=== PATIENT | female | born 1950 | race Caucasian/White ===

== ENCOUNTER 2021-06-08 19:16 | Inpatient (IN) ==
[2021-06-08 20:16] LABS: ABG ALLEN TEST POS; ABG BASE EXCESS 1.6 mmol/L (-2.0-2.0); ABG HCO3 23.9 mmol/L (22-26)
--- NOTE | 2021-06-08 20:20 | DR.SOBA ---
HPI Time Seen Time Seen by Provider: 06/08/21 20:14 HPI Comment HPI Comment: PATIENT RECENTLY DIAGNOSED WITH COVID 1 WEEK AGO COMPLAINS OF DYSNEA AND A PRODUCTIC COUGH AND MARKED EXERTIONAL DYSPNEA. DENIES FEVER, CHEST PAIN. 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 Family History Family Medical History: Cancer, CT, Coronary Artery Disease and Hypertension Social History Do you use any recreational Drugs:: No ROS Review of Systems Constitutional: Chills, Fever, Malaise and Weakness Eyes: No Symptoms Reported ENTM: No Symptoms Reported Respiratoy: Dry Cough and Short of Breath Cardiovascular: No Symptoms Reported Gastrointestinal/Abdominal: No Symptoms Reported Genitourinary: No Symptoms Reported Neurological: No Symptoms Reported Musculoskeletal: No Symptoms Reported Integumentary: No Symptoms Reported Hematologic/Lymphatic: No Symptoms Reported Endocrine: No Symptoms Reported Psychiatric: No Symptoms Reported All Other Systems: Reviewed and Negative PE Vital Signs Vitals: Pulse Rate 91 Respiratory Rate 33 Blood Pressure [Left Arm] 163/90 Blood Pressure [Right Arm] 176/96 Blood Pressure 128/65 O2 Sat by Pulse Oximetry 97 General General Appearance: Alert and In Distress (MODERATE TACHYPNEA) Head Head Exam: Normal Inspection and Atraumatic Eyes Eye exam: Normal Appearance, PERRL and EOMI Neck Neck Exam: Full ROM Chest Chest Inspection: Normal Inspection and Symmetric Chest Wall Rise Respiratory Respiratory Exam: Bilateral: Decreased Breath Sounds and Lower: Decreased Breath Sounds Cardiovascular Cardiovascular Exam: Regular Rate and Tachycardia Abdominal Exam Abdominal Exam: Normal Inspection and Normal Bowel Sounds Extremities Extremities Exam: Normal Inspection and Full ROM Back Back Exam: Normal Inspection and Full ROM Neurologic Neurological Exam: Alert and Oriented X3 Psychiatric Psychiatric Exam: Normal Affect and Normal Mood MDM Additional Information Obtained Additional Findings:: COVID PNEUMONIA Differential Diagnosis Differential Diagnosis: CHF, COPD, Pneumonia and Pulmonary embolism COURSE Treatment Treatment: IV NORMAL SALINE 150ML/HR, BLOOD CULTURES, LEVAQUIN 500GM IVPB, PULSE OX 70'S PLACED ON BIPAP, IMPROVEMENT IN AGB PH-7.49/C02-34/P02-74/HCO3-25.9/SAT-96%, CODE STATUS DISCUSSED WITH PATIENT REFUSES INTUBATION WITH PLACEMENT ON VENTILATOR, REQUEST CHEMICAL CODE ONLY Reevaluation 1st: Improved Consultation Call Returned: 04:00 Consultation Comments: DISCUSSED WITH DR MATT FOR INPATIENT ADMISSION Education/Counseling Educated On: Treatment and Diagnosis ROR Labs Reviewed Laboratory Results Reviewed?: Yes Result Diagrams: 06/08/21 20:42 06/08/21 20:42 Laboratory: WBC 8.5 X10^3/uL (3.6-10.0) 06/08/21 20:42 RBC 4.43 X10^6/uL (3.5-5.4) 06/08/21 20:42 Hgb 11.5 g/dL (12.0-16.0) L 06/08/21 20:42 Hct 35.1 % (36.0-47.0) L 06/08/21 20:42 MCV 79.2 fL (80.0-100.0) L 06/08/21 20:42 MCH 25.9 pg (27.0-34.0) L 06/08/21 20:42 MCHC 32.7 g/dL (33.0-35.0) L 06/08/21 20:42 RDW 16.2 % (11.6-16.5) 06/08/21 20:42 Plt Count 283 X10^3/uL (150.0-450.0) 06/08/21 20:42 Plt Count Comment Adequate (ADEQUATE) 06/08/21 20:42 MPV 7.3 fL (7.4-11.0) L 06/08/21 20:42 Neut % (Auto) 92.4 % (42.0-75.0) H 06/08/21 20:42 Lymph % (Auto) 1.9 % (21.0-51.0) L 06/08/21 20:42 [place]gard % (Auto) 5.4 % (0.0-13.0) 06/08/21 20:42 Eos % (Auto) 0.0 % (0.9-2.9) L 06/08/21 20:42 Baso % (Auto) 0.3 % (0.2-1.0) 06/08/21 20:42 Neut # (Auto) 7.8 x10^3/uL (2.2-4.8) H 06/08/21 20:42 Lymph # (Auto) 0.2 X10^3/uL (1.3-2.9) L 06/08/21 20:42 Bea[place]gard # (Auto) 0.5 x10^3/uL (0.3-0.8) 06/08/21 20:42 Eos # (Auto) 0.0 x10^3/uL (0.0-0.2) 06/08/21 20:42 Baso # (Auto) 0.0 X10^3/uL (0.0-0.1) 06/08/21 20:42 Absolute Nucleated RBC 0.2 /100WBC 06/08/21 20:42 Total Counted 100 06/08/21 20:42 Neutrophils % (Manual) 97 % (39-76) H 06/08/21 20:42 Lymphocytes % (Manual) 2 % (13-43) L 06/08/21 20:42 Monocytes % (Manual) 1 % (4-9) L 06/08/21 20:42 Plt Morphology Comment Normal (NORMAL) 06/08/21 20:42 RBC Morphology Normal (NORMAL) 06/08/21 20:42 PT 15.4 SECONDS (11.8-14.3) 06/08/21 20:42 INR Target Range - 06/08/21 20:42 INR 1.28 (0.8-1.3) 06/08/21 20:42 D-Dimer 1.49 ug/ml (0.0-0.57) H* 06/08/21 20:42 Sample Site Lra 06/09/21 02:10 ABG pH 7.490 (7.35-7.45) H 06/09/21 02:10 ABG pCO2 34.0 mmHg (35.0-45.0) L 06/09/21 02:10 ABG pO2 74.0 mmHg (80.0-100.0) L 06/09/21 02:10 ABG HCO3 25.9 mmol/L (22-26) 06/09/21 02:10 ABG O2 Saturation 96.0 % (90-100) 06/09/21 02:10 ABG Base Excess 2.8 mmol/L (-2.0-2.0) H 06/09/21 02:10 Herminio Test Pos 06/09/21 02:10 A-a Gradient 418.0 mmHg 06/09/21 02:10 FiO2 75.0 06/09/21 02:10 Blood Gas Comments Shyam well mts 06/09/21 02:10 Sodium 141 mmol/L (136-145) 06/08/21 20:42 Corrected Sodium 141 mmol/L (136-145) 06/08/21 20:42 Potassium 3.7 mmol/L (3.5-5.1) 06/08/21 20:42 Chloride 105 mmol/L (98-107) 06/08/21 20:42 Carbon Dioxide 26.9 mmol/L (21-32) 06/08/21 20:42 BUN 10 mg/dL (7-18) 06/08/21 20:42 Creatinine 0.82 mg/dL (0.55-1.02) 06/08/21 20:42 Est GFR (MDRD) Af Amer > 60 (>60) 06/08/21 20:42 Est GFR (MDRD) Non-Af > 60 (>60) 06/08/21 20:42 Glucose 119 mg/dL (65-99) H 06/08/21 20:42 Calcium 8.0 mg/dL (8.5-10.1) L 06/08/21 20:42 Corrected Calcium 9.4 mg/dL (8.5-10.1) 06/08/21 20:42 Ferritin 198 ng/mL (8-252) 06/08/21 20:42 Total Bilirubin 0.50 mg/dL (0.2-1.0) 06/08/21 20:42 AST 45 Units/L (15-37) H 06/08/21 20:42 ALT 34 Units/L (12-78) 06/08/21 20:42 Alkaline Phosphatase 67 Units/L (46-116) 06/08/21 20:42 Troponin I < 0.02 ng/mL (0-1.5) 06/08/21 20:42 C-Reactive Protein 37.40 mg/L (0-3.0) H 06/08/21 20:42 Total Protein 6.4 g/dL (6.4-8.2) 06/08/21 20:42 Albumin 2.2 g/dL (3.4-5.0) L 06/08/21 20:42 Globulin 4.2 g/dL (2.5-4.5) 06/08/21 20:42 Albumin/Globulin Ratio 0.5 Ratio (1.1-2.1) L 06/08/21 20:42 Specimen Type Catherized urine 06/09/21 03:30 Urine Color Yellow (YELLOW) 06/09/21 03:30 Urine Appearance Clear (CLEAR) 06/09/21 03:30 Urine pH 6.0 (5.0 - 8.0) 06/09/21 03:30 Ur Specific [place] 1.010 (1.000-1.030) 06/09/21 03:30 Urine Protein 2+ (NEGATIVE) 06/09/21 03:30 Urine Glucose (UA) Negative (NEGATIVE) 06/09/21 03:30 Urine Ketones Negative (NEGATIVE) 06/09/21 03:30 Urine Occult Blood 1+ (NEGATIVE) 06/09/21 03:30 Urine Nitrite Negative (NEGATIVE) 06/09/21 03:30 Urine Bilirubin Negative (NEGATIVE) 06/09/21 03:30 Urine Urobilinogen Normal (NORMAL) 06/09/21 03:30 Ur Leukocyte Esterase Negative (NEGATIVE) 06/09/21 03:30 Urine RBC 0-2 /HPF (0-3) 06/09/21 03:30 Urine WBC None seen /HPF (0-5) 06/09/21 03:30 Ur Squamous Epith Cells Negative /HPF (NEGATIVE) 06/09/21 03:30 Urine Bacteria Negative /HPF (NEGATIVE) 06/09/21 03:30 Ur Culture Indicated? No/not indicated 06/09/21 03:30 XRAY XRAY Interpreted by: Radiologist (CTA CHEST- NO EVIDENCE OF PULMONARY EMBOLISM, MODERATE BILAT GROUND GLASS INFILTRATES) X-ray Results: PORTABLE CHEST XRAY- BILAT PNEUMONIA EKG Rate: 104 Rhythm: NSR and ST ST: Nonsp Opioid Opioid Risk Tool Age ([place] box if 16-45): No History of Preadolescent Sexual Abuse: No Total: 0 Total Score Risk Category: Low Risk Copyright: Michele SOLIS predicting aberrant behaviors Diagnosis Discharge Problem: Acute dyspnea, Acute respiratory insufficiency, Pneumonia due to 2019-nCoV
[2021-06-08] MEDS ORDERED: NS 1000 ML 1,000 ML IV STA (20:25)
[2021-06-08] MEDS ORDERED: LEVAQUIN PREMIX IV 500 MG 500 MG/100 ML BAG IV ONE ×3 (20:26→21:58)
[2021-06-08 21:02] LABS: BASOPHILS % (AUTO) 0.3 % (0.2-1.0); HEMATOCRIT 35.1 % (36.0-47.0); HEMOGLOBIN 11.5 g/dL (12.0-16.0); LYMPHOCYTES # (AUTO) 0.2 X10^3/uL (1.3-2.9); LYMPHOCYTES % (AUTO) 1.9 % (21.0-51.0); MEAN CORPUSCULAR HEMOGLOBIN 25.9 pg (27.0-34.0); MEAN CORPUSCULAR HGB CONC 32.7 g/dL (33.0-35.0); MEAN CORPUSCULAR VOLUME 79.2 fL (80.0-100.0); MEAN PLATELET VOLUME 7.3 fL (7.4-11.0); MONOCYTES # (AUTO) 0.5 x10^3/uL (0.3-0.8); MONOCYTES % (AUTO) 5.4 % (0.0-13.0); NEUTROPHILS # (AUTO) 7.8 x10^3/uL (2.2-4.8); NEUTROPHILS % (AUTO) 92.4 % (42.0-75.0); PLATELET COUNT 283 X10^3/uL (150.0-450.0); RED BLOOD COUNT 4.43 X10^6/uL (3.5-5.4); RED CELL DISTRIBUTION WIDTH 16.2 % (11.6-16.5); WHITE BLOOD COUNT 8.5 X10^3/uL (3.6-10.0)
[2021-06-08] MEDS ORDERED: NS 1000 ML 1,000 ML ONE (21:08)
[2021-06-08 21:17] LABS: ALANINE AMINOTRANSFERASE 34 Units/L (12-78); ALBUMIN 2.2 g/dL (3.4-5.0); ALKALINE PHOSPHATASE 67 Units/L (46-116); ASPARTATE AMINO TRANSFERASE 45 Units/L (15-37); BLOOD UREA NITROGEN 10 mg/dL (7-18); CARBON DIOXIDE 26.9 mmol/L (21-32); CHLORIDE 105 mmol/L (98-107); COR CA(FOR HYPOALB) 9.4 mg/dL (8.5-10.1); COR NA(FOR HYPERGLY) 141 mmol/L (136-145); CREATININE 0.82 mg/dL (0.55-1.02); SODIUM 141 mmol/L (136-145); TOTAL PROTEIN 6.4 g/dL (6.4-8.2); TROPONIN I < 0.02 ng/mL (0-1.5); eGFR NON BLACK RACES > 60 (>60)
[2021-06-08 21:26] LABS: PLATELET MORPHOLOGY COMMENT NORMAL (NORMAL)
[2021-06-08] MEDS ORDERED: DUONEB 0.5 MG/3 MG (3 mL) NEB STA (21:48)
[2021-06-08] MEDS ORDERED: DUONEB 0.5 MG/3 MG (3 mL) NEB ONE (21:57)
--- NOTE | 2021-06-08 22:05 | RAD ---
PROCEDURE: Chest X-ray 1 View .HISTORY: Dyspnea and COVID-19.TECHNIQUE: AP view .COMPARISON: 06/03/2021.TECHNICAL QUALITY: Satisfactory .FINDINGS:Heart size upper limits of normal and unchanged.Normal central vascularity.Moderate consolidation throughout the right lung field and left base consistent with pneumonia that is increased or appeared since previous study. No pleural fluid or pneumothorax.IMPRESSION:Moderate bilateral pneumonia greatest on the right.Electronically signed by: Lenin Wilosn (Jun 08, 2021 22:03:38)
--- NOTE | 2021-06-08 23:28 | CT ---
PROCEDURE: CTA Chest .HISTORY: Dyspnea, anorexia, and COVID-19.TECHNIQUE: Axial images were performed through the chest with the administration of IV contrast with multiplanar reformations . 3D and MIPS reconstructions were performed and reviewed. Dose reduction techniques including Automated Exposure Control (AEC) and adjustment of mA and kV were utilized .COMPARISON: None .TECHNICAL QUALITY: Satisfactory .FINDINGS:Mild atherosclerosis thoracic aorta with no aneurysm or dissection.No evidence of pulmonary embolus.Mediastinum and hilar regions show no masses or lymphadenopathy.Normal size heart with no pericardial fluid.Moderately severe ground-glass consolidation both lung lopez consistent with COVID-19 pneumonia. No pleural fluid or pulmonary masses.Visualized upper abdomen shows no significant abnormality.No acute bony abnormality.IMPRESSION:1. No pulmonary embolus or aortic dissection.2. Moderately severe COVID-19 pneumonia.Electronically signed by: Lenin Wilson (Jun 08, 2021 23:25:31)
[2021-06-09 02:15] LABS: ABG BASE EXCESS 2.8 mmol/L (-2.0-2.0); ABG HCO3 25.9 mmol/L (22-26)
[2021-06-09 02:16] LABS: ABG ALLEN TEST POS
[2021-06-09 04:29] LABS: BILIRUBIN,URINE NEGATIVE (NEGATIVE); BLOOD/HEMOGLOBIN,URINE 1+ (NEGATIVE); GLUCOSE, URINE NEGATIVE (NEGATIVE); KETONES,URINE NEGATIVE (NEGATIVE); LEUKOCYTE ESTERASE ,URINE NEGATIVE (NEGATIVE); NITRITES,URINE NEGATIVE (NEGATIVE); PROTEIN,URINE 2+ (NEGATIVE); UROBILINOGEN,URINE NORMAL (NORMAL)
[2021-06-09 04:36] LABS: APPEARANCE,URINE CLEAR (CLEAR); COLOR,URINE YELLOW (YELLOW)
[2021-06-09 04:37] LABS: BACTERIA,URINE NEGATIVE /HPF (NEGATIVE); RBC,URINE 0-2 /HPF (0-3); SQUAMOUS EPITHELIAL CELL,UR NEGATIVE /HPF (NEGATIVE)
[2021-06-09] MEDS ORDERED: NORCURON INJ 10 MG VIAL ONE (06:43)
[2021-06-09] MEDS ORDERED: QUELICIN (OR ANECTINE) ONE (06:43)
[2021-06-09] MEDS ORDERED: DUONEB 0.5 MG/3 MG (3 mL) NEB SCH (06:48)
[2021-06-09] MEDS: PULMICORT NEB TX 0.5 MG NEB SCH ×2 (08:48→20:40)
[2021-06-09] MEDS: BROVANA IN SCH ×2 (08:48→20:40)
[2021-06-09] MEDS ORDERED: PROVENTIL NEB TX 0.083% 2.5MG/ 3ML NEB PRN (09:00)
[2021-06-09] MEDS: NS 1000 ML 1,000 ML IV SCH ×3 (09:46→22:38)
[2021-06-09] MEDS ORDERED: NS 1000 ML 1,000 ML ONE (10:03)
[2021-06-09] MEDS ORDERED: ZOFRAN INJ 4 MG VIAL IVP PRN (10:08)
[2021-06-09] MEDS ORDERED: ZOFRAN INJ 4 MG VIAL ONE (10:35)
[2021-06-09] MEDS ORDERED: HumuLIN R SUBCUT PRN (10:36)
[2021-06-09] MEDS ORDERED: REMDESIVIR 200 MG in NS 250 ML IV 250 ML IV ONE (10:36)
[2021-06-09] MEDS ORDERED: ROBITUSSIN DM PO PRN (10:36)
[2021-06-09] MEDS ORDERED: PHARMACY CONSULT - IVERMECTIN XX SCH (11:00)
[2021-06-09] MEDS ORDERED: ZyrTEC TAB 10 MG ONE (11:36)
[2021-06-09] MEDS ORDERED: NORVASC TAB 5 MG ONE (11:36)
[2021-06-09] MEDS ORDERED: SOLU-Medrol 40 MG VIAL ONE (11:36)
[2021-06-09] MEDS ORDERED: IVERMECTIN ONE (11:36)
[2021-06-09] MEDS ORDERED: VITAMIN D3 125 mcg (5,000 UNITS) ONE (11:36)
[2021-06-09] MEDS ORDERED: ZINC SULFATE ONE (11:36)
[2021-06-09] MEDS ORDERED: PEPCID TAB 20 MG ONE (11:36)
[2021-06-09] MEDS ORDERED: PROTONIX INJ 40 MG VIAL ONE (11:37)
[2021-06-09] MEDS ORDERED: REMDESIVIR IV ONE (11:37)
[2021-06-09] MEDS ORDERED: NS 250 ML IV 250 ML IV ONE (11:37)
[2021-06-09] MEDS: PEPCID TAB 20 MG PO SCH ×2 (12:04→20:50)
[2021-06-09] MEDS: PROTONIX INJ 40 MG VIAL IVP SCH ×2 (12:05→20:49)
[2021-06-09] MEDS: SOLU-Medrol 40 MG VIAL IVP SCH ×3 (12:05→21:01)
[2021-06-09] MEDS: VITAMIN D3 125 mcg (5,000 UNITS) PO SCH (12:06)
--- NOTE | 2021-06-09 13:05 | DR.H&P ---
H&P - History & Physical for Day of: H&P Date: 06/09/21 - Chief Complaint Chief Complaint: PRODUCTIVE COUGH, MARKED EXERTIONAL DYSPNEA, FATIGUE, WEAKNESS, FEVER, AND DECREASED APPETITE. COVID POSITIVE - History of Present Illness History of Present Illness: IS A 70 YEAR OLD PATIENT OF OURS. SHE PRESENTED TO THE ER WITH COMPLAINTS OF A PRODUCTIVE COUGH, MARKED EXERTIONAL DYSPNEA, FATIGUE, WEAKNESS, FEVER, AND DECREASED APPETITE. SHE ADMITS TO TESTING POSITIVE FOR COVID-19 ABOUT A WEEK AGO. HER SYMPTOMS APPARENTLY STARTED ALMOST 3 WEEKS AGO. AT HOME, SHE HAS TAKEN IVERMECTIN 15MG DAILY X 5 DAYS, A Z-ALICIA, DOXYCYCLINE 100MG DAILY X 5 DAYS, AND A MEDROL DOSEPACK. SHE DENIED IMPROVEMENT IN SYMPTOMS DESPITE COMPLIANCE WITH MEDICATIONS. ON ARRIVAL TO THE HOSPITAL, VITALS WERE 99.1-104-76%([place])-150/89. SHE WAS PLACED ON HEATED HIGH FLOW OXYGEN. OXYGEN SATURATIONS THEN INCREASED TO THE 90s. LABS WERE OBTAINED. ABNORMAL LAB VALUES INCLUDE THE FOLLOWING: HGB 11.5, HCT 35.1, D-DIMER 1.49, GLUCOSE 119, CALCIUM 8.0, AST 45, CRP 37.40, ALBUMIN 2.2. ABG REVEALED: PH 7.510, PC02 30, P02 133, HC03 23.9, 02 SAT 99, BASE EXCESS 1.6, A-A GRADIENT 543, FI02 100. BLOOD CULTURES WERE SET UP. URINALYSIS UNREMARKABLE. CHEST XRAY OBTAINED AND REVEALED: Moderate bilateral pneumonia greatest on the right. A CHEST CTA WAS OBTAINED AND REVEALED: 1. No pulmonary embolus or aortic dissection. 2. Moderately severe COVID-19 pneumonia. EKG REVEALED: SINUS TACHYCARDIA WITH HR 104. SHE WAS STARTED ON NS AT 75 ML/HR, REMDESIVIR 100MG IV DAILY LEVAQUIN 500MG IV DAILY, SOLU-MEDROL 80MG IV Q8H, IVERMECTIN 15MG PO DAILY X 5 DAYS, PROTONIX 40MG PO BID, PEPCID 20MG PO BID, THIAMINE 200MG IV BID, ZINC 220MG PO DAILY, SINGULAIR 10MG PO HS, ZYRTEC 10MG PO DAILY, OTBS ACHS, HUMULIN R SLIDING SCALE, MELATONIN 10MG PO HS, ROBITUSSIN DM 10ML PO QID PRN, DIFLUCAN 100MG PO DAILY, LOVENOX 30MG SC BID, PERIACTIN 8MG PO TID, PULMICORT NEBS BID, ALBUTEROL NEBS QID, BROVANA INHALER BID, TESSALON PERLES 200MG PO TID, LIPITOR 80MG PH HS, ASCORBIC ACID 1500MG IV Q6H, FLUVOXAMINE 50MG PO BID, ZOFRAN 4MG IV Q4H PRN NAUSEA, AMBIEN 5MG PO HS PRN, AND MAGIC MOUTHWASH QID. WE PLAN TO OBTAIN AN ECHO. OTHERWISE, WE WILL FOLLOW UP WITH AM LABS, CHEST XRAY, ABG AND CONTINUE TO MONITOR. TIME SPENT ON CLINICAL ASSESSMENT, REVIEWING LABS AND IMAGING, DECISION MAKING, AND DOCUMENTATION GREATER THAN 75 MINUTES. 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 - Family History Family Medical History: Cancer, MD, Sudden Cardiac - Social History Does patient currently use any type of tobacco product: No Have you used tobacco products in the last 12 months: No Type of Tobacco Use: None Does any household member use tobacco: No Alcohol Use: None Drug Use: None - Medications Home Medications: nalbuphine [From Nubain] Allergy (Verified 05/15/18 14:34) Penicillins Allergy (Verified 05/15/18 14:34) CONTINUE taking the following medications amlodipine 5 mg PO DAILY 06/09/21 [History] eszopiclone [Lunesta] 2 mg PO QHS 06/09/21 [History] montelukast 10 mg PO DAILY 06/09/21 [History] pantoprazole 40 mg PO DAILY 06/09/21 [History] paroxetine HCl 30 mg PO BID 06/09/21 [History] - Review of Systems Constitutional: Fever, Weakness Eyes: No Symptoms Reported ENT: No Symptoms Reported Respiratory: See HPI, Cough, Shortness of Breath, SOB with Excertion, Sputum Cardiovascular: No Symptoms Reported Gastrointestinal: No Symptoms Reported Genitourinary: No Symptoms Reported Musculoskeletal: No Symptoms Reported Skin: No Symptoms Reported Neurological: Weakness - Physical Exam Vital Signs: Temperature 98.3 F Pulse Rate 94 Respiratory Rate 35 Blood Pressure [Left Arm] 163/90 Blood Pressure [Right Arm] 176/96 Blood Pressure 107/56 O2 Sat by Pulse Oximetry 99 Oriented: Normal Eyes: Normal Ear: Normal Nose: Normal Throat: Normal Respiratory: Rales Throughout Cardiovascular: Tachycardia : Normal Auscultation: Bowel Sounds: Normal Palpation: Normal Tenderness: Normal Skin: Decreased Turgur Musculoskeletal: Normal Psychiatric: Normal Mood Description: Calm Affect: Normal Speech Pattern: Clear - Assessment/Plan (1) Pneumonia due to 2019-nCoV Status: Acute Plan: ADMIT, SUPPLEMENTAL OXYGEN, RESPIRATORY THERAPY, NEB TX, ANTIBIOTICS, IVERMECTIN, SOLU-MEDROL (2) Acute respiratory insufficiency Status: Acute (3) Hypoxia Status: Acute (4) Acute dyspnea Status: Acute - Allergies Allergies/Adverse Reactions: Allergies Allergy/AdvReac Type Severity Reaction Status Date / Time nalbuphine [From Nubain] Allergy Verified 05/15/18 14:34 Penicillins Allergy Verified 05/15/18 14:34
[2021-06-09] MEDS ORDERED: LOVENOX INJ 30 MG SYR SC ONE (13:27)
[2021-06-09] MEDS: NORVASC TAB 5 MG PO SCH (13:45)
[2021-06-09] MEDS: MAGIC MOUTHWASH MT SCH ×5 (13:45→21:39)
[2021-06-09] MEDS: FLUVOXAMINE MALEATE PO SCH ×2 (13:45→20:49)
[2021-06-09] MEDS: ZINC SULFATE PO SCH (13:46)
[2021-06-09] MEDS: IVERMECTIN PO SCH (13:46)
[2021-06-09] MEDS: LOVENOX INJ 30 MG SYR SC SCH ×2 (13:47→20:52)
[2021-06-09] MEDS ORDERED: TESSALON PERLES PO ONE (14:51)
[2021-06-09] MEDS: ASCORBIC ACID INJ MULTI-DOSE VIAL 1,500 MG in NS 50 ML IV 50 ML IV SCH ×2 (15:00→20:49)
[2021-06-09] MEDS ORDERED: TORADOL 30 MG VIAL ONE (15:22)
[2021-06-09] MEDS: TORADOL 30 MG VIAL IVP PRN (15:28)
[2021-06-09] MEDS: PERIACTIN TAB 4 MG PO SCH ×2 (16:37→21:01)
[2021-06-09] MEDS: TESSALON PERLES PO SCH ×2 (16:37→21:01)
[2021-06-09] MEDS: LIPITOR TAB 80 MG PO SCH (20:50)
[2021-06-09] MEDS: MELATONIN PO SCH (20:50)
[2021-06-09] MEDS: SNACK - Diabetic Appropriate PO SCH (20:50)
[2021-06-09] MEDS: SINGULAIR TAB 10 MG PO SCH (20:51)
[2021-06-09] MEDS: THIAMINE HCL INJ IVP SCH (20:53)
[2021-06-09] MEDS: AMBIEN PO PRN (23:55)
[2021-06-10] MEDS: NS 1000 ML 1,000 ML IV SCH ×2 (02:26→22:08)
[2021-06-10] MEDS: ASCORBIC ACID INJ MULTI-DOSE VIAL 1,500 MG in NS 50 ML IV 50 ML IV SCH ×4 (02:26→21:56)
[2021-06-10 04:39] LABS: ABG ALLEN TEST POS; ABG BASE EXCESS 2.6 mmol/L (-2.0-2.0); ABG HCO3 27.2 mmol/L (22-26)
[2021-06-10] MEDS: PERIACTIN TAB 4 MG PO SCH ×4 (05:15→22:07)
[2021-06-10] MEDS: TESSALON PERLES PO SCH ×4 (05:15→22:07)
[2021-06-10] MEDS: SOLU-Medrol 40 MG VIAL IVP SCH ×3 (05:16→22:08)
--- NOTE | 2021-06-10 05:31 | RAD ---
PROCEDURE: Chest X-ray 1 View .HISTORY: Dyspnea and COVID-19.TECHNIQUE: AP view .COMPARISON: 06/08/2021.TECHNICAL QUALITY: Satisfactory .FINDINGS:Unremarkable cardio mediastinal silhouette.Bilateral pneumonia similar to previous study allowing for technical differences with no pleural fluid or pneumothorax.IMPRESSION:Unchanged bilateral pneumonia.Electronically signed by: Lenin Wilson (Jun 10, 2021 05:29:22)
[2021-06-10 06:16] LABS: BASOPHILS % (AUTO) 0.1 % (0.2-1.0); HEMATOCRIT 31.8 % (36.0-47.0); HEMOGLOBIN 10.7 g/dL (12.0-16.0); LYMPHOCYTES # (AUTO) 0.2 X10^3/uL (1.3-2.9); LYMPHOCYTES % (AUTO) 2.3 % (21.0-51.0); MEAN CORPUSCULAR HEMOGLOBIN 26.4 pg (27.0-34.0); MEAN CORPUSCULAR HGB CONC 33.8 g/dL (33.0-35.0); MEAN CORPUSCULAR VOLUME 78.3 fL (80.0-100.0); MEAN PLATELET VOLUME 7.6 fL (7.4-11.0); MONOCYTES # (AUTO) 0.3 x10^3/uL (0.3-0.8); MONOCYTES % (AUTO) 3.9 % (0.0-13.0); NEUTROPHILS # (AUTO) 6.1 x10^3/uL (2.2-4.8); NEUTROPHILS % (AUTO) 93.7 % (42.0-75.0); PLATELET COUNT 295 X10^3/uL (150.0-450.0); RED BLOOD COUNT 4.06 X10^6/uL (3.5-5.4); RED CELL DISTRIBUTION WIDTH 16.3 % (11.6-16.5); WHITE BLOOD COUNT 6.5 X10^3/uL (3.6-10.0)
[2021-06-10 06:30] LABS: ALANINE AMINOTRANSFERASE 31 Units/L (12-78); ALBUMIN 1.9 g/dL (3.4-5.0); ALKALINE PHOSPHATASE 57 Units/L (46-116); ASPARTATE AMINO TRANSFERASE 47 Units/L (15-37); BLOOD UREA NITROGEN 13 mg/dL (7-18); CALCIUM 8.4 mg/dL (8.5-10.1); CARBON DIOXIDE 27.4 mmol/L (21-32); CHLORIDE 113 mmol/L (98-107); COR CA(FOR HYPOALB) 10.1 mg/dL (8.5-10.1); COR NA(FOR HYPERGLY) 149 mmol/L (136-145); CREATININE 0.67 mg/dL (0.55-1.02); SODIUM 148 mmol/L (136-145); TOTAL PROTEIN 5.8 g/dL (6.4-8.2); eGFR NON BLACK RACES > 60 (>60)
[2021-06-10] MEDS ORDERED: ZyrTEC TAB 10 MG ONE (07:22)
[2021-06-10] MEDS ORDERED: REMDESIVIR IV ONE (07:23)
[2021-06-10] MEDS ORDERED: NS 250 ML IV 250 ML IV ONE (07:25)
[2021-06-10 07:54] LABS: PLATELET MORPHOLOGY COMMENT NORMAL (NORMAL)
[2021-06-10] MEDS: DIFLUCAN PO SCH (08:29)
[2021-06-10] MEDS: FLUVOXAMINE MALEATE PO SCH ×2 (08:29→21:55)
[2021-06-10] MEDS: MAGIC MOUTHWASH MT SCH ×4 (08:30→22:09)
[2021-06-10] MEDS: LOVENOX INJ 30 MG SYR SC SCH ×2 (08:30→21:57)
[2021-06-10] MEDS: IVERMECTIN PO SCH (08:30)
[2021-06-10] MEDS: PEPCID TAB 20 MG PO SCH ×2 (08:31→21:58)
[2021-06-10] MEDS: ZyrTEC TAB 10 MG PO SCH (08:31)
[2021-06-10] MEDS: REMDESIVIR 100 MG in NS 250 ML IV 250 ML IV SCH (08:32)
[2021-06-10] MEDS: VITAMIN D3 125 mcg (5,000 UNITS) PO SCH (08:32)
[2021-06-10] MEDS: PROTONIX INJ 40 MG VIAL IVP SCH ×2 (08:32→21:59)
[2021-06-10] MEDS: ZINC SULFATE PO SCH (08:33)
[2021-06-10] MEDS: THIAMINE HCL INJ IVP SCH ×2 (08:33→22:00)
[2021-06-10] MEDS: BROVANA IN SCH ×2 (09:11→21:30)
[2021-06-10] MEDS: PULMICORT NEB TX 0.5 MG NEB SCH ×2 (09:11→21:30)
[2021-06-10] MEDS ORDERED: MORPHINE SULFATE INJ 2 MG INJ ONE (10:17)
[2021-06-10] MEDS: MORPHINE SULFATE INJ 2 MG INJ IVP PRN (10:20)
[2021-06-10] MEDS: NORVASC TAB 5 MG PO SCH (13:23)
[2021-06-10] MEDS: MELATONIN PO SCH (21:55)
[2021-06-10] MEDS: LIPITOR TAB 80 MG PO SCH (21:55)
[2021-06-10] MEDS: SNACK - Diabetic Appropriate PO SCH (21:56)
[2021-06-10] MEDS: SINGULAIR TAB 10 MG PO SCH (21:58)
[2021-06-10] MEDS: LEVAQUIN PREMIX IV 500 MG 500 MG/100 ML BAG IV SCH (22:31)
[2021-06-11] MEDS: AMBIEN PO PRN (00:22)
[2021-06-11] MEDS: NS 1000 ML 1,000 ML IV SCH ×2 (00:43→03:42)
[2021-06-11] MEDS: ASCORBIC ACID INJ MULTI-DOSE VIAL 1,500 MG in NS 50 ML IV 50 ML IV SCH ×4 (03:43→22:03)
[2021-06-11 05:06] LABS: BASOPHILS % (AUTO) 0.1 % (0.2-1.0); HEMATOCRIT 30.8 % (36.0-47.0); HEMOGLOBIN 10.1 g/dL (12.0-16.0); LYMPHOCYTES # (AUTO) 0.2 X10^3/uL (1.3-2.9); MEAN CORPUSCULAR HEMOGLOBIN 25.8 pg (27.0-34.0); MEAN CORPUSCULAR HGB CONC 32.7 g/dL (33.0-35.0); MEAN CORPUSCULAR VOLUME 78.9 fL (80.0-100.0); MEAN PLATELET VOLUME 7.9 fL (7.4-11.0); MONOCYTES # (AUTO) 0.6 x10^3/uL (0.3-0.8); MONOCYTES % (AUTO) 3.3 % (0.0-13.0); NEUTROPHILS # (AUTO) 18.8 x10^3/uL (2.2-4.8); NEUTROPHILS % (AUTO) 95.6 % (42.0-75.0); PLATELET COUNT 385 X10^3/uL (150.0-450.0); RED CELL DISTRIBUTION WIDTH 16.4 % (11.6-16.5); WHITE BLOOD COUNT 19.6 X10^3/uL (3.6-10.0)
[2021-06-11 05:26] LABS: ALANINE AMINOTRANSFERASE 28 Units/L (12-78); ALBUMIN 1.9 g/dL (3.4-5.0); ALKALINE PHOSPHATASE 64 Units/L (46-116); ASPARTATE AMINO TRANSFERASE 42 Units/L (15-37); BLOOD UREA NITROGEN 21 mg/dL (7-18); CALCIUM 8.4 mg/dL (8.5-10.1); CARBON DIOXIDE 29.3 mmol/L (21-32); COR CA(FOR HYPOALB) 10.1 mg/dL (8.5-10.1); COR NA(FOR HYPERGLY) 151 mmol/L (136-145); CREATININE 0.61 mg/dL (0.55-1.02); TOTAL PROTEIN 5.7 g/dL (6.4-8.2); eGFR NON BLACK RACES > 60 (>60)
[2021-06-11 05:32] LABS: CHLORIDE 116 mmol/L (98-107); SODIUM 151 mmol/L (136-145)
[2021-06-11 06:01] LABS: PLATELET MORPHOLOGY COMMENT NORMAL (NORMAL)
[2021-06-11] MEDS: PERIACTIN TAB 4 MG PO SCH ×3 (07:20→22:47)
[2021-06-11] MEDS: TESSALON PERLES PO SCH ×3 (07:20→22:47)
[2021-06-11] MEDS: SOLU-Medrol 40 MG VIAL IVP SCH ×4 (07:20→22:05)
[2021-06-11] MEDS: MAGIC MOUTHWASH MT SCH ×5 (08:04→22:45)
--- NOTE | 2021-06-11 08:32 | RAD ---
HISTORYSOBSTUDYCHEST, 1 VIEWCOMPARISONA sapphire 2020FINDINGSPatchy bilateral areas of opacity are present. There may be a slight improvement when compared to the prior study.No pleural effusion or pneumothorax.Heart size is normal. Vascular calcifications are present compatible with atherosclerosis.Old right clavicle fracture.EKG leads are noted.IMPRESSION1. Improved bronchopneumoniaElectronically signed by: Andrew Ferreira (Jun 11, 2021 08:29:56)
[2021-06-11] MEDS: PULMICORT NEB TX 0.5 MG NEB SCH ×2 (09:41→21:24)
[2021-06-11] MEDS: BROVANA IN SCH ×2 (09:41→21:24)
[2021-06-11] MEDS ORDERED: NS 1/2 1000 ML IV 1,000 ML IV ONE (10:11)
[2021-06-11] MEDS: ALBUMIN HUMAN 25%- 100 ML 100 ML IV SCH (10:17)
[2021-06-11] MEDS: PROTONIX INJ 40 MG VIAL IVP SCH ×2 (10:19→22:03)
[2021-06-11] MEDS: FLUVOXAMINE MALEATE PO SCH ×2 (10:19→22:44)
[2021-06-11] MEDS: NORVASC TAB 5 MG PO SCH (10:19)
[2021-06-11] MEDS: ZINC SULFATE PO SCH (10:20)
[2021-06-11] MEDS: IVERMECTIN PO SCH (10:29)
[2021-06-11] MEDS: NS 1/2 1000 ML IV 1,000 ML IV SCH (10:29)
[2021-06-11] MEDS: PEPCID TAB 20 MG PO SCH ×2 (10:29→22:46)
[2021-06-11] MEDS: ZyrTEC TAB 10 MG PO SCH (10:30)
[2021-06-11] MEDS: XANAX PO SCH ×3 (10:30→22:47)
[2021-06-11] MEDS: REMDESIVIR 100 MG in NS 250 ML IV 250 ML IV SCH (10:30)
[2021-06-11] MEDS: VITAMIN D3 125 mcg (5,000 UNITS) PO SCH (10:31)
[2021-06-11] MEDS: THIAMINE HCL INJ IVP SCH ×2 (10:31→22:46)
[2021-06-11] MEDS: DIFLUCAN PO SCH (10:32)
[2021-06-11] MEDS: LOVENOX INJ 80 MG SYR SC SCH ×2 (11:16→22:05)
[2021-06-11] MEDS ORDERED: PROVENTIL NEB TX 0.083% 2.5MG/ 3ML ONE (11:54)
--- NOTE | 2021-06-11 12:16 | VAS ---
HISTORYELEVATED D DIMER, NO COMPLAINTS OF EXT[Extremity pain, swelling, and edema]Study: Bilateral upper extremity Doppler venous ultrasound.Comparison: No recent priors.TECHNIQUE: Multiple ware scale and color flow Doppler images of the deep venous system were obtained of the right and left upper extremity.FINDINGS:The deep venous system of the right and left upper extremity evaluated from the level of the internal jugular vein through the [radial and ulnar veins]. Normal color flow and augmentation can be observed. In addition, normal compression is seen throughout the upper extremity deep venous system. [No soft tissue hematoma is seen.]IMPRESSION:1. Negative examination for DVT.Electronically signed by: DAVID LEIGH III (Jun 11, 2021 12:13:36)
--- NOTE | 2021-06-11 12:16 | VAS ---
HISTORYELEVATED D DIMER, NO UE OR LE COMPLAINTSExtremity pain, swelling, and edemaStudy: Bilateral lower extremity Doppler venous ultrasound.TECHNIQUE: Multiple ware scale and color flow Doppler images of the deep venous system were obtained of the [right and left] lower extremity.FINDINGS:The deep venous system of the [right and left lower extremities were] evaluated from the level of the common femoral veins through the popliteal veins, bilaterally.Normal color flow and augmentation can be observed. In addition, normal compression is seen throughout the deep venous system. No Cote's cyst is seen.IMPRESSION:1. Negative examination for DVT.Electronically signed by: DAVID LEIGH III (Jun 11, 2021 12:14:15)
[2021-06-11] MEDS: PROVENTIL NEB TX 0.083% 2.5MG/ 3ML NEB SCH ×3 (12:25→21:24)
--- NOTE | 2021-06-11 12:35 | PCM.PROG ---
Progress Note - Progress Note for Day of Date of Exam: 06/10/21 - Subjective Subjective: WAS ADMITTED FOR TREATMENT OF PNEUMONIA DUE TO COVID-19 AND ACUTE RESPIRATORY FAILURE WITH HYPOXIA. TODAY, SHE IS ALERT AND OREINTED, SITTING UP IN BED ON MORNING ROUNDS. SHE REPORTS PERSISTENT COUGH AND SHORTNESS OF BREATH. SHORNTESS OF BREATH IS WORSE TODAY. PATIENT HAS LABORED BREATHING ON ROUNDS. SHE HAS BEEN ON HEATED HIGH FLOW OXYGEN. OXYGEN SATURATIONS HAVE REMAINED 88-94%. WITHOUT OXYGEN, PATIENTS SATURATIONS DROP TO THE 70s. ON EXAMINATION, HEART IS REGULAR IN RATE AND RHYTHM. BILATERAL LUNGS NOTED WITH RALES THROUGHOUT. ABDOMEN IS ROUND, SOFT, AND NON-TENDER WITH NORMAL BOWEL SOUNDS NOTED IN ALL QUADRANTS. HER VITALS THIS MORNING ARE: 98.1-84-20-94%-97/61. LABS WERE OBTAINED. ABNORMAL LAB VALUES INCLUDE THE FOLLOWING: HGB 10.7, HCT 31.8, D-DIMER 3.74, SODIUM 148, POTASSIUM 3.1, CHLORIDE 113, GLUCOSE 135, CALCIUM 8.4, AST 47, CRP 48.30, BNP 187, TOTAL PROTEIN 5.8, ALBUMIN 1.9. BLOOD CULTURES PENDING. ABG REPEATED TODAY AND REVEALED: PH 7.430, PC02 41, P02 51, HC03 27.2, 02 SAT 87, BASE EXCESS 2.6, A-A GRADIENT 554, FI02 92.0. CHEST XRAY REVEALED: Unremarkable cardio mediastinal silhouette. Bilateral pneumonia similar to previous study allowing for technical differences with no pleural fluid or pneumothorax. SHE IS CURRENTLY RECEIVING NS AT 75 ML/HR, REM DESIVIR 100MG IV DAILY LEVAQUIN 500MG IV DAILY, SOLU-MEDROL 80MG IV Q8H, IVERMECTIN 15MG PO DAILY X 5 DAYS, PROTONIX 40MG PO BID, PEPCID 20MG PO BID, THIAMINE 200MG IV BID, ZINC 220MG PO DAILY, SINGULAIR 10MG PO HS, ZYRTEC 10MG PO DAILY, OTBS ACHS, HUMULIN R SLIDING SCALE, MELATONIN 10MG PO HS, ROBITUSSIN DM 10ML PO QID PRN, DIFLUCAN 100MG PO DAILY, LOVENOX 30MG SC BID, PERIACTIN 8MG PO TID, PULMICORT NEBS BID, ALBUTEROL NEBS QID, BROVANA INHALER BID, TESSALON PERLES 200MG PO TID, LIPITOR 80MG PH HS, ASCORBIC ACID 1500MG IV Q6H, FLUVOXAMINE 50MG PO BID, ZOFRAN 4MG IV Q4H PRN NAUSEA, AMBIEN 5MG PO HS PRN, AND MAGIC MOUTHWASH QID. WE WILL CONTINUE WITH CURRENT PLAN OF CARE TODAY. WE PLAN TO FOLLOW UP WITH AM LABS AND CHEST XRAY AND CONTINUE TO MONITOR. TIME SPENT ON CLINICAL ASSESSMENT, REVIEWING LABS AND IMAGING, DECISION MAKING, AND DOCUMENTATION GREATER THAN 45 MINUTES. - Past Medical Family Social History Past Med/Fam/Surg Hx: No changes since H&P Allergies: Allergies nalbuphine [From Nubain] Allergy (Verified 05/15/18 14:34) Penicillins Allergy (Verified 05/15/18 14:34) - Review of Systems ROS: No change since H&P - Vital Signs and I&O's Vital Signs: Temperature 97.1 F Pulse Rate 88 Respiratory Rate 67 Blood Pressure [Left Arm] 163/90 Blood Pressure [Right Arm] 176/96 Blood Pressure 114/67 O2 Sat by Pulse Oximetry 100 Intake and Output: Intake & Output 06/09/21 06/10/21 06/11/21 06/12/21 11:59 11:59 11:59 11:59 Intake Total 2054 / 2054 2287 / 2287 Output Total 2675 / 2675 600 / 600 Balance -621 / -621 1687 / 1687 - Physical Exam Oriented: Normal Eyes: Normal Ear: Normal Nose: Normal Throat: Normal Respiratory: Generalized, Rales Cardiovascular: Tachycardia : Normal Auscultation: Bowel Sounds: Normal Palpation: Normal Tenderness: Normal Skin: Decreased [place]urg[place] Musculoskeletal: Normal Psychiatric: Normal Mood Description: Calm Affect: Normal Speech Pattern: Clear, Appropriate - Laboratory and Diagnostics Result Diagrams: 06/11/21 04:25 06/11/21 04:25 Labs: 06/08/21 20:50 Blood Blood Culture - Preliminary 06/08/21 20:42 Blood Blood Culture - Preliminary Laboratory WBC 19.6 X10^3/uL (3.6-10.0) H D 06/11/21 04:25 RBC 3.90 X10^6/uL (3.5-5.4) 06/11/21 04:25 Hgb 10.1 g/dL (12.0-16.0) L 06/11/21 04:25 Hct 30.8 % (36.0-47.0) L 06/11/21 04:25 MCV 78.9 fL (80.0-100.0) L 06/11/21 04:25 MCH 25.8 pg (27.0-34.0) L 06/11/21 04:25 MCHC 32.7 g/dL (33.0-35.0) L 06/11/21 04:25 RDW 16.4 % (11.6-16.5) 06/11/21 04:25 Plt Count 385 X10^3/uL (150.0-450.0) 06/11/21 04:25 Plt Count Comment Adequate (ADEQUATE) 06/11/21 04:25 MPV 7.9 fL (7.4-11.0) 06/11/21 04:25 Neut % (Auto) 95.6 % (42.0-75.0) H 06/11/21 04:25 Lymph % (Auto) 1.0 % (21.0-51.0) L 06/11/21 04:25 [place] % (Auto) 3.3 % (0.0-13.0) 06/11/21 04:25 Eos % (Auto) 0.0 % (0.9-2.9) L 06/11/21 04:25 Baso % (Auto) 0.1 % (0.2-1.0) L 06/11/21 04:25 Neut # (Auto) 18.8 x10^3/uL (2.2-4.8) H 06/11/21 04:25 Lymph # (Auto) 0.2 X10^3/uL (1.3-2.9) L 06/11/21 04:25 [place] # (Auto) 0.6 x10^3/uL (0.3-0.8) 06/11/21 04:25 Eos # (Auto) 0.0 x10^3/uL (0.0-0.2) 06/11/21 04:25 Baso # (Auto) 0.0 X10^3/uL (0.0-0.1) 06/11/21 04:25 Absolute Nucleated RBC 0.1 /100WBC 06/11/21 04:25 Total Counted 100 06/11/21 04:25 Neutrophils % (Manual) 99 % (39-76) H 06/11/21 04:25 Lymphocytes % (Manual) 1 % (13-43) L 06/11/21 04:25 Monocytes % (Manual) 1 % (4-9) L 06/08/21 20:42 Plt Morphology Comment Normal (NORMAL) 06/11/21 04:25 RBC Morphology Normal (NORMAL) 06/11/21 04:25 PT 15.4 SECONDS (11.8-14.3) 06/08/21 20:42 INR Target Range - 06/08/21 20:42 INR 1.28 (0.8-1.3) 06/08/21 20:42 D-Dimer 5.32 ug/ml (0.0-0.57) H* 06/11/21 04:25 Sample Site Lr 06/10/21 04:32 ABG pH 7.430 (7.35-7.45) 06/10/21 04:32 ABG pCO2 41.0 mmHg (35.0-45.0) 06/10/21 04:32 ABG pO2 51.0 mmHg (80.0-100.0) L 06/10/21 04:32 ABG HCO3 27.2 mmol/L (22-26) H 06/10/21 04:32 ABG O2 Saturation 87.0 % (90-100) L 06/10/21 04:32 ABG Base Excess 2.6 mmol/L (-2.0-2.0) H 06/10/21 04:32 Herminio Test Pos 06/10/21 04:32 A-a Gradient 554.0 mmHg 06/10/21 04:32 FiO2 92.0 06/10/21 04:32 Blood Gas Comments Shyam well ae 06/10/21 04:32 Sodium 151 mmol/L (136-145) H* 06/11/21 04:25 Corrected Sodium 151 mmol/L (136-145) H 06/11/21 04:25 Potassium 3.1 mmol/L (3.5-5.1) L 06/11/21 04:25 Chloride 116 mmol/L (98-107) H* 06/11/21 04:25 Carbon Dioxide 29.3 mmol/L (21-32) 06/11/21 04:25 BUN 21 mg/dL (7-18) H 06/11/21 04:25 Creatinine 0.61 mg/dL (0.55-1.02) 06/11/21 04:25 Est GFR (MDRD) Af Amer > 60 (>60) 06/11/21 04:25 Est GFR (MDRD) Non-Af > 60 (>60) 06/11/21 04:25 Glucose 116 mg/dL (65-99) H 06/11/21 04:25 POC Glucose (mg/dL) 116 mg/dL (65-99) H 06/11/21 05:54 Calcium 8.4 mg/dL (8.5-10.1) L 06/11/21 04:25 Corrected Calcium 10.1 mg/dL (8.5-10.1) 06/11/21 04:25 Ferritin 214 ng/mL (8-252) 06/11/21 04:25 Total Bilirubin 0.40 mg/dL (0.2-1.0) 06/11/21 04:25 AST 42 Units/L (15-37) H 06/11/21 04:25 ALT 28 Units/L (12-78) 06/11/21 04:25 Alkaline Phosphatase 64 Units/L (46-116) 06/11/21 04:25 Troponin I < 0.02 ng/mL (0-1.5) 06/08/21 20:42 C-Reactive Protein 23.60 mg/L (0-3.0) H 06/11/21 04:25 B-Natriuretic Peptide 83.1 pg/mL (0-79) H 06/11/21 04:25 Total Protein 5.7 g/dL (6.4-8.2) L 06/11/21 04:25 Albumin 1.9 g/dL (3.4-5.0) L 06/11/21 04:25 Globulin 3.8 g/dL (2.5-4.5) 06/11/21 04:25 Albumin/Globulin Ratio 0.5 Ratio (1.1-2.1) L 06/11/21 04:25 Specimen Type Catherized urine 06/09/21 03:30 Urine Color Yellow (YELLOW) 06/09/21 03:30 Urine Appearance Clear (CLEAR) 06/09/21 03:30 Urine pH 6.0 (5.0 - 8.0) 06/09/21 03:30 Ur Specific [place] 1.010 (1.000-1.030) 06/09/21 03:30 Urine Protein 2+ (NEGATIVE) 06/09/21 03:30 Urine Glucose (UA) Negative (NEGATIVE) 06/09/21 03:30 Urine Ketones Negative (NEGATIVE) 06/09/21 03:30 Urine Occult Blood 1+ (NEGATIVE) 06/09/21 03:30 Urine Nitrite Negative (NEGATIVE) 06/09/21 03:30 Urine Bilirubin Negative (NEGATIVE) 06/09/21 03:30 Urine Urobilinogen Normal (NORMAL) 06/09/21 03:30 Ur Leukocyte Esterase Negative (NEGATIVE) 06/09/21 03:30 Urine RBC 0-2 /HPF (0-3) 06/09/21 03:30 Urine WBC None seen /HPF (0-5) 06/09/21 03:30 Ur Squamous Epith Cells Negative /HPF (NEGATIVE) 06/09/21 03:30 Urine Bacteria Negative /HPF (NEGATIVE) 06/09/21 03:30 Ur Culture Indicated? No/not indicated 06/09/21 03:30 - Plan (1) Pneumonia due to 2019-nCoV Status: Acute Plan: SUPPLEMENTAL OXYGEN, RESPIRATORY THERAPY, NEB TX, REMDESIVIR, ANTIBIOTICS, IVERMECTIN, SOLU-MEDROL (2) Acute respiratory insufficiency Status: Acute (3) Hypoxia Status: Acute (4) Acute dyspnea Status: Acute
--- NOTE | 2021-06-11 12:43 | PCM.PROG ---
Progress Note - Progress Note for Day of Date of Exam: 06/11/21 - Subjective Subjective: WAS ADMITTED FOR TREATMENT OF PNEUMONIA DUE TO COVID-19 AND ACUTE RESPIRATORY FAILURE WITH HYPOXIA. TODAY, SHE IS ALERT AND OREINTED, SITTING UP IN BED ON MORNING ROUNDS. SHE REPORTS PERSISTENT COUGH AND SHORTNESS OF BREATH. SHORNTESS OF BREATH IS WORSE TODAY. PATIENT HAS LABORED BREATHING WITH USE OF ACCESSORY MUSCLES ON ROUNDS. SHE HAS BEEN ON THE BIPAP. OXYGEN SATURATIONS HAVE REMAINED 93-100% WHILE ON THE BIPAP. YESTERDAY, PATIENT GOT UP TO USE THE BATHROOM ON HER OWN. SATURATIONS DROPPED TO 46% ON ROOM AIR. WHEN BIPAP WAS REAPPLIED, SATURATIONS INCREASED TO 92%. SHE HAS HAD INCREASED ANXIETY AND AGITATION. SHE REFUSED HER ABG THIS MORNING. ON EXAMINATION, HEART IS REGULA R IN RATE AND RHYTHM. BILATERAL LUNGS NOTED WITH RALES THROUGHOUT. ABDOMEN IS ROUND, SOFT, AND NON-TENDER WITH NORMAL BOWEL SOUNDS NOTED IN ALL QUADRANTS. HER VITALS THIS MORNING ARE: 97.1-88-67-100%-114/67. LABS WERE OBTAINED. ABNORMAL LAB VALUES INCLUDE THE FOLLOWING: WBC 19.6, HGB 10.1, HCT 30.8, D-DIMER 5.32, SODIUM 151, POTASSIUM 3.1, CHLORIDE 116, BUN 21, GLUCOSE 116, CALCIUM 8.4, AST 42, CRP 23.60, BNP 83.10, TOTAL PROTEIN 5.7, ALBUMIN 1.9. BLOOD CULTURES PENDING. ABG REPEATED TODAY AND REVEALED: PH 7.430, PC02 41, P02 51, HC03 27.2, 02 SAT 87, BASE EXCESS 2.6, A-A GRADIENT 554, FI02 92.0. CHEST XRAY REVEALED: Patchy bilateral areas of opacity are present. There may be a slight improvement when compared to the prior study. SHE IS CURRENTLY RECEIVING NS AT 75 ML/HR, REMDESIVIR 100MG IV DAILY LEVAQUIN 500MG IV DAILY, SOLU-MEDROL 80MG IV Q8H, IVERMECTIN 15MG PO DAILY X 5 DAYS, PROTONIX 40MG PO BID, PEPCID 20MG PO BID, THIAMINE 200MG IV BID, ZINC 220MG PO DAILY, SINGULAIR 10MG PO HS, ZYRTEC 10MG PO DAILY, OTBS ACHS, HUMULIN R SLIDING SCALE, MELATONIN 10MG PO HS, ROBITUSSIN DM 10ML PO QID PRN, DIFLUCAN 100MG PO DAILY, LOVENOX 30MG SC BID, PERIACTIN 8MG PO TID, PULMICORT NEBS BID, ALBUTEROL NEBS QID, BROVANA INHALER BID, TESSALON PERLES 200MG PO TID, LIPITOR 80MG PH HS, ASCORBIC ACID 1500MG IV Q6H, FLUVOXAMINE 50MG PO BID, ZOFRAN 4MG IV Q4H PRN NAUSEA, AMBIEN 5MG PO HS PRN, AND MAGIC MOUTHWASH QID. WE WILL CONTINUE WITH CURRENT PLAN OF CARE TODAY AND ADD ALBUMIN 25% IV DAILY AND XANAX 1MG PO TID. WE WILL CHANGE IV FLUIDS TO NORMAL SALINE. WE PLAN TO FOLLOW UP WITH AM LABS AND CHEST XRAY AND CONTINUE TO MONITOR. TIME SPENT ON CLINICAL ASSESSMENT, REVIEWING LABS AND IMAGING, DECISION MAKING, AND DOCUMENTATION GREATER THAN 45 MINUTES. - Past Medical Family Social History Past Med/Fam/Surg Hx: No changes since H&P Allergies: Allergies nalbuphine [From Nubain] Allergy (Verified 05/15/18 14:34) Penicillins Allergy (Verified 05/15/18 14:34) - Review of Systems ROS: No change since H&P - Vital Signs and I&O's Vital Signs: Temperature 97.1 F Pulse Rate 88 Respiratory Rate 67 Blood Pressure [Left Arm] 163/90 Blood Pressure [Right Arm] 176/96 Blood Pressure 114/67 O2 Sat by Pulse Oximetry 100 Intake and Output: Intake & Output 06/09/21 06/10/21 06/11/21 06/12/21 11:59 11:59 11:59 11:59 Intake Total 2054 / 2054 2287 / 2287 Output Total 2675 / 2675 600 / 600 Balance -621 / -621 1687 / 1687 - Physical Exam Oriented: Normal Eyes: Normal Ear: Normal Nose: Normal Throat: Normal Respiratory: Generalized, Rales Cardiovascular: Tachycardia : Normal Auscultation: Bowel Sounds: Normal Palpation: Normal Tenderness: Normal Skin: Normal Musculoskeletal: Normal Psychiatric: Normal Mood Description: Calm Affect: Normal Speech Pattern: Clear, Appropriate - Laboratory and Diagnostics Result Diagrams: 06/11/21 04:25 06/11/21 04:25 Labs: 06/08/21 20:50 Blood Blood Culture - Preliminary 06/08/21 20:42 Blood Blood Culture - Preliminary Laboratory WBC 19.6 X10^3/uL (3.6-10.0) H D 06/11/21 04:25 RBC 3.90 X10^6/uL (3.5-5.4) 06/11/21 04:25 Hgb 10.1 g/dL (12.0-16.0) L 06/11/21 04:25 Hct 30.8 % (36.0-47.0) L 06/11/21 04:25 MCV 78.9 fL (80.0-100.0) L 06/11/21 04:25 MCH 25.8 pg (27.0-34.0) L 06/11/21 04:25 MCHC 32.7 g/dL (33.0-35.0) L 06/11/21 04:25 RDW 16.4 % (11.6-16.5) 06/11/21 04:25 Plt Count 385 X10^3/uL (150.0-450.0) 06/11/21 04:25 Plt Count Comment Adequate (ADEQUATE) 06/11/21 04:25 MPV 7.9 fL (7.4-11.0) 06/11/21 04:25 Neut % (Auto) 95.6 % (42.0-75.0) H 06/11/21 04:25 Lymph % (Auto) 1.0 % (21.0-51.0) L 06/11/21 04:25 [place] % (Auto) 3.3 % (0.0-13.0) 06/11/21 04:25 Eos % (Auto) 0.0 % (0.9-2.9) L 06/11/21 04:25 Baso % (Auto) 0.1 % (0.2-1.0) L 06/11/21 04:25 Neut # (Auto) 18.8 x10^3/uL (2.2-4.8) H 06/11/21 04:25 Lymph # (Auto) 0.2 X10^3/uL (1.3-2.9) L 06/11/21 04:25 [place] # (Auto) 0.6 x10^3/uL (0.3-0.8) 06/11/21 04:25 Eos # (Auto) 0.0 x10^3/uL (0.0-0.2) 06/11/21 04:25 Baso # (Auto) 0.0 X10^3/uL (0.0-0.1) 06/11/21 04:25 Absolute Nucleated RBC 0.1 /100WBC 06/11/21 04:25 Total Counted 100 06/11/21 04:25 Neutrophils % (Manual) 99 % (39-76) H 06/11/21 04:25 Lymphocytes % (Manual) 1 % (13-43) L 06/11/21 04:25 Monocytes % (Manual) 1 % (4-9) L 06/08/21 20:42 Plt Morphology Comment Normal (NORMAL) 06/11/21 04:25 RBC Morphology Normal (NORMAL) 06/11/21 04:25 PT 15.4 SECONDS (11.8-14.3) 06/08/21 20:42 INR Target Range - 06/08/21 20:42 INR 1.28 (0.8-1.3) 06/08/21 20:42 D-Dimer 5.32 ug/ml (0.0-0.57) H* 06/11/21 04:25 Sample Site Lr 06/10/21 04:32 ABG pH 7.430 (7.35-7.45) 06/10/21 04:32 ABG pCO2 41.0 mmHg (35.0-45.0) 06/10/21 04:32 ABG pO2 51.0 mmHg (80.0-100.0) L 06/10/21 04:32 ABG HCO3 27.2 mmol/L (22-26) H 06/10/21 04:32 ABG O2 Saturation 87.0 % (90-100) L 06/10/21 04:32 ABG Base Excess 2.6 mmol/L (-2.0-2.0) H 06/10/21 04:32 Herminio Test Pos 06/10/21 04:32 A-a Gradient 554.0 mmHg 06/10/21 04:32 FiO2 92.0 06/10/21 04:32 Blood Gas Comments Shyam well ae 06/10/21 04:32 Sodium 151 mmol/L (136-145) H* 06/11/21 04:25 Corrected Sodium 151 mmol/L (136-145) H 06/11/21 04:25 Potassium 3.1 mmol/L (3.5-5.1) L 06/11/21 04:25 Chloride 116 mmol/L (98-107) H* 06/11/21 04:25 Carbon Dioxide 29.3 mmol/L (21-32) 06/11/21 04:25 BUN 21 mg/dL (7-18) H 06/11/21 04:25 Creatinine 0.61 mg/dL (0.55-1.02) 06/11/21 04:25 Est GFR (MDRD) Af Amer > 60 (>60) 06/11/21 04:25 Est GFR (MDRD) Non-Af > 60 (>60) 06/11/21 04:25 Glucose 116 mg/dL (65-99) H 06/11/21 04:25 POC Glucose (mg/dL) 116 mg/dL (65-99) H 06/11/21 05:54 Calcium 8.4 mg/dL (8.5-10.1) L 06/11/21 04:25 Corrected Calcium 10.1 mg/dL (8.5-10.1) 06/11/21 04:25 Ferritin 214 ng/mL (8-252) 06/11/21 04:25 Total Bilirubin 0.40 mg/dL (0.2-1.0) 06/11/21 04:25 AST 42 Units/L (15-37) H 06/11/21 04:25 ALT 28 Units/L (12-78) 06/11/21 04:25 Alkaline Phosphatase 64 Units/L (46-116) 06/11/21 04:25 Troponin I < 0.02 ng/mL (0-1.5) 06/08/21 20:42 C-Reactive Protein 23.60 mg/L (0-3.0) H 06/11/21 04:25 B-Natriuretic Peptide 83.1 pg/mL (0-79) H 06/11/21 04:25 Total Protein 5.7 g/dL (6.4-8.2) L 06/11/21 04:25 Albumin 1.9 g/dL (3.4-5.0) L 06/11/21 04:25 Globulin 3.8 g/dL (2.5-4.5) 06/11/21 04:25 Albumin/Globulin Ratio 0.5 Ratio (1.1-2.1) L 06/11/21 04:25 Specimen Type Catherized urine 06/09/21 03:30 Urine Color Yellow (YELLOW) 06/09/21 03:30 Urine Appearance Clear (CLEAR) 06/09/21 03:30 Urine pH 6.0 (5.0 - 8.0) 06/09/21 03:30 Ur Specific [place] 1.010 (1.000-1.030) 06/09/21 03:30 Urine Protein 2+ (NEGATIVE) 06/09/21 03:30 Urine Glucose (UA) Negative (NEGATIVE) 06/09/21 03:30 Urine Ketones Negative (NEGATIVE) 06/09/21 03:30 Urine Occult Blood 1+ (NEGATIVE) 06/09/21 03:30 Urine Nitrite Negative (NEGATIVE) 06/09/21 03:30 Urine Bilirubin Negative (NEGATIVE) 06/09/21 03:30 Urine Urobilinogen Normal (NORMAL) 06/09/21 03:30 Ur Leukocyte Esterase Negative (NEGATIVE) 06/09/21 03:30 Urine RBC 0-2 /HPF (0-3) 06/09/21 03:30 Urine WBC None seen /HPF (0-5) 06/09/21 03:30 Ur Squamous Epith Cells Negative /HPF (NEGATIVE) 06/09/21 03:30 Urine Bacteria Negative /HPF (NEGATIVE) 06/09/21 03:30 Ur Culture Indicated? No/not indicated 06/09/21 03:30 - Plan (1) Pneumonia due to 2019-nCoV Status: Acute Plan: SUPPLEMENTAL OXYGEN, RESPIRATORY THERAPY, NEB TX, REMDESIVIR, ANTIBIOTICS, IVERMECTIN, SOLU-MEDROL (2) Acute respiratory insufficiency Status: Acute (3) Hypoxia Status: Acute (4) Acute dyspnea Status: Acute
--- NOTE | 2021-06-11 12:56 | CT ---
HISTORYELEVATED DDIMER 5.32, ANTONIATUDYCTA [id number]/2021TECHNIQUECT of the chest was obtained with IV contrast. Reformatted images in the coronal sagittal planes and 3D MIP images also generated for review.FINDINGSContrast bolus timing is adequate for detection of PTE. No pulmonary thromboembolus is identified. There is no significant pulmonary arterial dilatation or evidence of right heart strain. Heart is normal in size without pericardial effusion. Moderate coronary atherosclerotic disease of the LAD noted. Thoracic aorta and proximal great vessels are mildly calcified without aneurysm. Major central airways are patent. There is no mediastinal or bulky hilar lymphadenopathy.Evaluation of the lungs demonstrate diffuse areas of ground-glass consolidation throughout all lobes bilaterally, which given differences in technique appear overall unchanged in the short interim. There is no pleural effusion or pneumothorax.Limited images through the upper abdomen demonstrate no acute abnormality. There is no acute osseous abnormality.IMPRESSIONNegative for PTE.Re-demonstration of diffuse bilateral airspace disease, which appears grossly unchanged since prior and is again most compatible with multifocal atypical pneumonia from COVID-19 infection. Clinical correlation and continued PA/lateral radiographic follow-up recommended.Electronically signed by: ROSS WATKINS (Jun 11, 2021 12:53:43)
[2021-06-11] MEDS: SNACK - Diabetic Appropriate PO SCH (22:02)
[2021-06-11] MEDS: LEVAQUIN PREMIX IV 500 MG 500 MG/100 ML BAG IV SCH (22:45)
[2021-06-11] MEDS: LIPITOR TAB 80 MG PO SCH (22:45)
[2021-06-11] MEDS: SINGULAIR TAB 10 MG PO SCH (22:46)
[2021-06-12] MEDS ORDERED: NS 1/2 1000 ML IV 1,000 ML IV ONE (00:01)
[2021-06-12] MEDS: NS 1/2 1000 ML IV 1,000 ML IV SCH ×2 (01:16→15:15)
[2021-06-12 05:23] LABS: BASOPHILS % (AUTO) 0.1 % (0.2-1.0); HEMATOCRIT 29.6 % (36.0-47.0); LYMPHOCYTES # (AUTO) 0.2 X10^3/uL (1.3-2.9); MEAN CORPUSCULAR HEMOGLOBIN 26.5 pg (27.0-34.0); MEAN CORPUSCULAR HGB CONC 33.8 g/dL (33.0-35.0); MEAN CORPUSCULAR VOLUME 78.4 fL (80.0-100.0); MEAN PLATELET VOLUME 7.8 fL (7.4-11.0); MONOCYTES # (AUTO) 0.6 x10^3/uL (0.3-0.8); MONOCYTES % (AUTO) 3.3 % (0.0-13.0); NEUTROPHILS # (AUTO) 17.1 x10^3/uL (2.2-4.8); NEUTROPHILS % (AUTO) 95.6 % (42.0-75.0); PLATELET COUNT 388 X10^3/uL (150.0-450.0); RED BLOOD COUNT 3.78 X10^6/uL (3.5-5.4); RED CELL DISTRIBUTION WIDTH 16.7 % (11.6-16.5); WHITE BLOOD COUNT 17.9 X10^3/uL (3.6-10.0)
--- NOTE | 2021-06-12 05:41 | RAD ---
PROCEDURE: Chest X-ray 1 View .HISTORY: Dyspnea.TECHNIQUE: AP view .COMPARISON: 06/11/2021.TECHNICAL QUALITY: Satisfactory .FINDINGS:Unremarkable cardio mediastinal silhouette.Normal central vascularity.Some increased density to the consolidation right lung field. Unchanged consolidation on the left. No pleural fluid or pneumothorax.IMPRESSION:Increasing pneumonia on the right and unchanged on the left.Electronically signed by: Lenin Wilson (Jun 12, 2021 05:39:42)
[2021-06-12 06:16] LABS: ANISOCYTOSIS SLIGHT; HYPOCHROMASIA SLIGHT; PLATELET MORPHOLOGY COMMENT NORMAL (NORMAL)
[2021-06-12 06:32] LABS: ALANINE AMINOTRANSFERASE 28 Units/L (12-78); ALBUMIN 2.4 g/dL (3.4-5.0); ALKALINE PHOSPHATASE 105 Units/L (46-116); ASPARTATE AMINO TRANSFERASE 48 Units/L (15-37); BLOOD UREA NITROGEN 22 mg/dL (7-18); CALCIUM 8.6 mg/dL (8.5-10.1); CHLORIDE 112 mmol/L (98-107); COR CA(FOR HYPOALB) 9.9 mg/dL (8.5-10.1); COR NA(FOR HYPERGLY) 148 mmol/L (136-145); CREATININE 0.63 mg/dL (0.55-1.02); SODIUM 148 mmol/L (136-145); TOTAL PROTEIN 5.7 g/dL (6.4-8.2); eGFR NON BLACK RACES > 60 (>60)
[2021-06-12] MEDS: ASCORBIC ACID INJ MULTI-DOSE VIAL 1,500 MG in NS 50 ML IV 50 ML IV SCH ×4 (06:35→23:51)
[2021-06-12] MEDS: PERIACTIN TAB 4 MG PO SCH ×3 (06:36→23:52)
[2021-06-12] MEDS: SOLU-Medrol 40 MG VIAL IVP SCH ×4 (06:36→23:53)
[2021-06-12] MEDS: TESSALON PERLES PO SCH ×3 (06:37→23:52)
[2021-06-12] MEDS: XANAX PO SCH ×3 (06:37→23:51)
[2021-06-12] MEDS: ALBUMIN HUMAN 25%- 100 ML 100 ML IV SCH (08:49)
[2021-06-12] MEDS: BROVANA IN SCH ×2 (09:31→21:34)
[2021-06-12] MEDS: PROVENTIL NEB TX 0.083% 2.5MG/ 3ML NEB SCH ×4 (09:31→21:34)
[2021-06-12] MEDS: PULMICORT NEB TX 0.5 MG NEB SCH ×2 (09:31→21:34)
[2021-06-12 09:53] LABS: ABG ALLEN TEST POS; ABG BASE EXCESS 4.6 mmol/L (-2.0-2.0); ABG HCO3 28.3 mmol/L (22-26)
[2021-06-12] MEDS: PROTONIX INJ 40 MG VIAL IVP SCH ×2 (11:06→23:55)
[2021-06-12] MEDS: LOVENOX INJ 80 MG SYR SC SCH ×2 (11:07→23:56)
[2021-06-12] MEDS: THIAMINE HCL INJ IVP SCH ×2 (11:08→23:53)
[2021-06-12] MEDS: REMDESIVIR 100 MG in NS 250 ML IV 250 ML IV SCH (11:09)
[2021-06-12] MEDS: PEPCID TAB 20 MG PO SCH ×2 (11:09→23:55)
[2021-06-12] MEDS: ZINC SULFATE PO SCH (11:13)
[2021-06-12] MEDS: NORVASC TAB 5 MG PO SCH (11:14)
[2021-06-12] MEDS: DIFLUCAN PO SCH (11:14)
[2021-06-12] MEDS: VITAMIN D3 125 mcg (5,000 UNITS) PO SCH (11:14)
[2021-06-12] MEDS: ZyrTEC TAB 10 MG PO SCH (11:14)
[2021-06-12] MEDS: FLUVOXAMINE MALEATE PO SCH ×2 (11:14→23:59)
[2021-06-12] MEDS: MAGIC MOUTHWASH MT SCH ×4 (11:15→23:52)
[2021-06-12] MEDS: IVERMECTIN PO SCH (11:23)
[2021-06-12] MEDS: ROBITUSSIN DM PO SCH ×4 (11:24→23:55)
[2021-06-12] MEDS: SNACK - Diabetic Appropriate PO SCH (23:51)
[2021-06-12] MEDS: SINGULAIR TAB 10 MG PO SCH (23:53)
[2021-06-12] MEDS: LIPITOR TAB 80 MG PO SCH (23:57)
[2021-06-12] MEDS: LEVAQUIN PREMIX IV 500 MG 500 MG/100 ML BAG IV SCH (23:58)
[2021-06-13] MEDS ORDERED: NS 1/2 1000 ML IV 1,000 ML IV ONE ×2 (00:08→17:23)
[2021-06-13] MEDS: NS 1/2 1000 ML IV 1,000 ML IV SCH ×2 (00:54→17:32)
[2021-06-13] MEDS: MORPHINE SULFATE INJ 2 MG INJ IVP PRN ×3 (03:07→21:00)
[2021-06-13] MEDS: ASCORBIC ACID INJ MULTI-DOSE VIAL 1,500 MG in NS 50 ML IV 50 ML IV SCH ×4 (03:12→21:57)
[2021-06-13] MEDS: SOLU-Medrol 40 MG VIAL IVP SCH (03:14)
[2021-06-13 06:42] LABS: ABG ALLEN TEST POS; ABG BASE EXCESS 4.3 mmol/L (-2.0-2.0); ABG HCO3 29.2 mmol/L (22-26)
[2021-06-13 06:47] LABS: BASOPHILS # (AUTO) 0.1 X10^3/uL (0.0-0.1); BASOPHILS % (AUTO) 0.3 % (0.2-1.0); HEMATOCRIT 30.3 % (36.0-47.0); HEMOGLOBIN 9.8 g/dL (12.0-16.0); LYMPHOCYTES # (AUTO) 0.1 X10^3/uL (1.3-2.9); LYMPHOCYTES % (AUTO) 0.9 % (21.0-51.0); MEAN CORPUSCULAR HEMOGLOBIN 25.6 pg (27.0-34.0); MEAN CORPUSCULAR HGB CONC 32.3 g/dL (33.0-35.0); MEAN CORPUSCULAR VOLUME 79.1 fL (80.0-100.0); MEAN PLATELET VOLUME 7.9 fL (7.4-11.0); MONOCYTES # (AUTO) 0.4 x10^3/uL (0.3-0.8); MONOCYTES % (AUTO) 2.6 % (0.0-13.0); NEUTROPHILS # (AUTO) 15.8 x10^3/uL (2.2-4.8); NEUTROPHILS % (AUTO) 96.2 % (42.0-75.0); PLATELET COUNT 246 X10^3/uL (150.0-450.0); RED BLOOD COUNT 3.84 X10^6/uL (3.5-5.4); RED CELL DISTRIBUTION WIDTH 16.9 % (11.6-16.5); WHITE BLOOD COUNT 16.4 X10^3/uL (3.6-10.0)
[2021-06-13 06:52] LABS: ALANINE AMINOTRANSFERASE 37 Units/L (12-78); ALBUMIN 2.4 g/dL (3.4-5.0); ALKALINE PHOSPHATASE 141 Units/L (46-116); ASPARTATE AMINO TRANSFERASE 68 Units/L (15-37); BLOOD UREA NITROGEN 26 mg/dL (7-18); CALCIUM 8.2 mg/dL (8.5-10.1); CARBON DIOXIDE 26.9 mmol/L (21-32); CHLORIDE 113 mmol/L (98-107); COR CA(FOR HYPOALB) 9.5 mg/dL (8.5-10.1); COR NA(FOR HYPERGLY) 147 mmol/L (136-145); CREATININE 0.56 mg/dL (0.55-1.02); SODIUM 146 mmol/L (136-145); TOTAL PROTEIN 5.7 g/dL (6.4-8.2); eGFR NON BLACK RACES > 60 (>60)
--- NOTE | 2021-06-13 07:52 | RAD ---
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 The cardiac silhouette is relatively stable. Diffuse infiltrate/consolidation is again demonstrated bilaterally right greater than left. The left-sided infiltrate/consolidation has progressed/worsened since prior exam.IMPRESSIONPersistent bilateral infiltrate/consolidation which has progressed/worsened on the left since prior exam. Correlate clinically.Electronically signed by: SHAE MARK (Jun 13, 2021 07:50:33)
[2021-06-13 07:59] LABS: PLATELET MORPHOLOGY COMMENT NORMAL (NORMAL)
[2021-06-13 08:00] LABS: ANISOCYTOSIS SLIGHT; HYPOCHROMASIA SLIGHT
[2021-06-13 08:01] LABS: OVALOCYTES SLIGHT
[2021-06-13] MEDS: LOVENOX INJ 80 MG SYR SC SCH ×2 (09:06→21:58)
[2021-06-13] MEDS: PERIACTIN TAB 4 MG PO SCH ×3 (09:07→22:01)
[2021-06-13] MEDS: DIFLUCAN PO SCH ×2 (09:08→09:09)
[2021-06-13] MEDS: TESSALON PERLES PO SCH ×3 (09:08→22:02)
[2021-06-13] MEDS: XANAX PO SCH ×3 (09:08→22:02)
[2021-06-13] MEDS: MAGIC MOUTHWASH MT SCH ×4 (09:10→20:47)
[2021-06-13] MEDS: ROBITUSSIN DM PO SCH ×4 (09:10→22:00)
[2021-06-13] MEDS: FLUVOXAMINE MALEATE PO SCH ×2 (09:10→20:46)
[2021-06-13] MEDS: ZyrTEC TAB 10 MG PO SCH (09:10)
[2021-06-13] MEDS: REMDESIVIR 100 MG in NS 250 ML IV 250 ML IV SCH (10:17)
[2021-06-13] MEDS: PROTONIX INJ 40 MG VIAL IVP SCH ×2 (10:17→22:00)
[2021-06-13] MEDS: THIAMINE HCL INJ IVP SCH ×2 (10:18→22:01)
[2021-06-13] MEDS: VALIUM INJ IVP PRN ×3 (10:30→18:41)
[2021-06-13] MEDS: TORADOL 30 MG VIAL IVP PRN ×2 (10:31→21:30)
[2021-06-13] MEDS: PROVENTIL NEB TX 0.083% 2.5MG/ 3ML NEB SCH ×4 (10:46→21:10)
[2021-06-13] MEDS: PULMICORT NEB TX 0.5 MG NEB SCH ×2 (10:46→21:10)
[2021-06-13] MEDS: BROVANA IN SCH ×2 (10:46→21:10)
[2021-06-13] MEDS ORDERED: VALIUM INJ IVP ONE ×2 (11:14→23:27)
[2021-06-13] MEDS: SOLU-Medrol 125 MG VIAL IVP SCH ×2 (15:30→22:01)
[2021-06-13] MEDS: VITAMIN D3 125 mcg (5,000 UNITS) PO SCH (17:27)
[2021-06-13] MEDS: NORVASC TAB 5 MG PO SCH (17:27)
[2021-06-13] MEDS: PEPCID TAB 20 MG PO SCH ×2 (17:27→22:00)
[2021-06-13] MEDS: ZINC SULFATE PO SCH (17:28)
[2021-06-13] MEDS: SNACK - Diabetic Appropriate PO SCH (20:45)
[2021-06-13] MEDS: LIPITOR TAB 80 MG PO SCH (20:47)
[2021-06-13] MEDS: LEVAQUIN PREMIX IV 500 MG 500 MG/100 ML BAG IV SCH (21:57)
[2021-06-13] MEDS: SINGULAIR TAB 10 MG PO SCH (22:00)
[2021-06-13] MEDS ORDERED: VALIUM INJ ONE (23:32)
[2021-06-14] MEDS: MORPHINE SULFATE INJ 2 MG INJ IVP PRN ×6 (00:45→21:50)
[2021-06-14] MEDS: SOLU-Medrol 125 MG VIAL IVP SCH ×4 (02:20→20:18)
[2021-06-14] MEDS: ASCORBIC ACID INJ MULTI-DOSE VIAL 1,500 MG in NS 50 ML IV 50 ML IV SCH ×4 (02:20→20:19)
[2021-06-14] MEDS: NS 1/2 1000 ML IV 1,000 ML IV SCH ×4 (02:28→15:21)
[2021-06-14] MEDS ORDERED: NS 1/2 1000 ML IV 1,000 ML IV ONE (04:41)
[2021-06-14] MEDS: PERIACTIN TAB 4 MG PO SCH ×3 (05:05→21:39)
[2021-06-14] MEDS: TESSALON PERLES PO SCH ×3 (05:06→21:39)
[2021-06-14] MEDS: XANAX PO SCH ×3 (05:06→21:39)
[2021-06-14] MEDS: VALIUM INJ IVP PRN ×3 (06:12→20:17)
[2021-06-14 06:29] LABS: BASOPHILS # (AUTO) 0.1 X10^3/uL (0.0-0.1); BASOPHILS % (AUTO) 0.3 % (0.2-1.0); HEMATOCRIT 31.4 % (36.0-47.0); HEMOGLOBIN 10.2 g/dL (12.0-16.0); LYMPHOCYTES # (AUTO) 0.1 X10^3/uL (1.3-2.9); LYMPHOCYTES % (AUTO) 0.7 % (21.0-51.0); MEAN CORPUSCULAR HGB CONC 32.6 g/dL (33.0-35.0); MEAN CORPUSCULAR VOLUME 79.7 fL (80.0-100.0); MEAN PLATELET VOLUME 8.3 fL (7.4-11.0); MONOCYTES # (AUTO) 0.5 x10^3/uL (0.3-0.8); MONOCYTES % (AUTO) 2.9 % (0.0-13.0); NEUTROPHILS # (AUTO) 17.6 x10^3/uL (2.2-4.8); NEUTROPHILS % (AUTO) 96.1 % (42.0-75.0); PLATELET COUNT 394 X10^3/uL (150.0-450.0); RED BLOOD COUNT 3.94 X10^6/uL (3.5-5.4); RED CELL DISTRIBUTION WIDTH 16.7 % (11.6-16.5); WHITE BLOOD COUNT 18.3 X10^3/uL (3.6-10.0)
[2021-06-14 06:52] LABS: ALANINE AMINOTRANSFERASE 38 Units/L (12-78); ALBUMIN 2.5 g/dL (3.4-5.0); ALKALINE PHOSPHATASE 181 Units/L (46-116); ASPARTATE AMINO TRANSFERASE 58 Units/L (15-37); BLOOD UREA NITROGEN 32 mg/dL (7-18); CALCIUM 8.5 mg/dL (8.5-10.1); CARBON DIOXIDE 29.4 mmol/L (21-32); CHLORIDE 113 mmol/L (98-107); COR CA(FOR HYPOALB) 9.7 mg/dL (8.5-10.1); COR NA(FOR HYPERGLY) 149 mmol/L (136-145); CREATININE 0.63 mg/dL (0.55-1.02); SODIUM 149 mmol/L (136-145); TOTAL PROTEIN 5.8 g/dL (6.4-8.2); eGFR NON BLACK RACES > 60 (>60)
--- NOTE | 2021-06-14 07:47 | RAD ---
HISTORYSOB; COVID PNEUMONIA Relevant Clinical InformationSTUDYCHEST, 1 [id number]/2021FINDINGSCardiac silhouette is stable. Extensive bilateral interstitial and airspace opacities persist, although appear mildly improved on the left, not significantly changed in the right lung. No evidence for pneumothorax.IMPRESSIONPersistent bilateral lung opacities, demonstrating mild improvement on the left.Electronically signed by: BRI DOHERTY (Jun 14, 2021 07:45:39)
[2021-06-14 08:21] LABS: ANISOCYTOSIS SLIGHT; BAND NEUTROPHILS % 3 % (0-10); PLATELET MORPHOLOGY COMMENT NORMAL (NORMAL)
[2021-06-14] MEDS: BROVANA IN SCH ×2 (09:00→20:10)
[2021-06-14] MEDS: PROVENTIL NEB TX 0.083% 2.5MG/ 3ML NEB SCH ×4 (09:00→20:10)
[2021-06-14] MEDS: PULMICORT NEB TX 0.5 MG NEB SCH ×2 (09:00→20:10)
[2021-06-14] MEDS: LOVENOX INJ 80 MG SYR SC SCH ×2 (09:40→20:24)
[2021-06-14] MEDS: THIAMINE HCL INJ IVP SCH ×2 (09:43→20:18)
[2021-06-14] MEDS: PROTONIX INJ 40 MG VIAL IVP SCH ×2 (09:43→20:17)
[2021-06-14] MEDS: DIFLUCAN PO SCH (09:45)
[2021-06-14] MEDS: NORVASC TAB 5 MG PO SCH (09:45)
[2021-06-14] MEDS: MAGIC MOUTHWASH MT SCH ×4 (09:45→20:22)
[2021-06-14] MEDS: PEPCID TAB 20 MG PO SCH ×2 (09:45→20:22)
[2021-06-14] MEDS: FLUVOXAMINE MALEATE PO SCH ×2 (09:45→20:21)
[2021-06-14] MEDS: ROBITUSSIN DM PO SCH ×4 (09:46→20:23)
[2021-06-14] MEDS: VITAMIN D3 125 mcg (5,000 UNITS) PO SCH (09:46)
[2021-06-14] MEDS: ZINC SULFATE PO SCH (09:46)
[2021-06-14] MEDS: ZyrTEC TAB 10 MG PO SCH (09:46)
[2021-06-14] MEDS: LEVAQUIN PREMIX IV 500 MG 500 MG/100 ML BAG IV SCH (20:18)
[2021-06-14] MEDS: LIPITOR TAB 80 MG PO SCH (20:21)
[2021-06-14] MEDS: SNACK - Diabetic Appropriate PO SCH (20:21)
[2021-06-14] MEDS: SINGULAIR TAB 10 MG PO SCH (20:22)
[2021-06-14] MEDS ORDERED: DIPRIVAN VIAL 20 ML ONE (23:12)
[2021-06-14] MEDS ORDERED: NORCURON INJ 10 MG VIAL ONE (23:44)
[2021-06-14] MEDS ORDERED: VERSED IV PREMIX 100 MG/100 ML IV.SOLN IV ONE (23:45)
[2021-06-14] MEDS ORDERED: DIPRIVAN PREMIX 1 GRAM IV 1,000 MG/100 ML VIAL ONE (23:45)
[2021-06-14] MEDS ORDERED: NS 50 ML IV 50 ML IV ONE (23:46)
[2021-06-15] MEDS ORDERED: VERSED IV PREMIX 100 MG/100 ML IV.SOLN IV PRN
[2021-06-15] MEDS: NORCURON INJ 10 MG VIAL 50 MG in NS 50 ML IV 50 ML IV PRN (00:05)
--- NOTE | 2021-06-15 00:38 | RAD ---
STUDY: CHEST, 1 VIEWCOMPARISON: June 14, 2021HISTORY: POST INTUBATIONFINDINGS:Endotracheal tube has been placed with tip located 4.2 cm above the jaden. Persistent diffuse alveolar airspace disease remains throughout the right and left lung worrisome for ongoing ARDS.Cardiomediastinal contour remains stable. No gross pleural effusion or pneumothorax is seen.IMPRESSION:Tip of endotracheal tube is 4.2 cm above the jaden with imaging features worrisome for ongoing ARDS secondary to COVID-19 infection.Electronically signed by: Preet Iqbal (Jun 15, 2021 00:35:27)
[2021-06-15 01:09] LABS: ABG BASE EXCESS 6.8 mmol/L (-2.0-2.0); ABG HCO3 31.3 mmol/L (22-26)
[2021-06-15] MEDS: SOLU-Medrol 125 MG VIAL IVP SCH ×4 (02:48→20:36)
[2021-06-15] MEDS: ASCORBIC ACID INJ MULTI-DOSE VIAL 1,500 MG in NS 50 ML IV 50 ML IV SCH ×4 (02:48→20:17)
[2021-06-15] MEDS: NS 1/2 1000 ML IV 1,000 ML IV SCH (04:35)
[2021-06-15 04:46] LABS: ABG BASE EXCESS 7.2 mmol/L (-2.0-2.0)
[2021-06-15] MEDS: XANAX PO SCH (05:13)
[2021-06-15] MEDS: TESSALON PERLES PO SCH (05:13)
[2021-06-15] MEDS: PERIACTIN TAB 4 MG PO SCH (05:13)
[2021-06-15] MEDS ORDERED: NS 1/2 1000 ML IV 1,000 ML IV ONE (05:20)
[2021-06-15 05:32] LABS: BASOPHILS # (AUTO) 0.1 X10^3/uL (0.0-0.1); HEMATOCRIT 32.9 % (36.0-47.0); HEMOGLOBIN 10.9 g/dL (12.0-16.0); LYMPHOCYTES # (AUTO) 0.1 X10^3/uL (1.3-2.9); MEAN CORPUSCULAR HEMOGLOBIN 25.9 pg (27.0-34.0); MEAN CORPUSCULAR HGB CONC 33.1 g/dL (33.0-35.0); MEAN CORPUSCULAR VOLUME 78.3 fL (80.0-100.0); MEAN PLATELET VOLUME 8.5 fL (7.4-11.0); MONOCYTES # (AUTO) 0.6 x10^3/uL (0.3-0.8); MONOCYTES % (AUTO) 4.3 % (0.0-13.0); NEUTROPHILS # (AUTO) 13.8 x10^3/uL (2.2-4.8); NEUTROPHILS % (AUTO) 93.7 % (42.0-75.0); PLATELET COUNT 418 X10^3/uL (150.0-450.0); RED BLOOD COUNT 4.21 X10^6/uL (3.5-5.4); RED CELL DISTRIBUTION WIDTH 16.8 % (11.6-16.5); WHITE BLOOD COUNT 14.7 X10^3/uL (3.6-10.0)
[2021-06-15 05:40] LABS: BLOOD UREA NITROGEN 30 mg/dL (7-18); CALCIUM 8.5 mg/dL (8.5-10.1); CARBON DIOXIDE 31.1 mmol/L (21-32); CHLORIDE 111 mmol/L (98-107); COR NA(FOR HYPERGLY) 152 mmol/L (136-145); CREATININE 0.57 mg/dL (0.55-1.02); eGFR NON BLACK RACES > 60 (>60)
[2021-06-15 06:11] LABS: SODIUM 151 mmol/L (136-145)
[2021-06-15] MEDS ORDERED: MAGNESIUM SULFATE 1 GRAM/100 mL PREMIX 1 GM/100 ML BAG IV PRN (06:15)
[2021-06-15] MEDS ORDERED: KLOR-CON PO PRN (06:15)
[2021-06-15] MEDS ORDERED: K-DUR TAB 20 MEQ PO PRN (06:15)
[2021-06-15] MEDS ORDERED: POTASSIUM CHL 60 MEQ/NS 0.45% 500 ML IV PRN (06:15)
[2021-06-15] MEDS ORDERED: MICRO K EXTEN CAP 10 MEQ PO PRN (06:15)
[2021-06-15] MEDS ORDERED: POTASSIUM CHL 40 MEQ/NS 0.45% 500 ML IV PRN (06:15)
[2021-06-15 06:20] LABS: BAND NEUTROPHILS % 1 % (0-10); PLATELET MORPHOLOGY COMMENT NORMAL (NORMAL)
[2021-06-15 06:21] LABS: ANISOCYTOSIS SLIGHT
--- NOTE | 2021-06-15 06:30 | RAD ---
HISTORYSOBSTUDYCHEST, 1 [id number]/15/2021TECHNIQUEAP view of the chestFINDINGSET tube in good position. Cardiac and mediastinal contours are within normal limits. No significant change in diffuse bilateral hazy airspace opacities. No definite pleural effusion or pneumothorax.IMPRESSIONNo significant change.Electronically signed by: Ernst Flores (Jun 15, 2021 06:29:00)
[2021-06-15] MEDS: PROVENTIL NEB TX 0.083% 2.5MG/ 3ML NEB SCH ×3 (09:00→21:00)
[2021-06-15] MEDS: PULMICORT NEB TX 0.5 MG NEB SCH ×2 (09:00→21:00)
[2021-06-15] MEDS: BROVANA IN SCH ×2 (09:00→21:00)
[2021-06-15 09:28] VITALS: BMI 29.1
[2021-06-15] MEDS: NS IV SCH ×4 (10:00→21:59)
[2021-06-15] MEDS: POTASSIUM CHLORIDE IV SCH ×4 (10:00→21:59)
--- NOTE | 2021-06-15 12:26 | PCM.PROG ---
Progress Note - Progress Note for Day of Date of Exam: 06/15/21 - Subjective Subjective: WAS ADMITTED ON 06/09 FOR TREATMENT OF PNEUMONIA DUE TO COVID-19 AND ACUTE RESPIRATORY FAILURE WITH HYPOXIA. SHE WAS PLACED ON THE MECHANICAL VENTILATOR LAST NIGHT DUE TO INCREASED RESPIRATORY EFFORTS, DECREASED OXYGEN SATURATIONS, AND COMBATIVENESS. OXYGEN SATURATIONS HAVE REMAINED 93-100% WHILE ON THE VENT. ON EXAMINATION, HEART IS REGULAR IN RATE AND RHYTHM. BILATERAL LUNGS NOTED WITH RALES THROUGHOUT. ABDOMEN IS ROUND, SOFT, AND NON- TENDER WITH NORMAL BOWEL SOUNDS NOTED IN ALL QUADRANTS. HER VITALS THIS MORNING ARE: 97.6-91-25-94%-163/77. LABS WERE OBTAINED. ABNORMAL LAB VALUES INCLUDE THE FOLLOWING: WBC 14.7, HGB 10.9, HCT 32.9, D-DIMER 2.57, SODIUM 151, POTASSIUM 2.9, CHLORIDE 111, BUN 30, GLUCOSE 131, CRP 17.60, BNP 279. ABG REPEATED TODAY AND REVEALED: PH 7.460, PC02 45, P02 61, HC03 32.0, 02 SATURATION 92, BASE EXCESS 7.2, A-A GRADIENT 596, FI02 100. CHEST XRAY REVEALED: ET tube in good position. Cardiac and mediastinal contours are within normal limits. No sign ificant change in diffuse bilateral hazy airspace opacities. No definite pleural effusion or pneumothorax. SHE IS CURRENTLY RECEIVING 1/2 NS WITH 40MEQ KCL AT 80 ML/HR, VERCURONIUM FOR SEDATION, LEVAQUIN 500MG IV DAILY, MORPHINE SULFATE 2MG IV Q4H PRN, SOLU-MEDROL 125MG IV Q6H, VALIUM 5MG IV Q6H PRN, PROTONIX 40MG IV BID, THIAMINE 200MG IV BID, OTBS ACHS, HUMULIN R SLIDING SCALE, LOVENOX 80MG SC BID, DIFLUCAN 200MG IV DAILY, PULMICORT NEBS BID, ALBUTEROL NEBS QID, BROVANA INHALER BID, ASCORBIC ACID 1500MG IV Q6H, ZOFRAN 4MG IV Q4H PRN NAUSEA, AND THE POTASSIUM AND MAGNESIUM PROTOCOLS. WE WILL CONTINUE WITH CURRENT PLAN OF CARE TODAY. WE PLAN TO FOLLOW UP WITH AM LABS AND CHEST XRAY AND CONT INUE TO MONITOR. TIME SPENT ON CLINICAL ASSESSMENT, REVIEWING LABS AND IMAGING, DECISION MAKING, AND DOCUMENTATION GREATER THAN 45 MINUTES. - Past Medical Family Social History Past Med/Fam/Surg Hx: No changes since H&P Allergies: Allergies nalbuphine [From Nubain] Allergy (Verified 05/15/18 14:34) Penicillins Allergy (Verified 05/15/18 14:34) - Review of Systems ROS: No change since H&P - Vital Signs and I&O's Vital Signs: Temperature 97.6 F Pulse Rate 91 Respiratory Rate 25 Blood Pressure [Left Arm] 163/90 Blood Pressure [Right Arm] 176/96 Blood Pressure 163/77 O2 Sat by Pulse Oximetry 94 Intake and Output: Intake & Output 06/13/21 06/14/21 06/15/21 06/16/21 11:59 11:59 11:59 11:59 Intake Total 1901 / 1901 1682 / 1682 2856 / 2856 Output Total 625 / 625 725 / 725 1425 / 1425 Balance 1276 / 1276 957 / 957 1431 / 1431 - Physical Exam Oriented: Unable to test Eyes: Normal Ear: Normal Nose: Normal Throat: Normal Respiratory: Generalized, Rales Cardiovascular: Normal : Normal Auscultation: Bowel Sounds: Normal Palpation: Normal Tenderness: Normal Skin: Normal Musculoskeletal: Normal Psychiatric: Other (SEDATED ) Affect: Normal (SEDATED) Speech Pattern: Artificially Ventilated - Laboratory and Diagnostics Result Diagrams: 06/15/21 04:47 06/15/21 04:47 Labs: 06/08/21 20:42 Blood Blood Culture - Final 06/08/21 20:50 Blood Blood Culture - Final Laboratory WBC 14.7 X10^3/uL (3.6-10.0) H 06/15/21 04:47 RBC 4.21 X10^6/uL (3.5-5.4) 06/15/21 04:47 Hgb 10.9 g/dL (12.0-16.0) L 06/15/21 04:47 Hct 32.9 % (36.0-47.0) L 06/15/21 04:47 MCV 78.3 fL (80.0-100.0) L 06/15/21 04:47 MCH 25.9 pg (27.0-34.0) L 06/15/21 04:47 MCHC 33.1 g/dL (33.0-35.0) 06/15/21 04:47 RDW 16.8 % (11.6-16.5) H 06/15/21 04:47 Plt Count 418 X10^3/uL (150.0-450.0) 06/15/21 04:47 Plt Count Comment Adequate (ADEQUATE) 06/15/21 04:47 MPV 8.5 fL (7.4-11.0) 06/15/21 04:47 Neut % (Auto) 93.7 % (42.0-75.0) H 06/15/21 04:47 Lymph % (Auto) 1.0 % (21.0-51.0) L 06/15/21 04:47 [place] % (Auto) 4.3 % (0.0-13.0) 06/15/21 04:47 Eos % (Auto) 0.0 % (0.9-2.9) L 06/15/21 04:47 Baso % (Auto) 1.0 % (0.2-1.0) 06/15/21 04:47 Neut # (Auto) 13.8 x10^3/uL (2.2-4.8) H 06/15/21 04:47 Lymph # (Auto) 0.1 X10^3/uL (1.3-2.9) L 06/15/21 04:47 [place] # (Auto) 0.6 x10^3/uL (0.3-0.8) 06/15/21 04:47 Eos # (Auto) 0.0 x10^3/uL (0.0-0.2) 06/15/21 04:47 Baso # (Auto) 0.1 X10^3/uL (0.0-0.1) 06/15/21 04:47 Absolute Nucleated RBC 0.1 /100WBC 06/15/21 04:47 Total Counted 100 06/15/21 04:47 Neutrophils % (Manual) 97 % (39-76) H 06/15/21 04:47 Band Neutrophils % 1 % (0-10) 06/15/21 04:47 Lymphocytes % (Manual) 1 % (13-43) L 06/15/21 04:47 Monocytes % (Manual) 1 % (4-9) L 06/15/21 04:47 Plt Morphology Comment Normal (NORMAL) 06/15/21 04:47 RBC Morphology Abnormal (NORMAL) A 06/15/21 04:47 Hypochromasia Slight A 06/13/21 06:15 Anisocytosis Slight A 06/15/21 04:47 Ovalocytes Slight A 06/13/21 06:15 PT 15.4 SECONDS (11.8-14.3) 06/08/21 20:42 INR Target Range - 06/08/21 20:42 INR 1.28 (0.8-1.3) 06/08/21 20:42 D-Dimer 2.57 ug/ml (0.0-0.57) H* 06/15/21 04:47 Sample Site Lb 06/15/21 04:40 ABG pH 7.460 (7.35-7.45) H 06/15/21 04:40 ABG pCO2 45.0 mmHg (35.0-45.0) 06/15/21 04:40 ABG pO2 61.0 mmHg (80.0-100.0) L 06/15/21 04:40 ABG HCO3 32.0 mmol/L (22-26) H* 06/15/21 04:40 ABG O2 Saturation 92.0 % (90-100) 06/15/21 04:40 ABG Base Excess 7.2 mmol/L (-2.0-2.0) H 06/15/21 04:40 Herminio Test N/a 06/15/21 04:40 A-a Gradient 596.0 mmHg 06/15/21 04:40 FiO2 100.0 06/15/21 04:40 Blood Gas Comments Shyam well ae 06/15/21 04:40 Sodium 151 mmol/L (136-145) H* 06/15/21 04:47 Corrected Sodium 152 mmol/L (136-145) H 06/15/21 04:47 Potassium 2.9 mmol/L (3.5-5.1) L* 06/15/21 04:47 Chloride 111 mmol/L (98-107) H 06/15/21 04:47 Carbon Dioxide 31.1 mmol/L (21-32) 06/15/21 04:47 BUN 30 mg/dL (7-18) H 06/15/21 04:47 Creatinine 0.57 mg/dL (0.55-1.02) 06/15/21 04:47 Est GFR (MDRD) Af Amer > 60 (>60) 06/15/21 04:47 Est GFR (MDRD) Non-Af > 60 (>60) 06/15/21 04:47 Glucose 131 mg/dL (65-99) H 06/15/21 04:47 POC Glucose (mg/dL) 133 mg/dL (65-99) H 06/13/21 20:52 Calcium 8.5 mg/dL (8.5-10.1) 06/15/21 04:47 Corrected Calcium 9.7 mg/dL (8.5-10.1) 06/14/21 05:26 Magnesium 2.6 mg/dL (1.7-2.9) 06/15/21 04:47 Ferritin 163 ng/mL (8-252) 06/14/21 05:26 Total Bilirubin 0.50 mg/dL (0.2-1.0) 06/14/21 05:26 AST 58 Units/L (15-37) H 06/14/21 05:26 ALT 38 Units/L (12-78) 06/14/21 05:26 Alkaline Phosphatase 181 Units/L (46-116) H 06/14/21 05:26 Troponin I < 0.02 ng/mL (0-1.5) 06/08/21 20:42 C-Reactive Protein 17.60 mg/L (0-3.0) H 06/15/21 04:47 B-Natriuretic Peptide 279 pg/mL (0-79) H 06/15/21 04:47 Total Protein 5.8 g/dL (6.4-8.2) L 06/14/21 05:26 Albumin 2.5 g/dL (3.4-5.0) L 06/14/21 05:26 Globulin 3.3 g/dL (2.5-4.5) 06/14/21 05:26 Albumin/Globulin Ratio 0.8 Ratio (1.1-2.1) L 06/14/21 05:26 Specimen Type Catherized urine 06/09/21 03:30 Urine Color Yellow (YELLOW) 06/09/21 03:30 Urine Appearance Clear (CLEAR) 06/09/21 03:30 Urine pH 6.0 (5.0 - 8.0) 06/09/21 03:30 Ur Specific [place] 1.010 (1.000-1.030) 06/09/21 03:30 Urine Protein 2+ (NEGATIVE) 06/09/21 03:30 Urine Glucose (UA) Negative (NEGATIVE) 06/09/21 03:30 Urine Ketones Negative (NEGATIVE) 06/09/21 03:30 Urine Occult Blood 1+ (NEGATIVE) 06/09/21 03:30 Urine Nitrite Negative (NEGATIVE) 06/09/21 03:30 Urine Bilirubin Negative (NEGATIVE) 06/09/21 03:30 Urine Urobilinogen Normal (NORMAL) 06/09/21 03:30 Ur Leukocyte Esterase Negative (NEGATIVE) 06/09/21 03:30 Urine RBC 0-2 /HPF (0-3) 06/09/21 03:30 Urine WBC None seen /HPF (0-5) 06/09/21 03:30 Ur Squamous Epith Cells Negative /HPF (NEGATIVE) 06/09/21 03:30 Urine Bacteria Negative /HPF (NEGATIVE) 06/09/21 03:30 Ur Culture Indicated? No/not indicated 06/09/21 03:30 - Plan (1) Pneumonia due to 2019-nCoV Status: Acute Plan: 1/2 NS WITH 40MEQ KCL AT 80 ML/HR, VERCURONIUM FOR SEDATION, LEVAQUIN 500MG IV DAILY, MORPHINE SULFATE 2MG IV Q4H PRN, SOLU-MEDROL 125MG IV Q6H, VALIUM 5MG IV Q6H PRN, PROTONIX 40MG IV BID, THIAMINE 200MG IV BID, OTBS ACHS, HUMULIN R SLIDING SCALE, LOVENOX 80MG SC BID, DIFLUCAN 200MG IV DAILY, PULMICORT NEBS BID, ALBUTEROL NEBS QID, BROVANA INHALER BID, ASCORBIC ACID 1500MG IV Q6H, ZOFRAN 4MG IV Q4H PRN NAUSEA, AND THE POTASSIUM AND MAGNESIUM PROTOCOLS. (2) Acute respiratory insufficiency Status: Acute (3) Hypoxia Status: Acute (4) Acute dyspnea Status: Acute
[2021-06-15] MEDS: PROTONIX INJ 40 MG VIAL IVP SCH ×2 (12:57→20:36)
[2021-06-15] MEDS: LOVENOX INJ 80 MG SYR SC SCH ×2 (12:57→20:36)
[2021-06-15] MEDS: THIAMINE HCL INJ IVP SCH ×2 (12:58→20:36)
[2021-06-15] MEDS: DIFLUCAN 200 MG IV PREMIX* 200 MG/100 ML BAG IV SCH (12:59)
[2021-06-15] MEDS: K-RIDER 10 MEQ/NS 100 ML 10 MEQ/100 ML BAG IV PRN ×2 (19:17→22:13)
[2021-06-15] MEDS: DIFLUCAN PO SCH (19:57)
[2021-06-15] MEDS: NORVASC TAB 5 MG PO SCH (19:57)
[2021-06-15] MEDS: FLUVOXAMINE MALEATE PO SCH (19:57)
[2021-06-15] MEDS: MAGIC MOUTHWASH MT SCH (19:57)
[2021-06-15] MEDS: ZINC SULFATE PO SCH (19:58)
[2021-06-15] MEDS: VITAMIN D3 125 mcg (5,000 UNITS) PO SCH (19:58)
[2021-06-15] MEDS: ROBITUSSIN DM PO SCH (19:58)
[2021-06-15] MEDS: PEPCID TAB 20 MG PO SCH (19:58)
[2021-06-15] MEDS: ZyrTEC TAB 10 MG PO SCH (19:59)
[2021-06-15] MEDS: SNACK - Diabetic Appropriate PO SCH (20:17)
[2021-06-15] MEDS: VERSED 100 MG in NS 100 ML IV 80 ML IV PRN (20:18)
[2021-06-15] MEDS: LEVAQUIN PREMIX IV 500 MG 500 MG/100 ML BAG IV SCH (21:33)
[2021-06-16] MEDS ORDERED: NS 50 ML IV 50 ML IV ONE (00:12)
[2021-06-16] MEDS ORDERED: NORCURON INJ 10 MG VIAL 50 MG in NS 50 ML IV 50 ML IV PRN (00:29)
[2021-06-16] MEDS: NORCURON INJ 10 MG VIAL 50 MG in NS 50 ML IV 50 ML IV PRN (00:32)
[2021-06-16] MEDS: MORPHINE SULFATE INJ 2 MG INJ IVP PRN (00:34)
[2021-06-16] MEDS: APRESOLINE INJ 20 MG VIAL IVP PRN ×2 (01:09→19:12)
[2021-06-16] MEDS: SOLU-Medrol 125 MG VIAL IVP SCH ×4 (02:27→20:17)
[2021-06-16] MEDS: ASCORBIC ACID INJ MULTI-DOSE VIAL 1,500 MG in NS 50 ML IV 50 ML IV SCH ×4 (02:27→20:17)
[2021-06-16 05:37] LABS: ABG ALLEN TEST POS; ABG BASE EXCESS 7.4 mmol/L (-2.0-2.0)
--- NOTE | 2021-06-16 06:42 | RAD ---
HISTORYSOBSTUDYCHEST, 1 VIEWCOMPARISONOne day prior.TECHNIQUEAP view of the chestFINDINGSET tube in good position. Cardiac and mediastinal contours are within normal limits. No significant change in diffuse bilateral airspace and interstitial opacities. No definite pleural effusion or pneumothorax.IMPRESSIONNo significant change.Electronically signed by: Ernst Flores (Jun 16, 2021 06:40:49)
[2021-06-16 09:16] LABS: BASOPHILS % (AUTO) 0.2 % (0.2-1.0); HEMATOCRIT 34.8 % (36.0-47.0); HEMOGLOBIN 11.2 g/dL (12.0-16.0); LYMPHOCYTES # (AUTO) 0.1 X10^3/uL (1.3-2.9); LYMPHOCYTES % (AUTO) 0.8 % (21.0-51.0); MEAN CORPUSCULAR HEMOGLOBIN 25.4 pg (27.0-34.0); MEAN CORPUSCULAR HGB CONC 32.1 g/dL (33.0-35.0); MEAN CORPUSCULAR VOLUME 79.3 fL (80.0-100.0); MEAN PLATELET VOLUME 8.1 fL (7.4-11.0); MONOCYTES % (AUTO) 5.7 % (0.0-13.0); NEUTROPHILS # (AUTO) 15.7 x10^3/uL (2.2-4.8); NEUTROPHILS % (AUTO) 93.3 % (42.0-75.0); PLATELET COUNT 416 X10^3/uL (150.0-450.0); RED BLOOD COUNT 4.39 X10^6/uL (3.5-5.4); RED CELL DISTRIBUTION WIDTH 17.2 % (11.6-16.5); WHITE BLOOD COUNT 16.8 X10^3/uL (3.6-10.0)
[2021-06-16 09:22] LABS: BLOOD UREA NITROGEN 30 mg/dL (7-18); CALCIUM 8.4 mg/dL (8.5-10.1); CARBON DIOXIDE 30.5 mmol/L (21-32); CHLORIDE 113 mmol/L (98-107); COR NA(FOR HYPERGLY) 152 mmol/L (136-145); CREATININE 0.53 mg/dL (0.55-1.02); eGFR NON BLACK RACES > 60 (>60)
[2021-06-16 09:31] LABS: SODIUM 151 mmol/L (136-145)
[2021-06-16] MEDS: PULMICORT NEB TX 0.5 MG NEB SCH ×2 (09:32→21:20)
[2021-06-16] MEDS: BROVANA IN SCH ×2 (09:32→21:20)
[2021-06-16] MEDS: PROVENTIL NEB TX 0.083% 2.5MG/ 3ML NEB SCH ×4 (09:32→23:52)
[2021-06-16 09:44] LABS: PLATELET MORPHOLOGY COMMENT NORMAL (NORMAL)
[2021-06-16 09:45] LABS: ANISOCYTOSIS SLIGHT; HYPOCHROMASIA SLIGHT
[2021-06-16] MEDS: LOVENOX INJ 80 MG SYR SC SCH ×2 (10:12→20:18)
[2021-06-16] MEDS: PROTONIX INJ 40 MG VIAL IVP SCH ×2 (10:12→20:18)
[2021-06-16] MEDS: THIAMINE HCL INJ IVP SCH ×2 (10:13→20:17)
[2021-06-16] MEDS: NORVASC TAB 5 MG PO SCH (10:13)
[2021-06-16] MEDS ORDERED: PHARMACY CONSULT - TPN XX SCH (11:00)
[2021-06-16] MEDS: DIFLUCAN 200 MG IV PREMIX* 200 MG/100 ML BAG IV SCH (11:15)
[2021-06-16] MEDS: CATAPRES-TTS-1 TD SCH (12:45)
[2021-06-16] MEDS: ALBUMIN HUMAN 25%- 100 ML 100 ML IV SCH (12:45)
[2021-06-16] MEDS ORDERED: NS 1/2 1000 ML IV 1,000 ML IV ONE (15:05)
[2021-06-16] MEDS: SNACK - Diabetic Appropriate PO SCH (20:16)
[2021-06-16] MEDS: LEVAQUIN PREMIX IV 500 MG 500 MG/100 ML BAG IV SCH (21:20)
[2021-06-16 22:30] LABS: ALANINE AMINOTRANSFERASE 34 Units/L (12-78); ALBUMIN 2.6 g/dL (3.4-5.0); ALKALINE PHOSPHATASE 98 Units/L (46-116); ASPARTATE AMINO TRANSFERASE 29 Units/L (15-37); COR CA(FOR HYPOALB) 9.5 mg/dL (8.5-10.1); TOTAL PROTEIN 5.7 g/dL (6.4-8.2)
[2021-06-16 22:55] LABS: ALANINE AMINOTRANSFERASE 34 Units/L (12-78); ALBUMIN 2.8 g/dL (3.4-5.0); ALKALINE PHOSPHATASE 131 Units/L (46-116); ASPARTATE AMINO TRANSFERASE 39 Units/L (15-37); COR CA(FOR HYPOALB) 9.5 mg/dL (8.5-10.1); TOTAL PROTEIN 5.9 g/dL (6.4-8.2)
[2021-06-16] MEDS: CLINIMIX IV SCH ×3 (23:51)
[2021-06-16] MEDS: MVI IV SCH ×3 (23:51)
[2021-06-16] MEDS: VERSED 100 MG in NS 100 ML IV 80 ML IV PRN (23:51)
[2021-06-16] MEDS: [UNRECOGNIZED DRUG - OTHER] IV SCH ×3 (23:51)
[2021-06-17] MEDS: NS 1/2 1000 ML IV 1,000 ML IV SCH ×3 (00:35→16:28)
[2021-06-17] MEDS: CLINIMIX IV SCH ×9 (00:35→16:16)
[2021-06-17] MEDS: MVI IV SCH ×9 (00:35→16:16)
[2021-06-17] MEDS: [UNRECOGNIZED DRUG - OTHER] IV SCH ×9 (00:35→16:16)
[2021-06-17] MEDS: ASCORBIC ACID INJ MULTI-DOSE VIAL 1,500 MG in NS 50 ML IV 50 ML IV SCH ×4 (02:07→21:36)
[2021-06-17] MEDS: APRESOLINE INJ 20 MG VIAL IVP PRN (02:21)
[2021-06-17] MEDS: SOLU-Medrol 125 MG VIAL IVP SCH ×4 (02:21→21:30)
[2021-06-17 05:00] LABS: ABG BASE EXCESS 7.5 mmol/L (-2.0-2.0)
[2021-06-17 05:01] LABS: ABG ALLEN TEST POS; ABG HCO3 33.6 mmol/L (22-26)
[2021-06-17 06:15] LABS: BASOPHILS # (AUTO) 0.1 X10^3/uL (0.0-0.1); BASOPHILS % (AUTO) 0.3 % (0.2-1.0); HEMOGLOBIN 10.5 g/dL (12.0-16.0); LYMPHOCYTES # (AUTO) 0.1 X10^3/uL (1.3-2.9); LYMPHOCYTES % (AUTO) 0.4 % (21.0-51.0); MEAN CORPUSCULAR HEMOGLOBIN 25.5 pg (27.0-34.0); MEAN CORPUSCULAR HGB CONC 31.7 g/dL (33.0-35.0); MEAN CORPUSCULAR VOLUME 80.3 fL (80.0-100.0); MEAN PLATELET VOLUME 8.4 fL (7.4-11.0); MONOCYTES # (AUTO) 1.5 x10^3/uL (0.3-0.8); MONOCYTES % (AUTO) 6.4 % (0.0-13.0); NEUTROPHILS # (AUTO) 21.5 x10^3/uL (2.2-4.8); NEUTROPHILS % (AUTO) 92.9 % (42.0-75.0); PLATELET COUNT 425 X10^3/uL (150.0-450.0); RED BLOOD COUNT 4.11 X10^6/uL (3.5-5.4); RED CELL DISTRIBUTION WIDTH 17.4 % (11.6-16.5); WHITE BLOOD COUNT 23.2 X10^3/uL (3.6-10.0)
[2021-06-17 06:16] LABS: PREALBUMIN 19.6 mg/dL (18-35.7)
[2021-06-17 06:26] LABS: ALANINE AMINOTRANSFERASE 34 Units/L (12-78); ALBUMIN 2.9 g/dL (3.4-5.0); ALKALINE PHOSPHATASE 102 Units/L (46-116); ASPARTATE AMINO TRANSFERASE 25 Units/L (15-37); BLOOD UREA NITROGEN 29 mg/dL (7-18); CALCIUM 8.5 mg/dL (8.5-10.1); CARBON DIOXIDE 30.6 mmol/L (21-32); CHLORIDE 111 mmol/L (98-107); COR CA(FOR HYPOALB) 9.4 mg/dL (8.5-10.1); COR NA(FOR HYPERGLY) 154 mmol/L (136-145); SODIUM 149 mmol/L (136-145); TOTAL PROTEIN 5.9 g/dL (6.4-8.2); eGFR NON BLACK RACES > 60 (>60)
[2021-06-17] MEDS: MORPHINE SULFATE INJ 2 MG INJ IVP PRN ×2 (07:00→21:15)
[2021-06-17] MEDS ORDERED: NS 100 ML IV 100 ML ONE (07:01)
[2021-06-17] MEDS ORDERED: CARDIZEM INJ 125 MG VIAL ONE (07:02)
[2021-06-17] MEDS: CARDIZEM INJ 125 MG VIAL 125 MG in NS 100 ML IV 100 ML IV PRN ×4 (07:05→16:36)
[2021-06-17 07:55] LABS: ANISOCYTOSIS SLIGHT; BAND NEUTROPHILS % 3 % (0-10); HYPOCHROMASIA SLIGHT; PLATELET MORPHOLOGY COMMENT NORMAL (NORMAL)
--- NOTE | 2021-06-17 08:16 | RAD ---
HISTORYSOB PMH: HTN PSH: [employer], TONSILSSTUDYCHEST, 1 [id number] cardiomediastinal silhouette and endotracheal tube. Increased opacity in the right base otherwise stable diffuse interstitial opacity and patchy airspace opacities. No visible pneumothorax. No acute osseous finding.IMPRESSIONWorsening opacity in the right base. Pleural effusion would be difficult to exclude.Electronically signed by: Alvino Hernandez (Jun 17, 2021 08:13:40)
[2021-06-17] MEDS: THIAMINE HCL INJ IVP SCH ×2 (09:30→21:28)
[2021-06-17] MEDS: PROTONIX INJ 40 MG VIAL IVP SCH ×2 (09:30→21:25)
[2021-06-17] MEDS: LOVENOX INJ 80 MG SYR SC SCH ×2 (09:31→21:19)
[2021-06-17] MEDS: DIFLUCAN 200 MG IV PREMIX* 200 MG/100 ML BAG IV SCH (09:32)
[2021-06-17] MEDS: BROVANA IN SCH ×2 (09:47→20:50)
[2021-06-17] MEDS: PULMICORT NEB TX 0.5 MG NEB SCH ×2 (09:47→20:50)
[2021-06-17] MEDS: ALBUMIN HUMAN 25%- 100 ML 100 ML IV SCH (09:51)
--- NOTE | 2021-06-17 10:59 | PCM.PROG ---
Progress Note - Progress Note for Day of Date of Exam: 06/16/21 - Subjective Subjective: WAS ADMITTED ON 06/09 FOR TREATMENT OF PNEUMONIA DUE TO COVID-19 AND ACUTE RESPIRATORY FAILURE WITH HYPOXIA. SHE WAS PLACED ON THE MECHANICAL VENTILATOR TUESDAY NIGHT DUE TO INCREASED RESPIRATORY EFFORTS, DECREASED OXYGEN SATURATIONS, AND COMBATIVENESS. OXYGEN SATURATIONS HAVE REMAINED 84-98% WHILE ON THE VENT. ON EXAMINATION, HEART IS REGULAR IN RATE AND RHYTHM. BILATERAL LUNGS NOTED WITH RALES THROUGHOUT. ABDOMEN IS ROUND, SOFT, AND NON-TENDER WITH NORMAL BOWEL SOUNDS NOTED IN ALL QUADRANTS. HER VITALS THIS MORNING ARE: 98.0-112-25-97%-148/90. LABS WERE OBTAINED. ABNORMAL LAB VALUES INCLUDE THE FOLLOWING: WBC 16.8, HGB 11.2, HCT 34.8, D-DIMER 2.32, SODIUM 151, CHLORIDE 113, BUN 30, CREATININE 0.53, GLUCOSE 141, CALCIUM 8.4, CRP 8.90, BNP 126, TOTAL PROTEIN 5.7, ALBUMIN 2.6. ABG REPEATED TODAY AND REVEALED: PH 7.470, PC02 44, P02 76, HC03 32.0, 02 SAT 96, BASE EXCESS 7.4, A-A GRADIENT 582. FI02 100. CHEST XRAY REVEALED: ET tube in good position. Cardiac and mediastinal c ontours are within normal limits. No significant change in diffuse bilateral airspace and interstitial opacities. No definite pleural effusion or pneumothorax. SHE IS CURRENTLY RECEIVING 1/2 NS WITH 40MEQ KCL AT 80 ML/HR, VERCURONIUM FOR SEDATION, LEVAQUIN 500MG IV DAILY, MORPHINE SULFATE 2MG IV Q4H PRN, SOLU-MEDROL 125MG IV Q6H, VALIUM 5MG IV Q6H PRN, PROTONIX 40MG IV BID, THIAMINE 200MG IV BID, OTBS ACHS, HUMULIN R SLIDING SCALE, LOVENOX 80MG SC BID, DIFLUCAN 200MG IV DAILY, PULMICORT NEBS BID, ALBUTEROL NEBS QID, BROVANA INHALER BID, ASCORBIC ACID 1500MG IV Q6H, ZOFRAN 4MG IV Q4H PRN NAUSEA, AND THE POTASSIUM AND MAGNESIUM PROTOCOLS. TODAY, WE WILL START ALBUMIN 25% IV DAILY, TPN, AND CONSULT FOR FEEDING TUBE PLACEMENT. OTHERWISE, WE PLAN TO FOLLOW UP WITH AM LABS AND CHEST XRAY AND CONTINUE TO MONITOR. TIME SPENT ON CLINICAL ASSESSMENT, REVIEWING LABS AND IMAGING, DECISION MAKING, AND DOCUMENTATION GREATER THAN 45 MINUTES. - Past Medical Family Social History Past Med/Fam/Surg Hx: No changes since H&P Allergies: Allergies nalbuphine [From Nubain] Allergy (Verified 05/15/18 14:34) Penicillins Allergy (Verified 05/15/18 14:34) - Review of Systems ROS: No change since H&P - Vital Signs and I&O's Vital Signs: Temperature 98.0 F Pulse Rate 119 Respiratory Rate 25 Blood Pressure [Left Arm] 163/90 Blood Pressure [Right Arm] 176/96 Blood Pressure 165/79 O2 Sat by Pulse Oximetry 96 Intake and Output: Intake & Output 06/14/21 06/15/21 06/16/21 06/17/21 11:59 11:59 11:59 11:59 Intake Total 1682 / 1682 2856 / 2856 2980 / 2980 2484 / 2484 Output Total 725 / 725 1425 / 1425 975 / 975 1600 / 1600 Balance 957 / 957 1431 / 1431 2004 884 / 884 - Physical Exam Oriented: Unable to test Eyes: Normal Ear: Normal Nose: Normal Throat: Normal Respiratory: Generalized, Rales Cardiovascular: Normal : Normal Auscultation: Bowel Sounds: Normal Palpation: Normal Tenderness: Normal Skin: Normal Musculoskeletal: Normal Psychiatric: Other (SEDATED ) Mood Description: Calm Affect: Normal (SEDATED) Speech Pattern: Artificially Ventilated - Laboratory and Diagnostics Result Diagrams: 06/17/21 04:43 06/17/21 04:43 Labs: 06/08/21 20:42 Blood Blood Culture - Final 06/08/21 20:50 Blood Blood Culture - Final Laboratory WBC 23.2 X10^3/uL (3.6-10.0) H 06/17/21 04:43 RBC 4.11 X10^6/uL (3.5-5.4) 06/17/21 04:43 Hgb 10.5 g/dL (12.0-16.0) L 06/17/21 04:43 Hct 33.0 % (36.0-47.0) L 06/17/21 04:43 MCV 80.3 fL (80.0-100.0) 06/17/21 04:43 MCH 25.5 pg (27.0-34.0) L 06/17/21 04:43 MCHC 31.7 g/dL (33.0-35.0) L 06/17/21 04:43 RDW 17.4 % (11.6-16.5) H 06/17/21 04:43 Plt Count 425 X10^3/uL (150.0-450.0) 06/17/21 04:43 Plt Count Comment Adequate (ADEQUATE) 06/17/21 04:43 MPV 8.4 fL (7.4-11.0) 06/17/21 04:43 Neut % (Auto) 92.9 % (42.0-75.0) H 06/17/21 04:43 Lymph % (Auto) 0.4 % (21.0-51.0) L 06/17/21 04:43 [place] % (Auto) 6.4 % (0.0-13.0) 06/17/21 04:43 Eos % (Auto) 0.0 % (0.9-2.9) L 06/17/21 04:43 Baso % (Auto) 0.3 % (0.2-1.0) 06/17/21 04:43 Neut # (Auto) 21.5 x10^3/uL (2.2-4.8) H 06/17/21 04:43 Lymph # (Auto) 0.1 X10^3/uL (1.3-2.9) L 06/17/21 04:43 [place] # (Auto) 1.5 x10^3/uL (0.3-0.8) H 06/17/21 04:43 Eos # (Auto) 0.0 x10^3/uL (0.0-0.2) 06/17/21 04:43 Baso # (Auto) 0.1 X10^3/uL (0.0-0.1) 06/17/21 04:43 Absolute Nucleated RBC 0.1 /100WBC 06/17/21 04:43 Total Counted 100 06/17/21 04:43 Neutrophils % (Manual) 89 % (39-76) H 06/17/21 04:43 Band Neutrophils % 3 % (0-10) 06/17/21 04:43 Lymphocytes % (Manual) 6 % (13-43) L 06/17/21 04:43 Monocytes % (Manual) 2 % (4-9) L 06/17/21 04:43 Plt Morphology Comment Normal (NORMAL) 06/17/21 04:43 RBC Morphology Abnormal (NORMAL) A 06/17/21 04:43 Hypochromasia Slight A 06/17/21 04:43 Anisocytosis Slight A 06/17/21 04:43 Ovalocytes Slight A 06/13/21 06:15 PT 15.4 SECONDS (11.8-14.3) 06/08/21 20:42 INR Target Range - 06/08/21 20:42 INR 1.28 (0.8-1.3) 06/08/21 20:42 D-Dimer 1.75 ug/ml (0.0-0.57) H* 06/17/21 04:43 Sample Site Rrad 06/17/21 05:00 ABG pH 7.410 (7.35-7.45) 06/17/21 05:00 ABG pCO2 53.0 mmHg (35.0-45.0) H* 06/17/21 05:00 ABG pO2 80.0 mmHg (80.0-100.0) 06/17/21 05:00 ABG HCO3 33.6 mmol/L (22-26) H* 06/17/21 05:00 ABG O2 Saturation 96.0 % (90-100) 06/17/21 05:00 ABG Base Excess 7.5 mmol/L (-2.0-2.0) H 06/17/21 05:00 Herminio Test Pos 06/17/21 05:00 A-a Gradient 495.0 mmHg 06/17/21 05:00 FiO2 90.0 06/17/21 05:00 Blood Gas Comments Shyam well mts 06/17/21 05:00 Sodium 149 mmol/L (136-145) H 06/17/21 04:43 Corrected Sodium 154 mmol/L (136-145) H 06/17/21 04:43 Potassium 3.2 mmol/L (3.5-5.1) L 06/17/21 04:43 Chloride 111 mmol/L (98-107) H 06/17/21 04:43 Carbon Dioxide 30.6 mmol/L (21-32) 06/17/21 04:43 BUN 29 mg/dL (7-18) H 06/17/21 04:43 Creatinine 0.60 mg/dL (0.55-1.02) 06/17/21 04:43 Est GFR (MDRD) Af Amer > 60 (>60) 06/17/21 04:43 Est GFR (MDRD) Non-Af > 60 (>60) 06/17/21 04:43 Glucose 288 mg/dL (65-99) H 06/17/21 04:43 POC Glucose (mg/dL) 144 mg/dL (65-99) H 06/15/21 16:06 Calcium 8.5 mg/dL (8.5-10.1) 06/17/21 04:43 Corrected Calcium 9.4 mg/dL (8.5-10.1) 06/17/21 04:43 Magnesium 2.6 mg/dL (1.7-2.9) 06/15/21 04:47 Ferritin 163 ng/mL (8-252) 06/14/21 05:26 Total Bilirubin 0.50 mg/dL (0.2-1.0) 06/17/21 04:43 AST 25 Units/L (15-37) 06/17/21 04:43 ALT 34 Units/L (12-78) 06/17/21 04:43 Alkaline Phosphatase 102 Units/L (46-116) 06/17/21 04:43 Troponin I < 0.02 ng/mL (0-1.5) 06/08/21 20:42 C-Reactive Protein 4.70 mg/L (0-3.0) H 06/17/21 04:43 B-Natriuretic Peptide 207 pg/mL (0-79) H 06/17/21 04:43 Total Protein 5.9 g/dL (6.4-8.2) L 06/17/21 04:43 Albumin 2.9 g/dL (3.4-5.0) L 06/17/21 04:43 Globulin 3.0 g/dL (2.5-4.5) 06/17/21 04:43 Albumin/Globulin Ratio 1.0 Ratio (1.1-2.1) L 06/17/21 04:43 Prealbumin 19.6 mg/dL (18-35.7) 06/17/21 04:43 Specimen Type Catherized urine 06/09/21 03:30 Urine Color Yellow (YELLOW) 06/09/21 03:30 Urine Appearance Clear (CLEAR) 06/09/21 03:30 Urine pH 6.0 (5.0 - 8.0) 06/09/21 03:30 Ur Specific [place] 1.010 (1.000-1.030) 06/09/21 03:30 Urine Protein 2+ (NEGATIVE) 06/09/21 03:30 Urine Glucose (UA) Negative (NEGATIVE) 06/09/21 03:30 Urine Ketones Negative (NEGATIVE) 06/09/21 03:30 Urine Occult Blood 1+ (NEGATIVE) 06/09/21 03:30 Urine Nitrite Negative (NEGATIVE) 06/09/21 03:30 Urine Bilirubin Negative (NEGATIVE) 06/09/21 03:30 Urine Urobilinogen Normal (NORMAL) 06/09/21 03:30 Ur Leukocyte Esterase Negative (NEGATIVE) 06/09/21 03:30 Urine RBC 0-2 /HPF (0-3) 06/09/21 03:30 Urine WBC None seen /HPF (0-5) 06/09/21 03:30 Ur Squamous Epith Cells Negative /HPF (NEGATIVE) 06/09/21 03:30 Urine Bacteria Negative /HPF (NEGATIVE) 06/09/21 03:30 Ur Culture Indicated? No/not indicated 06/09/21 03:30 - Plan (1) Pneumonia due to 2019-nCoV Status: Acute Plan: 1/2 NS WITH 40MEQ KCL AT 80 ML/HR, VERCURONIUM FOR SEDATION, LEVAQUIN 500MG IV DAILY, MORPHINE SULFATE 2MG IV Q4H PRN, SOLU-MEDROL 125MG IV Q6H, A CAT APRES PATCH, VALIUM 5MG IV Q6H PRN, PROTONIX 40MG IV BID, THIAMINE 200MG IV BID, OTBS ACHS, HUMULIN R SLIDING SCALE, LOVENOX 80MG SC BID, DIFLUCAN 200MG IV DAILY, PULMICORT NEBS BID, ALBUTEROL NEBS QID, BROVANA INHALER BID, ASCORBIC ACID 1500MG IV Q6H, ZOFRAN 4MG IV Q4H PRN NAUSEA, AND THE POTASSIUM AND MAGNESIUM PROTOCOLS. (2) Acute respiratory insufficiency Status: Acute (3) Hypoxia Status: Acute (4) Acute dyspnea Status: Acute
--- NOTE | 2021-06-17 11:23 | PCM.PROG ---
Progress Note - Progress Note for Day of Date of Exam: 06/17/21 - Subjective Subjective: WAS ADMITTED ON 06/09 FOR TREATMENT OF PNEUMONIA DUE TO COVID-19 AND ACUTE RESPIRATORY FAILURE WITH HYPOXIA. SHE WAS PLACED ON THE MECHANICAL VENTILATOR TUESDAY NIGHT DUE TO INCREASED RESPIRATORY EFFORTS, DECREASED OXYGEN SATURATIONS, AND COMBATIVENESS. OXYGEN SATURATIONS HAVE REMAINED 92-96% WHILE ON THE VENT. STAFF REPORTS THAT HER HEART RATE HAS BEEN ELEVATED THROUGHOUT THE NIGHT. ON EXAMINATION, SHE IS NOTED TO BE TACHYCARDIC. BILATERAL LUNGS NOTED WITH RALES THROUGHOUT. ABDOMEN IS ROUND, SOFT, AND NON- TENDER WITH NORMAL BOWEL SOUNDS NOTED IN ALL QUADRANTS. HER VITALS THIS MORNING ARE: 98.0-119-25-96%-165/79. LABS WERE OBTAINED. ABNORMAL LAB VALUES INCLUDE THE FOLLOWING: WBC 23.2, HGB 10.5, HCT 33.0, D-DIMER 1.75, SODIUM 149, POTASSIUM 3.2, CHLORIDE 111, BUN 29, GLUCOSE 288, CRP 4.70, BNP 207, TOTAL PROTEIN 5.9, ALBUMIN 2.9. ABG REPEATED TODAY AND REVEALED: PH 7.410, PC02 53, P02 80, HC03 33.6, 02 SAT 96, A-A GRADIENT 495, FI02 90. CHEST XRAY REVEALED: Worsening opaci ty in the right base. Pleural effusion would be difficult to exclude. SHE IS CURRENTLY RECEIVING TPN AT 80 ML/HR, ALBUMIN 25% IV DAILY, 1/2 NS AT 20 ML/HR, CARDIZEM DRIP, VERSED FOR SEDATION, LEVAQUIN 500MG IV DAILY, MORPHINE SULFATE 2MG IV Q4H PRN, SOLU-MEDROL 125MG IV Q6H, VALIUM 5MG IV Q6H PRN, PROTONIX 40MG IV BID, THIAMINE 200MG IV BID, OTBS ACHS, HUMULIN R SLIDING SCALE, LOVENOX 80MG SC BID, DIFLUCAN 200MG IV DAILY, PULMICORT NEBS BID, ALBUTEROL NEBS QID, BROVANA INHALER BID, ASCORBIC ACID 1500MG IV Q6H, ZOFRAN 4MG IV Q4H PRN NAUSEA, AND THE POTASSIUM AND MAGNESIUM PROTOCOLS. TODAY, WE WILL START FORTAZ 1G IV Q8H. WE HAVE CONSULTED FOR PEG TUBE PLACEMENT. OTHERWISE, WE PLAN TO FOLLOW UP WITH AM LABS AND CHEST XRAY AND CONTINUE TO MONITOR. TIME SPENT ON CLINICAL ASSESSMENT, REVIEWING LABS AND IMAGING, DECISION MAKING, AND DOCUMENTATION GREATER THAN 45 MINUTES. - Past Medical Family Social History Past Med/Fam/Surg Hx: No changes since H&P Allergies: Allergies nalbuphine [From Nubain] Allergy (Verified 05/15/18 14:34) Penicillins Allergy (Verified 05/15/18 14:34) - Review of Systems ROS: No change since H&P - Vital Signs and I&O's Vital Signs: Temperature 98.0 F Pulse Rate 119 Respiratory Rate 25 Blood Pressure [Left Arm] 163/90 Blood Pressure [Right Arm] 176/96 Blood Pressure 165/79 O2 Sat by Pulse Oximetry 96 Intake and Output: Intake & Output 06/14/21 06/15/21 06/16/21 06/17/21 11:59 11:59 11:59 11:59 Intake Total 1682 / 1682 2856 / 2856 2980 / 2980 2484 / 2484 Output Total 725 / 725 1425 / 1425 975 / 975 1600 / 1600 Balance 957 / 957 1431 / 1431 2004 884 / 884 - Physical Exam Oriented: Unable to test Eyes: Normal Ear: Normal Nose: Normal Throat: Normal Respiratory: Generalized, Rales Cardiovascular: Normal : Normal Auscultation: Bowel Sounds: Normal Palpation: Normal Tenderness: Normal Skin: Normal Musculoskeletal: Normal Psychiatric: Other (SEDATED ) Mood Description: Calm Affect: Normal (SEDATED) Speech Pattern: Artificially Ventilated - Laboratory and Diagnostics Result Diagrams: 06/17/21 04:43 06/17/21 04:43 Labs: 06/08/21 20:42 Blood Blood Culture - Final 06/08/21 20:50 Blood Blood Culture - Final Laboratory WBC 23.2 X10^3/uL (3.6-10.0) H 06/17/21 04:43 RBC 4.11 X10^6/uL (3.5-5.4) 06/17/21 04:43 Hgb 10.5 g/dL (12.0-16.0) L 06/17/21 04:43 Hct 33.0 % (36.0-47.0) L 06/17/21 04:43 MCV 80.3 fL (80.0-100.0) 06/17/21 04:43 MCH 25.5 pg (27.0-34.0) L 06/17/21 04:43 MCHC 31.7 g/dL (33.0-35.0) L 06/17/21 04:43 RDW 17.4 % (11.6-16.5) H 06/17/21 04:43 Plt Count 425 X10^3/uL (150.0-450.0) 06/17/21 04:43 Plt Count Comment Adequate (ADEQUATE) 06/17/21 04:43 MPV 8.4 fL (7.4-11.0) 06/17/21 04:43 Neut % (Auto) 92.9 % (42.0-75.0) H 06/17/21 04:43 Lymph % (Auto) 0.4 % (21.0-51.0) L 06/17/21 04:43 [place] % (Auto) 6.4 % (0.0-13.0) 06/17/21 04:43 Eos % (Auto) 0.0 % (0.9-2.9) L 06/17/21 04:43 Baso % (Auto) 0.3 % (0.2-1.0) 06/17/21 04:43 Neut # (Auto) 21.5 x10^3/uL (2.2-4.8) H 06/17/21 04:43 Lymph # (Auto) 0.1 X10^3/uL (1.3-2.9) L 06/17/21 04:43 [place] # (Auto) 1.5 x10^3/uL (0.3-0.8) H 06/17/21 04:43 Eos # (Auto) 0.0 x10^3/uL (0.0-0.2) 06/17/21 04:43 Baso # (Auto) 0.1 X10^3/uL (0.0-0.1) 06/17/21 04:43 Absolute Nucleated RBC 0.1 /100WBC 06/17/21 04:43 Total Counted 100 06/17/21 04:43 Neutrophils % (Manual) 89 % (39-76) H 06/17/21 04:43 Band Neutrophils % 3 % (0-10) 06/17/21 04:43 Lymphocytes % (Manual) 6 % (13-43) L 06/17/21 04:43 Monocytes % (Manual) 2 % (4-9) L 06/17/21 04:43 Plt Morphology Comment Normal (NORMAL) 06/17/21 04:43 RBC Morphology Abnormal (NORMAL) A 06/17/21 04:43 Hypochromasia Slight A 06/17/21 04:43 Anisocytosis Slight A 06/17/21 04:43 Ovalocytes Slight A 06/13/21 06:15 PT 15.4 SECONDS (11.8-14.3) 06/08/21 20:42 INR Target Range - 06/08/21 20:42 INR 1.28 (0.8-1.3) 06/08/21 20:42 D-Dimer 1.75 ug/ml (0.0-0.57) H* 06/17/21 04:43 Sample Site Rrad 06/17/21 05:00 ABG pH 7.410 (7.35-7.45) 06/17/21 05:00 ABG pCO2 53.0 mmHg (35.0-45.0) H* 06/17/21 05:00 ABG pO2 80.0 mmHg (80.0-100.0) 06/17/21 05:00 ABG HCO3 33.6 mmol/L (22-26) H* 06/17/21 05:00 ABG O2 Saturation 96.0 % (90-100) 06/17/21 05:00 ABG Base Excess 7.5 mmol/L (-2.0-2.0) H 06/17/21 05:00 Herminio Test Pos 06/17/21 05:00 A-a Gradient 495.0 mmHg 06/17/21 05:00 FiO2 90.0 06/17/21 05:00 Blood Gas Comments Shyam well mts 06/17/21 05:00 Sodium 149 mmol/L (136-145) H 06/17/21 04:43 Corrected Sodium 154 mmol/L (136-145) H 06/17/21 04:43 Potassium 3.2 mmol/L (3.5-5.1) L 06/17/21 04:43 Chloride 111 mmol/L (98-107) H 06/17/21 04:43 Carbon Dioxide 30.6 mmol/L (21-32) 06/17/21 04:43 BUN 29 mg/dL (7-18) H 06/17/21 04:43 Creatinine 0.60 mg/dL (0.55-1.02) 06/17/21 04:43 Est GFR (MDRD) Af Amer > 60 (>60) 06/17/21 04:43 Est GFR (MDRD) Non-Af > 60 (>60) 06/17/21 04:43 Glucose 288 mg/dL (65-99) H 06/17/21 04:43 POC Glucose (mg/dL) 144 mg/dL (65-99) H 06/15/21 16:06 Calcium 8.5 mg/dL (8.5-10.1) 06/17/21 04:43 Corrected Calcium 9.4 mg/dL (8.5-10.1) 06/17/21 04:43 Magnesium 2.6 mg/dL (1.7-2.9) 06/15/21 04:47 Ferritin 163 ng/mL (8-252) 06/14/21 05:26 Total Bilirubin 0.50 mg/dL (0.2-1.0) 06/17/21 04:43 AST 25 Units/L (15-37) 06/17/21 04:43 ALT 34 Units/L (12-78) 06/17/21 04:43 Alkaline Phosphatase 102 Units/L (46-116) 06/17/21 04:43 Troponin I < 0.02 ng/mL (0-1.5) 06/08/21 20:42 C-Reactive Protein 4.70 mg/L (0-3.0) H 06/17/21 04:43 B-Natriuretic Peptide 207 pg/mL (0-79) H 06/17/21 04:43 Total Protein 5.9 g/dL (6.4-8.2) L 06/17/21 04:43 Albumin 2.9 g/dL (3.4-5.0) L 06/17/21 04:43 Globulin 3.0 g/dL (2.5-4.5) 06/17/21 04:43 Albumin/Globulin Ratio 1.0 Ratio (1.1-2.1) L 06/17/21 04:43 Prealbumin 19.6 mg/dL (18-35.7) 06/17/21 04:43 Specimen Type Catherized urine 06/09/21 03:30 Urine Color Yellow (YELLOW) 06/09/21 03:30 Urine Appearance Clear (CLEAR) 06/09/21 03:30 Urine pH 6.0 (5.0 - 8.0) 06/09/21 03:30 Ur Specific [place] 1.010 (1.000-1.030) 06/09/21 03:30 Urine Protein 2+ (NEGATIVE) 06/09/21 03:30 Urine Glucose (UA) Negative (NEGATIVE) 06/09/21 03:30 Urine Ketones Negative (NEGATIVE) 06/09/21 03:30 Urine Occult Blood 1+ (NEGATIVE) 06/09/21 03:30 Urine Nitrite Negative (NEGATIVE) 06/09/21 03:30 Urine Bilirubin Negative (NEGATIVE) 06/09/21 03:30 Urine Urobilinogen Normal (NORMAL) 06/09/21 03:30 Ur Leukocyte Esterase Negative (NEGATIVE) 06/09/21 03:30 Urine RBC 0-2 /HPF (0-3) 06/09/21 03:30 Urine WBC None seen /HPF (0-5) 06/09/21 03:30 Ur Squamous Epith Cells Negative /HPF (NEGATIVE) 06/09/21 03:30 Urine Bacteria Negative /HPF (NEGATIVE) 06/09/21 03:30 Ur Culture Indicated? No/not indicated 06/09/21 03:30 - Plan (1) Pneumonia due to 2019-nCoV Status: Acute Plan: 1/2 NS AT 20 ML/HR, TPN AT 80 ML/HR, ALBUMIN 25% IV DAILY, FORTAZ 1G IV Q8H, VERSED FOR SEDATION, LEVAQUIN 500MG IV DAILY, MORPHINE SULFATE 2MG IV Q4H PRN, SOLU-MEDROL 125MG IV Q6H, A CATAPRES PATCH, VALIUM 5MG IV Q6H PRN, PROTONIX 40MG IV BID, THIAMINE 200MG IV BID, OTBS ACHS, HUMULIN R SLIDING SCALE, LOVENOX 80MG SC BID, DIFLUCAN 200MG IV DAILY, PULMICORT NEBS BID, ALBUTEROL NEBS QID, BROVANA INHALER BID, ASCORBIC ACID 1500MG IV Q6H, ZOFRAN 4MG IV Q4H PRN NAUSEA, AND THE POTASSIUM AND MAGNESIUM PROTOCOLS. (2) Acute respiratory insufficiency Status: Acute (3) Hypoxia Status: Acute (4) Acute dyspnea Status: Acute
[2021-06-17] MEDS: FORTAZ or TAZICEF VIAL INJ 1 G in NS 100 ML IV + SPIKE MINIBAG* 100 ML IV SCH ×3 (12:00→22:15)
[2021-06-17] MEDS: VALIUM INJ IVP PRN ×2 (12:27→18:24)
[2021-06-17] MEDS: VERSED 100 MG in NS 100 ML IV 80 ML IV PRN ×2 (12:58→19:44)
[2021-06-17] MEDS ORDERED: ZEMURON 100 MG VIAL 500 MG in NS 500 ML IV 450 ML IV SCH (13:00)
[2021-06-17] MEDS: PROVENTIL NEB TX 0.083% 2.5MG/ 3ML NEB SCH ×3 (14:53→20:50)
[2021-06-17] MEDS: K-RIDER 10 MEQ/NS 100 ML 10 MEQ/100 ML BAG IV PRN ×2 (16:58→18:25)
[2021-06-17] MEDS: LEVAQUIN PREMIX IV 500 MG 500 MG/100 ML BAG IV SCH (21:15)
[2021-06-18] MEDS: [UNRECOGNIZED DRUG - OTHER] IV SCH ×6 (00:06→12:38)
[2021-06-18] MEDS: CLINIMIX IV SCH ×6 (00:06→12:38)
[2021-06-18] MEDS: MVI IV SCH ×6 (00:06→12:38)
[2021-06-18] MEDS: CARDIZEM INJ 125 MG VIAL 125 MG in NS 100 ML IV 100 ML IV PRN (02:10)
[2021-06-18] MEDS: VERSED 100 MG in NS 100 ML IV 80 ML IV PRN ×5 (02:10→21:30)
[2021-06-18] MEDS: ASCORBIC ACID INJ MULTI-DOSE VIAL 1,500 MG in NS 50 ML IV 50 ML IV SCH ×4 (02:17→21:35)
[2021-06-18] MEDS: SOLU-Medrol 125 MG VIAL IVP SCH ×4 (02:18→21:40)
[2021-06-18] MEDS: VALIUM INJ IVP PRN (02:45)
[2021-06-18] MEDS ORDERED: NS 1/2 1000 ML IV 1,000 ML IV ONE (05:03)
[2021-06-18 05:15] LABS: ABG BASE EXCESS 8.4 mmol/L (-2.0-2.0)
[2021-06-18 05:16] LABS: ABG ALLEN TEST POS; ABG HCO3 33.4 mmol/L (22-26)
--- NOTE | 2021-06-18 05:20 | RAD ---
HISTORYSOBSTUDYPortable AP [id number] mild cardiomegaly. Endotracheal tube in mid trachea, 4 cm above jaden. Diffuse bilateral pulmonary infiltrates have improved slightly. The hilar structures and diaphragm surfaces are now better visualized. No pleural effusion or complicating pneumothorax seen.IMPRESSIONSlight interval improvement in aeration of the lungs with persistent bilateral airspace disease consistent with pneumonia/edema or ARDS.Electronically signed by: DELMIS MCCLENDON (Jun 18, 2021 05:18:30)
[2021-06-18] MEDS: FORTAZ or TAZICEF VIAL INJ 1 G in NS 100 ML IV + SPIKE MINIBAG* 100 ML IV SCH ×3 (05:33→23:50)
[2021-06-18] MEDS: NS 1/2 1000 ML IV 1,000 ML IV SCH ×2 (05:33→17:47)
[2021-06-18 06:06] LABS: ALANINE AMINOTRANSFERASE 50 Units/L (12-78); ALBUMIN 2.9 g/dL (3.4-5.0); ALKALINE PHOSPHATASE 95 Units/L (46-116); ASPARTATE AMINO TRANSFERASE 40 Units/L (15-37); BLOOD UREA NITROGEN 29 mg/dL (7-18); CALCIUM 8.4 mg/dL (8.5-10.1); CARBON DIOXIDE 30.9 mmol/L (21-32); CHLORIDE 114 mmol/L (98-107); COR CA(FOR HYPOALB) 9.3 mg/dL (8.5-10.1); COR NA(FOR HYPERGLY) 152 mmol/L (136-145); TOTAL PROTEIN 5.6 g/dL (6.4-8.2); eGFR NON BLACK RACES > 60 (>60)
[2021-06-18 06:12] LABS: BASOPHILS % (AUTO) 0.1 % (0.2-1.0); HEMATOCRIT 28.4 % (36.0-47.0); HEMOGLOBIN 9.3 g/dL (12.0-16.0); LYMPHOCYTES # (AUTO) 0.1 X10^3/uL (1.3-2.9); LYMPHOCYTES % (AUTO) 0.6 % (21.0-51.0); MEAN CORPUSCULAR HEMOGLOBIN 26.1 pg (27.0-34.0); MEAN CORPUSCULAR HGB CONC 32.8 g/dL (33.0-35.0); MEAN CORPUSCULAR VOLUME 79.4 fL (80.0-100.0); MEAN PLATELET VOLUME 8.8 fL (7.4-11.0); MONOCYTES # (AUTO) 1.1 x10^3/uL (0.3-0.8); MONOCYTES % (AUTO) 5.4 % (0.0-13.0); NEUTROPHILS # (AUTO) 18.5 x10^3/uL (2.2-4.8); NEUTROPHILS % (AUTO) 93.9 % (42.0-75.0); PLATELET COUNT 285 X10^3/uL (150.0-450.0); RED BLOOD COUNT 3.58 X10^6/uL (3.5-5.4); RED CELL DISTRIBUTION WIDTH 17.5 % (11.6-16.5); WHITE BLOOD COUNT 19.8 X10^3/uL (3.6-10.0)
[2021-06-18 06:18] LABS: SODIUM 150 mmol/L (136-145)
[2021-06-18 08:39] LABS: HYPOCHROMASIA SLIGHT; MICROCYTOSIS SLIGHT; PLATELET MORPHOLOGY COMMENT NORMAL (NORMAL)
[2021-06-18] MEDS: PULMICORT NEB TX 0.5 MG NEB SCH ×2 (09:00→21:12)
[2021-06-18] MEDS: BROVANA IN SCH ×2 (09:00→21:12)
[2021-06-18] MEDS: PROVENTIL NEB TX 0.083% 2.5MG/ 3ML NEB SCH ×3 (09:00→21:12)
[2021-06-18] MEDS: ALBUMIN HUMAN 25%- 100 ML 100 ML IV SCH (10:45)
[2021-06-18] MEDS: PROTONIX INJ 40 MG VIAL IVP SCH ×2 (10:51→21:38)
[2021-06-18] MEDS: DIFLUCAN 200 MG IV PREMIX* 200 MG/100 ML BAG IV SCH (10:51)
[2021-06-18] MEDS: THIAMINE HCL INJ IVP SCH ×2 (10:52→21:48)
[2021-06-18] MEDS: LOVENOX INJ 80 MG SYR SC SCH ×2 (10:52→21:30)
--- NOTE | 2021-06-18 11:10 | PCM.PROG ---
Progress Note - Progress Note for Day of Date of Exam: 06/18/21 - Subjective Subjective: WAS ADMITTED ON 06/09 FOR TREATMENT OF PNEUMONIA DUE TO COVID-19 AND ACUTE RESPIRATORY FAILURE WITH HYPOXIA. SHE WAS PLACED ON THE MECHANICAL VENTILATOR TUESDAY NIGHT DUE TO INCREASED RESPIRATORY EFFORTS, DECREASED OXYGEN SATURATIONS, AND COMBATIVENESS. OXYGEN SATURATIONS HAVE REMAINED 94-100% WHILE ON THE VENT. ON EXAMINATION, HEART IS REGULAR IN RATE AND RHYTHM. BILATERAL LUNGS NOTED WITH RALES THROUGHOUT. ABDOMEN IS ROUND, SOFT, AND NON-TENDER WITH NORMAL BOWEL SOUNDS NOTED IN ALL QUADRANTS. HER VITALS THIS MORNING ARE: 98.3-97-31-94%-141/66. LABS WERE OBTAINED. ABNORMAL LAB VALUES INCLUDE THE FOLLOWING: WBC 19.8, HGB 9.3, HCT 28.4, D-DIMER 1.70, SODIUM 150, CHLORIDE 114, GLUCOSE 200, CALCIUM 8.4, AST 40, BNP 224, TOTAL PROTEIN 5.6, ALBUMIN 2.9. ABG REPEATED TODAY AND REVEALED: PH 7.460, PC02 47, P02 64, HC03 33.4, 02 SAT 93, BASE EXCESS 8.4, A-A GRAINET 448, FI02 80. CHEST XRAY REVEALED: Slight interval improvement in aeration of the lungs with persistent bilateral airspace disease consistent with pneumonia/edema or ARDS. SHE IS CURRENTLY RECEIVING TPN AT 80 ML/HR, ALBUMIN 25% IV DAILY, 1/2 NS AT 20 ML/HR, CARDIZEM DRIP, VERSED FOR SEDATION, LEVAQUIN 500MG IV DAILY, FORTAZ 1G IV Q8H, MORPHINE SULFATE 2MG IV Q4H PRN, SOLU-MEDROL 125MG IV Q6H, VALIUM 5MG IV Q6H PRN, PROTONIX 40MG IV BID, THIAMINE 200MG IV BID, OTBS ACHS, HUMULIN R SLIDING SCALE, LOVENOX 80MG SC BID, DIFLUCAN 200MG IV DAILY, PULMICORT NEBS BID, ALBUTEROL NEBS QID, BROVANA INHALER BID, ASCORBIC ACID 1500MG IV Q6H, ZOFRAN 4MG IV Q4H PRN NAUSEA, AND THE POTASSIUM AND MAGNESIUM PROTOCOLS. WE WILL ATTEMPT TO WEAN OXYGEN DOWN TODAY. WE WILL ALSO DECREASE SEDATION FOR AT LEAST 30 MINUTES TWICE A DAY. OTHERWISE, WE PLAN TO FOLLOW UP WITH AM LABS AND CHEST XRAY AND CONTINUE TO MONITOR. TIME SPENT ON CLINICAL ASSESSMENT, REVIEWING LABS AND IMAGING, DECISION MAKING, AND DOCUMENTATION GREATER THAN 45 MINUTES. - Past Medical Family Social History Past Med/Fam/Surg Hx: No changes since H&P Allergies: Allergies nalbuphine [From Nubain] Allergy (Verified 05/15/18 14:34) Penicillins Allergy (Verified 05/15/18 14:34) - Review of Systems ROS: No change since H&P - Vital Signs and I&O's Vital Signs: Temperature 98.3 F Pulse Rate 97 Respiratory Rate 31 Blood Pressure [Left Arm] 163/90 Blood Pressure [Right Arm] 176/96 Blood Pressure 141/67 O2 Sat by Pulse Oximetry 94 Intake and Output: Intake & Output 06/15/21 06/16/21 06/17/21 06/18/21 11:59 11:59 11:59 11:59 Intake Total 2856 / 2856 2980 / 2980 2484 / 2484 4322 / 4322 Output Total 1425 / 1425 975 / 975 1600 / 1600 2500 / 2500 Balance 1431 / 1431 2004 / 2004 884 / 884 1822 / 1822 - Physical Exam Oriented: Unable to test Eyes: Normal Ear: Normal Nose: Normal Throat: Normal Respiratory: Generalized, Rales Cardiovascular: Normal : Normal Auscultation: Bowel Sounds: Normal Tenderness: Normal Skin: Normal Musculoskeletal: Normal Psychiatric: Other (SEDATED ) Mood Description: Calm Affect: Normal (SEDATED) Speech Pattern: Artificially Ventilated - Laboratory and Diagnostics Result Diagrams: 06/18/21 04:54 06/18/21 04:54 Labs: 06/08/21 20:42 Blood Blood Culture - Final 06/08/21 20:50 Blood Blood Culture - Final Laboratory WBC 19.8 X10^3/uL (3.6-10.0) H 06/18/21 04:54 RBC 3.58 X10^6/uL (3.5-5.4) 06/18/21 04:54 Hgb 9.3 g/dL (12.0-16.0) L 06/18/21 04:54 Hct 28.4 % (36.0-47.0) L 06/18/21 04:54 MCV 79.4 fL (80.0-100.0) L 06/18/21 04:54 MCH 26.1 pg (27.0-34.0) L 06/18/21 04:54 MCHC 32.8 g/dL (33.0-35.0) L 06/18/21 04:54 RDW 17.5 % (11.6-16.5) H 06/18/21 04:54 Plt Count 285 X10^3/uL (150.0-450.0) 06/18/21 04:54 Plt Count Comment Adequate (ADEQUATE) 06/18/21 04:54 MPV 8.8 fL (7.4-11.0) 06/18/21 04:54 Neut % (Auto) 93.9 % (42.0-75.0) H 06/18/21 04:54 Lymph % (Auto) 0.6 % (21.0-51.0) L 06/18/21 04:54 [place] % (Auto) 5.4 % (0.0-13.0) 06/18/21 04:54 Eos % (Auto) 0.0 % (0.9-2.9) L 06/18/21 04:54 Baso % (Auto) 0.1 % (0.2-1.0) L 06/18/21 04:54 Neut # (Auto) 18.5 x10^3/uL (2.2-4.8) H 06/18/21 04:54 Lymph # (Auto) 0.1 X10^3/uL (1.3-2.9) L 06/18/21 04:54 Real # (Auto) 1.1 x10^3/uL (0.3-0.8) H 06/18/21 04:54 Eos # (Auto) 0.0 x10^3/uL (0.0-0.2) 06/18/21 04:54 Baso # (Auto) 0.0 X10^3/uL (0.0-0.1) 06/18/21 04:54 Absolute Nucleated RBC 0.0 /100WBC 06/18/21 04:54 Total Counted 100 06/18/21 04:54 Neutrophils % (Manual) 94 % (39-76) H 06/18/21 04:54 Band Neutrophils % 3 % (0-10) 06/17/21 04:43 Lymphocytes % (Manual) 1 % (13-43) L 06/18/21 04:54 Monocytes % (Manual) 5 % (4-9) 06/18/21 04:54 Plt Morphology Comment Normal (NORMAL) 06/18/21 04:54 RBC Morphology Abnormal (NORMAL) A 06/18/21 04:54 Hypochromasia Slight A 06/18/21 04:54 Anisocytosis Slight A 06/17/21 04:43 Microcytosis Slight A 06/18/21 04:54 Ovalocytes Slight A 06/13/21 06:15 PT 15.4 SECONDS (11.8-14.3) 06/08/21 20:42 INR Target Range - 06/08/21 20:42 INR 1.28 (0.8-1.3) 06/08/21 20:42 D-Dimer 1.70 ug/ml (0.0-0.57) H* 06/18/21 04:54 Sample Site Rrad 06/18/21 05:10 ABG pH 7.460 (7.35-7.45) H 06/18/21 05:10 ABG pCO2 47.0 mmHg (35.0-45.0) H 06/18/21 05:10 ABG pO2 64.0 mmHg (80.0-100.0) L 06/18/21 05:10 ABG HCO3 33.4 mmol/L (22-26) H* 06/18/21 05:10 ABG O2 Saturation 93.0 % (90-100) 06/18/21 05:10 ABG Base Excess 8.4 mmol/L (-2.0-2.0) H 06/18/21 05:10 Herminio Test Pos 06/18/21 05:10 A-a Gradient 448.0 mmHg 06/18/21 05:10 FiO2 80.0 06/18/21 05:10 Blood Gas Comments Shyam well mts 06/18/21 05:10 Sodium 150 mmol/L (136-145) H* 06/18/21 04:54 Corrected Sodium 152 mmol/L (136-145) H 06/18/21 04:54 Potassium 4.2 mmol/L (3.5-5.1) 06/18/21 04:54 Chloride 114 mmol/L (98-107) H 06/18/21 04:54 Carbon Dioxide 30.9 mmol/L (21-32) 06/18/21 04:54 BUN 29 mg/dL (7-18) H 06/18/21 04:54 Creatinine 0.60 mg/dL (0.55-1.02) 06/18/21 04:54 Est GFR (MDRD) Af Amer > 60 (>60) 06/18/21 04:54 Est GFR (MDRD) Non-Af > 60 (>60) 06/18/21 04:54 Glucose 200 mg/dL (65-99) H 06/18/21 04:54 POC Glucose (mg/dL) 144 mg/dL (65-99) H 06/15/21 16:06 Calcium 8.4 mg/dL (8.5-10.1) L 06/18/21 04:54 Corrected Calcium 9.3 mg/dL (8.5-10.1) 06/18/21 04:54 Magnesium 2.6 mg/dL (1.7-2.9) 06/15/21 04:47 Ferritin 163 ng/mL (8-252) 06/14/21 05:26 Total Bilirubin 0.90 mg/dL (0.2-1.0) 06/18/21 04:54 AST 40 Units/L (15-37) H 06/18/21 04:54 ALT 50 Units/L (12-78) 06/18/21 04:54 Alkaline Phosphatase 95 Units/L (46-116) 06/18/21 04:54 Troponin I < 0.02 ng/mL (0-1.5) 06/08/21 20:42 C-Reactive Protein 3.00 mg/L (0-3.0) 06/18/21 04:54 B-Natriuretic Peptide 224 pg/mL (0-79) H 06/18/21 04:54 Total Protein 5.6 g/dL (6.4-8.2) L 06/18/21 04:54 Albumin 2.9 g/dL (3.4-5.0) L 06/18/21 04:54 Globulin 2.7 g/dL (2.5-4.5) 06/18/21 04:54 Albumin/Globulin Ratio 1.1 Ratio (1.1-2.1) 06/18/21 04:54 Prealbumin 19.6 mg/dL (18-35.7) 06/17/21 04:43 Specimen Type Catherized urine 06/09/21 03:30 Urine Color Yellow (YELLOW) 06/09/21 03:30 Urine Appearance Clear (CLEAR) 06/09/21 03:30 Urine pH 6.0 (5.0 - 8.0) 06/09/21 03:30 Ur Specific [place] 1.010 (1.000-1.030) 06/09/21 03:30 Urine Protein 2+ (NEGATIVE) 06/09/21 03:30 Urine Glucose (UA) Negative (NEGATIVE) 06/09/21 03:30 Urine Ketones Negative (NEGATIVE) 06/09/21 03:30 Urine Occult Blood 1+ (NEGATIVE) 06/09/21 03:30 Urine Nitrite Negative (NEGATIVE) 06/09/21 03:30 Urine Bilirubin Negative (NEGATIVE) 06/09/21 03:30 Urine Urobilinogen Normal (NORMAL) 06/09/21 03:30 Ur Leukocyte Esterase Negative (NEGATIVE) 06/09/21 03:30 Urine RBC 0-2 /HPF (0-3) 06/09/21 03:30 Urine WBC None seen /HPF (0-5) 06/09/21 03:30 Ur Squamous Epith Cells Negative /HPF (NEGATIVE) 06/09/21 03:30 Urine Bacteria Negative /HPF (NEGATIVE) 06/09/21 03:30 Ur Culture Indicated? No/not indicated 06/09/21 03:30 - Plan (1) Pneumonia due to 2019-nCoV Status: Acute Plan: 1/2 NS AT 20 ML/HR, TPN AT 80 ML/HR, ALBUMIN 25% IV DAILY, FORTAZ 1G IV Q8H, VERSED FOR SEDATION, LEVAQUIN 500MG IV DAILY, MORPHINE SULFATE 2MG IV Q4H PRN, SOLU-MEDROL 125MG IV Q6H, A CATAPRES PATCH, VALIUM 5MG IV Q6H PRN, PROTONIX 40MG IV BID, THIAMINE 200MG IV BID, OTBS ACHS, HUMULIN R SLIDING SCALE, LOVENOX 80MG SC BID, DIFLUCAN 200MG IV DAILY, PULMICORT NEBS BID, ALBUTEROL NEBS QID, BROVANA INHALER BID, ASCORBIC ACID 1500MG IV Q6H, ZOFRAN 4MG IV Q4H PRN NAUSEA, AND THE POTASSIUM AND MAGNESIUM PROTOCOLS. (2) Acute respiratory insufficiency Status: Acute (3) Hypoxia Status: Acute (4) Acute dyspnea Status: Acute
--- NOTE | 2021-06-18 15:40 | RAD ---
HISTORYNG TUBE PLACEMENTSTUDYKUBCOMPARISONNoneFINDINGS/IMPRESSIONNG tube is well positioned, terminating below the l eft hemidiaphragm with side port distal to the GE junction.Imaged bowel gas pattern is nonobstructive . Visualized lungs appear stable since earlier today.Electronically signed by: ROSS WATKINS (Jun 18 15:38:09)
[2021-06-18] MEDS: LEVAQUIN PREMIX IV 500 MG 500 MG/100 ML BAG IV SCH (22:30)
[2021-06-19] MEDS: CARDIZEM INJ 125 MG VIAL 125 MG in NS 100 ML IV 100 ML IV PRN ×2 (00:05→14:08)
[2021-06-19] MEDS: ASCORBIC ACID INJ MULTI-DOSE VIAL 1,500 MG in NS 50 ML IV 50 ML IV SCH ×4 (02:45→21:32)
[2021-06-19] MEDS: SOLU-Medrol 125 MG VIAL IVP SCH ×4 (02:45→21:38)
[2021-06-19] MEDS: MVI IV SCH ×9 (03:04→18:00)
[2021-06-19] MEDS: CLINIMIX IV SCH ×9 (03:04→18:00)
[2021-06-19] MEDS: [UNRECOGNIZED DRUG - OTHER] IV SCH ×9 (03:04→18:00)
[2021-06-19] MEDS: VERSED 100 MG in NS 100 ML IV 80 ML IV PRN ×2 (03:39→10:54)
[2021-06-19] MEDS: FORTAZ or TAZICEF VIAL INJ 1 G in NS 100 ML IV + SPIKE MINIBAG* 100 ML IV SCH ×3 (05:31→23:50)
[2021-06-19 05:41] LABS: ABG BASE EXCESS 6.1 mmol/L (-2.0-2.0)
[2021-06-19 05:43] LABS: ABG ALLEN TEST POS; ABG HCO3 30.6 mmol/L (22-26)
[2021-06-19] MEDS: NS 1/2 1000 ML IV 1,000 ML IV SCH ×2 (06:09→21:35)
[2021-06-19 06:15] LABS: BASOPHILS # (AUTO) 0.1 X10^3/uL (0.0-0.1); BASOPHILS % (AUTO) 0.3 % (0.2-1.0); EOSINOPHILS % (AUTO) 0.1 % (0.9-2.9); HEMATOCRIT 29.5 % (36.0-47.0); HEMOGLOBIN 9.5 g/dL (12.0-16.0); LYMPHOCYTES # (AUTO) 0.2 X10^3/uL (1.3-2.9); LYMPHOCYTES % (AUTO) 0.9 % (21.0-51.0); MEAN CORPUSCULAR HEMOGLOBIN 25.7 pg (27.0-34.0); MEAN CORPUSCULAR HGB CONC 32.2 g/dL (33.0-35.0); MEAN CORPUSCULAR VOLUME 79.9 fL (80.0-100.0); MEAN PLATELET VOLUME 8.9 fL (7.4-11.0); MONOCYTES # (AUTO) 1.1 x10^3/uL (0.3-0.8); MONOCYTES % (AUTO) 5.8 % (0.0-13.0); NEUTROPHILS # (AUTO) 18.2 x10^3/uL (2.2-4.8); NEUTROPHILS % (AUTO) 92.9 % (42.0-75.0); PLATELET COUNT 292 X10^3/uL (150.0-450.0); RED BLOOD COUNT 3.69 X10^6/uL (3.5-5.4); RED CELL DISTRIBUTION WIDTH 17.6 % (11.6-16.5); WHITE BLOOD COUNT 19.6 X10^3/uL (3.6-10.0)
--- NOTE | 2021-06-19 06:20 | RAD ---
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 Endotracheal tube tip above the jaden. NG tube present within the stomach. The cardiac silhouette is unremarkable. Diffuse bilateral pulmonary infiltrates left greater than right unchanged. No pneumothorax.. The bony thorax is unremarkable.IMPRESSIONDiffuse bilateral interstitial infiltrates unchanged from 1Electronically signed by: Johnnie Kaye (Jun 19, 2021 06:18:45)
[2021-06-19 07:28] LABS: ALANINE AMINOTRANSFERASE 80 Units/L (12-78); ALBUMIN 3.1 g/dL (3.4-5.0); ALKALINE PHOSPHATASE 107 Units/L (46-116); ASPARTATE AMINO TRANSFERASE 55 Units/L (15-37); BLOOD UREA NITROGEN 31 mg/dL (7-18); CALCIUM 8.5 mg/dL (8.5-10.1); CARBON DIOXIDE 30.1 mmol/L (21-32); CHLORIDE 113 mmol/L (98-107); COR CA(FOR HYPOALB) 9.2 mg/dL (8.5-10.1); COR NA(FOR HYPERGLY) 154 mmol/L (136-145); TOTAL PROTEIN 5.7 g/dL (6.4-8.2); eGFR NON BLACK RACES > 60 (>60)
[2021-06-19 07:29] LABS: SODIUM 151 mmol/L (136-145)
[2021-06-19 08:03] LABS: ANISOCYTOSIS SLIGHT; BURR CELLS SLIGHT; HYPOCHROMASIA SLIGHT; MICROCYTOSIS SLIGHT; PLATELET MORPHOLOGY COMMENT NORMAL (NORMAL)
[2021-06-19] MEDS: ALBUMIN HUMAN 25%- 100 ML 100 ML IV SCH (08:40)
[2021-06-19] MEDS: LOVENOX INJ 80 MG SYR SC SCH (08:41)
[2021-06-19] MEDS: DIFLUCAN 200 MG IV PREMIX* 200 MG/100 ML BAG IV SCH (08:41)
[2021-06-19] MEDS: PROTONIX INJ 40 MG VIAL IVP SCH ×2 (08:42→21:36)
[2021-06-19] MEDS: THIAMINE HCL INJ IVP SCH ×2 (08:42→21:42)
[2021-06-19] MEDS: PULMICORT NEB TX 0.5 MG NEB SCH ×2 (10:06→21:00)
[2021-06-19] MEDS: BROVANA IN SCH ×2 (10:06→21:00)
[2021-06-19] MEDS: PROVENTIL NEB TX 0.083% 2.5MG/ 3ML NEB SCH ×4 (10:06→21:00)
--- NOTE | 2021-06-19 10:12 | PCM.PROG ---
Progress Note - Progress Note for Day of Date of Exam: 06/19/21 - Subjective Subjective: WAS ADMITTED ON 06/09 FOR TREATMENT OF PNEUMONIA DUE TO COVID-19 AND ACUTE RESPIRATORY FAILURE WITH HYPOXIA. SHE WAS PLACED ON THE MECHANICAL VENTILATOR TUESDAY NIGHT DUE TO INCREASED RESPIRATORY EFFORTS, DECREASED OXYGEN SATURATIONS, AND COMBATIVENESS. OXYGEN SATURATIONS HAVE REMAINED 90-97% WHILE ON THE VENT. HER CURRENT SETTINGS ARE: A/C, RATE 25, TIDAL VOLUME 450, PEAK FLOW 40, PEEP 10, FI02 70. ON EXAMINATION, OROGASTRIC TUBE NOTED FOR FEEDINGS/MEDS. HEART IS REGULAR IN RATE AND RHYTHM. BILATERAL LUNGS NOTED WITH RALES THROUGHOUT. ABDOMEN IS ROUND, SOFT, AND NON-TENDER WITH NORMAL BOWEL SOUNDS NOTED IN ALL QUADRANTS. HER VITALS THIS MORNING ARE: 97.5-97-33-96%-145/70. LABS WERE OBTAINED. ABNORMAL LAB VALUES INCLUDE THE FOLLOWING: WBC 19.6, HGB 9.5, HCT 29.5, D-DIMER 1.70, SODIUM 151, CHLORIDE 113, BUN 31, GLUCOSE 219, TOTAL BILI 1.10, AST 55, ALT 80, BNP 200, TOTAL PROTEIN 5.7, ALBUMIN 3.1. CHEST XRAY REVEALED: Diffuse bilateral interstitial infiltrates unchanged from 06/18/2021. SHE IS CURRENTLY RECEIVING TPN AT 80 ML/HR, ALBUMIN 25% IV DAILY, 1/2 NS AT 20 ML/HR, CARDIZEM DRIP, VERSED FOR SEDATION, LEVAQUIN 500MG IV DAILY, FORTAZ 1G IV Q8H, MORPHINE SULFATE 2MG IV Q4H PRN, SOLU-MEDROL 125MG IV Q6H, VALIUM 5MG IV Q6H PRN, PROTONIX 40MG IV BID, THIAMINE 200MG IV BID, OTBS ACHS, HUMULIN R SLIDING SCALE, LOVENOX 80MG SC BID, DIFLUCAN 200MG IV DAILY, PULMICORT NEBS BID, ALBUTEROL NEBS QID, BROVANA INHALER BID, ASCORBIC ACID 1500MG IV Q6H, ZOFRAN 4MG IV Q4H PRN NAUSEA, AND THE POTASSIUM AND MAGNESIUM PROTOCOLS. WE WILL CONTINUE TO WEAN OXYGEN DOWN TODAY PATIENT TOLERATES. WE WILL ADD ENSURE 1 CAN TID AND 200ML FREE WATER QID. OTHERWISE, WE PLAN TO FOLLOW UP WITH AM LABS AND CHEST XRAY AND CONTINUE TO MONITOR. TIME SPENT ON CLINICAL ASSESSMENT, REVIEWING LABS AND IMAGING, DECISION MAKING, AND DOCUMENTATION GREATER THAN 45 MINUTES. - Past Medical Family Social History Past Med/Fam/Surg Hx: No changes since H&P Allergies: Allergies nalbuphine [From Nubain] Allergy (Verified 05/15/18 14:34) Penicillins Allergy (Verified 05/15/18 14:34) - Review of Systems ROS: No change since H&P - Vital Signs and I&O's Vital Signs: Temperature 97.5 F Pulse Rate 97 Respiratory Rate 33 Blood Pressure [Left Arm] 163/90 Blood Pressure [Right Arm] 176/96 Blood Pressure 145/70 O2 Sat by Pulse Oximetry 96 Intake and Output: Intake & Output 06/16/21 06/17/21 06/18/21 06/19/21 11:59 11:59 11:59 11:59 Intake Total 2980 / 2980 2484 / 2484 4342 / 4342 3451 / 3451 Output Total 975 / 975 1600 / 1600 2500 / 2500 850 / 850 Balance 2004 884 / 884 1842 / 1842 2601 / 2601 - Physical Exam Oriented: Unable to test Eyes: Normal Ear: Normal Nose: Normal Throat: Normal Respiratory: Generalized, Rales Cardiovascular: Normal : Normal Auscultation: Bowel Sounds: Normal Palpation: Normal Tenderness: Normal Skin: Normal Musculoskeletal: Normal Psychiatric: Other (SEDATED ) Mood Description: Calm Affect: Normal (SEDATED) Speech Pattern: Artificially Ventilated - Laboratory and Diagnostics Result Diagrams: 06/19/21 04:46 06/19/21 04:46 Labs: 06/08/21 20:42 Blood Blood Culture - Final 06/08/21 20:50 Blood Blood Culture - Final Laboratory WBC 19.6 X10^3/uL (3.6-10.0) H 06/19/21 04:46 RBC 3.69 X10^6/uL (3.5-5.4) 06/19/21 04:46 Hgb 9.5 g/dL (12.0-16.0) L 06/19/21 04:46 Hct 29.5 % (36.0-47.0) L 06/19/21 04:46 MCV 79.9 fL (80.0-100.0) L 06/19/21 04:46 MCH 25.7 pg (27.0-34.0) L 06/19/21 04:46 MCHC 32.2 g/dL (33.0-35.0) L 06/19/21 04:46 RDW 17.6 % (11.6-16.5) H 06/19/21 04:46 Plt Count 292 X10^3/uL (150.0-450.0) 06/19/21 04:46 Plt Count Comment Adequate (ADEQUATE) 06/19/21 04:46 MPV 8.9 fL (7.4-11.0) 06/19/21 04:46 Neut % (Auto) 92.9 % (42.0-75.0) H 06/19/21 04:46 Lymph % (Auto) 0.9 % (21.0-51.0) L 06/19/21 04:46 [place] % (Auto) 5.8 % (0.0-13.0) 06/19/21 04:46 Eos % (Auto) 0.1 % (0.9-2.9) L 06/19/21 04:46 Baso % (Auto) 0.3 % (0.2-1.0) 06/19/21 04:46 Neut # (Auto) 18.2 x10^3/uL (2.2-4.8) H 06/19/21 04:46 Lymph # (Auto) 0.2 X10^3/uL (1.3-2.9) L 06/19/21 04:46 [place] # (Auto) 1.1 x10^3/uL (0.3-0.8) H 06/19/21 04:46 Eos # (Auto) 0.0 x10^3/uL (0.0-0.2) 06/19/21 04:46 Baso # (Auto) 0.1 X10^3/uL (0.0-0.1) 06/19/21 04:46 Absolute Nucleated RBC 0.2 /100WBC 06/19/21 04:46 Total Counted 100 06/19/21 04:46 Neutrophils % (Manual) 92 % (39-76) H 06/19/21 04:46 Band Neutrophils % 3 % (0-10) 06/17/21 04:43 Lymphocytes % (Manual) 2 % (13-43) L 06/19/21 04:46 Monocytes % (Manual) 6 % (4-9) 06/19/21 04:46 Plt Morphology Comment Normal (NORMAL) 06/19/21 04:46 RBC Morphology Abnormal (NORMAL) A 06/19/21 04:46 Hypochromasia Slight A 06/19/21 04:46 Anisocytosis Slight A 06/19/21 04:46 Microcytosis Slight A 06/19/21 04:46 Ovalocytes Slight A 06/13/21 06:15 [place] Cells Slight A 06/19/21 04:46 PT 15.4 SECONDS (11.8-14.3) 06/08/21 20:42 INR Target Range - 06/08/21 20:42 INR 1.28 (0.8-1.3) 06/08/21 20:42 D-Dimer 1.70 ug/ml (0.0-0.57) H* 06/19/21 04:51 Sample Site R rad 06/19/21 05:35 ABG pH 7.460 (7.35-7.45) H 06/19/21 05:35 ABG pCO2 43.0 mmHg (35.0-45.0) 06/19/21 05:35 ABG pO2 66.0 mmHg (80.0-100.0) L 06/19/21 05:35 ABG HCO3 30.6 mmol/L (22-26) H* 06/19/21 05:35 ABG O2 Saturation 94.0 % (90-100) 06/19/21 05:35 ABG Base Excess 6.1 mmol/L (-2.0-2.0) H 06/19/21 05:35 Herminio Test Pos 06/19/21 05:35 A-a Gradient 379.0 mmHg 06/19/21 05:35 FiO2 70.0 06/19/21 05:35 Blood Gas Comments Shyam well kb 06/19/21 05:35 Sodium 151 mmol/L (136-145) H* 06/19/21 04:46 Corrected Sodium 154 mmol/L (136-145) H 06/19/21 04:46 Potassium 4.0 mmol/L (3.5-5.1) 06/19/21 04:46 Chloride 113 mmol/L (98-107) H 06/19/21 04:46 Carbon Dioxide 30.1 mmol/L (21-32) 06/19/21 04:46 BUN 31 mg/dL (7-18) H 06/19/21 04:46 Creatinine 0.60 mg/dL (0.55-1.02) 06/19/21 04:46 Est GFR (MDRD) Af Amer > 60 (>60) 06/19/21 04:46 Est GFR (MDRD) Non-Af > 60 (>60) 06/19/21 04:46 Glucose 219 mg/dL (65-99) H 06/19/21 04:46 POC Glucose (mg/dL) 144 mg/dL (65-99) H 06/15/21 16:06 Calcium 8.5 mg/dL (8.5-10.1) 06/19/21 04:46 Corrected Calcium 9.2 mg/dL (8.5-10.1) 06/19/21 04:46 Magnesium 2.6 mg/dL (1.7-2.9) 06/15/21 04:47 Ferritin 163 ng/mL (8-252) 06/14/21 05:26 Total Bilirubin 1.10 mg/dL (0.2-1.0) H 06/19/21 04:46 AST 55 Units/L (15-37) H 06/19/21 04:46 ALT 80 Units/L (12-78) H 06/19/21 04:46 Alkaline Phosphatase 107 Units/L (46-116) 06/19/21 04:46 Troponin I < 0.02 ng/mL (0-1.5) 06/08/21 20:42 C-Reactive Protein 1.20 mg/L (0-3.0) 06/19/21 04:46 B-Natriuretic Peptide 200 pg/mL (0-79) H 06/19/21 04:46 Total Protein 5.7 g/dL (6.4-8.2) L 06/19/21 04:46 Albumin 3.1 g/dL (3.4-5.0) L 06/19/21 04:46 Globulin 2.6 g/dL (2.5-4.5) 06/19/21 04:46 Albumin/Globulin Ratio 1.2 Ratio (1.1-2.1) 06/19/21 04:46 Prealbumin 19.6 mg/dL (18-35.7) 06/17/21 04:43 Specimen Type Catherized urine 06/09/21 03:30 Urine Color Yellow (YELLOW) 06/09/21 03:30 Urine Appearance Clear (CLEAR) 06/09/21 03:30 Urine pH 6.0 (5.0 - 8.0) 06/09/21 03:30 Ur Specific [place] 1.010 (1.000-1.030) 06/09/21 03:30 Urine Protein 2+ (NEGATIVE) 06/09/21 03:30 Urine Glucose (UA) Negative (NEGATIVE) 06/09/21 03:30 Urine Ketones Negative (NEGATIVE) 06/09/21 03:30 Urine Occult Blood 1+ (NEGATIVE) 06/09/21 03:30 Urine Nitrite Negative (NEGATIVE) 06/09/21 03:30 Urine Bilirubin Negative (NEGATIVE) 06/09/21 03:30 Urine Urobilinogen Normal (NORMAL) 06/09/21 03:30 Ur Leukocyte Esterase Negative (NEGATIVE) 06/09/21 03:30 Urine RBC 0-2 /HPF (0-3) 06/09/21 03:30 Urine WBC None seen /HPF (0-5) 06/09/21 03:30 Ur Squamous Epith Cells Negative /HPF (NEGATIVE) 06/09/21 03:30 Urine Bacteria Negative /HPF (NEGATIVE) 06/09/21 03:30 Ur Culture Indicated? No/not indicated 06/09/21 03:30 - Plan (1) Pneumonia due to 2019-nCoV Status: Acute Plan: 1/2 NS AT 20 ML/HR, TPN AT 80 ML/HR, ALBUMIN 25% IV DAILY, FORTAZ 1G IV Q8H, VERSED FOR SEDATION, LEVAQUIN 500MG IV DAILY, MORPHINE SULFATE 2MG IV Q4H PRN, SOLU-MEDROL 125MG IV Q6H, A CATAPRES PATCH, VALIUM 5MG IV Q6H PRN, PROTONIX 40MG IV BID, THIAMINE 200MG IV BID, OTBS ACHS, HUMULIN R SLIDING SCALE, LOVENOX 80MG SC BID, DIFLUCAN 200MG IV DAILY, PULMICORT NEBS BID, ALBUTEROL NEBS QID, BROVANA INHALER BID, ASCORBIC ACID 1500MG IV Q6H, ZOFRAN 4MG IV Q4H PRN NAUSEA, AND THE POTASSIUM AND MAGNESIUM PROTOCOLS. (2) Acute respiratory insufficiency Status: Acute (3) Hypoxia Status: Acute (4) Acute dyspnea Status: Acute
[2021-06-19] MEDS ORDERED: NS 1/2 1000 ML IV 1,000 ML IV ONE (20:05)
[2021-06-19] MEDS: LEVAQUIN PREMIX IV 500 MG 500 MG/100 ML BAG IV SCH (22:47)
[2021-06-20] MEDS: CARDIZEM INJ 125 MG VIAL 125 MG in NS 100 ML IV 100 ML IV PRN ×2 (03:09→20:53)
[2021-06-20] MEDS: SOLU-Medrol 125 MG VIAL IVP SCH ×4 (03:15→21:40)
[2021-06-20] MEDS: ASCORBIC ACID INJ MULTI-DOSE VIAL 1,500 MG in NS 50 ML IV 50 ML IV SCH ×4 (03:15→21:37)
[2021-06-20] MEDS: MVI IV SCH ×12 (04:24→20:52)
[2021-06-20] MEDS: [UNRECOGNIZED DRUG - OTHER] IV SCH ×12 (04:24→20:52)
[2021-06-20] MEDS: CLINIMIX IV SCH ×12 (04:24→20:52)
[2021-06-20 05:09] LABS: ABG ALLEN TEST POS; ABG BASE EXCESS 6.1 mmol/L (-2.0-2.0); ABG HCO3 31.2 mmol/L (22-26)
[2021-06-20 05:30] LABS: BASOPHILS % (AUTO) 0.1 % (0.2-1.0); HEMATOCRIT 27.6 % (36.0-47.0); LYMPHOCYTES # (AUTO) 0.2 X10^3/uL (1.3-2.9); MEAN CORPUSCULAR HEMOGLOBIN 26.1 pg (27.0-34.0); MEAN CORPUSCULAR HGB CONC 32.7 g/dL (33.0-35.0); MEAN CORPUSCULAR VOLUME 79.9 fL (80.0-100.0); MEAN PLATELET VOLUME 9.2 fL (7.4-11.0); MONOCYTES # (AUTO) 0.9 x10^3/uL (0.3-0.8); MONOCYTES % (AUTO) 4.7 % (0.0-13.0); NEUTROPHILS # (AUTO) 17.7 x10^3/uL (2.2-4.8); NEUTROPHILS % (AUTO) 94.2 % (42.0-75.0); PLATELET COUNT 211 X10^3/uL (150.0-450.0); RED BLOOD COUNT 3.45 X10^6/uL (3.5-5.4); RED CELL DISTRIBUTION WIDTH 17.4 % (11.6-16.5); WHITE BLOOD COUNT 18.8 X10^3/uL (3.6-10.0)
[2021-06-20] MEDS: FORTAZ or TAZICEF VIAL INJ 1 G in NS 100 ML IV + SPIKE MINIBAG* 100 ML IV SCH ×3 (05:43→22:22)
[2021-06-20] MEDS: VERSED 100 MG in NS 100 ML IV 80 ML IV PRN ×5 (05:44→22:02)
[2021-06-20 05:50] LABS: ALANINE AMINOTRANSFERASE 143 Units/L (12-78); ALKALINE PHOSPHATASE 120 Units/L (46-116); ASPARTATE AMINO TRANSFERASE 84 Units/L (15-37); BLOOD UREA NITROGEN 33 mg/dL (7-18); CALCIUM 8.3 mg/dL (8.5-10.1); CARBON DIOXIDE 31.1 mmol/L (21-32); CHLORIDE 114 mmol/L (98-107); COR CA(FOR HYPOALB) 9.1 mg/dL (8.5-10.1); COR NA(FOR HYPERGLY) 153 mmol/L (136-145); CREATININE 0.55 mg/dL (0.55-1.02); TOTAL PROTEIN 5.4 g/dL (6.4-8.2); eGFR NON BLACK RACES > 60 (>60)
[2021-06-20 06:08] LABS: SODIUM 150 mmol/L (136-145)
[2021-06-20 06:09] LABS: PLATELET MORPHOLOGY COMMENT NORMAL (NORMAL)
--- NOTE | 2021-06-20 06:26 | RAD ---
HISTORYCOVID PNEUMONIASTUDYCHEST, 1 [id number] cardiomediastinal silhouette is stable. Endotracheal and enteric tubes unchanged. Similar bilateral airspace opacities. The bony thorax appears intact.IMPRESSIONNo significant change.Electronically signed by: PRISCILA HELLER (Jun 20, 2021 06:23:39)
[2021-06-20] MEDS: ALBUMIN HUMAN 25%- 100 ML 100 ML IV SCH (08:41)
[2021-06-20] MEDS: PROTONIX INJ 40 MG VIAL IVP SCH ×2 (08:42→21:39)
[2021-06-20] MEDS: NS 1/2 1000 ML IV 1,000 ML IV SCH ×2 (08:42→22:26)
[2021-06-20] MEDS: LOVENOX INJ 80 MG SYR SC SCH ×3 (08:42→21:39)
[2021-06-20] MEDS: DIFLUCAN 200 MG IV PREMIX* 200 MG/100 ML BAG IV SCH (08:42)
[2021-06-20] MEDS: THIAMINE HCL INJ IVP SCH ×2 (08:43→21:40)
[2021-06-20] MEDS: PROVENTIL NEB TX 0.083% 2.5MG/ 3ML NEB SCH ×4 (08:53→20:10)
[2021-06-20] MEDS: PULMICORT NEB TX 0.5 MG NEB SCH ×2 (08:53→20:10)
[2021-06-20] MEDS: BROVANA IN SCH ×2 (09:30→20:10)
[2021-06-20 14:10] LABS: ABG BASE EXCESS 2.7 mmol/L (-2.0-2.0); ABG HCO3 29.3 mmol/L (22-26)
[2021-06-20 14:11] LABS: ABG ALLEN TEST POSITIVE
[2021-06-20] MEDS ORDERED: NS 1/2 1000 ML IV 1,000 ML IV ONE (21:57)
[2021-06-20] MEDS: LEVAQUIN PREMIX IV 500 MG 500 MG/100 ML BAG IV SCH (22:22)
[2021-06-21] MEDS: MORPHINE SULFATE INJ 2 MG INJ IVP PRN (02:10)
[2021-06-21] MEDS: SOLU-Medrol 125 MG VIAL IVP SCH ×4 (02:19→21:41)
[2021-06-21] MEDS: ASCORBIC ACID INJ MULTI-DOSE VIAL 1,500 MG in NS 50 ML IV 50 ML IV SCH ×4 (02:20→21:25)
[2021-06-21 02:24] LABS: ABG BASE EXCESS 2.8 mmol/L (-2.0-2.0)
[2021-06-21 02:25] LABS: ABG ALLEN TEST POS
[2021-06-21] MEDS: VERSED 100 MG in NS 100 ML IV 80 ML IV PRN ×3 (04:34→16:00)
[2021-06-21] MEDS: FORTAZ or TAZICEF VIAL INJ 1 G in NS 100 ML IV + SPIKE MINIBAG* 100 ML IV SCH ×3 (05:27→21:41)
[2021-06-21 05:39] LABS: ABG BASE EXCESS 4.7 mmol/L (-2.0-2.0)
[2021-06-21 05:40] LABS: ABG ALLEN TEST POS; ABG HCO3 31.2 mmol/L (22-26)
[2021-06-21 06:06] LABS: BASOPHILS % (AUTO) 0.2 % (0.2-1.0); HEMATOCRIT 27.1 % (36.0-47.0); HEMOGLOBIN 8.7 g/dL (12.0-16.0); LYMPHOCYTES # (AUTO) 0.2 X10^3/uL (1.3-2.9); LYMPHOCYTES % (AUTO) 0.8 % (21.0-51.0); MEAN CORPUSCULAR HEMOGLOBIN 25.9 pg (27.0-34.0); MEAN CORPUSCULAR VOLUME 80.9 fL (80.0-100.0); MEAN PLATELET VOLUME 9.8 fL (7.4-11.0); MONOCYTES % (AUTO) 4.9 % (0.0-13.0); NEUTROPHILS # (AUTO) 18.8 x10^3/uL (2.2-4.8); NEUTROPHILS % (AUTO) 94.1 % (42.0-75.0); PLATELET COUNT 168 X10^3/uL (150.0-450.0); RED BLOOD COUNT 3.35 X10^6/uL (3.5-5.4); RED CELL DISTRIBUTION WIDTH 17.7 % (11.6-16.5)
[2021-06-21 06:26] LABS: ALANINE AMINOTRANSFERASE 228 Units/L (12-78); ALKALINE PHOSPHATASE 162 Units/L (46-116); ASPARTATE AMINO TRANSFERASE 125 Units/L (15-37); BLOOD UREA NITROGEN 35 mg/dL (7-18); CALCIUM 8.6 mg/dL (8.5-10.1); CARBON DIOXIDE 32.1 mmol/L (21-32); CHLORIDE 113 mmol/L (98-107); COR CA(FOR HYPOALB) 9.4 mg/dL (8.5-10.1); COR NA(FOR HYPERGLY) 153 mmol/L (136-145); CREATININE 0.68 mg/dL (0.55-1.02); SODIUM 148 mmol/L (136-145); TOTAL PROTEIN 5.5 g/dL (6.4-8.2); eGFR NON BLACK RACES > 60 (>60)
[2021-06-21 07:52] LABS: BAND NEUTROPHILS % 4 % (0-10); METAMYELOCYTES % 1
[2021-06-21 07:53] LABS: ANISOCYTOSIS SLIGHT; PLATELET MORPHOLOGY COMMENT NORMAL (NORMAL)
[2021-06-21 07:55] LABS: HYPOCHROMASIA SLIGHT
[2021-06-21] MEDS: MVI IV SCH ×6 (08:31→21:35)
[2021-06-21] MEDS: [UNRECOGNIZED DRUG - OTHER] IV SCH ×6 (08:31→21:35)
[2021-06-21] MEDS: CLINIMIX IV SCH ×6 (08:31→21:35)
[2021-06-21] MEDS: ALBUMIN HUMAN 25%- 100 ML 100 ML IV SCH (08:40)
[2021-06-21] MEDS: CARDIZEM INJ 125 MG VIAL 125 MG in NS 100 ML IV 100 ML IV PRN ×2 (08:46→18:51)
[2021-06-21] MEDS: DIFLUCAN 200 MG IV PREMIX* 200 MG/100 ML BAG IV SCH (09:11)
[2021-06-21] MEDS: PROTONIX INJ 40 MG VIAL IVP SCH ×2 (09:12→21:40)
[2021-06-21] MEDS: THIAMINE HCL INJ IVP SCH ×2 (09:12→21:41)
[2021-06-21] MEDS: LOVENOX INJ 80 MG SYR SC SCH ×2 (09:28→21:40)
[2021-06-21] MEDS: PULMICORT NEB TX 0.5 MG NEB SCH ×2 (09:29→21:50)
[2021-06-21] MEDS: BROVANA IN SCH ×2 (09:29→21:50)
[2021-06-21] MEDS: PROVENTIL NEB TX 0.083% 2.5MG/ 3ML NEB SCH ×4 (09:29→21:50)
[2021-06-21] MEDS: NS 1/2 1000 ML IV 1,000 ML IV SCH (11:07)
--- NOTE | 2021-06-21 13:03 | RAD ---
HISTORYCOVID-19 pneumoniaSTUDYPortable AP chestCOMPARISONAugust 2020FINDINGSHeart size is similar. There is no change in appearance of the asymmetric airspace consolidation in the lungs, left greater than right. Support lines are stable, ET tube remains in mid trachea. No pneumothorax seen.IMPRESSIONNo significant change in appearance of the bilateral pneumonia.Electronically signed by: DELMIS MCCLENDON (Jun 21, 2021 13:01:50)
[2021-06-21] MEDS: LEVAQUIN PREMIX IV 500 MG 500 MG/100 ML BAG IV SCH (21:40)
[2021-06-22] MEDS: VERSED 100 MG in NS 100 ML IV 80 ML IV PRN ×6 (00:15→23:00)
[2021-06-22] MEDS: NS 1/2 1000 ML IV 1,000 ML IV SCH ×2 (00:24→12:14)
[2021-06-22] MEDS: SOLU-Medrol 125 MG VIAL IVP SCH ×4 (02:00→20:54)
[2021-06-22] MEDS: ASCORBIC ACID INJ MULTI-DOSE VIAL 1,500 MG in NS 50 ML IV 50 ML IV SCH ×4 (02:00→20:53)
[2021-06-22 05:41] LABS: BASOPHILS # (AUTO) 0.1 X10^3/uL (0.0-0.1); BASOPHILS % (AUTO) 0.3 % (0.2-1.0); HEMATOCRIT 24.9 % (36.0-47.0); HEMOGLOBIN 8.1 g/dL (12.0-16.0); LYMPHOCYTES # (AUTO) 0.2 X10^3/uL (1.3-2.9); MEAN CORPUSCULAR HEMOGLOBIN 26.3 pg (27.0-34.0); MEAN CORPUSCULAR HGB CONC 32.5 g/dL (33.0-35.0); MEAN CORPUSCULAR VOLUME 80.8 fL (80.0-100.0); MEAN PLATELET VOLUME 9.9 fL (7.4-11.0); MONOCYTES # (AUTO) 0.9 x10^3/uL (0.3-0.8); MONOCYTES % (AUTO) 4.9 % (0.0-13.0); NEUTROPHILS # (AUTO) 17.9 x10^3/uL (2.2-4.8); NEUTROPHILS % (AUTO) 93.8 % (42.0-75.0); PLATELET COUNT 134 X10^3/uL (150.0-450.0); RED BLOOD COUNT 3.08 X10^6/uL (3.5-5.4); RED CELL DISTRIBUTION WIDTH 17.5 % (11.6-16.5); WHITE BLOOD COUNT 19.1 X10^3/uL (3.6-10.0)
[2021-06-22] MEDS: FORTAZ or TAZICEF VIAL INJ 1 G in NS 100 ML IV + SPIKE MINIBAG* 100 ML IV SCH ×3 (05:56→22:28)
[2021-06-22 06:16] LABS: ALANINE AMINOTRANSFERASE 248 Units/L (12-78); ALBUMIN 3.1 g/dL (3.4-5.0); ALKALINE PHOSPHATASE 150 Units/L (46-116); ASPARTATE AMINO TRANSFERASE 103 Units/L (15-37); BLOOD UREA NITROGEN 37 mg/dL (7-18); CALCIUM 8.8 mg/dL (8.5-10.1); CARBON DIOXIDE 31.4 mmol/L (21-32); CHLORIDE 111 mmol/L (98-107); COR CA(FOR HYPOALB) 9.5 mg/dL (8.5-10.1); COR NA(FOR HYPERGLY) 153 mmol/L (136-145); CREATININE 0.64 mg/dL (0.55-1.02); SODIUM 147 mmol/L (136-145); TOTAL PROTEIN 5.5 g/dL (6.4-8.2); eGFR NON BLACK RACES > 60 (>60)
[2021-06-22] MEDS: CARDIZEM INJ 125 MG VIAL 125 MG in NS 100 ML IV 100 ML IV PRN ×3 (06:20→23:30)
[2021-06-22 06:42] LABS: METAMYELOCYTES % 9; PLATELET MORPHOLOGY COMMENT NORMAL (NORMAL)
[2021-06-22 07:12] LABS: ABG BASE EXCESS 6.6 mmol/L (-2.0-2.0)
[2021-06-22 07:15] LABS: ABG ALLEN TEST POS; ABG HCO3 32.8 mmol/L (22-26)
--- NOTE | 2021-06-22 07:55 | RAD ---
HISTORYSOBSTUDYCHEST, 1 [id number]/2021.TECHNIQUEAP view of the chestFINDINGSET tube in good position. NG tube courses below the visualized field of view. Cardiac and mediastinal contours are within normal limits. Mildly improved appearance (less dense) of left lung airspace opacities. Right lung airspace opacities appear similar. No definite pleural effusion or pneumothorax.IMPRESSIONMildly improved appearance of left lung airspace disease consistent with pneumonia. Right lung airspace disease appears similar to prior.Electronically signed by: Ernst Flores (Jun 22, 2021 07:53:16)
[2021-06-22] MEDS: ALBUMIN HUMAN 25%- 100 ML 100 ML IV SCH (08:19)
[2021-06-22] MEDS: THIAMINE HCL INJ IVP SCH ×2 (08:19→20:53)
[2021-06-22] MEDS: PROTONIX INJ 40 MG VIAL IVP SCH ×2 (08:19→20:54)
[2021-06-22] MEDS: LOVENOX INJ 80 MG SYR SC SCH ×2 (08:28→09:27)
[2021-06-22] MEDS ORDERED: LOVENOX INJ 40 MG SYR SC ONE (09:30)
[2021-06-22] MEDS: PROVENTIL NEB TX 0.083% 2.5MG/ 3ML NEB SCH ×4 (09:42→21:25)
[2021-06-22] MEDS: PULMICORT NEB TX 0.5 MG NEB SCH ×2 (09:42→21:25)
[2021-06-22] MEDS: BROVANA IN SCH ×2 (09:42→21:25)
[2021-06-22] MEDS: LOVENOX INJ 40 MG SYR SC SCH ×2 (09:54→20:53)
[2021-06-22] MEDS: DIFLUCAN 200 MG IV PREMIX* 200 MG/100 ML BAG IV SCH (09:54)
[2021-06-22] MEDS: CLINIMIX IV SCH ×6 (11:15→20:55)
[2021-06-22] MEDS: [UNRECOGNIZED DRUG - OTHER] IV SCH ×6 (11:15→20:55)
[2021-06-22] MEDS: MVI IV SCH ×6 (11:15→20:55)
--- NOTE | 2021-06-22 11:38 | PCM.PROG ---
Progress Note - Progress Note for Day of Date of Exam: 06/22/21 - Subjective Subjective: WAS ADMITTED ON 06/09 FOR TREATMENT OF PNEUMONIA DUE TO COVID-19 AND ACUTE RESPIRATORY FAILURE WITH HYPOXIA. SHE WAS PLACED ON THE MECHANICAL VENTILATOR 8 DAYS AGO NIGHT DUE TO INCREASED RESPIRATORY EFFORTS, DECREASED OXYGEN SATURATIONS, AND COMBATIVENESS. TUESDAY, SHE HAD AN EPISODE OF COUGHING THICK MUCOSA FROM ET TUBE AND EXPERIENCED A-FIB WITH RVR. CARDIZEM DRIP WAS INCREASEED AND FI02 WAS INCREASED. TODAY, HER VENT SETTINGS ARE: A/C, VENT RATE 25, TIDAL VOLUME SET 450, PEAK FLOW 40, PEEP 12, FI02 70. SATURATIONS THIS MORNING ARE 97%. ON EXAMINATION, OROGASTRIC TUBE NOTED FOR FEEDINGS/MEDS. SHE CONTINUES TO BE IN WHAT LOOKS LIKE A-FIB ON THE MONITOR. HR IS 115-120. BILATE RAL LUNGS NOTED WITH RALES THROUGHOUT. ABDOMEN IS ROUND, SOFT, AND NON-TENDER WITH NORMAL BOWEL SOUNDS NOTED IN ALL QUADRANTS. HER VITALS THIS MORNING ARE: 99.7-125-32-97%-160/78. LABS WERE OBTAINED. ABNORMAL LAB VALUES INCLUDE THE FOLLOWING: WBC 19.1, RBC 3.08, HGB 8.1, HCT 24.9, PLT COUNT 134, D-DIMER 1.75, SODIUM 147, CHLORIDE 111, BUN 37, GLUCOSE 344, TOTAL BILI 1.50, AST 103, ALT 248, ALK PHOS 150, TOTAL PROTEIN 5.5, ALBUMIN 3.1. CHEST XRAY REVEALED: Mildly improved appearance of left lung airspace disease consistent with pneumonia. Right lung airspace disease appears similar to prior. SHE IS CURRENTLY RECEIVING TPN AT 80 ML/HR, ALBUMIN 25% IV DAILY, 1/2 NS AT 20 ML/HR, CARDIZEM DRIP, VERSED FOR SEDATION, LEVAQUIN 500MG IV DAILY, FORTAZ 1G IV Q8H, MORPHINE SULFATE 2MG IV Q4H PRN, SOLU-MEDROL 125MG IV Q6H, VALIUM 5MG IV Q6H PRN, PROTONIX 40MG IV BID, THIAMINE 200MG IV BID, OTBS ACHS, HUMULIN R SLIDING SCALE, LOVENOX 40MG SC BID, DIFLUCAN 200MG IV DAILY, PULMICORT NEBS BID, ALBUTEROL NEBS QID, BROVANA INHALER BID, ASCORBIC ACID 1500MG IV Q6H, ZOFRAN 4MG IV Q4H PRN NAUSEA, AND THE POTASSIUM AND MAGNESIUM PROTOCOLS. SHE IS RECEIVING ENSURE 1 CAN TID AND 200ML FREE WATER QID THROUGH THE OG TUBE TODAY. WE WILL CONTINUE TO WEAN OXYGEN DOWN TODAY PATIENT TOLERATES. OTHERWISE, WE PLAN TO FOLLOW UP WITH AM LABS AND CHEST XRAY AND CONTINUE TO MONITOR. TIME SPENT ON CLINICAL ASSESSMENT, REVIEWING LABS AND IMAGING, DECISION MAKING, AND DOCUMENTATION GREATER THAN 45 MINUTES. - Past Medical Family Social History Past Med/Fam/Surg Hx: No changes since H&P Allergies: Allergies nalbuphine [From Nubain] Allergy (Verified 05/15/18 14:34) Penicillins Allergy (Verified 05/15/18 14:34) - Review of Systems ROS: No change since H&P - Vital Signs and I&O's Vital Signs: Temperature 99.7 F Pulse Rate 103 Respiratory Rate 28 Blood Pressure [Left Arm] 163/90 Blood Pressure [Right Arm] 176/96 Blood Pressure 153/73 O2 Sat by Pulse Oximetry 97 Intake and Output: Intake & Output 06/19/21 06/20/21 06/21/21 06/22/21 11:59 11:59 11:59 11:59 Intake Total 3551 / 3551 4505 / 4505 5426 / 5426 6095 / 6095 Output Total 850 / 850 2350 / 2350 3025 / 3025 3100 / 3100 Balance 2701 / 2701 2155 / 2155 2401 / 2401 2995 / 2995 - Physical Exam Oriented: Unable to test Eyes: Normal Ear: Normal Nose: Normal Throat: Normal Respiratory: Generalized, Rales Cardiovascular: Tachycardia, Irregular : Normal Auscultation: Bowel Sounds: Normal Palpation: Normal Tenderness: Normal Skin: Normal Musculoskeletal: Normal Psychiatric: Other (SEDATED ) Mood Description: Calm Affect: Normal (SEDATED) Speech Pattern: Artificially Ventilated - Laboratory and Diagnostics Result Diagrams: 06/22/21 04:50 06/22/21 04:50 Labs: 06/08/21 20:42 Blood Blood Culture - Final 06/08/21 20:50 Blood Blood Culture - Final Laboratory WBC 19.1 X10^3/uL (3.6-10.0) H 06/22/21 04:50 RBC 3.08 X10^6/uL (3.5-5.4) L 06/22/21 04:50 Hgb 8.1 g/dL (12.0-16.0) L 06/22/21 04:50 Hct 24.9 % (36.0-47.0) L 06/22/21 04:50 MCV 80.8 fL (80.0-100.0) 06/22/21 04:50 MCH 26.3 pg (27.0-34.0) L 06/22/21 04:50 MCHC 32.5 g/dL (33.0-35.0) L 06/22/21 04:50 RDW 17.5 % (11.6-16.5) H 06/22/21 04:50 Plt Count 134 X10^3/uL (150.0-450.0) L 06/22/21 04:50 Plt Count Comment Decreased (ADEQUATE) A 06/22/21 04:50 MPV 9.9 fL (7.4-11.0) 06/22/21 04:50 Neut % (Auto) 93.8 % (42.0-75.0) H 06/22/21 04:50 Lymph % (Auto) 1.0 % (21.0-51.0) L 06/22/21 04:50 [place] % (Auto) 4.9 % (0.0-13.0) 06/22/21 04:50 Eos % (Auto) 0.0 % (0.9-2.9) L 06/22/21 04:50 Baso % (Auto) 0.3 % (0.2-1.0) 06/22/21 04:50 Neut # (Auto) 17.9 x10^3/uL (2.2-4.8) H 06/22/21 04:50 Lymph # (Auto) 0.2 X10^3/uL (1.3-2.9) L 06/22/21 04:50 [place] # (Auto) 0.9 x10^3/uL (0.3-0.8) H 06/22/21 04:50 Eos # (Auto) 0.0 x10^3/uL (0.0-0.2) 06/22/21 04:50 Baso # (Auto) 0.1 X10^3/uL (0.0-0.1) 06/22/21 04:50 Absolute Nucleated RBC 0.1 /100WBC 06/22/21 04:50 Total Counted 100 06/22/21 04:50 Neutrophils % (Manual) 89 % (39-76) H 06/22/21 04:50 Band Neutrophils % 4 % (0-10) 06/21/21 05:20 Lymphocytes % (Manual) 2 % (13-43) L 06/22/21 04:50 Monocytes % (Manual) 4 % (4-9) 06/21/21 05:20 Metamyelocytes % 9 06/22/21 04:50 Plt Morphology Comment Normal (NORMAL) 06/22/21 04:50 RBC Morphology Normal (NORMAL) 06/22/21 04:50 Hypochromasia Slight A 06/21/21 05:20 Anisocytosis Slight A 06/21/21 05:20 Microcytosis Slight A 06/19/21 04:46 Ovalocytes Slight A 06/13/21 06:15 [place] Cells Slight A 06/19/21 04:46 PT 15.4 SECONDS (11.8-14.3) 06/08/21 20:42 INR Target Range - 06/08/21 20:42 INR 1.28 (0.8-1.3) 06/08/21 20:42 D-Dimer 1.75 ug/ml (0.0-0.57) H* 06/22/21 04:52 Sample Site Rrad 06/22/21 07:11 ABG pH 7.400 (7.35-7.45) 06/22/21 07:11 ABG pCO2 53.0 mmHg (35.0-45.0) H* 06/22/21 07:11 ABG pO2 75.0 mmHg (80.0-100.0) L 06/22/21 07:11 ABG HCO3 32.8 mmol/L (22-26) H* 06/22/21 07:11 ABG O2 Saturation 95.0 % (90-100) 06/22/21 07:11 ABG Base Excess 6.6 mmol/L (-2.0-2.0) H 06/22/21 07:11 Herminio Test Pos 06/22/21 07:11 A-a Gradient 358.0 mmHg 06/22/21 07:11 FiO2 70.0 08/23/21 07:11 Blood Gas Comments Shyam abg well-mtf 06/22/21 07:11 Sodium 147 mmol/L (136-145) H 06/22/21 04:50 Corrected Sodium 153 mmol/L (136-145) H 06/22/21 04:50 Potassium 4.8 mmol/L (3.5-5.1) 06/22/21 04:50 Chloride 111 mmol/L (98-107) H 06/22/21 04:50 Carbon Dioxide 31.4 mmol/L (21-32) 06/22/21 04:50 BUN 37 mg/dL (7-18) H 06/22/21 04:50 Creatinine 0.64 mg/dL (0.55-1.02) 06/22/21 04:50 Est GFR (MDRD) Af Amer > 60 (>60) 06/22/21 04:50 Est GFR (MDRD) Non-Af > 60 (>60) 06/22/21 04:50 Glucose 344 mg/dL (65-99) H 06/22/21 04:50 POC Glucose (mg/dL) 276 mg/dL (65-99) H 06/19/21 15:42 Calcium 8.8 mg/dL (8.5-10.1) 06/22/21 04:50 Corrected Calcium 9.5 mg/dL (8.5-10.1) 06/22/21 04:50 Magnesium 2.6 mg/dL (1.7-2.9) 06/15/21 04:47 Ferritin 163 ng/mL (8-252) 06/14/21 05:26 Total Bilirubin 1.50 mg/dL (0.2-1.0) H 06/22/21 04:50 AST 103 Units/L (15-37) H 06/22/21 04:50 ALT 248 Units/L (12-78) H 06/22/21 04:50 Alkaline Phosphatase 150 Units/L (46-116) H 06/22/21 04:50 Troponin I < 0.02 ng/mL (0-1.5) 06/08/21 20:42 C-Reactive Protein 1.20 mg/L (0-3.0) 06/19/21 04:46 B-Natriuretic Peptide 200 pg/mL (0-79) H 06/19/21 04:46 Total Protein 5.5 g/dL (6.4-8.2) L 06/22/21 04:50 Albumin 3.1 g/dL (3.4-5.0) L 06/22/21 04:50 Globulin 2.4 g/dL (2.5-4.5) L 06/22/21 04:50 Albumin/Globulin Ratio 1.3 Ratio (1.1-2.1) 06/22/21 04:50 Prealbumin 19.6 mg/dL (18-35.7) 06/17/21 04:43 Specimen Type Catherized urine 06/09/21 03:30 Urine Color Yellow (YELLOW) 06/09/21 03:30 Urine Appearance Clear (CLEAR) 06/09/21 03:30 Urine pH 6.0 (5.0 - 8.0) 06/09/21 03:30 Ur Specific [place] 1.010 (1.000-1.030) 06/09/21 03:30 Urine Protein 2+ (NEGATIVE) 06/09/21 03:30 Urine Glucose (UA) Negative (NEGATIVE) 06/09/21 03:30 Urine Ketones Negative (NEGATIVE) 06/09/21 03:30 Urine Occult Blood 1+ (NEGATIVE) 06/09/21 03:30 Urine Nitrite Negative (NEGATIVE) 06/09/21 03:30 Urine Bilirubin Negative (NEGATIVE) 06/09/21 03:30 Urine Urobilinogen Normal (NORMAL) 06/09/21 03:30 Ur Leukocyte Esterase Negative (NEGATIVE) 06/09/21 03:30 Urine RBC 0-2 /HPF (0-3) 06/09/21 03:30 Urine WBC None seen /HPF (0-5) 06/09/21 03:30 Ur Squamous Epith Cells Negative /HPF (NEGATIVE) 06/09/21 03:30 Urine Bacteria Negative /HPF (NEGATIVE) 06/09/21 03:30 Ur Culture Indicated? No/not indicated 06/09/21 03:30 - Plan (1) Pneumonia due to 2019-nCoV Status: Acute Plan: 1/2 NS AT 20 ML/HR, TPN AT 80 ML/HR, CARDIZEM DRIP, ALBUMIN 25% IV DAILY, FORTAZ 1G IV Q8H, VERSED FOR SEDATION, LEVAQUIN 500MG IV DAILY, MORPHINE SULFATE 2MG IV Q4H PRN, SOLU-MEDROL 125MG IV Q6H, A CATAPRES PATCH, VALIUM 5MG IV Q6H PRN, PROTONIX 40MG IV BID, THIAMINE 200MG IV BID, OTBS ACHS, HUMULIN R SLIDING SCALE, LOVENOX 80MG SC BID, DIFLUCAN 200MG IV DAILY, PULMICORT NEBS BID, ALBUTEROL NEBS QID, BROVANA INHALER BID, ASCORBIC ACID 1500MG IV Q6H, ZOFRAN 4MG IV Q4H PRN NAUSEA, AND THE POTASSIUM AND MAGNESIUM PROTOCOLS. (2) Acute respiratory insufficiency Status: Acute (3) Hypoxia Status: Acute (4) Acute dyspnea Status: Acute
[2021-06-22] MEDS: LEVAQUIN PREMIX IV 500 MG 500 MG/100 ML BAG IV SCH (23:00)
[2021-06-23] MEDS: NS 1/2 1000 ML IV 1,000 ML IV SCH ×3 (02:03→15:00)
[2021-06-23] MEDS ORDERED: NS 1/2 1000 ML IV 1,000 ML IV ONE (02:56)
[2021-06-23] MEDS: ASCORBIC ACID INJ MULTI-DOSE VIAL 1,500 MG in NS 50 ML IV 50 ML IV SCH ×4 (03:22→21:19)
[2021-06-23] MEDS: SOLU-Medrol 125 MG VIAL IVP SCH ×4 (03:22→21:20)
[2021-06-23] MEDS: CLINIMIX IV SCH ×15 (03:47→21:19)
[2021-06-23] MEDS: MVI IV SCH ×15 (03:47→21:19)
[2021-06-23] MEDS: [UNRECOGNIZED DRUG - OTHER] IV SCH ×15 (03:47→21:19)
[2021-06-23] MEDS: VERSED 100 MG in NS 100 ML IV 80 ML IV PRN ×4 (04:45→20:30)
[2021-06-23 05:01] LABS: BASOPHILS # (AUTO) 0.1 X10^3/uL (0.0-0.1); BASOPHILS % (AUTO) 0.4 % (0.2-1.0); HEMATOCRIT 25.3 % (36.0-47.0); HEMOGLOBIN 8.2 g/dL (12.0-16.0); LYMPHOCYTES # (AUTO) 0.2 X10^3/uL (1.3-2.9); MEAN CORPUSCULAR HGB CONC 32.3 g/dL (33.0-35.0); MEAN CORPUSCULAR VOLUME 80.3 fL (80.0-100.0); MEAN PLATELET VOLUME 9.2 fL (7.4-11.0); MONOCYTES # (AUTO) 0.9 x10^3/uL (0.3-0.8); NEUTROPHILS # (AUTO) 17.3 x10^3/uL (2.2-4.8); NEUTROPHILS % (AUTO) 93.6 % (42.0-75.0); PLATELET COUNT 121 X10^3/uL (150.0-450.0); RED BLOOD COUNT 3.15 X10^6/uL (3.5-5.4); RED CELL DISTRIBUTION WIDTH 17.3 % (11.6-16.5); WHITE BLOOD COUNT 18.5 X10^3/uL (3.6-10.0)
[2021-06-23 05:25] LABS: ALANINE AMINOTRANSFERASE 211 Units/L (12-78); ALBUMIN 3.2 g/dL (3.4-5.0); ALKALINE PHOSPHATASE 123 Units/L (46-116); ASPARTATE AMINO TRANSFERASE 45 Units/L (15-37); BLOOD UREA NITROGEN 39 mg/dL (7-18); CALCIUM 9.1 mg/dL (8.5-10.1); CARBON DIOXIDE 30.3 mmol/L (21-32); CHLORIDE 110 mmol/L (98-107); COR CA(FOR HYPOALB) 9.7 mg/dL (8.5-10.1); COR NA(FOR HYPERGLY) 153 mmol/L (136-145); SODIUM 147 mmol/L (136-145); TOTAL PROTEIN 5.5 g/dL (6.4-8.2); eGFR NON BLACK RACES > 60 (>60)
[2021-06-23 05:46] LABS: PLATELET MORPHOLOGY COMMENT NORMAL (NORMAL)
[2021-06-23 06:35] LABS: ABG BASE EXCESS 6.6 mmol/L (-2.0-2.0)
[2021-06-23 06:36] LABS: ABG ALLEN TEST POS; ABG HCO3 32.8 mmol/L (22-26)
[2021-06-23] MEDS: FORTAZ or TAZICEF VIAL INJ 1 G in NS 100 ML IV + SPIKE MINIBAG* 100 ML IV SCH ×3 (07:12→22:22)
--- NOTE | 2021-06-23 07:58 | RAD ---
HISTORYSOB HX: HTNSTUDYCHEST, 1 [id number]/2021FINDINGSTracheostomy tube is present, 4 centimeters from the jaden. There is a nasogastric tube below the diaphragm PE normal heart size. There is again seen bilateral diffuse g round-glass radiopacities throughout the lungs. No interval change. No pneumothorax or pleural effusi ons.Stable bilateral diffuse patchy ground-glass radiopacities.Electronically signed by: Hilaria Means (Jun 23, 2021 07:56:41)
[2021-06-23] MEDS: ALBUMIN HUMAN 25%- 100 ML 100 ML IV SCH (08:23)
[2021-06-23] MEDS: THIAMINE HCL INJ IVP SCH ×2 (08:24→21:20)
[2021-06-23] MEDS: PROTONIX INJ 40 MG VIAL IVP SCH ×2 (08:24→21:20)
[2021-06-23] MEDS: LOVENOX INJ 40 MG SYR SC SCH ×2 (08:25→21:19)
[2021-06-23] MEDS: CARDIZEM INJ 125 MG VIAL 125 MG in NS 100 ML IV 100 ML IV PRN ×2 (08:26→16:25)
[2021-06-23] MEDS: BROVANA IN SCH ×2 (09:20→20:50)
[2021-06-23] MEDS: PULMICORT NEB TX 0.5 MG NEB SCH ×2 (09:20→20:50)
[2021-06-23] MEDS: DIFLUCAN 200 MG IV PREMIX* 200 MG/100 ML BAG IV SCH (10:01)
[2021-06-23] MEDS: PROVENTIL NEB TX 0.083% 2.5MG/ 3ML NEB SCH ×3 (11:08→20:50)
[2021-06-23] MEDS: CATAPRES-TTS-1 TD SCH (11:24)
--- NOTE | 2021-06-23 12:49 | PCM.PROG ---
Progress Note - Progress Note for Day of Date of Exam: 06/23/21 - Subjective Subjective: WAS ADMITTED ON 06/09 FOR TREATMENT OF PNEUMONIA DUE TO COVID-19, ACUTE RESPIRATORY FAILURE WITH HYPOXIA, AND A-FIB. SHE WAS PLACED ON THE MECHANICAL VENTILATOR 9 DAYS AGO NIGHT DUE TO INCREASED RESPIRATORY EFFORTS, DECREASED OXYGEN SATURATIONS, AND COMBATIVENESS. TODAY, HER VENT SETTINGS ARE: A/C, VENT RATE 25, TIDAL VOLUME SET 450, PEEP 10, FI02 55. SATURATIONS HAVE BEEN 90-100%. ON EXAMINATION, OROGASTRIC TUBE NOTED FOR FEEDINGS/MEDS. HR IS IN THE 90s ON THE MONITOR. BILATERAL LUNGS NOTED WITH DIMINISHED LUNG SOUNDS THROUGHOUT. ABDOMEN IS ROUND, SOFT, AND NON-TENDER WITH NORMAL BOWEL SOUNDS NOTED IN ALL QUADRANTS. HER VITALS THIS MORNING ARE: 98.6-90-29-94%-167/78. LABS WERE OBTAINED. ABNORMAL LAB VALUES INCLUDE THE FOLLOWING: WBC 18.5, RBC 3.15, HGB 8.2, HCT 25.3, PLT COUNT 121, D-DIMER 1.37, SODIUM 147, CHLORIDE 110, BUN 39, GLUCOSE 359, TOTAL BILI 1.10, AST 45, ALT 211, ALK PHOS 123, BNP 185, TOTAL PROTEIN 5.5, ALBUMIN 3.2. ABG REVEALED: PH 7.400, PC02 53, P02 65, HC03 32.8, 02 SAT 92, FI02 55.0. CHEST XRAY REVEALED: Stable bilateral diffuse patchy ground- glass radiopacities. SHE IS CURRENTLY RECEIVING TPN AT 80 ML/HR, ALBUMIN 25% IV DAILY, 1/2 NS AT 20 ML/HR, VERSED FOR SEDATION, LEVAQUIN 500MG IV DAILY, FORTAZ 1G IV Q8H, MORPHINE SULFATE 2MG IV Q4H PRN, SOLU-MEDROL 125MG IV Q6H, VALIUM 5MG IV Q6H PRN, PROTONIX 40MG IV BID, THIAMINE 200MG IV BID, OTBS ACHS, HUMULIN R SLIDING SCALE, LOVENOX 40MG SC BID, DIFLUCAN 200MG IV DAILY, PULMICORT NEBS BID, ALBUTEROL NEBS QID, BROVANA INHALER BID, ASCORBIC ACID 1500MG IV Q6H, ZOFRAN 4MG IV Q4H PRN NAUSEA, AND THE POTASSIUM AND MAGNESIUM PROTOCOLS. SHE IS RECEIVING ENSURE 1 CAN TID AND 200ML FREE WATER QID THROUGH THE OG TUBE TODAY. WE WILL CONTINUE TO WEAN OXYGEN DOWN TODAY PATIENT TOLERATES. OTHERWISE, WE PLAN TO FOLLOW UP WITH AM LABS AND CHEST XRAY AND CONTINUE TO MONITOR. TIME SPENT ON CLINICAL ASSESSMENT, REVIEWING LABS AND IMAGING, DECISION MAKING, AND DOCUMENTATION GREATER THAN 45 MINUTES. - Past Medical Family Social History Past Med/Fam/Surg Hx: No changes since H&P Allergies: Allergies nalbuphine [From Nubain] Allergy (Verified 05/15/18 14:34) Penicillins Allergy (Verified 05/15/18 14:34) - Review of Systems ROS: No change since H&P - Vital Signs and I&O's Vital Signs: Temperature 99.2 F Pulse Rate 79 Respiratory Rate 28 Blood Pressure [Left Arm] 163/90 Blood Pressure [Right Arm] 176/96 Blood Pressure 145/69 O2 Sat by Pulse Oximetry 92 Intake and Output: Intake & Output 06/21/21 06/22/21 06/23/21 06/24/21 11:59 11:59 11:59 11:59 Intake Total 5426 / 5426 6095 / 6095 5378 / 5378 Output Total 3025 / 3025 3100 / 3100 2550 / 2550 Balance 2401 / 2401 2995 / 2995 2828 / 2828 - Physical Exam Oriented: Unable to test Eyes: Normal Ear: Normal Nose: Normal Throat: Normal Respiratory: Generalized, Rales Cardiovascular: Tachycardia, Irregular : Normal Auscultation: Bowel Sounds: Normal Palpation: Normal Tenderness: Normal Skin: Normal Musculoskeletal: Normal Psychiatric: Other (SEDATED ) Mood Description: Calm Affect: Normal (SEDATED) Speech Pattern: Artificially Ventilated - Laboratory and Diagnostics Result Diagrams: 06/23/21 04:34 06/23/21 04:34 Labs: 06/08/21 20:42 Blood Blood Culture - Final 06/08/21 20:50 Blood Blood Culture - Final Laboratory WBC 18.5 X10^3/uL (3.6-10.0) H 06/23/21 04:34 RBC 3.15 X10^6/uL (3.5-5.4) L 06/23/21 04:34 Hgb 8.2 g/dL (12.0-16.0) L 06/23/21 04:34 Hct 25.3 % (36.0-47.0) L 06/23/21 04:34 MCV 80.3 fL (80.0-100.0) 06/23/21 04:34 MCH 26.0 pg (27.0-34.0) L 06/23/21 04:34 MCHC 32.3 g/dL (33.0-35.0) L 06/23/21 04:34 RDW 17.3 % (11.6-16.5) H 06/23/21 04:34 Plt Count 121 X10^3/uL (150.0-450.0) L 06/23/21 04:34 Plt Count Comment Decreased (ADEQUATE) A 06/23/21 04:34 MPV 9.2 fL (7.4-11.0) 06/23/21 04:34 Neut % (Auto) 93.6 % (42.0-75.0) H 06/23/21 04:34 Lymph % (Auto) 1.0 % (21.0-51.0) L 06/23/21 04:34 [place] % (Auto) 5.0 % (0.0-13.0) 06/23/21 04:34 Eos % (Auto) 0.0 % (0.9-2.9) L 06/23/21 04:34 Baso % (Auto) 0.4 % (0.2-1.0) 06/23/21 04:34 Neut # (Auto) 17.3 x10^3/uL (2.2-4.8) H 06/23/21 04:34 Lymph # (Auto) 0.2 X10^3/uL (1.3-2.9) L 06/23/21 04:34 [place] # (Auto) 0.9 x10^3/uL (0.3-0.8) H 06/23/21 04:34 Eos # (Auto) 0.0 x10^3/uL (0.0-0.2) 06/23/21 04:34 Baso # (Auto) 0.1 X10^3/uL (0.0-0.1) 06/23/21 04:34 Absolute Nucleated RBC 0.0 /100WBC 06/23/21 04:34 Total Counted 100 06/23/21 04:34 Neutrophils % (Manual) 97 % (39-76) H 06/23/21 04:34 Band Neutrophils % 4 % (0-10) 06/21/21 05:20 Lymphocytes % (Manual) 2 % (13-43) L 06/23/21 04:34 Monocytes % (Manual) 1 % (4-9) L 06/23/21 04:34 Metamyelocytes % 9 06/22/21 04:50 Plt Morphology Comment Normal (NORMAL) 06/23/21 04:34 RBC Morphology Normal (NORMAL) 06/23/21 04:34 Hypochromasia Slight A 06/21/21 05:20 Anisocytosis Slight A 06/21/21 05:20 Microcytosis Slight A 06/19/21 04:46 Ovalocytes Slight A 06/13/21 06:15 Phyllis Cells Slight A 06/19/21 04:46 PT 15.4 SECONDS (11.8-14.3) 06/08/21 20:42 INR Target Range - 06/08/21 20:42 INR 1.28 (0.8-1.3) 06/08/21 20:42 D-Dimer 1.37 ug/ml (0.0-0.57) H* 06/23/21 04:34 Sample Site Rrad 06/23/21 06:30 ABG pH 7.400 (7.35-7.45) 06/23/21 06:30 ABG pCO2 53.0 mmHg (35.0-45.0) H* 06/23/21 06:30 ABG pO2 65.0 mmHg (80.0-100.0) L 06/23/21 06:30 ABG HCO3 32.8 mmol/L (22-26) H* 06/23/21 06:30 ABG O2 Saturation 92.0 % (90-100) 06/23/21 06:30 ABG Base Excess 6.6 mmol/L (-2.0-2.0) H 06/23/21 06:30 Herminio Test Pos 06/23/21 06:30 A-a Gradient 261.0 mmHg 06/23/21 06:30 FiO2 55.0 06/23/21 06:30 Blood Gas Comments Shyam well mts/sa 06/23/21 06:30 Sodium 147 mmol/L (136-145) H 06/23/21 04:34 Corrected Sodium 153 mmol/L (136-145) H 06/23/21 04:34 Potassium 4.5 mmol/L (3.5-5.1) 06/23/21 04:34 Chloride 110 mmol/L (98-107) H 06/23/21 04:34 Carbon Dioxide 30.3 mmol/L (21-32) 06/23/21 04:34 BUN 39 mg/dL (7-18) H 06/23/21 04:34 Creatinine 0.70 mg/dL (0.55-1.02) 06/23/21 04:34 Est GFR (MDRD) Af Amer > 60 (>60) 06/23/21 04:34 Est GFR (MDRD) Non-Af > 60 (>60) 06/23/21 04:34 Glucose 359 mg/dL (65-99) H 06/23/21 04:34 POC Glucose (mg/dL) 276 mg/dL (65-99) H 06/19/21 15:42 Calcium 9.1 mg/dL (8.5-10.1) 06/23/21 04:34 Corrected Calcium 9.7 mg/dL (8.5-10.1) 06/23/21 04:34 Magnesium 2.6 mg/dL (1.7-2.9) 06/15/21 04:47 Ferritin 163 ng/mL (8-252) 06/14/21 05:26 Total Bilirubin 1.10 mg/dL (0.2-1.0) H 06/23/21 04:34 AST 45 Units/L (15-37) H 06/23/21 04:34 ALT 211 Units/L (12-78) H 06/23/21 04:34 Alkaline Phosphatase 123 Units/L (46-116) H 06/23/21 04:34 Troponin I < 0.02 ng/mL (0-1.5) 06/08/21 20:42 C-Reactive Protein < 0.50 mg/L (0-3.0) 06/23/21 04:34 B-Natriuretic Peptide 185 pg/mL (0-79) H 06/23/21 04:34 Total Protein 5.5 g/dL (6.4-8.2) L 06/23/21 04:34 Albumin 3.2 g/dL (3.4-5.0) L 06/23/21 04:34 Globulin 2.3 g/dL (2.5-4.5) L 06/23/21 04:34 Albumin/Globulin Ratio 1.4 Ratio (1.1-2.1) 06/23/21 04:34 Prealbumin 19.6 mg/dL (18-35.7) 06/17/21 04:43 Specimen Type Catherized urine 06/09/21 03:30 Urine Color Yellow (YELLOW) 06/09/21 03:30 Urine Appearance Clear (CLEAR) 06/09/21 03:30 Urine pH 6.0 (5.0 - 8.0) 06/09/21 03:30 Ur Specific [place] 1.010 (1.000-1.030) 06/09/21 03:30 Urine Protein 2+ (NEGATIVE) 06/09/21 03:30 Urine Glucose (UA) Negative (NEGATIVE) 06/09/21 03:30 Urine Ketones Negative (NEGATIVE) 06/09/21 03:30 Urine Occult Blood 1+ (NEGATIVE) 06/09/21 03:30 Urine Nitrite Negative (NEGATIVE) 06/09/21 03:30 Urine Bilirubin Negative (NEGATIVE) 06/09/21 03:30 Urine Urobilinogen Normal (NORMAL) 06/09/21 03:30 Ur Leukocyte Esterase Negative (NEGATIVE) 06/09/21 03:30 Urine RBC 0-2 /HPF (0-3) 06/09/21 03:30 Urine WBC None seen /HPF (0-5) 06/09/21 03:30 Ur Squamous Epith Cells Negative /HPF (NEGATIVE) 06/09/21 03:30 Urine Bacteria Negative /HPF (NEGATIVE) 06/09/21 03:30 Ur Culture Indicated? No/not indicated 06/09/21 03:30 - Plan (1) Pneumonia due to 2019-nCoV Status: Acute Plan: 1/2 NS AT 20 ML/HR, TPN AT 80 ML/HR, ALBUMIN 25% IV DAILY, FORTAZ 1G IV Q8H, VERSED FOR SEDATION, LEVAQUIN 500MG IV DAILY, MORPHINE SULFATE 2MG IV Q4H PRN, SOLU-MEDROL 125MG IV Q6H, A CATAPRES PATCH, VALIUM 5MG IV Q6H PRN, PROTONIX 40MG IV BID, THIAMINE 200MG IV BID, OTBS ACHS, HUMULIN R SLIDING SCALE, LOVENOX 80MG SC BID, DIFLUCAN 200MG IV DAILY, PULMICORT NEBS BID, ALBUTEROL NEBS QID, BROVANA INHALER BID, ASCORBIC ACID 1500MG IV Q6H, ZOFRAN 4MG IV Q4H PRN NAUSEA, AND THE POTASSIUM AND MAGNESIUM PROTOCOLS. (2) Acute respiratory insufficiency Status: Acute (3) Hypoxia Status: Acute (4) Acute dyspnea Status: Acute
[2021-06-23] MEDS: XYLOCAINE OINT 5% 1 APPLIC, ZOVIRAX 1 APPLIC TOP SCH ×4 (13:56→21:20)
[2021-06-23] MEDS ORDERED: DEXTROSE 10% 1,000 ML IV PRN (16:20)
[2021-06-23] MEDS: HumuLIN R SUBCUT PRN ×2 (16:33→21:21)
[2021-06-23 17:48] LABS: MAGNESIUM 2.7 mg/dL (1.7-2.9); PHOSPHORUS 2.8 mg/dL (2.6-4.7)
[2021-06-23] MEDS: LEVAQUIN PREMIX IV 500 MG 500 MG/100 ML BAG IV SCH (23:00)
[2021-06-24] MEDS: VERSED 100 MG in NS 100 ML IV 80 ML IV PRN ×2 (01:30→06:30)
[2021-06-24] MEDS: HumuLIN R SUBCUT PRN ×5 (01:30→15:57)
[2021-06-24] MEDS ORDERED: NS 100 ML IV 100 ML ONE (02:16)
[2021-06-24] MEDS: CARDIZEM INJ 125 MG VIAL 125 MG in NS 100 ML IV 100 ML IV PRN ×3 (02:45→21:15)
[2021-06-24] MEDS: SOLU-Medrol 125 MG VIAL IVP SCH ×4 (02:57→20:54)
[2021-06-24] MEDS: ASCORBIC ACID INJ MULTI-DOSE VIAL 1,500 MG in NS 50 ML IV 50 ML IV SCH ×4 (02:57→20:54)
[2021-06-24 03:58] LABS: ABG ALLEN TEST POS; ABG BASE EXCESS 6.6 mmol/L (-2.0-2.0); ABG HCO3 33.5 mmol/L (22-26)
[2021-06-24] MEDS: NS 1/2 1000 ML IV 1,000 ML IV SCH ×2 (04:34→17:33)
[2021-06-24 05:13] LABS: BASOPHILS % (AUTO) 0.3 % (0.2-1.0); HEMATOCRIT 24.6 % (36.0-47.0); HEMOGLOBIN 7.9 g/dL (12.0-16.0); LYMPHOCYTES # (AUTO) 0.1 X10^3/uL (1.3-2.9); LYMPHOCYTES % (AUTO) 0.7 % (21.0-51.0); MEAN CORPUSCULAR HEMOGLOBIN 26.1 pg (27.0-34.0); MEAN CORPUSCULAR HGB CONC 32.1 g/dL (33.0-35.0); MEAN CORPUSCULAR VOLUME 81.3 fL (80.0-100.0); MONOCYTES # (AUTO) 0.6 x10^3/uL (0.3-0.8); MONOCYTES % (AUTO) 3.4 % (0.0-13.0); NEUTROPHILS # (AUTO) 16.6 x10^3/uL (2.2-4.8); NEUTROPHILS % (AUTO) 95.6 % (42.0-75.0); PLATELET COUNT 115 X10^3/uL (150.0-450.0); RED BLOOD COUNT 3.03 X10^6/uL (3.5-5.4); RED CELL DISTRIBUTION WIDTH 17.4 % (11.6-16.5); WHITE BLOOD COUNT 17.3 X10^3/uL (3.6-10.0)
[2021-06-24 05:37] LABS: PREALBUMIN 42.2 mg/dL (18-35.7)
[2021-06-24] MEDS ORDERED: VERSED IV PREMIX 100 MG/100 ML IV.SOLN IV ONE ×2 (05:39→12:25)
[2021-06-24 05:41] LABS: ALANINE AMINOTRANSFERASE 226 Units/L (12-78); ALBUMIN 3.2 g/dL (3.4-5.0); ALKALINE PHOSPHATASE 119 Units/L (46-116); ASPARTATE AMINO TRANSFERASE 87 Units/L (15-37); BLOOD UREA NITROGEN 42 mg/dL (7-18); CALCIUM 8.7 mg/dL (8.5-10.1); CARBON DIOXIDE 32.6 mmol/L (21-32); CHLORIDE 112 mmol/L (98-107); COR CA(FOR HYPOALB) 9.3 mg/dL (8.5-10.1); COR NA(FOR HYPERGLY) 153 mmol/L (136-145); CREATININE 0.62 mg/dL (0.55-1.02); SODIUM 149 mmol/L (136-145); TOTAL PROTEIN 5.5 g/dL (6.4-8.2); eGFR NON BLACK RACES > 60 (>60)
[2021-06-24 06:20] LABS: PLATELET MORPHOLOGY COMMENT NORMAL (NORMAL)
[2021-06-24] MEDS: FORTAZ or TAZICEF VIAL INJ 1 G in NS 100 ML IV + SPIKE MINIBAG* 100 ML IV SCH ×3 (06:42→22:10)
[2021-06-24] MEDS: XYLOCAINE OINT 5% 1 APPLIC, ZOVIRAX 1 APPLIC TOP SCH ×6 (06:43→21:00)
[2021-06-24] MEDS: PROTONIX INJ 40 MG VIAL IVP SCH ×2 (08:04→20:51)
[2021-06-24] MEDS: THIAMINE HCL INJ IVP SCH ×2 (08:04→21:00)
[2021-06-24] MEDS: LOVENOX INJ 40 MG SYR SC SCH ×2 (08:05→20:53)
--- NOTE | 2021-06-24 08:14 | RAD ---
HISTORYSOB HX: HTNSTUDYCHEST, 1 [id number] endotracheal tube and nasogastric tube are unchanged. There is a normal heart size and mediastinum within normal limits. There are diffuse bilateral ground-glass radiopacities, no evidence of a pneumothorax or pleural effusion, no significant interval change.IMPRESSIONStable diffuse ground-glass radiopacities. ET tube and nasogastric tube are unchanged.Electronically signed by: Hilaria Means (Jun 24, 2021 08:12:36)
[2021-06-24] MEDS: ALBUMIN HUMAN 25%- 100 ML 100 ML IV SCH (08:35)
[2021-06-24] MEDS: PULMICORT NEB TX 0.5 MG NEB SCH ×2 (09:25→21:00)
[2021-06-24] MEDS: BROVANA IN SCH ×2 (09:25→21:00)
[2021-06-24] MEDS: DIFLUCAN 200 MG IV PREMIX* 200 MG/100 ML BAG IV SCH (09:33)
--- NOTE | 2021-06-24 10:15 | PCM.PROG ---
Progress Note - Progress Note for Day of Date of Exam: 06/24/21 - Subjective Subjective: WAS ADMITTED ON 06/09 FOR TREATMENT OF PNEUMONIA DUE TO COVID-19, ACUTE RESPIRATORY FAILURE WITH HYPOXIA, AND A-FIB. SHE WAS PLACED ON THE MECHANICAL VENTILATOR 9 DAYS AGO NIGHT DUE TO INCREASED RESPIRATORY EFFORTS, DECREASED OXYGEN SATURATIONS, AND COMBATIVENESS. TODAY, HER VENT SETTINGS ARE: A/C, VENT RATE 25, TIDAL VOLUME SET 450, PEEP 10, FI02 55. SATURATIONS HAVE BEEN 90-95%. ON EXAMINATION, OROGASTRIC TUBE NOTED FOR FEEDINGS/MEDS. HR IS IN THE 90s ON THE MONITOR. BILATERAL LUNGS NOTED WITH DIMINISHED LUNG SOUNDS THROUGHOUT. ABDOMEN IS ROUND, SOFT, AND NON-TENDER WITH NORMAL BOWEL SOUNDS NOTED IN ALL QUADRANTS. HER VITALS THIS MORNING ARE: 98.9-90-28-96%-158/75. LABS WERE OBTAINED. ABNORMAL LAB VALUES INCLUDE THE FOLLOWING: WBC 17.3, RBC 3.03, HGB 7.9, HCT 24.6, PLT COUNT 115, D-DIMER 1.25, SODIUM 149, CHLORIDE 112, BUN 42, GLUCOSE 282, AST 87, ALT 226, ALK PHOS 119, BNP 131, TOTAL PROTEIN 5.5, ALBUMIN 3.2. ABG REVEALED: PH 7.370, PC02 58, P02 74, HC03 33.5, 02 SAT 94, BASE EXCESS 6.6, FI02 55.0. CHEST XRAY REVEALED: The endotracheal tube and nasogastric tube are unchanged. There is a normal heart size and mediastinum within normal limits. There are diffuse bilateral ground-glass radiopacities, no evidence of a pneumothorax or pleural effusion, no significant interval change. SHE IS CURRENTLY RECEIVING TPN AT 80 ML/HR, ALBUMIN 25% IV DAILY, 1/2 NS AT 20 ML/HR, VERSED FOR SEDATION, LEVAQUIN 500MG IV DAILY, FORTAZ 1G IV Q8H, MORPHINE SULFATE 2MG IV Q4H PRN, SOLU-MEDROL 125MG IV Q6H, VALIUM 5MG IV Q6H PRN, PROTONIX 40MG IV BID, THIAMINE 200MG IV BID, OTBS ACHS, HUMULIN R SLIDING SCALE, LOVENOX 40MG SC BID, DIFLUCAN 200MG IV DAILY, PULMICORT NEBS BID, ALBUTEROL NEBS QID, BROVANA INHALER BID, ASCORBIC ACID 1500MG IV Q6H, ZOFRAN 4MG IV Q4H PRN NAUSEA, AND THE POTASSIUM AND MAGNESIUM PROTOCOLS. SHE IS RECEIVING ENSURE 1 CAN TID AND 200ML FREE WATER QID THROUGH THE OG TUBE TODAY. WE WILL CONTINUE TO WEAN OXYGEN DOWN TODAY PATIENT TOLERATES. OTHERWISE, WE PLAN TO FOLLOW UP WITH AM LABS AND CHEST XRAY AND CONTINUE TO MONITOR. TIME SPENT ON CLINICAL ASSESSMENT, REVIEWING LABS AND IMAGING, DECISION MAKING, AND DOCUMENTATION GREATER THAN 45 MINUTES. - Past Medical Family Social History Past Med/Fam/Surg Hx: No changes since H&P Allergies: Allergies nalbuphine [From Nubain] Allergy (Verified 05/15/18 14:34) Penicillins Allergy (Verified 05/15/18 14:34) - Review of Systems ROS: No change since H&P - Vital Signs and I&O's Vital Signs: Temperature 98.9 F Pulse Rate 154 Respiratory Rate 28 Blood Pressure [Left Arm] 163/90 Blood Pressure [Right Arm] 176/96 Blood Pressure 162/74 O2 Sat by Pulse Oximetry 97 Intake and Output: Intake & Output 06/21/21 06/22/21 06/23/21 06/24/21 11:59 11:59 11:59 11:59 Intake Total 5426 / 5426 6095 / 6095 5378 / 5378 5149 / 5149 Output Total 3025 / 3025 3100 / 3100 2550 / 2550 3000 / 3000 Balance 2401 / 2401 2995 / 2995 2828 / 2828 2149 / 2149 - Physical Exam Oriented: Unable to test Eyes: Normal Ear: Normal Nose: Normal Throat: Normal Respiratory: Generalized, Rales Cardiovascular: Tachycardia, Irregular : Normal Auscultation: Bowel Sounds: Normal Tenderness: Normal Skin: Normal Musculoskeletal: Normal Psychiatric: Other (SEDATED ) Mood Description: Calm Affect: Normal (SEDATED) Speech Pattern: Artificially Ventilated - Laboratory and Diagnostics Result Diagrams: 06/24/21 04:30 06/24/21 04:30 Labs: 06/08/21 20:42 Blood Blood Culture - Final 06/08/21 20:50 Blood Blood Culture - Final Laboratory WBC 17.3 X10^3/uL (3.6-10.0) H 06/24/21 04:30 RBC 3.03 X10^6/uL (3.5-5.4) L 06/24/21 04:30 Hgb 7.9 g/dL (12.0-16.0) L 06/24/21 04:30 Hct 24.6 % (36.0-47.0) L 06/24/21 04:30 MCV 81.3 fL (80.0-100.0) 06/24/21 04:30 MCH 26.1 pg (27.0-34.0) L 06/24/21 04:30 MCHC 32.1 g/dL (33.0-35.0) L 06/24/21 04:30 RDW 17.4 % (11.6-16.5) H 06/24/21 04:30 Plt Count 115 X10^3/uL (150.0-450.0) L 06/24/21 04:30 Plt Count Comment Decreased (ADEQUATE) A 06/24/21 04:30 MPV 10.0 fL (7.4-11.0) 06/24/21 04:30 Neut % (Auto) 95.6 % (42.0-75.0) H 06/24/21 04:30 Lymph % (Auto) 0.7 % (21.0-51.0) L 06/24/21 04:30 [place] % (Auto) 3.4 % (0.0-13.0) 06/24/21 04:30 Eos % (Auto) 0.0 % (0.9-2.9) L 06/24/21 04:30 Baso % (Auto) 0.3 % (0.2-1.0) 06/24/21 04:30 Neut # (Auto) 16.6 x10^3/uL (2.2-4.8) H 06/24/21 04:30 Lymph # (Auto) 0.1 X10^3/uL (1.3-2.9) L 06/24/21 04:30 [place] # (Auto) 0.6 x10^3/uL (0.3-0.8) 06/24/21 04:30 Eos # (Auto) 0.0 x10^3/uL (0.0-0.2) 06/24/21 04:30 Baso # (Auto) 0.0 X10^3/uL (0.0-0.1) 06/24/21 04:30 Absolute Nucleated RBC 0.0 /100WBC 06/24/21 04:30 Total Counted 100 06/24/21 04:30 Neutrophils % (Manual) 98 % (39-76) H 06/24/21 04:30 Band Neutrophils % 4 % (0-10) 06/21/21 05:20 Lymphocytes % (Manual) 2 % (13-43) L 06/24/21 04:30 Monocytes % (Manual) 1 % (4-9) L 06/23/21 04:34 Metamyelocytes % 9 06/22/21 04:50 Plt Morphology Comment Normal (NORMAL) 06/24/21 04:30 RBC Morphology Normal (NORMAL) 06/24/21 04:30 Hypochromasia Slight A 06/21/21 05:20 Anisocytosis Slight A 06/21/21 05:20 Microcytosis Slight A 06/19/21 04:46 Ovalocytes Slight A 06/13/21 06:15 Phyllis Cells Slight A 06/19/21 04:46 PT 15.4 SECONDS (11.8-14.3) 06/08/21 20:42 INR Target Range - 06/08/21 20:42 INR 1.28 (0.8-1.3) 06/08/21 20:42 D-Dimer 1.25 ug/ml (0.0-0.57) H* 06/24/21 04:30 Sample Site Rr 06/24/21 03:53 ABG pH 7.370 (7.35-7.45) 06/24/21 03:53 ABG pCO2 58.0 mmHg (35.0-45.0) H* 06/24/21 03:53 ABG pO2 74.0 mmHg (80.0-100.0) L 06/24/21 03:53 ABG HCO3 33.5 mmol/L (22-26) H* 06/24/21 03:53 ABG O2 Saturation 94.0 % (90-100) 06/24/21 03:53 ABG Base Excess 6.6 mmol/L (-2.0-2.0) H 06/24/21 03:53 Herminio Test Pos 06/24/21 03:53 A-a Gradient 246.0 mmHg 06/24/21 03:53 FiO2 55.0 06/24/21 03:53 Blood Gas Comments Shyam well ae 06/24/21 03:53 Sodium 149 mmol/L (136-145) H 06/24/21 04:30 Corrected Sodium 153 mmol/L (136-145) H 06/24/21 04:30 Potassium 4.2 mmol/L (3.5-5.1) 06/24/21 04:30 Chloride 112 mmol/L (98-107) H 06/24/21 04:30 Carbon Dioxide 32.6 mmol/L (21-32) H 06/24/21 04:30 BUN 42 mg/dL (7-18) H 06/24/21 04:30 Creatinine 0.62 mg/dL (0.55-1.02) 06/24/21 04:30 Est GFR (MDRD) Af Amer > 60 (>60) 06/24/21 04:30 Est GFR (MDRD) Non-Af > 60 (>60) 06/24/21 04:30 Glucose 282 mg/dL (65-99) H 06/24/21 04:30 POC Glucose (mg/dL) 278 mg/dL (65-99) H 06/24/21 08:30 Calcium 8.7 mg/dL (8.5-10.1) 06/24/21 04:30 Corrected Calcium 9.3 mg/dL (8.5-10.1) 06/24/21 04:30 Phosphorus 2.8 mg/dL (2.6-4.7) 06/23/21 17:25 Magnesium 2.7 mg/dL (1.7-2.9) 06/23/21 17:25 Ferritin 163 ng/mL (8-252) 06/14/21 05:26 Total Bilirubin 1.00 mg/dL (0.2-1.0) 06/24/21 04:30 AST 87 Units/L (15-37) H 06/24/21 04:30 ALT 226 Units/L (12-78) H 06/24/21 04:30 Alkaline Phosphatase 119 Units/L (46-116) H 06/24/21 04:30 Troponin I < 0.02 ng/mL (0-1.5) 06/08/21 20:42 C-Reactive Protein < 0.50 mg/L (0-3.0) 06/24/21 04:30 B-Natriuretic Peptide 131 pg/mL (0-79) H 06/24/21 04:30 Total Protein 5.5 g/dL (6.4-8.2) L 06/24/21 04:30 Albumin 3.2 g/dL (3.4-5.0) L 06/24/21 04:30 Globulin 2.3 g/dL (2.5-4.5) L 06/24/21 04:30 Albumin/Globulin Ratio 1.4 Ratio (1.1-2.1) 06/24/21 04:30 Prealbumin 42.2 mg/dL (18-35.7) H 06/24/21 04:30 Triglycerides 240 mg/dL (0-150) H 06/23/21 17:25 Specimen Type Catherized urine 06/09/21 03:30 Urine Color Yellow (YELLOW) 06/09/21 03:30 Urine Appearance Clear (CLEAR) 06/09/21 03:30 Urine pH 6.0 (5.0 - 8.0) 06/09/21 03:30 Ur Specific [place] 1.010 (1.000-1.030) 06/09/21 03:30 Urine Protein 2+ (NEGATIVE) 06/09/21 03:30 Urine Glucose (UA) Negative (NEGATIVE) 06/09/21 03:30 Urine Ketones Negative (NEGATIVE) 06/09/21 03:30 Urine Occult Blood 1+ (NEGATIVE) 06/09/21 03:30 Urine Nitrite Negative (NEGATIVE) 06/09/21 03:30 Urine Bilirubin Negative (NEGATIVE) 06/09/21 03:30 Urine Urobilinogen Normal (NORMAL) 06/09/21 03:30 Ur Leukocyte Esterase Negative (NEGATIVE) 06/09/21 03:30 Urine RBC 0-2 /HPF (0-3) 06/09/21 03:30 Urine WBC None seen /HPF (0-5) 06/09/21 03:30 Ur Squamous Epith Cells Negative /HPF (NEGATIVE) 06/09/21 03:30 Urine Bacteria Negative /HPF (NEGATIVE) 06/09/21 03:30 Ur Culture Indicated? No/not indicated 06/09/21 03:30 - Plan (1) Pneumonia due to 2019-nCoV Status: Acute Plan: 1/2 NS AT 20 ML/HR, TPN AT 80 ML/HR, ALBUMIN 25% IV DAILY, FORTAZ 1G IV Q8H, VERSED FOR SEDATION, LEVAQUIN 500MG IV DAILY, MORPHINE SULFATE 2MG IV Q4H PRN, SOLU-MEDROL 125MG IV Q6H, A CATAPRES PATCH, VALIUM 5MG IV Q6H PRN, PROTONIX 40MG IV BID, THIAMINE 200MG IV BID, OTBS ACHS, HUMULIN R SLIDING SCALE, LOVENOX 80MG SC BID, DIFLUCAN 200MG IV DAILY, PULMICORT NEBS BID, ALBUTEROL NEBS QID, BROVANA INHALER BID, ASCORBIC ACID 1500MG IV Q6H, ZOFRAN 4MG IV Q4H PRN NAUSEA, AND THE POTASSIUM AND MAGNESIUM PROTOCOLS. (2) Acute respiratory insufficiency Status: Acute (3) Hypoxia Status: Acute (4) Acute dyspnea Status: Acute
[2021-06-24] MEDS ORDERED: LANOXIN INJ IVP ONE (11:00)
[2021-06-24] MEDS ORDERED: LANOXIN INJ ONE (11:01)
[2021-06-24] MEDS: CLINIMIX IV SCH ×4 (11:19)
[2021-06-24] MEDS: MVI IV SCH ×4 (11:19)
[2021-06-24] MEDS: [UNRECOGNIZED DRUG - OTHER] IV SCH ×4 (11:19)
[2021-06-24] MEDS: PROVENTIL NEB TX 0.083% 2.5MG/ 3ML NEB SCH ×4 (11:22→21:00)
[2021-06-24] MEDS: VERSED IV PREMIX 100 MG/100 ML IV.SOLN IV PRN ×3 (12:32→23:23)
[2021-06-24] MEDS: LEVAQUIN PREMIX IV 500 MG 500 MG/100 ML BAG IV SCH (20:53)
[2021-06-25] MEDS: HumuLIN R SUBCUT PRN ×2 (01:51→17:55)
[2021-06-25] MEDS: CLINIMIX IV SCH ×8 (01:58→14:34)
[2021-06-25] MEDS: MVI IV SCH ×8 (01:58→14:34)
[2021-06-25] MEDS: [UNRECOGNIZED DRUG - OTHER] IV SCH ×8 (01:58→14:34)
[2021-06-25] MEDS: SOLU-Medrol 125 MG VIAL IVP SCH ×4 (03:00→21:51)
[2021-06-25] MEDS: ASCORBIC ACID INJ MULTI-DOSE VIAL 1,500 MG in NS 50 ML IV 50 ML IV SCH ×4 (03:49→21:00)
[2021-06-25 05:15] LABS: ABG BASE EXCESS 11.6 mmol/L (-2.0-2.0)
[2021-06-25 05:16] LABS: ABG ALLEN TEST POS; ABG HCO3 37.1 mmol/L (22-26)
[2021-06-25] MEDS: FORTAZ or TAZICEF VIAL INJ 1 G in NS 100 ML IV + SPIKE MINIBAG* 100 ML IV SCH ×3 (05:32→21:51)
[2021-06-25] MEDS: XYLOCAINE OINT 5% 1 APPLIC, ZOVIRAX 1 APPLIC TOP SCH ×6 (05:34→21:50)
[2021-06-25 06:05] LABS: BASOPHILS % (AUTO) 0.3 % (0.2-1.0); HEMATOCRIT 22.5 % (36.0-47.0); HEMOGLOBIN 7.4 g/dL (12.0-16.0); LYMPHOCYTES # (AUTO) 0.2 X10^3/uL (1.3-2.9); MEAN CORPUSCULAR HEMOGLOBIN 26.6 pg (27.0-34.0); MEAN CORPUSCULAR HGB CONC 32.6 g/dL (33.0-35.0); MEAN CORPUSCULAR VOLUME 81.4 fL (80.0-100.0); MEAN PLATELET VOLUME 10.1 fL (7.4-11.0); MONOCYTES # (AUTO) 0.6 x10^3/uL (0.3-0.8); MONOCYTES % (AUTO) 3.9 % (0.0-13.0); NEUTROPHILS # (AUTO) 14.3 x10^3/uL (2.2-4.8); NEUTROPHILS % (AUTO) 94.8 % (42.0-75.0); PLATELET COUNT 95 X10^3/uL (150.0-450.0); RED BLOOD COUNT 2.77 X10^6/uL (3.5-5.4); RED CELL DISTRIBUTION WIDTH 17.1 % (11.6-16.5); WHITE BLOOD COUNT 15.1 X10^3/uL (3.6-10.0)
[2021-06-25] MEDS: NS 1/2 1000 ML IV 1,000 ML IV SCH ×2 (06:32→23:21)
[2021-06-25 06:57] LABS: ALANINE AMINOTRANSFERASE 188 Units/L (12-78); ALBUMIN 2.9 g/dL (3.4-5.0); ALKALINE PHOSPHATASE 86 Units/L (46-116); ASPARTATE AMINO TRANSFERASE 46 Units/L (15-37); BLOOD UREA NITROGEN 39 mg/dL (7-18); CALCIUM 8.7 mg/dL (8.5-10.1); CARBON DIOXIDE 32.7 mmol/L (21-32); CHLORIDE 112 mmol/L (98-107); COR CA(FOR HYPOALB) 9.6 mg/dL (8.5-10.1); COR NA(FOR HYPERGLY) 151 mmol/L (136-145); CREATININE 0.53 mg/dL (0.55-1.02); SODIUM 149 mmol/L (136-145); eGFR NON BLACK RACES > 60 (>60)
--- NOTE | 2021-06-25 07:01 | RAD ---
HISTORYSOBSTUDYPortable AP [id number] change in appearance of the normal heart size or distribution of bilateral pulmonary infiltrates. No new consolidation, developing pleural fluid or pneumothorax seen. Support lines are stable.IMPRESSIONNo change in appearance of the bilateral infiltrates consistent with pneumonia.Electronically signed by: DELMIS MCCLENDON (Jun 25, 2021 07:00:08)
[2021-06-25] MEDS: CARDIZEM INJ 125 MG VIAL 125 MG in NS 100 ML IV 100 ML IV PRN ×2 (07:18→14:44)
[2021-06-25 07:52] LABS: ANISOCYTOSIS SLIGHT; BAND NEUTROPHILS % 2 % (0-10); HYPOCHROMASIA 1+; PLATELET MORPHOLOGY COMMENT NORMAL (NORMAL)
[2021-06-25] MEDS: PULMICORT NEB TX 0.5 MG NEB SCH ×2 (08:13→20:46)
[2021-06-25] MEDS: PROVENTIL NEB TX 0.083% 2.5MG/ 3ML NEB SCH ×4 (08:13→20:46)
[2021-06-25] MEDS: BROVANA IN SCH ×2 (08:13→20:46)
[2021-06-25] MEDS: ALBUMIN HUMAN 25%- 100 ML 100 ML IV SCH (08:48)
[2021-06-25] MEDS: DIFLUCAN 200 MG IV PREMIX* 200 MG/100 ML BAG IV SCH (08:48)
[2021-06-25] MEDS: THIAMINE HCL INJ IVP SCH ×2 (08:49→21:51)
[2021-06-25] MEDS: PROTONIX INJ 40 MG VIAL IVP SCH ×2 (08:49→21:53)
[2021-06-25] MEDS: LOVENOX INJ 40 MG SYR SC SCH ×2 (08:50→21:52)
[2021-06-25] MEDS: VERSED IV PREMIX 100 MG/100 ML IV.SOLN IV PRN (11:51)
[2021-06-25] MEDS ORDERED: TYLENOL 325 MG TAB PO PRN (12:26)
[2021-06-25] MEDS ORDERED: BENADRYL INJ 50 MG VIAL IVP PRN (12:28)
--- NOTE | 2021-06-25 13:17 | PCM.PROG ---
Progress Note - Progress Note for Day of Date of Exam: 06/25/21 - Subjective Subjective: WAS ADMITTED ON 06/09 FOR TREATMENT OF PNEUMONIA DUE TO COVID-19, ACUTE RESPIRATORY FAILURE WITH HYPOXIA, AND A-FIB. SHE WAS PLACED ON THE MECHANICAL VENTILATOR DUE TO INCREASED RESPIRATORY EFFORTS, DECREASED OXYGEN SATURATIONS, AND COMBATIVENESS. TODAY, HER VENT SETTINGS ARE: A/C, VENT RATE 25, TIDAL VOLUME SET 450, PEEP 10, FI02 55. SATURATIONS HAVE BEEN 95-100%. ON EXAMINATION, OROGASTRIC TUBE NOTED FOR FEEDINGS/MEDS. HR IS IN THE 90s ON THE MONITOR. BILATERAL LUNGS NOTED WITH DIMINISHED LUNG SOUNDS THROUGHOUT. ABDOMEN IS ROUND, SOFT, AND NON-TENDER WITH NORMAL BOWEL SOUNDS NOTED IN ALL QUADRANTS. HER VITALS THIS MORNING ARE: 99.8-80-33-95%-154/72. LABS WERE OBTAINED. ABNORMAL LAB VALUES INCLUDE THE FOLLOWING: WBC 15.1, RBC 2.77, HGB 7.4, HCT 22.5, PLT COUNT 95, D-DIMER 1.19, SODIUM 149, CHLORIDE 112, CARBON DIOXIDE 32.7, BUN 39, CREATININE 0.53, GLUCOSE 201, AST 46, ALT 188, BNP 129, TOTAL PROTEIN 5.0, ALBUMIN 2.9. ABG REVEALED: PH 7.470, PC02 51, P02 69, HC03 37.1, 02 SAT 95, BASE EXCESS 11.6, A-A GRADIENT 259, FI02 55.0. CHEST XRAY REVEALED: No change in appearance of the bilateral infiltrates consistent with pneumonia. SHE IS CURRENTLY RECEIVING TPN AT 80 ML/HR, ALBUMIN 25% IV DAILY, 1/2 NS AT 20 ML/HR, VERSED FOR SEDATION, LEVAQUIN 500MG IV DAILY, FORTAZ 1G IV Q8H, MORPHINE SULFATE 2MG IV Q4H PRN, SOLU-MEDROL 125MG IV Q6H, VALIUM 5MG IV Q6H PRN, PROTONIX 40MG IV BID, THIAMINE 200MG IV BID, OTBS ACHS, HUMULIN R SLIDING SCALE, LOVENOX 40MG SC BID, DIFLUCAN 200MG IV DAILY, PULMICORT NEBS BID, ALBUTEROL NEBS QID, BROVANA INHALER BID, ASCORBIC ACID 1500MG IV Q6H, ZOFRAN 4MG IV Q4H PRN NAUSEA, AND THE POTASSIUM AND MAGNESIUM PROTOCOLS. SHE IS RECEIVING ENSURE 1 CAN TID AND 200ML FREE WATER QID THROUGH THE OG TUBE TODAY. WE WILL CONTINUE TO WEAN OXYGEN DOWN TODAY PATIENT TOLERATES. DUE TO ANEMIA, WE WILL TRANSFUSE 2 UNITS OF PRBC TODAY. OTHERWISE, WE PLAN TO FOLLOW UP WITH AM LABS AND CHEST XRAY AND CONTINUE TO MONITOR. TIME SPENT ON CLINICAL ASSESSMENT, REVIEWING LABS AND IMAGING, DECISION MAKING, AND DOCUMENTATION GREATER THAN 45 MINUTES. - Past Medical Family Social History Past Med/Fam/Surg Hx: No changes since H&P Allergies: Allergies nalbuphine [From Nubain] Allergy (Verified 05/15/18 14:34) Penicillins Allergy (Verified 05/15/18 14:34) - Review of Systems ROS: No change since H&P - Vital Signs and I&O's Vital Signs: Temperature 99.1 F Pulse Rate 84 Respiratory Rate 26 Blood Pressure [Left Arm] 163/90 Blood Pressure [Right Arm] 176/96 Blood Pressure 148/68 O2 Sat by Pulse Oximetry 90 Intake and Output: Intake & Output 06/23/21 06/24/21 06/25/21 06/26/21 11:59 11:59 11:59 11:59 Intake Total 5378 / 5378 5149 / 5149 4588 / 4588 Output Total 2550 / 2550 3000 / 3000 1050 / 1050 Balance 2828 / 2828 2149 / 2149 3538 / 3538 - Physical Exam Oriented: Unable to test Eyes: Normal Ear: Normal Nose: Normal Throat: Normal Respiratory: Generalized, [place] Cardiovascular: Tachycardia, Irregular : Normal Auscultation: Bowel Sounds: Normal Palpation: Normal Tenderness: Normal Skin: Normal Musculoskeletal: Normal Psychiatric: Other (SEDATED ) Mood Description: Calm Affect: Normal (SEDATED) Speech Pattern: Artificially Ventilated - Laboratory and Diagnostics Result Diagrams: 06/25/21 04:28 06/25/21 04:28 Labs: 06/08/21 20:42 Blood Blood Culture - Final 06/08/21 20:50 Blood Blood Culture - Final Laboratory WBC 15.1 X10^3/uL (3.6-10.0) H 06/25/21 04:28 RBC 2.77 X10^6/uL (3.5-5.4) L 06/25/21 04:28 Hgb 7.4 g/dL (12.0-16.0) L 06/25/21 04:28 Hct 22.5 % (36.0-47.0) L 06/25/21 04:28 MCV 81.4 fL (80.0-100.0) 06/25/21 04:28 MCH 26.6 pg (27.0-34.0) L 06/25/21 04:28 MCHC 32.6 g/dL (33.0-35.0) L 06/25/21 04: RDW 17.1 % (11.6-16.5) H 06/25/21 04:28 Plt Count 95 X10^3/uL (150.0-450.0) L 06/25/21 04:28 Plt Count Comment Decreased (ADEQUATE) A 06/25/21 04: MPV 10.1 fL (7.4-11.0) 06/25/21 04: Neut % (Auto) 94.8 % (42.0-75.0) H 06/25/21 04:28 Lymph % (Auto) 1.0 % (21.0-51.0) L 06/25/21 04:28 [place] % (Auto) 3.9 % (0.0-13.0) 06/25/21 04: Eos % (Auto) 0.0 % (0.9-2.9) L 06/25/21 04:28 Baso % (Auto) 0.3 % (0.2-1.0) 06/25/21 04:28 Neut # (Auto) 14.3 x10^3/uL (2.2-4.8) H 06/25/21 04:28 Lymph # (Auto) 0.2 X10^3/uL (1.3-2.9) L 06/25/21 04:28 [place] # (Auto) 0.6 x10^3/uL (0.3-0.8) 06/25/21 04:28 Eos # (Auto) 0.0 x10^3/uL (0.0-0.2) 06/25/21 04:28 Baso # (Auto) 0.0 X10^3/uL (0.0-0.1) 06/25/21 04:28 Absolute Nucleated RBC 0.1 /100WBC 06/25/21 04:28 Total Counted 100 06/25/21 04:28 Neutrophils % (Manual) 95 % (39-76) H 06/25/21 04:28 Band Neutrophils % 2 % (0-10) 06/25/21 04:28 Lymphocytes % (Manual) 1 % (13-43) L 06/25/21 04:28 Monocytes % (Manual) 2 % (4-9) L 06/25/21 04:28 Metamyelocytes % 9 06/22/21 04:50 Plt Morphology Comment Normal (NORMAL) 06/25/21 04:28 RBC Morphology Abnormal (NORMAL) A 06/25/21 04:28 Hypochromasia 1+ A 06/25/21 04:28 Anisocytosis Slight A 06/25/21 04:28 Microcytosis Slight A 06/19/21 04:46 Ovalocytes Slight A 06/13/21 06:15 Phyllis Cells Slight A 06/19/21 04:46 PT 15.4 SECONDS (11.8-14.3) 06/08/21 20:42 INR Target Range - 06/08/21 20:42 INR 1.28 (0.8-1.3) 06/08/21 20:42 D-Dimer 1.19 ug/ml (0.0-0.57) H* 06/25/21 04:28 Sample Site Rr 06/25/21 05:00 ABG pH 7.470 (7.35-7.45) H 06/25/21 05:00 ABG pCO2 51.0 mmHg (35.0-45.0) H* 06/25/21 05:00 ABG pO2 69.0 mmHg (80.0-100.0) L 06/25/21 05:00 ABG HCO3 37.1 mmol/L (22-26) H* 06/25/21 05:00 ABG O2 Saturation 95.0 % (90-100) 06/25/21 05:00 ABG Base Excess 11.6 mmol/L (-2.0-2.0) H 06/25/21 05:00 Herminio Test Pos 06/25/21 05:00 A-a Gradient 259.0 mmHg 06/25/21 05:00 FiO2 55.0 06/25/21 05:00 Blood Gas Comments Shyam well sw 06/25/21 05:00 Sodium 149 mmol/L (136-145) H 06/25/21 04:28 Corrected Sodium 151 mmol/L (136-145) H 06/25/21 04:28 Potassium 4.2 mmol/L (3.5-5.1) 06/25/21 04:28 Chloride 112 mmol/L (98-107) H 06/25/21 04:28 Carbon Dioxide 32.7 mmol/L (21-32) H 06/25/21 04:28 BUN 39 mg/dL (7-18) H 06/25/21 04:28 Creatinine 0.53 mg/dL (0.55-1.02) L 06/25/21 04:28 Est GFR (MDRD) Af Amer > 60 (>60) 06/25/21 04:28 Est GFR (MDRD) Non-Af > 60 (>60) 06/25/21 04:28 Glucose 201 mg/dL (65-99) H 06/25/21 04:28 POC Glucose (mg/dL) 192 mg/dL (65-99) H 06/25/21 08:46 Calcium 8.7 mg/dL (8.5-10.1) 06/25/21 04:28 Corrected Calcium 9.6 mg/dL (8.5-10.1) 06/25/21 04:28 Phosphorus 2.8 mg/dL (2.6-4.7) 06/23/21 17:25 Magnesium 2.7 mg/dL (1.7-2.9) 06/23/21 17:25 Ferritin 163 ng/mL (8-252) 06/14/21 05:26 Total Bilirubin 0.80 mg/dL (0.2-1.0) 06/25/21 04:28 AST 46 Units/L (15-37) H 06/25/21 04:28 ALT 188 Units/L (12-78) H 06/25/21 04:28 Alkaline Phosphatase 86 Units/L (46-116) 06/25/21 04:28 Troponin I < 0.02 ng/mL (0-1.5) 06/08/21 20:42 C-Reactive Protein < 0.50 mg/L (0-3.0) 06/25/21 04:28 B-Natriuretic Peptide 129 pg/mL (0-79) H 06/25/21 04:28 Total Protein 5.0 g/dL (6.4-8.2) L 06/25/21 04:28 Albumin 2.9 g/dL (3.4-5.0) L 06/25/21 04:28 Globulin 2.1 g/dL (2.5-4.5) L 06/25/21 04:28 Albumin/Globulin Ratio 1.4 Ratio (1.1-2.1) 06/25/21 04:28 Prealbumin 42.2 mg/dL (18-35.7) H 06/24/21 04:30 Triglycerides 240 mg/dL (0-150) H 06/23/21 17:25 Specimen Type Catherized urine 06/09/21 03:30 Urine Color Yellow (YELLOW) 06/09/21 03:30 Urine Appearance Clear (CLEAR) 06/09/21 03:30 Urine pH 6.0 (5.0 - 8.0) 06/09/21 03:30 Ur Specific [place] 1.010 (1.000-1.030) 06/09/21 03:30 Urine Protein 2+ (NEGATIVE) 06/09/21 03:30 Urine Glucose (UA) Negative (NEGATIVE) 06/09/21 03:30 Urine Ketones Negative (NEGATIVE) 06/09/21 03:30 Urine Occult Blood 1+ (NEGATIVE) 06/09/21 03:30 Urine Nitrite Negative (NEGATIVE) 06/09/21 03:30 Urine Bilirubin Negative (NEGATIVE) 06/09/21 03:30 Urine Urobilinogen Normal (NORMAL) 06/09/21 03:30 Ur Leukocyte Esterase Negative (NEGATIVE) 06/09/21 03:30 Urine RBC 0-2 /HPF (0-3) 06/09/21 03:30 Urine WBC None seen /HPF (0-5) 06/09/21 03:30 Ur Squamous Epith Cells Negative /HPF (NEGATIVE) 06/09/21 03:30 Urine Bacteria Negative /HPF (NEGATIVE) 06/09/21 03:30 Ur Culture Indicated? No/not indicated 06/09/21 03:30 Blood Type O POSITIVE 06/25/21 10:11 Antibody Screen Negative 06/25/21 10:11 Crossmatch See Detail 06/25/21 10:11 - Plan (1) Pneumonia due to 2019-nCoV Status: Acute Plan: 1/2 NS AT 20 ML/HR, TPN AT 80 ML/HR, ALBUMIN 25% IV DAILY, FORTAZ 1G IV Q8H, VERSED FOR SEDATION, LEVAQUIN 500MG IV DAILY, MORPHINE SULFATE 2MG IV Q4H PRN, SOLU-MEDROL 125MG IV Q6H, A CATAPRES PATCH, VALIUM 5MG IV Q6H PRN, PROTONIX 40MG IV BID, THIAMINE 200MG IV BID, OTBS ACHS, HUMULIN R SLIDING SCALE, LOVENOX 80MG SC BID, DIFLUCAN 200MG IV DAILY, PULMICORT NEBS BID, ALBUTEROL NEBS QID, BROVANA INHALER BID, ASCORBIC ACID 1500MG IV Q6H, ZOFRAN 4MG IV Q4H PRN NAUSEA, AND THE POTASSIUM AND MAGNESIUM PROTOCOLS. (2) Acute respiratory insufficiency Status: Acute (3) Hypoxia Status: Acute (4) Anemia Status: Acute Qualifiers: Anemia type: iron deficiency Iron deficiency anemia type: unspecified iron deficiency Qualified Code(s): D50.9 - Iron deficiency anemia, unspecified (5) Acute dyspnea Status: Acute
[2021-06-25] MEDS ORDERED: NS 100 ML IV 100 ML ONE (20:34)
[2021-06-25] MEDS: LEVAQUIN PREMIX IV 500 MG 500 MG/100 ML BAG IV SCH (21:53)
[2021-06-25] MEDS ORDERED: MILK OF MAGNESIA PO PRN (23:46)
[2021-06-26] MEDS: HumuLIN R SUBCUT PRN (00:13)
[2021-06-26] MEDS: CARDIZEM INJ 125 MG VIAL 125 MG in NS 100 ML IV 100 ML IV PRN ×3 (02:07→18:01)
[2021-06-26] MEDS: MVI IV SCH ×9 (02:11→15:26)
[2021-06-26] MEDS: [UNRECOGNIZED DRUG - OTHER] IV SCH ×9 (02:11→15:26)
[2021-06-26] MEDS: CLINIMIX IV SCH ×9 (02:11→15:26)
[2021-06-26] MEDS: ASCORBIC ACID INJ MULTI-DOSE VIAL 1,500 MG in NS 50 ML IV 50 ML IV SCH ×2 (03:18→08:38)
[2021-06-26 04:46] LABS: ABG BASE EXCESS 6.8 mmol/L (-2.0-2.0)
[2021-06-26 04:48] LABS: ABG ALLEN TEST POS; ABG HCO3 33.3 mmol/L (22-26)
[2021-06-26] MEDS: SOLU-Medrol 125 MG VIAL IVP SCH ×4 (04:52→21:44)
[2021-06-26] MEDS: FORTAZ or TAZICEF VIAL INJ 1 G in NS 100 ML IV + SPIKE MINIBAG* 100 ML IV SCH (05:28)
[2021-06-26] MEDS: XYLOCAINE OINT 5% 1 APPLIC, ZOVIRAX 1 APPLIC TOP SCH ×6 (05:29→21:43)
[2021-06-26 05:47] LABS: ALBUMIN 3.4 g/dL (3.4-5.0); ASPARTATE AMINO TRANSFERASE 84 Units/L (15-37); CALCIUM 8.7 mg/dL (8.5-10.1); CHLORIDE 110 mmol/L (98-107); SODIUM 148 mmol/L (136-145); eGFR NON BLACK RACES > 60 (>60)
[2021-06-26 06:10] LABS: BASOPHILS # (AUTO) 0.1 X10^3/uL (0.0-0.1); BASOPHILS % (AUTO) 0.4 % (0.2-1.0); HEMATOCRIT 33.5 % (36.0-47.0); HEMOGLOBIN 11.1 g/dL (12.0-16.0); LYMPHOCYTES # (AUTO) 0.1 X10^3/uL (1.3-2.9); LYMPHOCYTES % (AUTO) 0.7 % (21.0-51.0); MEAN CORPUSCULAR HEMOGLOBIN 27.7 pg (27.0-34.0); MEAN CORPUSCULAR HGB CONC 33.1 g/dL (33.0-35.0); MEAN CORPUSCULAR VOLUME 83.6 fL (80.0-100.0); MEAN PLATELET VOLUME 9.5 fL (7.4-11.0); MONOCYTES # (AUTO) 0.8 x10^3/uL (0.3-0.8); NEUTROPHILS # (AUTO) 19.6 x10^3/uL (2.2-4.8); NEUTROPHILS % (AUTO) 94.9 % (42.0-75.0); PLATELET COUNT 95 X10^3/uL (150.0-450.0); RED CELL DISTRIBUTION WIDTH 16.9 % (11.6-16.5); WHITE BLOOD COUNT 20.6 X10^3/uL (3.6-10.0)
[2021-06-26 06:15] LABS: ALANINE AMINOTRANSFERASE 263 Units/L (12-78); ALKALINE PHOSPHATASE 132 Units/L (46-116); BLOOD UREA NITROGEN 41 mg/dL (7-18); CARBON DIOXIDE 30.7 mmol/L (21-32); COR NA(FOR HYPERGLY) 151 mmol/L (136-145); TOTAL PROTEIN 5.7 g/dL (6.4-8.2)
[2021-06-26 06:19] LABS: MAGNESIUM 2.3 mg/dL (1.7-2.9); PHOSPHORUS 3.7 mg/dL (2.6-4.7)
--- NOTE | 2021-06-26 07:02 | RAD ---
HISTORYSOBSTUDYPortable AP [id number] change in heart size. Increasing diffuse bilateral pulmonary densities without evidence for pneumothorax or pleural fluid. ET tube remains in mid trachea. No pneumothorax seen.IMPRESSIONInterval increase in bilateral diffuse airspace pulmonary involvement consistent with progression of pneumonia and/or pulmonary edema.Electronically signed by: DELMIS MCCLENDON (Jun 26, 2021 07:01:08)
[2021-06-26 07:16] LABS: PLATELET MORPHOLOGY COMMENT NORMAL (NORMAL)
[2021-06-26 07:17] LABS: ANISOCYTOSIS SLIGHT
[2021-06-26] MEDS: NS 1/2 1000 ML IV 1,000 ML IV SCH ×2 (08:37→21:46)
[2021-06-26] MEDS: DIFLUCAN 200 MG IV PREMIX* 200 MG/100 ML BAG IV SCH (08:39)
[2021-06-26] MEDS: COLACE SYRUP 100 MG UDC PO SCH ×2 (08:39→21:42)
[2021-06-26] MEDS: ALBUMIN HUMAN 25%- 100 ML 100 ML IV SCH (08:39)
[2021-06-26] MEDS: PROTONIX INJ 40 MG VIAL IVP SCH ×2 (08:40→21:45)
[2021-06-26] MEDS: THIAMINE HCL INJ IVP SCH ×2 (08:40→21:44)
[2021-06-26] MEDS: LOVENOX INJ 40 MG SYR SC SCH ×2 (08:41→21:46)
[2021-06-26] MEDS: PULMICORT NEB TX 0.5 MG NEB SCH ×2 (08:45→20:37)
[2021-06-26] MEDS: BROVANA IN SCH ×2 (08:45→20:37)
[2021-06-26] MEDS: PROVENTIL NEB TX 0.083% 2.5MG/ 3ML NEB SCH ×4 (08:45→20:37)
[2021-06-26] MEDS: VERSED IV PREMIX 100 MG/100 ML IV.SOLN IV PRN ×2 (09:35→16:17)
[2021-06-26] MEDS: LASIX IVP SCH ×2 (11:03→21:47)
[2021-06-26] MEDS: FORTAZ or TAZICEF VIAL INJ 1 G in NS 50 ML IV + SPIKE MINIBAG* 50 ML IV SCH ×2 (14:08→21:44)
--- NOTE | 2021-06-26 21:00 | PCM.PROG ---
Progress Note - Progress Note for Day of Date of Exam: 06/26/21 - Subjective Subjective: WAS ADMITTED ON 06/09 FOR TREATMENT OF PNEUMONIA DUE TO COVID-19, ACUTE RESPIRATORY FAILURE WITH HYPOXIA, AND A-FIB. SHE WAS PLACED ON THE MECHANICAL VENTILATOR DUE TO INCREASED RESPIRATORY EFFORTS, DECREASED OXYGEN SATURATIONS, AND COMBATIVENESS. SHE RECEIVED TWO UNITS OF PRBC YESTERDAY. TODAY, HER VENT SETTINGS ARE: A/C, VENT RATE 25, TIDAL VOLUME SET 450, PEEP 10, FI02 50. SATURATIONS HAVE BEEN 92-94%. ON EXAMINATION, OROGASTRIC TUBE NOTED FOR FEEDINGS/MEDS. HR IS IN THE 90s ON THE MONITOR. BILATERAL LUNGS NOTED WITH DIMINISHED LUNG SOUNDS THROUGHOUT. ABDOMEN IS ROUND, SOFT, AND NON-TENDER WITH NORMAL BOWEL SOUNDS NOTED IN ALL QUADRANTS. HER VITALS THIS MORNING ARE: 98.4-77 -29-94%-165/77. LABS WERE OBTAINED. ABNORMAL LAB VALUES INCLUDE THE FOLLOWING: WBC 20.6, HGB 11.1, HCT 33.5, PLT COUNT 95, D-DIMER 1.51, SODIUM 148, CHLORIDE 110, BUN 41, CREATININE 0.50, GLUCOSE 213, AST 84, ALT 263, ALK PHOS 132, BNP 130, TOTAL PROTEIN 5.7, TRIGLYCERIDES 228. ABG REVEALED: PH 7.390, PC02 55, P02 57, HC03 33.3, 02 SAT 89, BASE EXCESS 6.8, A-A GRADIENT 266, FI02 55. CHEST XRAY REVEALED: Interval increase in bilateral diffuse airspace pulmonary involvement consistent with progression of pneumonia and/or pulmonary edema. SHE IS CURRENTLY RECEIVING TPN AT 40 ML/HR, 25% IV DAILY, 1/2 NS AT 20 ML/HR, VERSED FOR SEDATION, LEVAQUIN 500MG IV DAILY, FORTAZ 1G IV Q8H, MORPHINE SULFATE 2MG IV Q4H PRN, SOLU-MEDROL 125MG IV Q6H, VALIUM 5MG IV Q6H PRN, PROTONIX 40MG IV BID, THIAMINE 200MG IV BID, OTBS ACHS, HUMULIN R SLIDING SCALE, LOVENOX 40MG SC BID, DIFLUCAN 200MG IV DAILY, PULMICORT NEBS BID, ALBUTEROL NEBS QID, BROVANA INHALER BID, ASCORBIC ACID 1500MG IV Q6H, ZOFRAN 4MG IV Q4H PRN NAUSEA, AND THE POTASSIUM AND MAGNESIUM PROTOCOLS. SHE IS RECEIVING ENSURE 1 CAN TID AND 200ML FREE WATER QID THROUGH THE OG TUBE. WE WILL CONTINUE TO WEAN OXYGEN DOWN TODAY PATIENT TOLERATES. WE WILL ADD LASIX 40MG IV Q12H. OTHERWISE, WE PLAN TO FOLLOW UP WITH AM LABS AND CHEST XRAY AND CONTINUE TO MONITOR. TIME SPENT ON CLINICAL ASSESSMENT, REVIEWING LABS AND IMAGING, DECISION MAKING, AND DOCUMENTATION GREATER THAN 75 MINUTES. - Past Medical Family Social History Past Med/Fam/Surg Hx: No changes since H&P Allergies: Allergies nalbuphine [From Nubain] Allergy (Verified 05/15/18 14:34) Penicillins Allergy (Verified 05/15/18 14:34) - Review of Systems ROS: No change since H&P - Vital Signs and I&O's Vital Signs: Temperature 97.9 F Pulse Rate 63 Respiratory Rate 34 Blood Pressure [Left Arm] 163/90 Blood Pressure [Right Arm] 176/96 Blood Pressure 144/69 O2 Sat by Pulse Oximetry 92 Intake and Output: Intake & Output 06/24/21 06/25/21 06/26/21 06/27/21 11:59 11:59 11:59 11:59 Intake Total 5149 / 5149 4713 / 4713 4381 / 4381 1474 / 1474 Output Total 3000 / 3000 1050 / 1050 1250 / 1250 1999 / 1999 Balance 2149 / 2149 3663 / 3663 3131 / 3131 -526 / -526 - Physical Exam Oriented: Unable to test Eyes: Normal Ear: Normal Nose: Normal Throat: Normal Respiratory: Generalized, Diminished Cardiovascular: Tachycardia, Irregular : Normal Auscultation: Bowel Sounds: Normal Palpation: Normal Tenderness: Normal Skin: Normal Musculoskeletal: Normal Psychiatric: Other (SEDATED ) Mood Description: Calm Affect: Normal (SEDATED) Speech Pattern: Artificially Ventilated - Laboratory and Diagnostics Result Diagrams: 06/26/21 05:15 06/26/21 05:15 Labs: 06/08/21 20:42 Blood Blood Culture - Final 06/08/21 20:50 Blood Blood Culture - Final Laboratory WBC 20.6 X10^3/uL (3.6-10.0) H 06/26/21 05:15 RBC 4.00 X10^6/uL (3.5-5.4) 06/26/21 05:15 Hgb 11.1 g/dL (12.0-16.0) L D 06/26/21 05:15 Hct 33.5 % (36.0-47.0) L 06/26/21 05:15 MCV 83.6 fL (80.0-100.0) 06/26/21 05:15 MCH 27.7 pg (27.0-34.0) 06/26/21 05:15 MCHC 33.1 g/dL (33.0-35.0) 06/26/21 05:15 RDW 16.9 % (11.6-16.5) H 06/26/21 05:15 Plt Count 95 X10^3/uL (150.0-450.0) L 06/26/21 05:15 Plt Count Comment Decreased (ADEQUATE) A 06/26/21 05:15 MPV 9.5 fL (7.4-11.0) 06/26/21 05:15 Neut % (Auto) 94.9 % (42.0-75.0) H 06/26/21 05:15 Lymph % (Auto) 0.7 % (21.0-51.0) L 06/26/21 05:15 [place] % (Auto) 4.0 % (0.0-13.0) 06/26/21 05:15 Eos % (Auto) 0.0 % (0.9-2.9) L 06/26/21 05:15 Baso % (Auto) 0.4 % (0.2-1.0) 06/26/21 05:15 Neut # (Auto) 19.6 x10^3/uL (2.2-4.8) H 06/26/21 05:15 Lymph # (Auto) 0.1 X10^3/uL (1.3-2.9) L 06/26/21 05:15 [place] # (Auto) 0.8 x10^3/uL (0.3-0.8) 06/26/21 05:15 Eos # (Auto) 0.0 x10^3/uL (0.0-0.2) 06/26/21 05:15 Baso # (Auto) 0.1 X10^3/uL (0.0-0.1) 06/26/21 05:15 Absolute Nucleated RBC 0.0 /100WBC 06/26/21 05:15 Total Counted 100 06/26/21 05:15 Neutrophils % (Manual) 96 % (39-76) H 06/26/21 05:15 Band Neutrophils % 2 % (0-10) 06/25/21 04:28 Lymphocytes % (Manual) Not Reportable 06/26/21 05:15 Monocytes % (Manual) 4 % (4-9) 06/26/21 05:15 Metamyelocytes % 9 06/22/21 04:50 Plt Morphology Comment Normal (NORMAL) 06/26/21 05:15 RBC Morphology Abnormal (NORMAL) A 06/26/21 05:15 Hypochromasia 1+ A 06/25/21 04:28 Anisocytosis Slight A 06/26/21 05:15 Microcytosis Slight A 06/19/21 04:46 Ovalocytes Slight A 06/13/21 06:15 Phyllis Cells Slight A 06/19/21 04:46 PT 15.4 SECONDS (11.8-14.3) 06/08/21 20:42 INR Target Range - 06/08/21 20:42 INR 1.28 (0.8-1.3) 06/08/21 20:42 D-Dimer 1.51 ug/ml (0.0-0.57) H* 06/26/21 05:15 Sample Site Rrad 06/26/21 04:43 ABG pH 7.390 (7.35-7.45) 06/26/21 04:43 ABG pCO2 55.0 mmHg (35.0-45.0) H* 06/26/21 04:43 ABG pO2 57.0 mmHg (80.0-100.0) L 06/26/21 04:43 ABG HCO3 33.3 mmol/L (22-26) H* 06/26/21 04:43 ABG O2 Saturation 89.0 % (90-100) L 06/26/21 04:43 ABG Base Excess 6.8 mmol/L (-2.0-2.0) H 06/26/21 04:43 Herminio Test Pos 06/26/21 04:43 A-a Gradient 266.0 mmHg 06/26/21 04:43 FiO2 55.0 06/26/21 04:43 Blood Gas Comments Shyam abg well-mtf 06/26/21 04:43 Sodium 148 mmol/L (136-145) H 06/26/21 05:15 Corrected Sodium 151 mmol/L (136-145) H 06/26/21 05:15 Potassium 4.0 mmol/L (3.5-5.1) 06/26/21 05:15 Chloride 110 mmol/L (98-107) H 06/26/21 05:15 Carbon Dioxide 30.7 mmol/L (21-32) 06/26/21 05:15 BUN 41 mg/dL (7-18) H 06/26/21 05:15 Creatinine 0.50 mg/dL (0.55-1.02) L 06/26/21 05:15 Est GFR (MDRD) Af Amer > 60 (>60) 06/26/21 05:15 Est GFR (MDRD) Non-Af > 60 (>60) 06/26/21 05:15 Glucose 213 mg/dL (65-99) H 06/26/21 05:15 POC Glucose (mg/dL) 195 mg/dL (65-99) H 06/26/21 16:44 Calcium 8.7 mg/dL (8.5-10.1) 06/26/21 05:15 Corrected Calcium TNP 06/26/21 05:15 Phosphorus 3.7 mg/dL (2.6-4.7) 06/26/21 05:15 Magnesium 2.3 mg/dL (1.7-2.9) 06/26/21 05:15 Ferritin 163 ng/mL (8-252) 06/14/21 05:26 Total Bilirubin 0.90 mg/dL (0.2-1.0) 06/26/21 05:15 AST 84 Units/L (15-37) H 06/26/21 05:15 ALT 263 Units/L (12-78) H 06/26/21 05:15 Alkaline Phosphatase 132 Units/L (46-116) H 06/26/21 05:15 Troponin I < 0.02 ng/mL (0-1.5) 06/08/21 20:42 C-Reactive Protein 0.00 mg/L (0-3.0) 06/26/21 05:15 B-Natriuretic Peptide 130 pg/mL (0-79) H 06/26/21 05:15 Total Protein 5.7 g/dL (6.4-8.2) L 06/26/21 05:15 Albumin 3.4 g/dL (3.4-5.0) 06/26/21 05:15 Globulin 2.3 g/dL (2.5-4.5) L 06/26/21 05:15 Albumin/Globulin Ratio 1.5 Ratio (1.1-2.1) 06/26/21 05:15 Prealbumin 42.2 mg/dL (18-35.7) H 06/24/21 04:30 Triglycerides 228 mg/dL (0-150) H 06/26/21 05:15 Specimen Type Catherized urine 06/09/21 03:30 Urine Color Yellow (YELLOW) 06/09/21 03:30 Urine Appearance Clear (CLEAR) 06/09/21 03:30 Urine pH 6.0 (5.0 - 8.0) 06/09/21 03:30 Ur Specific [place] 1.010 (1.000-1.030) 06/09/21 03:30 Urine Protein 2+ (NEGATIVE) 06/09/21 03:30 Urine Glucose (UA) Negative (NEGATIVE) 06/09/21 03:30 Urine Ketones Negative (NEGATIVE) 06/09/21 03:30 Urine Occult Blood 1+ (NEGATIVE) 06/09/21 03:30 Urine Nitrite Negative (NEGATIVE) 06/09/21 03:30 Urine Bilirubin Negative (NEGATIVE) 06/09/21 03:30 Urine Urobilinogen Normal (NORMAL) 06/09/21 03:30 Ur Leukocyte Esterase Negative (NEGATIVE) 06/09/21 03:30 Urine RBC 0-2 /HPF (0-3) 06/09/21 03:30 Urine WBC None seen /HPF (0-5) 06/09/21 03:30 Ur Squamous Epith Cells Negative /HPF (NEGATIVE) 06/09/21 03:30 Urine Bacteria Negative /HPF (NEGATIVE) 06/09/21 03:30 Ur Culture Indicated? No/not indicated 06/09/21 03:30 Blood Type O POSITIVE 06/25/21 10:11 Antibody Screen Negative 06/25/21 10:11 Crossmatch See Detail 06/25/21 10:11 - Plan (1) Pneumonia due to 2019-nCoV Status: Acute Plan: 1/2 NS AT 20 ML/HR, TPN AT 40 ML/HR, ALBUMIN 25% IV DAILY, FORTAZ 1G IV Q8H, VERSED FOR SEDATION, LEVAQUIN 500MG IV DAILY, MORPHINE SULFATE 2MG IV Q4H PRN, SOLU-MEDROL 125MG IV Q6H, A CATAPRES PATCH, VALIUM 5MG IV Q6H PRN, PROTONIX 40MG IV BID, THIAMINE 200MG IV BID, OTBS ACHS, HUMULIN R SLIDING SCALE, LOVENOX 80MG SC BID, DIFLUCAN 200MG IV DAILY, PULMICORT NEBS BID, ALBUTEROL NEBS QID, BROVANA INHALER BID, ASCORBIC ACID 1500MG IV Q6H, ZOFRAN 4MG IV Q4H PRN NAUSEA, AND THE POTASSIUM AND MAGNESIUM PROTOCOLS. (2) Acute respiratory insufficiency Status: Acute (3) Hypoxia Status: Acute (4) Anemia Status: Acute Qualifiers: Anemia type: iron deficiency Iron deficiency anemia type: unspecified iron deficiency Qualified Code(s): D50.9 - Iron deficiency anemia, unspecified (5) Acute dyspnea Status: Acute
[2021-06-26] MEDS: LEVAQUIN PREMIX IV 500 MG 500 MG/100 ML BAG IV SCH (21:42)
[2021-06-27] MEDS: VERSED IV PREMIX 100 MG/100 ML IV.SOLN IV PRN ×4 (00:27→21:51)
[2021-06-27] MEDS: HumuLIN R SUBCUT PRN ×2 (00:40→09:43)
[2021-06-27] MEDS: SOLU-Medrol 125 MG VIAL IVP SCH ×4 (03:31→22:09)
[2021-06-27] MEDS: [UNRECOGNIZED DRUG - OTHER] IV SCH ×10 (04:54→18:20)
[2021-06-27] MEDS: CLINIMIX IV SCH ×10 (04:54→18:20)
[2021-06-27] MEDS: MVI IV SCH ×10 (04:54→18:20)
[2021-06-27 05:01] LABS: ABG BASE EXCESS 14.5 mmol/L (-2.0-2.0)
[2021-06-27 05:03] LABS: ABG ALLEN TEST POS; ABG HCO3 39.8 mmol/L (22-26)
[2021-06-27] MEDS: FORTAZ or TAZICEF VIAL INJ 1 G in NS 50 ML IV + SPIKE MINIBAG* 50 ML IV SCH ×3 (06:04→23:15)
[2021-06-27] MEDS: XYLOCAINE OINT 5% 1 APPLIC, ZOVIRAX 1 APPLIC TOP SCH ×6 (06:04→21:54)
[2021-06-27 06:29] LABS: ALANINE AMINOTRANSFERASE 178 Units/L (12-78); ALBUMIN 3.3 g/dL (3.4-5.0); ALKALINE PHOSPHATASE 90 Units/L (46-116); ASPARTATE AMINO TRANSFERASE 29 Units/L (15-37); BLOOD UREA NITROGEN 37 mg/dL (7-18); CALCIUM 8.5 mg/dL (8.5-10.1); CARBON DIOXIDE 35.6 mmol/L (21-32); CHLORIDE 106 mmol/L (98-107); COR CA(FOR HYPOALB) 9.1 mg/dL (8.5-10.1); COR NA(FOR HYPERGLY) 151 mmol/L (136-145); CREATININE 0.61 mg/dL (0.55-1.02); SODIUM 147 mmol/L (136-145); TOTAL PROTEIN 5.3 g/dL (6.4-8.2); eGFR NON BLACK RACES > 60 (>60)
[2021-06-27 06:55] LABS: BASOPHILS % (AUTO) 0.2 % (0.2-1.0); HEMATOCRIT 30.9 % (36.0-47.0); HEMOGLOBIN 10.4 g/dL (12.0-16.0); LYMPHOCYTES # (AUTO) 0.1 X10^3/uL (1.3-2.9); LYMPHOCYTES % (AUTO) 0.7 % (21.0-51.0); MEAN CORPUSCULAR HEMOGLOBIN 27.8 pg (27.0-34.0); MEAN CORPUSCULAR HGB CONC 33.7 g/dL (33.0-35.0); MEAN CORPUSCULAR VOLUME 82.4 fL (80.0-100.0); MEAN PLATELET VOLUME 9.8 fL (7.4-11.0); MONOCYTES # (AUTO) 0.6 x10^3/uL (0.3-0.8); MONOCYTES % (AUTO) 3.8 % (0.0-13.0); NEUTROPHILS # (AUTO) 14.5 x10^3/uL (2.2-4.8); NEUTROPHILS % (AUTO) 95.3 % (42.0-75.0); PLATELET COUNT 80 X10^3/uL (150.0-450.0); RED BLOOD COUNT 3.76 X10^6/uL (3.5-5.4); RED CELL DISTRIBUTION WIDTH 17.3 % (11.6-16.5); WHITE BLOOD COUNT 15.2 X10^3/uL (3.6-10.0)
--- NOTE | 2021-06-27 07:14 | RAD ---
HISTORYSOBSTUDYPortable AP [id number] normal heart size. Bilateral airspace disease is again not ed with slight interval improvement in aeration of the lungs. No new consolidation identified. ET tub e remains in mid trachea. NG tube passes below the diaphragm, tip not visualized.IMPRESSIONSlight int erval improvement in pulmonary aeration consistent with decreasing pneumonia/edema.Electronically sig julio by: DELMIS MCCLENDON (Jun 27, 2021 07:12:01)
[2021-06-27 07:55] LABS: ANISOCYTOSIS SLIGHT; BAND NEUTROPHILS % 4 % (0-10); HYPOCHROMASIA SLIGHT; PLATELET MORPHOLOGY COMMENT NORMAL (NORMAL)
[2021-06-27] MEDS: K-RIDER 10 MEQ/NS 100 ML 10 MEQ/100 ML BAG IV PRN ×3 (08:25→17:14)
[2021-06-27] MEDS: LASIX IVP SCH ×2 (09:21→22:00)
[2021-06-27] MEDS: DIFLUCAN 200 MG IV PREMIX* 200 MG/100 ML BAG IV SCH (09:21)
[2021-06-27] MEDS: THIAMINE HCL INJ IVP SCH ×2 (09:21→21:57)
[2021-06-27] MEDS: LOVENOX INJ 40 MG SYR SC SCH (09:22)
[2021-06-27] MEDS: PROTONIX INJ 40 MG VIAL IVP SCH ×2 (09:22→22:02)
[2021-06-27] MEDS: COLACE SYRUP 100 MG UDC PO SCH ×2 (09:23→22:10)
[2021-06-27] MEDS: PULMICORT NEB TX 0.5 MG NEB SCH ×2 (10:22→22:05)
[2021-06-27] MEDS: BROVANA IN SCH ×2 (10:22→22:05)
[2021-06-27] MEDS: PROVENTIL NEB TX 0.083% 2.5MG/ 3ML NEB SCH ×2 (10:22→22:05)
--- NOTE | 2021-06-27 11:08 | PCM.PROG ---
Progress Note - Progress Note for Day of Date of Exam: 06/27/21 - Subjective Subjective: WAS ADMITTED ON 06/09 FOR TREATMENT OF PNEUMONIA DUE TO COVID-19, ACUTE RESPIRATORY FAILURE WITH HYPOXIA, AND A-FIB. SHE WAS PLACED ON THE MECHANICAL VENTILATOR DUE TO INCREASED RESPIRATORY EFFORTS, DECREASED OXYGEN SATURATIONS, AND COMBATIVENESS. SHE HAS RECEIVED TWO UNITS OF PRBC SINCE ADMISSION. TODAY, HER VENT SETTINGS ARE: A/C, VENT RATE 25, TIDAL VOLUME SET 450, PEEP 7, FI02 50. SATURATIONS HAVE BEEN 95-98%. STAFF REPORTS THAT HER HEARTRATE DROPPED INTO THE 40s AND 50s THIS MORNING. CARDIZEM DRIP WAS STOPPED. ON EXAMINATION, OROGASTRIC TUBE NOTED FOR FEEDINGS/MEDS. HR IS IN THE 50s ON THE MONITOR. BILATERAL LUNGS NOTED WITH DIMINISHED LUNG SOUNDS THROUGHOUT. ABDOMEN IS ROUND, SOFT, AND NON-TENDER WITH NORMAL BOWEL SOUNDS NOTED IN ALL QUADRANTS. HER VITALS THIS MORNING ARE: 98.4-66-25-99%-177/85. LABS WERE OBTAINED. ABNORMAL LAB VALUES INCLUDE THE FOLLOWING: WBC 15.2, HGB 10.4, HCT 30.9, PLT COUNT 80, D- DIMER 0.86, SODIUM 147, POTASSIUM 3.2, BUN 37, GLUCOSE 279, ALT 178, BNP 90, TOTAL PROTEIN 5.3, ALBUMIN 3.3, GLOBULIN 2.0. ABG REVEALED: PH 7.500, PC02 51, P02 86, HC03 39.8, 02 SAT 97, A-A GRADIENT 207, FI02 50. CHEST XRAY REVEALED: Slight interval improvement in pulmonary aeration consistent with decreasing pneumonia/edema. SHE IS CURRENTLY RECEIVING TPN AT 40 ML/HR, 25% IV DAILY, 1/2 NS AT 20 ML/HR, VERSED FOR SEDATION, LEVAQUIN 500MG IV DAILY, FORTAZ 1G IV Q8H, MORPHINE SULFATE 2MG IV Q4H PRN, SOLU-MEDROL 125MG IV Q6H, VALIUM 5MG IV Q6H PRN, PROTONIX 40MG IV BID, THIAMINE 200MG IV BID, OTBS ACHS, HUMULIN R SLIDING SCALE, LOVENOX 40MG SC BID, LASIX 40MG IV Q12H, DIFLUCAN 200MG IV DAILY, PULMICORT NEBS BID, ALBUTEROL NEBS QID, BROVANA INHALER BID, ASCORBIC ACID 1500MG IV Q6H, ZOFRAN 4MG IV Q4H PRN NAUSEA, AND THE POTASSIUM AND MAGNESIUM PROTOCOLS. SHE IS RECEIVING ENSURE 1 CAN TID AND 200ML FREE WATER QID THROUGH THE OG TUBE. WE WILL CONTINUE TO WEAN OXYGEN DOWN TODAY PATIENT TOLERATES. OTHERWISE, WE PLAN TO FOLLOW UP WITH AM LABS AND CHEST XRAY AND CONTINUE TO MONITOR. TIME SPENT ON CLINICAL ASSESSMENT, REVIEWING LABS AND IMAGING, DECISION MAKING, AND DOCUMENTATION GREATER THAN 75 MINUTES. - Past Medical Family Social History Past Med/Fam/Surg Hx: No changes since H&P Allergies: Allergies nalbuphine [From Nubain] Allergy (Verified 05/15/18 14:34) Penicillins Allergy (Verified 05/15/18 14:34) - Review of Systems ROS: No change since H&P - Vital Signs and I&O's Vital Signs: Temperature 98.4 F Pulse Rate 66 Respiratory Rate 25 Blood Pressure [Left Arm] 163/90 Blood Pressure [Right Arm] 176/96 Blood Pressure 187/87 O2 Sat by Pulse Oximetry 98 Intake and Output: Intake & Output 06/24/21 06/25/21 06/26/21 06/27/21 11:59 11:59 11:59 11:59 Intake Total 5149 / 5149 4713 / 4713 4381 / 4381 3348 / 3348 Output Total 3000 / 3000 1050 / 1050 1250 / 1250 3600 / 3600 Balance 2149 / 2149 3663 / 3663 3131 / 3131 -252 / -252 - Physical Exam Oriented: Unable to test Eyes: Normal Ear: Normal Nose: Normal Throat: Normal Respiratory: Generalized, Diminished Cardiovascular: Tachycardia, Irregular : Normal Auscultation: Bowel Sounds: Normal Tenderness: Normal Skin: Normal Musculoskeletal: Normal Psychiatric: Other (SEDATED ) Mood Description: Calm Affect: Normal (SEDATED) Speech Pattern: Artificially Ventilated - Laboratory and Diagnostics Result Diagrams: 06/27/21 05:15 06/27/21 05:15 Labs: 06/08/21 20:42 Blood Blood Culture - Final 06/08/21 20:50 Blood Blood Culture - Final Laboratory WBC 15.2 X10^3/uL (3.6-10.0) H 06/27/21 05:15 RBC 3.76 X10^6/uL (3.5-5.4) 06/27/21 05:15 Hgb 10.4 g/dL (12.0-16.0) L 06/27/21 05:15 Hct 30.9 % (36.0-47.0) L 06/27/21 05:15 MCV 82.4 fL (80.0-100.0) 06/27/21 05:15 MCH 27.8 pg (27.0-34.0) 06/27/21 05:15 MCHC 33.7 g/dL (33.0-35.0) 06/27/21 05:15 RDW 17.3 % (11.6-16.5) H 06/27/21 05:15 Plt Count 80 X10^3/uL (150.0-450.0) L 06/27/21 05:15 Plt Count Comment Decreased (ADEQUATE) A 06/27/21 05:15 MPV 9.8 fL (7.4-11.0) 06/27/21 05:15 Neut % (Auto) 95.3 % (42.0-75.0) H 06/27/21 05:15 Lymph % (Auto) 0.7 % (21.0-51.0) L 06/27/21 05:15 [place] % (Auto) 3.8 % (0.0-13.0) 06/27/21 05:15 Eos % (Auto) 0.0 % (0.9-2.9) L 06/27/21 05:15 Baso % (Auto) 0.2 % (0.2-1.0) 06/27/21 05:15 Neut # (Auto) 14.5 x10^3/uL (2.2-4.8) H 06/27/21 05:15 Lymph # (Auto) 0.1 X10^3/uL (1.3-2.9) L 06/27/21 05:15 [place] # (Auto) 0.6 x10^3/uL (0.3-0.8) 06/27/21 05:15 Eos # (Auto) 0.0 x10^3/uL (0.0-0.2) 06/27/21 05:15 Baso # (Auto) 0.0 X10^3/uL (0.0-0.1) 06/27/21 05:15 Absolute Nucleated RBC 0.1 /100WBC 06/27/21 05:15 Total Counted 100 06/27/21 05:15 Neutrophils % (Manual) 91 % (39-76) H 06/27/21 05:15 Band Neutrophils % 4 % (0-10) 06/27/21 05:15 Lymphocytes % (Manual) 1 % (13-43) L 06/27/21 05:15 Monocytes % (Manual) 4 % (4-9) 06/27/21 05:15 Metamyelocytes % 9 06/22/21 04:50 Plt Morphology Comment Normal (NORMAL) 06/27/21 05:15 RBC Morphology Abnormal (NORMAL) A 06/27/21 05:15 Hypochromasia Slight A 06/27/21 05:15 Anisocytosis Slight A 06/27/21 05:15 Microcytosis Slight A 06/19/21 04:46 Ovalocytes Slight A 06/13/21 06:15 Phyllis Cells Slight A 06/19/21 04:46 PT 15.4 SECONDS (11.8-14.3) 06/08/21 20:42 INR Target Range - 06/08/21 20:42 INR 1.28 (0.8-1.3) 06/08/21 20:42 D-Dimer 0.86 ug/ml (0.0-0.57) H* 06/27/21 06:36 Sample Site Rrad 06/27/21 04:59 ABG pH 7.500 (7.35-7.45) H 06/27/21 04:59 ABG pCO2 51.0 mmHg (35.0-45.0) H* 06/27/21 04:59 ABG pO2 86.0 mmHg (80.0-100.0) 06/27/21 04:59 ABG HCO3 39.8 mmol/L (22-26) H* 06/27/21 04:59 ABG O2 Saturation 97.0 % (90-100) 06/27/21 04:59 ABG Base Excess 14.5 mmol/L (-2.0-2.0) H 06/27/21 04:59 Herminio Test Pos 06/27/21 04:59 A-a Gradient 207.0 mmHg 06/27/21 04:59 FiO2 50.0 06/27/21 04:59 Blood Gas Comments Shyam abg well-mtf 06/27/21 04:59 Sodium 147 mmol/L (136-145) H 06/27/21 05:15 Corrected Sodium 151 mmol/L (136-145) H 06/27/21 05:15 Potassium 3.2 mmol/L (3.5-5.1) L 06/27/21 05:15 Chloride 106 mmol/L (98-107) 06/27/21 05:15 Carbon Dioxide 35.6 mmol/L (21-32) H 06/27/21 05:15 BUN 37 mg/dL (7-18) H 06/27/21 05:15 Creatinine 0.61 mg/dL (0.55-1.02) 06/27/21 05:15 Est GFR (MDRD) Af Amer > 60 (>60) 06/27/21 05:15 Est GFR (MDRD) Non-Af > 60 (>60) 06/27/21 05:15 Glucose 279 mg/dL (65-99) H 06/27/21 05:15 POC Glucose (mg/dL) 202 mg/dL (65-99) H 06/27/21 09:26 Calcium 8.5 mg/dL (8.5-10.1) 06/27/21 05:15 Corrected Calcium 9.1 mg/dL (8.5-10.1) 06/27/21 05:15 Phosphorus 3.7 mg/dL (2.6-4.7) 06/26/21 05:15 Magnesium 2.3 mg/dL (1.7-2.9) 06/26/21 05:15 Ferritin 163 ng/mL (8-252) 06/14/21 05:26 Total Bilirubin 0.90 mg/dL (0.2-1.0) 06/27/21 05:15 AST 29 Units/L (15-37) 06/27/21 05:15 ALT 178 Units/L (12-78) H 06/27/21 05:15 Alkaline Phosphatase 90 Units/L (46-116) 06/27/21 05:15 Troponin I < 0.02 ng/mL (0-1.5) 06/08/21 20:42 C-Reactive Protein < 0.50 mg/L (0-3.0) 06/27/21 05:15 B-Natriuretic Peptide 90.0 pg/mL (0-79) H 06/27/21 05:15 Total Protein 5.3 g/dL (6.4-8.2) L 06/27/21 05:15 Albumin 3.3 g/dL (3.4-5.0) L 06/27/21 05:15 Globulin 2.0 g/dL (2.5-4.5) L 06/27/21 05:15 Albumin/Globulin Ratio 1.7 Ratio (1.1-2.1) 06/27/21 05:15 Prealbumin 42.2 mg/dL (18-35.7) H 06/24/21 04:30 Triglycerides 228 mg/dL (0-150) H 06/26/21 05:15 Specimen Type Catherized urine 06/09/21 03:30 Urine Color Yellow (YELLOW) 06/09/21 03:30 Urine Appearance Clear (CLEAR) 06/09/21 03:30 Urine pH 6.0 (5.0 - 8.0) 06/09/21 03:30 Ur Specific [place] 1.010 (1.000-1.030) 06/09/21 03:30 Urine Protein 2+ (NEGATIVE) 06/09/21 03:30 Urine Glucose (UA) Negative (NEGATIVE) 06/09/21 03:30 Urine Ketones Negative (NEGATIVE) 06/09/21 03:30 Urine Occult Blood 1+ (NEGATIVE) 06/09/21 03:30 Urine Nitrite Negative (NEGATIVE) 06/09/21 03:30 Urine Bilirubin Negative (NEGATIVE) 06/09/21 03:30 Urine Urobilinogen Normal (NORMAL) 06/09/21 03:30 Ur Leukocyte Esterase Negative (NEGATIVE) 06/09/21 03:30 Urine RBC 0-2 /HPF (0-3) 06/09/21 03:30 Urine WBC None seen /HPF (0-5) 06/09/21 03:30 Ur Squamous Epith Cells Negative /HPF (NEGATIVE) 06/09/21 03:30 Urine Bacteria Negative /HPF (NEGATIVE) 06/09/21 03:30 Ur Culture Indicated? No/not indicated 06/09/21 03:30 Blood Type O POSITIVE 06/25/21 10:11 Antibody Screen Negative 08/26/21 10:11 Crossmatch See Detail 06/25/21 10:11 - Plan (1) Pneumonia due to 2019-nCoV Status: Acute Plan: 1/2 NS AT 20 ML/HR, TPN AT 40 ML/HR, ALBUMIN 25% IV DAILY, FORTAZ 1G IV Q8H, VERSED FOR SEDATION, LEVAQUIN 500MG IV DAILY, MORPHINE SULFATE 2MG IV Q4H PRN, SOLU-MEDROL 125MG IV Q6H, A CATAPRES PATCH, VALIUM 5MG IV Q6H PRN, PROTONIX 40MG IV BID, THIAMINE 200MG IV BID, OTBS ACHS, HUMULIN R SLIDING SCALE, LOVENOX 80MG SC BID, DIFLUCAN 200MG IV DAILY, PULMICORT NEBS BID, ALBUTEROL NEBS QID, BROVANA INHALER BID, ASCORBIC ACID 1500MG IV Q6H, ZOFRAN 4MG IV Q4H PRN NAUSEA, AND THE POTASSIUM AND MAGNESIUM PROTOCOLS. (2) Acute respiratory insufficiency Status: Acute (3) Hypoxia Status: Acute (4) Anemia Status: Acute Qualifiers: Anemia type: iron deficiency Iron deficiency anemia type: unspecified iron deficiency Qualified Code(s): D50.9 - Iron deficiency anemia, unspecified (5) Acute dyspnea Status: Acute
[2021-06-27] MEDS: ALBUMIN HUMAN 25%- 100 ML 100 ML IV SCH (11:22)
[2021-06-27] MEDS: NS 1/2 1000 ML IV 1,000 ML IV SCH ×3 (11:22→23:42)
[2021-06-27] MEDS: LACRI-LUBE S.O.P. AFFEYE SCH ×2 (14:30→22:12)
[2021-06-27] MEDS ORDERED: NS 1/2 1000 ML IV 1,000 ML IV ONE (15:05)
[2021-06-27] MEDS: LEVAQUIN PREMIX IV 500 MG 500 MG/100 ML BAG IV SCH (21:55)
[2021-06-27] MEDS: ELIQUIS NG SCH (22:10)
[2021-06-28] MEDS: SOLU-Medrol 125 MG VIAL IVP SCH ×4 (02:24→22:48)
[2021-06-28] MEDS: HumuLIN R SUBCUT PRN (02:25)
[2021-06-28] MEDS: XYLOCAINE OINT 5% 1 APPLIC, ZOVIRAX 1 APPLIC TOP SCH ×6 (05:30→22:35)
[2021-06-28] MEDS: FORTAZ or TAZICEF VIAL INJ 1 G in NS 50 ML IV + SPIKE MINIBAG* 50 ML IV SCH ×3 (05:30→22:35)
[2021-06-28 05:33] LABS: ABG BASE EXCESS 17.3 mmol/L (-2.0-2.0)
[2021-06-28 05:34] LABS: ABG ALLEN TEST POS; ABG HCO3 43.4 mmol/L (22-26)
[2021-06-28 05:48] LABS: BASOPHILS # (AUTO) 0.1 X10^3/uL (0.0-0.1); BASOPHILS % (AUTO) 0.4 % (0.2-1.0); HEMATOCRIT 34.5 % (36.0-47.0); HEMOGLOBIN 11.5 g/dL (12.0-16.0); LYMPHOCYTES # (AUTO) 0.1 X10^3/uL (1.3-2.9); LYMPHOCYTES % (AUTO) 0.4 % (21.0-51.0); MEAN CORPUSCULAR HEMOGLOBIN 27.6 pg (27.0-34.0); MEAN CORPUSCULAR HGB CONC 33.2 g/dL (33.0-35.0); MEAN CORPUSCULAR VOLUME 83.1 fL (80.0-100.0); MEAN PLATELET VOLUME 9.3 fL (7.4-11.0); MONOCYTES # (AUTO) 0.6 x10^3/uL (0.3-0.8); MONOCYTES % (AUTO) 2.4 % (0.0-13.0); NEUTROPHILS # (AUTO) 24.9 x10^3/uL (2.2-4.8); NEUTROPHILS % (AUTO) 96.8 % (42.0-75.0); PLATELET COUNT 92 X10^3/uL (150.0-450.0); RED BLOOD COUNT 4.15 X10^6/uL (3.5-5.4); RED CELL DISTRIBUTION WIDTH 17.7 % (11.6-16.5); WHITE BLOOD COUNT 25.7 X10^3/uL (3.6-10.0)
[2021-06-28 06:08] LABS: ALANINE AMINOTRANSFERASE 161 Units/L (12-78); ALBUMIN 3.6 g/dL (3.4-5.0); ALKALINE PHOSPHATASE 99 Units/L (46-116); ASPARTATE AMINO TRANSFERASE 42 Units/L (15-37); BLOOD UREA NITROGEN 30 mg/dL (7-18); CALCIUM 8.7 mg/dL (8.5-10.1); CARBON DIOXIDE 38.8 mmol/L (21-32); CHLORIDE 103 mmol/L (98-107); COR NA(FOR HYPERGLY) 149 mmol/L (136-145); CREATININE 0.52 mg/dL (0.55-1.02); SODIUM 146 mmol/L (136-145); TOTAL PROTEIN 5.6 g/dL (6.4-8.2); eGFR NON BLACK RACES > 60 (>60)
[2021-06-28] MEDS: [UNRECOGNIZED DRUG - OTHER] IV SCH ×20 (06:28→22:35)
[2021-06-28] MEDS: MVI IV SCH ×20 (06:28→22:35)
[2021-06-28] MEDS: CLINIMIX IV SCH ×20 (06:28→22:35)
--- NOTE | 2021-06-28 06:52 | RAD ---
HISTORYCOVID-19 pneumoniaSTUDYPortable AP [id number] heart size. Persistent diffuse bilateral infiltrates with slight interval improvement. The upper chest/upper lobes and apices are excluded from this image. ET tube terminates 4 cm above jaden. No pleural fluid seen.IMPRESSIONTechnically limited exam as described above. There is slight apparent improvement in the bilateral pulmonary infiltrates/edema. No new abnormality is identified.Electronically signed by: DELMIS MCCLENDON (Jun 28, 2021 06:50:47)
[2021-06-28] MEDS: POTASSIUM CHLORIDE LIQ 20 MEQ UDC PO PRN (07:07)
[2021-06-28] MEDS: ELIQUIS NG SCH ×2 (08:49→22:35)
[2021-06-28] MEDS: LACRI-LUBE S.O.P. AFFEYE SCH ×2 (08:51→22:37)
[2021-06-28] MEDS: DIFLUCAN 200 MG IV PREMIX* 200 MG/100 ML BAG IV SCH (08:52)
[2021-06-28] MEDS: PROTONIX INJ 40 MG VIAL IVP SCH ×2 (08:52→22:45)
[2021-06-28] MEDS: THIAMINE HCL INJ IVP SCH ×2 (08:54→22:50)
[2021-06-28] MEDS: BROVANA IN SCH ×2 (09:10→20:05)
[2021-06-28] MEDS: PULMICORT NEB TX 0.5 MG NEB SCH ×2 (09:10→20:05)
[2021-06-28] MEDS: PROVENTIL NEB TX 0.083% 2.5MG/ 3ML NEB SCH ×4 (09:10→10:12)
[2021-06-28 09:17] LABS: BAND NEUTROPHILS % 1 % (0-10)
[2021-06-28 09:19] LABS: ANISOCYTOSIS SLIGHT; HYPOCHROMASIA SLIGHT; PLATELET MORPHOLOGY COMMENT NORMAL (NORMAL)
[2021-06-28] MEDS: COLACE SYRUP 100 MG UDC PO SCH (09:29)
[2021-06-28] MEDS: ALBUMIN HUMAN 25%- 100 ML 100 ML IV SCH (10:27)
[2021-06-28] MEDS: LASIX IVP SCH ×2 (12:13→22:40)
[2021-06-28] MEDS ORDERED: NS 100 ML IV 100 ML ONE (12:23)
[2021-06-28] MEDS ORDERED: VERSED ONE (12:23)
[2021-06-28] MEDS: NS 1/2 1000 ML IV 1,000 ML IV SCH ×2 (12:40→22:30)
[2021-06-28] MEDS: VERSED 100 MG in NS 100 ML IV 80 ML IV PRN ×2 (12:47→23:04)
[2021-06-28] MEDS: APRESOLINE INJ 20 MG VIAL IVP PRN (17:10)
[2021-06-29] MEDS: LEVAQUIN PREMIX IV 500 MG 500 MG/100 ML BAG IV SCH ×2 (02:35→20:59)
[2021-06-29] MEDS: COLACE SYRUP 100 MG UDC PO SCH ×3 (02:38→20:58)
[2021-06-29] MEDS: HumuLIN R SUBCUT PRN ×3 (02:44→23:47)
[2021-06-29] MEDS: SOLU-Medrol 125 MG VIAL IVP SCH ×4 (02:44→21:00)
[2021-06-29] MEDS: NS 1/2 1000 ML IV 1,000 ML IV SCH ×2 (02:44→14:22)
[2021-06-29] MEDS: VERSED 100 MG in NS 100 ML IV 80 ML IV PRN ×2 (03:04→13:54)
[2021-06-29 04:30] LABS: ABG BASE EXCESS 17.1 mmol/L (-2.0-2.0)
[2021-06-29 04:31] LABS: ABG ALLEN TEST POS; ABG HCO3 41.9 mmol/L (22-26)
[2021-06-29] MEDS: XYLOCAINE OINT 5% 1 APPLIC, ZOVIRAX 1 APPLIC TOP SCH ×6 (05:37→23:51)
[2021-06-29] MEDS: FORTAZ or TAZICEF VIAL INJ 1 G in NS 50 ML IV + SPIKE MINIBAG* 50 ML IV SCH ×3 (05:37→22:00)
[2021-06-29 05:56] LABS: BASOPHILS # (AUTO) 0.1 X10^3/uL (0.0-0.1); BASOPHILS % (AUTO) 0.4 % (0.2-1.0); HEMOGLOBIN 11.2 g/dL (12.0-16.0); LYMPHOCYTES # (AUTO) 0.1 X10^3/uL (1.3-2.9); LYMPHOCYTES % (AUTO) 0.5 % (21.0-51.0); MEAN CORPUSCULAR HEMOGLOBIN 28.2 pg (27.0-34.0); MEAN CORPUSCULAR HGB CONC 33.9 g/dL (33.0-35.0); MEAN CORPUSCULAR VOLUME 83.2 fL (80.0-100.0); MEAN PLATELET VOLUME 9.6 fL (7.4-11.0); MONOCYTES # (AUTO) 0.6 x10^3/uL (0.3-0.8); MONOCYTES % (AUTO) 2.4 % (0.0-13.0); NEUTROPHILS # (AUTO) 24.6 x10^3/uL (2.2-4.8); NEUTROPHILS % (AUTO) 96.7 % (42.0-75.0); PLATELET COUNT 80 X10^3/uL (150.0-450.0); RED BLOOD COUNT 3.97 X10^6/uL (3.5-5.4); RED CELL DISTRIBUTION WIDTH 17.9 % (11.6-16.5); WHITE BLOOD COUNT 25.4 X10^3/uL (3.6-10.0)
[2021-06-29 06:06] LABS: ALANINE AMINOTRANSFERASE 128 Units/L (12-78); ALBUMIN 3.6 g/dL (3.4-5.0); ALKALINE PHOSPHATASE 82 Units/L (46-116); ASPARTATE AMINO TRANSFERASE 29 Units/L (15-37); BLOOD UREA NITROGEN 26 mg/dL (7-18); CALCIUM 8.8 mg/dL (8.5-10.1); CARBON DIOXIDE 38.8 mmol/L (21-32); CHLORIDE 105 mmol/L (98-107); COR NA(FOR HYPERGLY) 151 mmol/L (136-145); CREATININE 0.55 mg/dL (0.55-1.02); SODIUM 148 mmol/L (136-145); TOTAL PROTEIN 5.6 g/dL (6.4-8.2); eGFR NON BLACK RACES > 60 (>60)
[2021-06-29 06:59] LABS: PLATELET MORPHOLOGY COMMENT NORMAL (NORMAL)
[2021-06-29 07:00] LABS: ANISOCYTOSIS SLIGHT; HYPOCHROMASIA SLIGHT
--- NOTE | 2021-06-29 08:17 | RAD ---
HISTORYCOVID pneumoniaSTUDYCHEST x-ray, 1 VIEWCOMPARISONX-ray 07/20/2021FINDINGSEndotracheal tube terminates 4.4 cm above the jaden. Enteric tube passes into the stomach. Heart is normal in size. Lung infiltrates, right greater than left, are similar to prior study. No pneumothorax or pleural effusion is seen.IMPRESSIONAppearance of the chest is unchanged.Electronically signed by: Anatoliy Perdue (Jun 29, 2021 08:15:07)
[2021-06-29] MEDS: POTASSIUM CHLORIDE LIQ 20 MEQ UDC PO PRN (08:35)
[2021-06-29] MEDS: DIFLUCAN 200 MG IV PREMIX* 200 MG/100 ML BAG IV SCH (08:36)
[2021-06-29] MEDS: ELIQUIS NG SCH ×2 (08:37→21:01)
[2021-06-29] MEDS: LACRI-LUBE S.O.P. AFFEYE SCH ×2 (08:39→21:01)
[2021-06-29] MEDS: PROTONIX INJ 40 MG VIAL IVP SCH ×2 (08:39→20:59)
[2021-06-29] MEDS: THIAMINE HCL INJ IVP SCH ×2 (08:40→20:58)
[2021-06-29] MEDS: BROVANA IN SCH ×2 (09:00→21:45)
[2021-06-29] MEDS: PULMICORT NEB TX 0.5 MG NEB SCH ×2 (09:00→21:45)
--- NOTE | 2021-06-29 11:11 | PCM.PROG ---
Progress Note - Progress Note for Day of Date of Exam: 06/28/21 - Subjective Subjective: WAS ADMITTED ON 06/09 FOR TREATMENT OF PNEUMONIA DUE TO COVID-19, ACUTE RESPIRATORY FAILURE WITH HYPOXIA, AND A-FIB. SHE WAS PLACED ON THE MECHANICAL VENTILATOR ON 06/15/21 DUE TO INCREASED RESPIRATORY EFFORTS, DECREASED OXYGEN SATURATIONS, AND COMBATIVENESS. SHE HAS RECEIVED TWO UNITS OF PRBC SINCE ADMISSION. TODAY, HER VENT SETTINGS ARE: A/C, VENT RATE 25, TIDAL VOLUME SET 450, PEEP 7, FI02 40. SATURATIONS HAVE BEEN 90-95%. STAFF REPORTS THAT HER HEARTRATE DROPPED INTO THE 40s AND 50s THIS MORNING. CARDIZEM DRIP WAS STOPPED. ON EXAMINATION, OROGASTRIC TUBE NOTED FOR FEEDINGS/MEDS. HR IS IN THE 70s ON THE MONITOR. BILATERAL LUNGS NOTED WITH DIMINISHED LUNG SOUNDS THROUGHOUT. ABDOMEN IS ROUND, SOFT, AND NON-TENDER WITH NORMAL BOWEL SOUNDS NOTED IN ALL QUADRANTS. HER VITALS THIS MORNING ARE: 98.1-77-25-93%-173/87. LABS WERE OBTAINED. ABNORMAL LAB VALUES INCLUDE THE FOLLOWING: WBC 25.7, HGB 11.5, HCT 34.5, PLT COUNT 92, SODIUM 146, POTASSIUM 3.0, CARBON DIOXIDE 38.8, BUN 30, CREATININE 0.52, GLUCOSE 224, TOTAL BILI 1.10, AST 42, ALT 161, TOTAL PROTEIN 2.0. ABG REVEALED: PH 7.490, PC02 57, P02 57, HC03 43.4, 02 SAT 91, BASE EXCESS 17.3, A-A GRADIENT 157, FI02 40. CHEST XRAY REVEALED: There is slight apparent improvement in the bilateral pulmonary infiltrates/edema. No new abnormality is identified. SHE IS CURRENTLY RECEIVING TPN AT 40 ML/HR, 25% IV DAILY, 1/2 NS AT 20 ML/HR, VERSED FOR SEDATION, LEVAQUIN 500MG IV DAILY, FORTAZ 1G IV Q8H, MORPHINE SULFATE 2MG IV Q4H PRN, SOLU-MEDROL 125MG IV Q6H, VALIUM 5MG IV Q6H PRN, PROTONIX 40MG IV BID, THIAMINE 200MG IV BID, OTBS ACHS, HUMULIN R SLIDING SCALE, LOVENOX 40MG SC BID, LASIX 40MG IV Q12H, DIFLUCAN 200MG IV DAILY, PULMICORT NEBS BID, ALBUTEROL NEBS QID, BROVANA INHALER BID, ASCORBIC ACID 1500MG IV Q6H, ZOFRAN 4MG IV Q4H PRN NAUSEA, AND THE POTASSIUM AND MAGNESIUM PROTOCOLS. SHE IS RECEIVING ENSURE 1 CAN TID AND 200ML FREE WATER QID THROUGH THE OG TUBE. WE WILL CONTINUE TO WEAN OXYGEN DOWN TODAY PATIENT TOLERATES. WE WILL RECULTURE BLOOD, SPUTUM, AND URINE TODAY DUE TO ELEVATED WBC. OTHERWISE, WE PLAN TO FOLLOW UP WITH AM LABS AND CHEST XRAY AND CONTINUE TO MONITOR. TIME SPENT ON CLINICAL ASSESSMENT, REVIEWING LABS AND IMAGING, DECISION MAKING, AND DOCUMENTATION GREATER THAN 75 MINUTES. - Past Medical Family Social History Past Med/Fam/Surg Hx: No changes since H&P Allergies: Allergies nalbuphine [From Nubain] Allergy (Verified 05/15/18 14:34) Penicillins Allergy (Verified 05/15/18 14:34) - Review of Systems ROS: No change since H&P - Vital Signs and I&O's Vital Signs: Temperature 97.9 F Pulse Rate [Apical] 80 Pulse Rate 105 Respiratory Rate 25 Blood Pressure [Left Arm] 158/90 Blood Pressure [Right Arm] 176/96 Blood Pressure 172/89 O2 Sat by Pulse Oximetry 95 Intake and Output: Intake & Output 06/26/21 06/27/21 06/28/21 06/29/21 11:59 11:59 11:59 11:59 Intake Total 4381 / 4381 3348 / 3348 3364 / 3364 3514 / 3514 Output Total 1250 / 1250 3600 / 3600 6750 / 6750 6575 / 6575 Balance 3131 / 3131 -252 / -252 -3386 / -3386 -3061 / -3061 - Physical Exam Oriented: Unable to test Eyes: Normal Ear: Normal Nose: Normal Throat: Normal Respiratory: Generalized, Diminished Cardiovascular: Normal, Irregular : Normal Auscultation: Bowel Sounds: Normal Palpation: Normal Tenderness: Normal Skin: Normal Musculoskeletal: Normal Psychiatric: Other (SEDATED ) Mood Description: Calm Affect: Normal (SEDATED) Speech Pattern: Artificially Ventilated - Laboratory and Diagnostics Result Diagrams: 06/29/21 05:22 06/29/21 05:22 Labs: 06/28/21 11:30 Sputum - Endotracheal Wash - Final 06/08/21 20:42 Blood Blood Culture - Final 06/08/21 20:50 Blood Blood Culture - Final Laboratory WBC 25.4 X10^3/uL (3.6-10.0) H 06/29/21 05:22 RBC 3.97 X10^6/uL (3.5-5.4) 06/29/21 05:22 Hgb 11.2 g/dL (12.0-16.0) L 06/29/21 05:22 Hct 33.0 % (36.0-47.0) L 06/29/21 05:22 MCV 83.2 fL (80.0-100.0) 06/29/21 05:22 MCH 28.2 pg (27.0-34.0) 06/29/21 05:22 MCHC 33.9 g/dL (33.0-35.0) 06/29/21 05:22 RDW 17.9 % (11.6-16.5) H 06/29/21 05:22 Plt Count 80 X10^3/uL (150.0-450.0) L 06/29/21 05:22 Plt Count Comment Decreased (ADEQUATE) A 06/29/21 05:22 MPV 9.6 fL (7.4-11.0) 06/29/21 05:22 Neut % (Auto) 96.7 % (42.0-75.0) H 06/29/21 05:22 Lymph % (Auto) 0.5 % (21.0-51.0) L 06/29/21 05:22 [place] % (Auto) 2.4 % (0.0-13.0) 06/29/21 05:22 Eos % (Auto) 0.0 % (0.9-2.9) L 06/29/21 05:22 Baso % (Auto) 0.4 % (0.2-1.0) 06/29/21 05:22 Neut # (Auto) 24.6 x10^3/uL (2.2-4.8) H 06/29/21 05:22 Lymph # (Auto) 0.1 X10^3/uL (1.3-2.9) L 06/29/21 05:22 [place] # (Auto) 0.6 x10^3/uL (0.3-0.8) 06/29/21 05:22 Eos # (Auto) 0.0 x10^3/uL (0.0-0.2) 06/29/21 05:22 Baso # (Auto) 0.1 X10^3/uL (0.0-0.1) 06/29/21 05:22 Absolute Nucleated RBC 0.0 /100WBC 06/29/21 05:22 Total Counted 100 06/29/21 05:22 Neutrophils % (Manual) 95 % (39-76) H 06/29/21 05:22 Band Neutrophils % 1 % (0-10) 06/28/21 05:14 Lymphocytes % (Manual) 2 % (13-43) L 06/29/21 05:22 Monocytes % (Manual) 3 % (4-9) L 06/29/21 05:22 Metamyelocytes % 9 06/22/21 04:50 Plt Morphology Comment Normal (NORMAL) 06/29/21 05:22 RBC Morphology Normal (NORMAL) 06/29/21 05:22 Hypochromasia Slight A 06/29/21 05:22 Anisocytosis Slight A 06/29/21 05:22 Microcytosis Slight A 06/19/21 04:46 Ovalocytes Slight A 06/13/21 06:15 Phyllis Cells Slight A 06/19/21 04:46 PT 15.4 SECONDS (11.8-14.3) 06/08/21 20:42 INR Target Range - 06/08/21 20:42 INR 1.28 (0.8-1.3) 06/08/21 20:42 D-Dimer 0.94 ug/ml (0.0-0.57) H* 06/29/21 05:22 Sample Site Rr 06/29/21 04:25 ABG pH 7.540 (7.35-7.45) H 06/29/21 04:25 ABG pCO2 49.0 mmHg (35.0-45.0) H 06/29/21 04:25 ABG pO2 61.0 mmHg (80.0-100.0) L 06/29/21 04:25 ABG HCO3 41.9 mmol/L (22-26) H* 06/29/21 04:25 ABG O2 Saturation 94.0 % (90-100) 06/29/21 04:25 ABG Base Excess 17.1 mmol/L (-2.0-2.0) H 06/29/21 04:25 Herminio Test Pos 06/29/21 04:25 A-a Gradient 163.0 mmHg 06/29/21 04:25 FiO2 40.0 06/29/21 04:25 Blood Gas Comments Shyam well ae 06/29/21 04:25 Sodium 148 mmol/L (136-145) H 06/29/21 05:22 Corrected Sodium 151 mmol/L (136-145) H 06/29/21 05:22 Potassium 3.1 mmol/L (3.5-5.1) L 06/29/21 05:22 Chloride 105 mmol/L (98-107) 06/29/21 05:22 Carbon Dioxide 38.8 mmol/L (21-32) H 06/29/21 05:22 BUN 26 mg/dL (7-18) H 06/29/21 05:22 Creatinine 0.55 mg/dL (0.55-1.02) 06/29/21 05:22 Est GFR (MDRD) Af Amer > 60 (>60) 06/29/21 05:22 Est GFR (MDRD) Non-Af > 60 (>60) 06/29/21 05:22 Glucose 224 mg/dL (65-99) H 06/29/21 05:22 POC Glucose (mg/dL) 208 mg/dL (65-99) H 06/29/21 09:34 Calcium 8.8 mg/dL (8.5-10.1) 06/29/21 05:22 Corrected Calcium TNP 06/29/21 05:22 Phosphorus 3.7 mg/dL (2.6-4.7) 06/26/21 05:15 Magnesium 2.3 mg/dL (1.7-2.9) 06/26/21 05:15 Ferritin 163 ng/mL (8-252) 06/14/21 05:26 Total Bilirubin 1.00 mg/dL (0.2-1.0) 06/29/21 05:22 AST 29 Units/L (15-37) 06/29/21 05:22 ALT 128 Units/L (12-78) H 06/29/21 05:22 Alkaline Phosphatase 82 Units/L (46-116) 06/29/21 05:22 Troponin I < 0.02 ng/mL (0-1.5) 06/08/21 20:42 C-Reactive Protein < 0.50 mg/L (0-3.0) 06/27/21 05:15 B-Natriuretic Peptide 73.0 pg/mL (0-79) 06/29/21 05:22 Total Protein 5.6 g/dL (6.4-8.2) L 06/29/21 05:22 Albumin 3.6 g/dL (3.4-5.0) 06/29/21 05:22 Globulin 2.0 g/dL (2.5-4.5) L 06/29/21 05:22 Albumin/Globulin Ratio 1.8 Ratio (1.1-2.1) 06/29/21 05:22 Prealbumin 42.2 mg/dL (18-35.7) H 06/24/21 04:30 Triglycerides 228 mg/dL (0-150) H 06/26/21 05:15 Specimen Type Catherized urine 06/09/21 03:30 Urine Color Yellow (YELLOW) 06/09/21 03:30 Urine Appearance Clear (CLEAR) 06/09/21 03:30 Urine pH 6.0 (5.0 - 8.0) 06/09/21 03:30 Ur Specific [place] 1.010 (1.000-1.030) 06/09/21 03:30 Urine Protein 2+ (NEGATIVE) 06/09/21 03:30 Urine Glucose (UA) Negative (NEGATIVE) 06/09/21 03:30 Urine Ketones Negative (NEGATIVE) 06/09/21 03:30 Urine Occult Blood 1+ (NEGATIVE) 06/09/21 03:30 Urine Nitrite Negative (NEGATIVE) 06/09/21 03:30 Urine Bilirubin Negative (NEGATIVE) 06/09/21 03:30 Urine Urobilinogen Normal (NORMAL) 06/09/21 03:30 Ur Leukocyte Esterase Negative (NEGATIVE) 06/09/21 03:30 Urine RBC 0-2 /HPF (0-3) 06/09/21 03:30 Urine WBC None seen /HPF (0-5) 06/09/21 03:30 Ur Squamous Epith Cells Negative /HPF (NEGATIVE) 06/09/21 03:30 Urine Bacteria Negative /HPF (NEGATIVE) 06/09/21 03:30 Ur Culture Indicated? No/not indicated 06/09/21 03:30 Blood Type O POSITIVE 06/25/21 10:11 Antibody Screen Negative 06/25/21 10:11 Crossmatch See Detail 06/25/21 10:11 - Plan (1) Pneumonia due to 2019-nCoV Status: Acute Plan: 1/2 NS AT 20 ML/HR, TPN AT 40 ML/HR, ALBUMIN 25% IV DAILY, FORTAZ 1G IV Q8H, VERSED FOR SEDATION, LEVAQUIN 500MG IV DAILY, MORPHINE SULFATE 2MG IV Q4H PRN, SOLU-MEDROL 125MG IV Q6H, A CATAPRES PATCH, VALIUM 5MG IV Q6H PRN, PROTONIX 40MG IV BID, THIAMINE 200MG IV BID, OTBS ACHS, HUMULIN R SLIDING SCALE, LOVENOX 80MG SC BID, DIFLUCAN 200MG IV DAILY, PULMICORT NEBS BID, ALBUTEROL NEBS QID, BROVANA INHALER BID, ASCORBIC ACID 1500MG IV Q6H, ZOFRAN 4MG IV Q4H PRN NAUSEA, AND THE POTASSIUM AND MAGNESIUM PROTOCOLS. (2) Acute respiratory insufficiency Status: Acute (3) Hypoxia Status: Acute (4) Anemia Status: Acute Qualifiers: Anemia type: iron deficiency Iron deficiency anemia type: unspecified iron deficiency Qualified Code(s): D50.9 - Iron deficiency anemia, unspecified (5) Acute dyspnea Status: Acute
[2021-06-29] MEDS: CLINIMIX IV SCH ×5 (13:24)
[2021-06-29] MEDS: [UNRECOGNIZED DRUG - OTHER] IV SCH ×5 (13:24)
[2021-06-29] MEDS: LASIX IVP SCH ×2 (13:24→21:00)
[2021-06-29] MEDS: MVI IV SCH ×5 (13:24)
[2021-06-29] MEDS: ALBUMIN HUMAN 25%- 100 ML 100 ML IV SCH (13:29)
[2021-06-29] MEDS: ACCUNEB 1.25 MG NEBULE NEB SCH ×2 (14:14→21:45)
[2021-06-29] MEDS: APRESOLINE INJ 20 MG VIAL IVP PRN ×2 (17:02→23:48)
[2021-06-29 17:17] LABS: PHOSPHORUS 3.2 mg/dL (2.6-4.7)
--- NOTE | 2021-06-29 21:09 | PCM.PROG ---
Progress Note - Progress Note for Day of Date of Exam: 06/29/21 - Subjective Subjective: WAS ADMITTED ON 06/09 FOR TREATMENT OF PNEUMONIA DUE TO COVID-19, ACUTE RESPIRATORY FAILURE WITH HYPOXIA, AND A-FIB. SHE WAS PLACED ON THE MECHANICAL VENTILATOR ON 06/15/21 DUE TO INCREASED RESPIRATORY EFFORTS, DECREASED OXYGEN SATURATIONS, AND COMBATIVENESS. SHE HAS RECEIVED TWO UNITS OF PRBC SINCE ADMISSION. TODAY, HER VENT SETTINGS ARE: A/C, VENT RATE 25, TIDAL VOLUME SET 450, PEEP 7, FI02 40. SATURATIONS HAVE BEEN 91-95%. ON EXAMINATION, OROGASTRIC TUBE NOTED FOR FEEDINGS/MEDS. HR IS IN THE 70s ON THE MONITOR. BILATERAL LUNGS NOTED WITH DIMINISHED LUNG SOUNDS THROUGHOUT. ABDOMEN IS ROUND, SOFT, AND NON-TENDER WITH NORMAL BOWEL SOUNDS NOTED IN ALL QUADRANTS. HER VITALS THIS MORNING ARE: 97.9-97-25-95%-172/91. LABS WERE OBTAINED. ABNORMAL LAB VALUES INCLUDE THE FOLLOWING: WBC 25.4, HGB 11.2, HCT 33.0, PLT COUNT 80, D-DIMER 0.94, SODIUM 148, POTASSIUM 3.1, BUN 26, GLUCOSE 224, ALT 128, TOTAL PROTEIN 5.6. BLOOD AND SPUTUM CULTURES ARE PENDING. ABG REVEALED: PH 7.540, PC02 49, P02 61, HC03 41.9, 02 SAT 94, BASE EXCESS 17.1, A-A GRADIENT 163, FI02 40. CHEST XRAY REVEALED: Appearance of the chest is unchanged. SHE IS CURRENTLY RECEIVING TPN AT 40 ML/HR, 25% IV DAILY, 1/2 NS AT 20 ML/HR, VERSED FOR SEDATION, LEVAQUIN 500MG IV DAILY, FORTAZ 1G IV Q8H, MORPHINE SULFATE 2MG IV Q4H PRN, SOLU-MEDROL 125MG IV Q6H, VALIUM 5MG IV Q6H PRN, PROTONIX 40MG IV BID, THIAMINE 200MG IV BID, OTBS ACHS, HUMULIN R SLIDING SCALE, LOVENOX 40MG SC BID, LASIX 40MG IV Q12H, DIFLUCAN 200MG IV DAILY, PULMICORT NEBS BID, ALBUTEROL NEBS QID, BROVANA INHALER BID, ASCORBIC ACID 1500MG IV Q6H, ZOFRAN 4MG IV Q4H PRN NAUSEA, AND THE POTASSIUM AND MAGNESIUM PROTOCOLS. SHE IS RECEIVING ENSURE 1 CAN TID AND 200ML FREE WATER QID THROUGH THE OG TUBE. WE WILL CONTINUE TO WEAN OXYGEN DOWN TODAY PATIENT TOLERATES. OTHERWISE, WE PLAN TO FOLLOW UP WITH AM LABS AND CHEST XRAY AND CONTINUE TO MONITOR. TIME SPENT ON CLINICAL ASSESSMENT, REVIEWING LABS AND IMAGING, DECISION MAKING, AND DOCUMENTATION GREATER THAN 75 MINUTES. - Past Medical Family Social History Past Med/Fam/Surg Hx: No changes since H&P Allergies: Allergies nalbuphine [From Nubain] Allergy (Verified 05/15/18 14:34) Penicillins Allergy (Verified 05/15/18 14:34) - Review of Systems ROS: No change since H&P - Vital Signs and I&O's Vital Signs: Temperature 98.2 F Pulse Rate [Apical] 80 Pulse Rate 123 Respiratory Rate 28 Blood Pressure [Left Arm] 158/90 Blood Pressure [Right Arm] 176/96 Blood Pressure 183/95 O2 Sat by Pulse Oximetry 93 Intake and Output: Intake & Output 06/27/21 06/28/21 06/29/21 06/30/21 11:59 11:59 11:59 11:59 Intake Total 3348 / 3348 3364 / 3364 3514 / 3514 1509 / 1509 Output Total 3600 / 3600 6750 / 6750 6575 / 6575 1999 Balance -252 / -252 -3386 / -3386 -3061 / -3061 -491 / -491 - Physical Exam Oriented: Unable to test Eyes: Normal Ear: Normal Nose: Normal Throat: Normal Respiratory: Generalized, Diminished Cardiovascular: Normal, Irregular : Normal Auscultation: Bowel Sounds: Normal Tenderness: Normal Skin: Normal Musculoskeletal: Normal Psychiatric: Other (SEDATED ) Mood Description: Calm Affect: Normal (SEDATED) Speech Pattern: Artificially Ventilated - Laboratory and Diagnostics Result Diagrams: 06/29/21 05:22 06/29/21 10:57 Labs: 06/28/21 11:30 Sputum - Endotracheal Wash Sputum Culture - Preliminary 06/28/21 11:30 Sputum - Endotracheal Wash - Final 06/28/21 11:20 Urine,Clean Catch Urine Culture - Preliminary 06/08/21 20:42 Blood Blood Culture - Final 06/08/21 20:50 Blood Blood Culture - Final Laboratory WBC 25.4 X10^3/uL (3.6-10.0) H 06/29/21 05:22 RBC 3.97 X10^6/uL (3.5-5.4) 06/29/21 05:22 Hgb 11.2 g/dL (12.0-16.0) L 06/29/21 05:22 Hct 33.0 % (36.0-47.0) L 06/29/21 05:22 MCV 83.2 fL (80.0-100.0) 06/29/21 05:22 MCH 28.2 pg (27.0-34.0) 06/29/21 05:22 MCHC 33.9 g/dL (33.0-35.0) 06/29/21 05:22 RDW 17.9 % (11.6-16.5) H 06/29/21 05:22 Plt Count 80 X10^3/uL (150.0-450.0) L 06/29/21 05:22 Plt Count Comment Decreased (ADEQUATE) A 06/29/21 05:22 MPV 9.6 fL (7.4-11.0) 06/29/21 05:22 Neut % (Auto) 96.7 % (42.0-75.0) H 06/29/21 05:22 Lymph % (Auto) 0.5 % (21.0-51.0) L 06/29/21 05:22 [place] % (Auto) 2.4 % (0.0-13.0) 06/29/21 05:22 Eos % (Auto) 0.0 % (0.9-2.9) L 06/29/21 05:22 Baso % (Auto) 0.4 % (0.2-1.0) 06/29/21 05:22 Neut # (Auto) 24.6 x10^3/uL (2.2-4.8) H 06/29/21 05:22 Lymph # (Auto) 0.1 X10^3/uL (1.3-2.9) L 06/29/21 05:22 [place] # (Auto) 0.6 x10^3/uL (0.3-0.8) 06/29/21 05:22 Eos # (Auto) 0.0 x10^3/uL (0.0-0.2) 06/29/21 05:22 Baso # (Auto) 0.1 X10^3/uL (0.0-0.1) 06/29/21 05:22 Absolute Nucleated RBC 0.0 /100WBC 06/29/21 05:22 Total Counted 100 06/29/21 05:22 Neutrophils % (Manual) 95 % (39-76) H 06/29/21 05:22 Band Neutrophils % 1 % (0-10) 06/28/21 05:14 Lymphocytes % (Manual) 2 % (13-43) L 06/29/21 05:22 Monocytes % (Manual) 3 % (4-9) L 06/29/21 05:22 Metamyelocytes % 9 06/22/21 04:50 Plt Morphology Comment Normal (NORMAL) 06/29/21 05:22 RBC Morphology Normal (NORMAL) 06/29/21 05:22 Hypochromasia Slight A 06/29/21 05:22 Anisocytosis Slight A 06/29/21 05:22 Microcytosis Slight A 06/19/21 04:46 Ovalocytes Slight A 06/13/21 06:15 [place] Cells Slight A 06/19/21 04:46 PT 15.4 SECONDS (11.8-14.3) 06/08/21 20:42 INR Target Range - 06/08/21 20:42 INR 1.28 (0.8-1.3) 06/08/21 20:42 D-Dimer 0.94 ug/ml (0.0-0.57) H* 06/29/21 05:22 Sample Site Rr 06/29/21 04:25 ABG pH 7.540 (7.35-7.45) H 06/29/21 04:25 ABG pCO2 49.0 mmHg (35.0-45.0) H 06/29/21 04:25 ABG pO2 61.0 mmHg (80.0-100.0) L 06/29/21 04:25 ABG HCO3 41.9 mmol/L (22-26) H* 06/29/21 04:25 ABG O2 Saturation 94.0 % (90-100) 06/29/21 04:25 ABG Base Excess 17.1 mmol/L (-2.0-2.0) H 06/29/21 04:25 Herminio Test Pos 06/29/21 04:25 A-a Gradient 163.0 mmHg 06/29/21 04:25 FiO2 40.0 06/29/21 04:25 Blood Gas Comments Shyam well ae 06/29/21 04:25 Sodium 148 mmol/L (136-145) H 06/29/21 05:22 Corrected Sodium 151 mmol/L (136-145) H 06/29/21 05:22 Potassium 4.0 mmol/L (3.5-5.1) 06/29/21 10:57 Chloride 105 mmol/L (98-107) 06/29/21 05:22 Carbon Dioxide 38.8 mmol/L (21-32) H 06/29/21 05:22 BUN 26 mg/dL (7-18) H 06/29/21 05:22 Creatinine 0.55 mg/dL (0.55-1.02) 06/29/21 05:22 Est GFR (MDRD) Af Amer > 60 (>60) 06/29/21 05:22 Est GFR (MDRD) Non-Af > 60 (>60) 06/29/21 05:22 Glucose 224 mg/dL (65-99) H 06/29/21 05:22 POC Glucose (mg/dL) 222 mg/dL (65-99) H 06/29/21 15:50 Calcium 8.8 mg/dL (8.5-10.1) 06/29/21 05:22 Corrected Calcium TNP 06/29/21 05:22 Phosphorus 3.2 mg/dL (2.6-4.7) 06/29/21 16:51 Magnesium 2.0 mg/dL (1.7-2.9) 06/29/21 16:51 Ferritin 163 ng/mL (8-252) 06/14/21 05:26 Total Bilirubin 1.00 mg/dL (0.2-1.0) 06/29/21 05:22 AST 29 Units/L (15-37) 06/29/21 05:22 ALT 128 Units/L (12-78) H 06/29/21 05:22 Alkaline Phosphatase 82 Units/L (46-116) 06/29/21 05:22 Troponin I < 0.02 ng/mL (0-1.5) 06/08/21 20:42 C-Reactive Protein < 0.50 mg/L (0-3.0) 06/27/21 05:15 B-Natriuretic Peptide 73.0 pg/mL (0-79) 06/29/21 05:22 Total Protein 5.6 g/dL (6.4-8.2) L 06/29/21 05:22 Albumin 3.6 g/dL (3.4-5.0) 06/29/21 05:22 Globulin 2.0 g/dL (2.5-4.5) L 06/29/21 05:22 Albumin/Globulin Ratio 1.8 Ratio (1.1-2.1) 06/29/21 05:22 Prealbumin 42.2 mg/dL (18-35.7) H 06/24/21 04:30 Triglycerides 163 mg/dL (0-150) H 06/29/21 16:51 Specimen Type Catherized urine 06/09/21 03:30 Urine Color Yellow (YELLOW) 06/09/21 03:30 Urine Appearance Clear (CLEAR) 06/09/21 03:30 Urine pH 6.0 (5.0 - 8.0) 06/09/21 03:30 Ur Specific [place] 1.010 (1.000-1.030) 06/09/21 03:30 Urine Protein 2+ (NEGATIVE) 06/09/21 03:30 Urine Glucose (UA) Negative (NEGATIVE) 06/09/21 03:30 Urine Ketones Negative (NEGATIVE) 06/09/21 03:30 Urine Occult Blood 1+ (NEGATIVE) 06/09/21 03:30 Urine Nitrite Negative (NEGATIVE) 06/09/21 03:30 Urine Bilirubin Negative (NEGATIVE) 06/09/21 03:30 Urine Urobilinogen Normal (NORMAL) 06/09/21 03:30 Ur Leukocyte Esterase Negative (NEGATIVE) 06/09/21 03:30 Urine RBC 0-2 /HPF (0-3) 06/09/21 03:30 Urine WBC None seen /HPF (0-5) 06/09/21 03:30 Ur Squamous Epith Cells Negative /HPF (NEGATIVE) 06/09/21 03:30 Urine Bacteria Negative /HPF (NEGATIVE) 06/09/21 03:30 Ur Culture Indicated? No/not indicated 06/09/21 03:30 Blood Type O POSITIVE 06/25/21 10:11 Antibody Screen Negative 06/25/21 10:11 Crossmatch See Detail 06/25/21 10:11 - Plan (1) Pneumonia due to 2019-nCoV Status: Acute Plan: 1/2 NS AT 20 ML/HR, TPN AT 40 ML/HR, ALBUMIN 25% IV DAILY, FORTAZ 1G IV Q8H, VERSED FOR SEDATION, LEVAQUIN 500MG IV DAILY, MORPHINE SULFATE 2MG IV Q4H PRN, SOLU-MEDROL 125MG IV Q6H, A CATAPRES PATCH, VALIUM 5MG IV Q6H PRN, PROTONIX 40MG IV BID, THIAMINE 200MG IV BID, OTBS ACHS, HUMULIN R SLIDING SCALE, LOVENOX 80MG SC BID, DIFLUCAN 200MG IV DAILY, PULMICORT NEBS BID, ALBUTEROL NEBS QID, BROVANA INHALER BID, ASCORBIC ACID 1500MG IV Q6H, ZOFRAN 4MG IV Q4H PRN NAUSEA, AND THE POTASSIUM AND MAGNESIUM PROTOCOLS. (2) Acute respiratory insufficiency Status: Acute (3) Hypoxia Status: Acute (4) Anemia Status: Acute Qualifiers: Anemia type: iron deficiency Iron deficiency anemia type: unspecified iron deficiency Qualified Code(s): D50.9 - Iron deficiency anemia, unspecified (5) Acute dyspnea Status: Acute
[2021-06-30 04:47] LABS: ABG BASE EXCESS 17.1 mmol/L (-2.0-2.0)
[2021-06-30 04:48] LABS: ABG ALLEN TEST POS; ABG HCO3 41.9 mmol/L (22-26)
[2021-06-30 05:53] LABS: BASOPHILS % (AUTO) 0.1 % (0.2-1.0); HEMATOCRIT 28.2 % (36.0-47.0); HEMOGLOBIN 9.5 g/dL (12.0-16.0); LYMPHOCYTES # (AUTO) 0.1 X10^3/uL (1.3-2.9); LYMPHOCYTES % (AUTO) 0.5 % (21.0-51.0); MEAN CORPUSCULAR HEMOGLOBIN 28.5 pg (27.0-34.0); MEAN CORPUSCULAR HGB CONC 33.7 g/dL (33.0-35.0); MEAN CORPUSCULAR VOLUME 84.6 fL (80.0-100.0); MEAN PLATELET VOLUME 9.6 fL (7.4-11.0); MONOCYTES # (AUTO) 0.8 x10^3/uL (0.3-0.8); MONOCYTES % (AUTO) 2.9 % (0.0-13.0); NEUTROPHILS # (AUTO) 26.9 x10^3/uL (2.2-4.8); NEUTROPHILS % (AUTO) 96.5 % (42.0-75.0); PLATELET COUNT 57 X10^3/uL (150.0-450.0); RED BLOOD COUNT 3.33 X10^6/uL (3.5-5.4); RED CELL DISTRIBUTION WIDTH 18.1 % (11.6-16.5); WHITE BLOOD COUNT 27.9 X10^3/uL (3.6-10.0)
[2021-06-30] MEDS: XYLOCAINE OINT 5% 1 APPLIC, ZOVIRAX 1 APPLIC TOP SCH ×6 (05:58→23:08)
[2021-06-30] MEDS: SOLU-Medrol 125 MG VIAL IVP SCH ×4 (05:58→20:40)
[2021-06-30] MEDS: FORTAZ or TAZICEF VIAL INJ 1 G in NS 50 ML IV + SPIKE MINIBAG* 50 ML IV SCH ×3 (05:59→23:07)
[2021-06-30] MEDS: NS 1/2 1000 ML IV 1,000 ML IV SCH ×2 (06:00→18:42)
[2021-06-30 06:05] LABS: PREALBUMIN 49.8 mg/dL (18-35.7)
[2021-06-30 06:11] LABS: ALANINE AMINOTRANSFERASE 126 Units/L (12-78); ALBUMIN 3.3 g/dL (3.4-5.0); ALKALINE PHOSPHATASE 74 Units/L (46-116); ASPARTATE AMINO TRANSFERASE 36 Units/L (15-37); BLOOD UREA NITROGEN 32 mg/dL (7-18); CALCIUM 8.6 mg/dL (8.5-10.1); CARBON DIOXIDE 39.5 mmol/L (21-32); CHLORIDE 103 mmol/L (98-107); COR CA(FOR HYPOALB) 9.2 mg/dL (8.5-10.1); COR NA(FOR HYPERGLY) 147 mmol/L (136-145); CREATININE 0.53 mg/dL (0.55-1.02); SODIUM 144 mmol/L (136-145); TOTAL PROTEIN 5.1 g/dL (6.4-8.2); eGFR NON BLACK RACES > 60 (>60)
[2021-06-30] MEDS: ACCUNEB 1.25 MG NEBULE NEB SCH ×3 (06:39→20:58)
[2021-06-30 06:55] LABS: BAND NEUTROPHILS % 6 % (0-10); MYELOCYTES % 2
[2021-06-30 06:56] LABS: ANISOCYTOSIS SLIGHT; PLATELET MORPHOLOGY COMMENT NORMAL (NORMAL)
[2021-06-30] MEDS: [UNRECOGNIZED DRUG - OTHER] IV SCH ×10 (07:02→11:07)
[2021-06-30] MEDS: MVI IV SCH ×10 (07:02→11:07)
[2021-06-30] MEDS: CLINIMIX IV SCH ×10 (07:02→11:07)
--- NOTE | 2021-06-30 08:14 | RAD ---
HISTORYSOB COVID-19STUDYCHEST x-ray, 1 VIEWCOMPARISONX-ray 06/29/2021FINDINGSEndotracheal tube terminates 3.6 cm above the jaden. Enteric tube passes into the stomach. Heart is normal in size. Diffuse increased ground-glass and interstitial densities are seen throughout the lungs, right greater than left. These densities are similar to prior study. Lung densities may be due to COVID-19 or post infectious changes of COVID 19. No pneumothorax or pleural effusion is seen.IMPRESSIONDiffuse interstitial and ground-glass densities in the lungs may be due to COVID-19 or post infectious changes associated with COVID-19.Electronically signed by: Anatoliy Perdue (Jun 30, 2021 08:12:35)
[2021-06-30] MEDS: BROVANA IN SCH (09:20)
[2021-06-30] MEDS: PULMICORT NEB TX 0.5 MG NEB SCH ×2 (09:20→20:58)
[2021-06-30] MEDS: DIFLUCAN 200 MG IV PREMIX* 200 MG/100 ML BAG IV SCH (09:49)
[2021-06-30] MEDS: LACRI-LUBE S.O.P. AFFEYE SCH ×2 (09:50→20:42)
[2021-06-30] MEDS: ELIQUIS NG SCH ×2 (09:50→20:41)
[2021-06-30] MEDS: LASIX IVP SCH ×2 (09:50→20:41)
[2021-06-30] MEDS: THIAMINE HCL INJ IVP SCH ×2 (09:51→20:39)
[2021-06-30] MEDS: PROTONIX INJ 40 MG VIAL IVP SCH ×2 (09:51→20:40)
[2021-06-30] MEDS: CATAPRES-TTS-1 TD SCH ×2 (09:52)
[2021-06-30] MEDS: HumuLIN R SUBCUT PRN ×2 (10:04→17:09)
[2021-06-30] MEDS: POTASSIUM CHLORIDE LIQ 20 MEQ UDC PO PRN (10:14)
[2021-06-30] MEDS: COLACE SYRUP 100 MG UDC PO SCH ×2 (10:19→20:42)
[2021-06-30] MEDS: ALBUMIN HUMAN 25%- 100 ML 100 ML IV SCH (10:19)
[2021-06-30] MEDS ORDERED: VERSED IV PREMIX 100 MG/100 ML IV.SOLN IV ONE (19:06)
[2021-06-30] MEDS: APRESOLINE INJ 20 MG VIAL IVP PRN (19:23)
[2021-06-30] MEDS: LEVAQUIN PREMIX IV 500 MG 500 MG/100 ML BAG IV SCH (20:40)
[2021-06-30] MEDS: VERSED 100 MG in NS 100 ML IV 80 ML IV PRN (23:26)
[2021-07-01] MEDS: HumuLIN R SUBCUT PRN ×3 (01:01→16:25)
[2021-07-01] MEDS: APRESOLINE INJ 20 MG VIAL IVP PRN ×4 (01:03→22:03)
[2021-07-01] MEDS: SOLU-Medrol 125 MG VIAL IVP SCH ×4 (03:54→21:15)
[2021-07-01] MEDS: NS 1/2 1000 ML IV 1,000 ML IV SCH ×3 (05:29→17:30)
[2021-07-01 05:30] LABS: ABG BASE EXCESS 15.9 mmol/L (-2.0-2.0)
[2021-07-01 05:31] LABS: ABG HCO3 40.2 mmol/L (22-26)
[2021-07-01] MEDS: MVI IV SCH ×10 (05:31→13:05)
[2021-07-01] MEDS: [UNRECOGNIZED DRUG - OTHER] IV SCH ×10 (05:31→13:05)
[2021-07-01] MEDS: CLINIMIX IV SCH ×10 (05:31→13:05)
[2021-07-01 05:32] LABS: ABG ALLEN TEST POS
[2021-07-01] MEDS: XYLOCAINE OINT 5% 1 APPLIC, ZOVIRAX 1 APPLIC TOP SCH ×6 (05:33→21:40)
[2021-07-01] MEDS: VERSED 100 MG in NS 100 ML IV 80 ML IV PRN ×2 (05:35→20:45)
[2021-07-01] MEDS: FORTAZ or TAZICEF VIAL INJ 1 G in NS 50 ML IV + SPIKE MINIBAG* 50 ML IV SCH ×3 (05:39→21:07)
[2021-07-01 05:48] LABS: BASOPHILS # (AUTO) 0.1 X10^3/uL (0.0-0.1); BASOPHILS % (AUTO) 0.2 % (0.2-1.0); HEMATOCRIT 28.6 % (36.0-47.0); HEMOGLOBIN 9.4 g/dL (12.0-16.0); LYMPHOCYTES # (AUTO) 0.2 X10^3/uL (1.3-2.9); LYMPHOCYTES % (AUTO) 0.7 % (21.0-51.0); MEAN CORPUSCULAR HEMOGLOBIN 28.1 pg (27.0-34.0); MEAN CORPUSCULAR HGB CONC 32.9 g/dL (33.0-35.0); MEAN CORPUSCULAR VOLUME 85.2 fL (80.0-100.0); MEAN PLATELET VOLUME 10.4 fL (7.4-11.0); MONOCYTES # (AUTO) 0.6 x10^3/uL (0.3-0.8); MONOCYTES % (AUTO) 2.4 % (0.0-13.0); NEUTROPHILS # (AUTO) 24.3 x10^3/uL (2.2-4.8); NEUTROPHILS % (AUTO) 96.7 % (42.0-75.0); PLATELET COUNT 53 X10^3/uL (150.0-450.0); RED BLOOD COUNT 3.36 X10^6/uL (3.5-5.4); RED CELL DISTRIBUTION WIDTH 18.3 % (11.6-16.5); WHITE BLOOD COUNT 25.2 X10^3/uL (3.6-10.0)
[2021-07-01 06:02] LABS: ALANINE AMINOTRANSFERASE 143 Units/L (12-78); ALBUMIN 3.5 g/dL (3.4-5.0); ALKALINE PHOSPHATASE 70 Units/L (46-116); ASPARTATE AMINO TRANSFERASE 45 Units/L (15-37); BLOOD UREA NITROGEN 32 mg/dL (7-18); CHLORIDE 103 mmol/L (98-107); COR NA(FOR HYPERGLY) 147 mmol/L (136-145); CREATININE 0.55 mg/dL (0.55-1.02); SODIUM 144 mmol/L (136-145); TOTAL PROTEIN 5.4 g/dL (6.4-8.2); eGFR NON BLACK RACES > 60 (>60)
[2021-07-01 06:42] LABS: PLATELET MORPHOLOGY COMMENT NORMAL (NORMAL)
[2021-07-01] MEDS ORDERED: LANOXIN INJ ONE (07:23)
--- NOTE | 2021-07-01 08:08 | RAD ---
HISTORYFollow up respiratory failureSTUDYChest AP [id number] is an endotracheal tube in good position. There is a nasoga stric tube coursing below the left hemidiaphragm. Its tip is not visible. Heart size is normal. Diffu se bilateral interstitial and ground-glass infiltrates are present and unchanged. No pleural effusion s or pneumothoraces are identified. Bony thorax is unremarkable.IMPRESSIONNo change diffuse bilateral interstitial and ground-glass infiltrates when compared to the prior examination.Electronically sign ed by: PRISCILA HELLER (Jul 01, 2021 08:06:39)
[2021-07-01] MEDS: ALBUMIN HUMAN 25%- 100 ML 100 ML IV SCH (08:32)
[2021-07-01] MEDS: PROTONIX INJ 40 MG VIAL IVP SCH ×2 (08:33→21:12)
[2021-07-01] MEDS: LACRI-LUBE S.O.P. AFFEYE SCH ×2 (08:41→21:40)
[2021-07-01] MEDS: COLACE SYRUP 100 MG UDC PO SCH ×2 (08:42→21:05)
[2021-07-01] MEDS: THIAMINE HCL INJ IVP SCH ×2 (08:42→21:10)
[2021-07-01] MEDS ORDERED: NS 1/2 1000 ML IV 1,000 ML IV ONE (08:46)
[2021-07-01] MEDS: LASIX IVP SCH ×2 (08:47→21:20)
[2021-07-01] MEDS: ELIQUIS NG SCH ×2 (08:54→21:05)
[2021-07-01] MEDS ORDERED: LANOXIN INJ IVP SCH (09:00)
[2021-07-01] MEDS: POTASSIUM CHLORIDE LIQ 20 MEQ UDC PO PRN (09:02)
[2021-07-01] MEDS: DIFLUCAN 200 MG IV PREMIX* 200 MG/100 ML BAG IV SCH (09:15)
[2021-07-01] MEDS: BROVANA IN SCH (10:33)
[2021-07-01] MEDS: PULMICORT NEB TX 0.5 MG NEB SCH ×2 (10:33→21:50)
[2021-07-01] MEDS: ACCUNEB 1.25 MG NEBULE NEB SCH ×2 (13:27→21:50)
[2021-07-01] MEDS ORDERED: NORMODYNE INJ 100 MG VIAL 250 MG in NS 250 ML IV 200 ML IV PRN (14:46)
[2021-07-01] MEDS ORDERED: NORVASC TAB 5 MG PO SCH (15:00)
[2021-07-01] MEDS: NORVASC TAB 5 MG GT SCH (15:04)
[2021-07-01] MEDS: CATAPRES-TTS-2 TD SCH (15:05)
--- NOTE | 2021-07-01 17:42 | PCM.PROG ---
Progress Note - Progress Note for Day of Date of Exam: 06/30/21 - Subjective Subjective: WAS ADMITTED ON 06/09 FOR TREATMENT OF PNEUMONIA DUE TO COVID-19, ACUTE RESPIRATORY FAILURE WITH HYPOXIA, AND A-FIB. SHE WAS PLACED ON THE MECHANICAL VENTILATOR ON 06/15/21 DUE TO INCREASED RESPIRATORY EFFORTS, DECREASED OXYGEN SATURATIONS, AND COMBATIVENESS. SHE HAS RECEIVED TWO UNITS OF PRBC SINCE ADMISSION. TODAY, HER VENT SETTINGS ARE: A/C, VENT RATE 25, TIDAL VOLUME SET 450, PEEP 7, FI02 35. SATURATIONS HAVE BEEN 91-95%. ON EXAMINATION, OROGASTRIC TUBE NOTED FOR FEEDINGS/MEDS. SHE IS SLIGHTLY TACYCARDIC. HR IS 100- 110 ON THE MONITOR. BILATERAL LUNGS NOTED WITH DIMINISHED LUNG SOUNDS THROUGHOUT. ABDOMEN IS ROUND, SOFT, AND NON-TENDER WITH NORMAL BOWEL SOUNDS NOTED IN ALL QUADRANTS. HER VITALS THIS MORNING ARE: 98.9-111-27-91%-180/81. LABS WERE OBTAINED. ABNORMAL LAB VALUES INCLUDE THE FOLLOWING: WBC 27.9, RBC 3.33, HGB 9.5, HCT 28.2, PLT COUNT 57, D-DIMER 0.94, POTASSIUM 3.4, CARBON DIOXIDE 39.5, BUN 32, CREATININE 0.53, GLUCOSE 209, ALT 126, BNP 118, TOTAL PROTEIN 5.1, ALBUMIN 3.3, GLOBULIN 1.8. BLOOD AND SPUTUM CULTURES ARE PENDING. ABG REVEALED: PH 7.540, PC02 49, P02 56, HC03 41.9, 02 SAT 92, A-A GRADIENT 132, FI02 35. CHEST XRAY REVEALED: Diffuse interstitial and ground-glass densities in the lungs may be due to COVID-19 or post infectious changes associated with COVID-19. SHE IS CURRENTLY RECEIVING TPN AT 40 ML/HR, 25% IV DAILY, 1/2 NS AT 20 ML/HR, VERSED FOR SEDATION, LEVAQUIN 500MG IV DAILY, FORTAZ 1G IV Q8H, MORPHINE SULFATE 2MG IV Q4H PRN, SOLU-MEDROL 125MG IV Q6H, VALIUM 5MG IV Q6H PRN, PROTONIX 40MG IV BID, THIAMINE 200MG IV BID, OTBS ACHS, HUMULIN R SLIDING SCALE, LOVENOX 40MG SC BID, LASIX 40MG IV Q12H, DIFLUCAN 200MG IV DAILY, CATAPRES 0.1MG TD PATCH, PULMICORT NEBS BID, ALBUTEROL NEBS QID, BROVANA INHALER BID, ASCORBIC ACID 1500MG IV Q6H, ZOFRAN 4MG IV Q4H PRN NAUSEA, AND THE POTASSIUM AND MAGNESIUM PROTOCOLS. SHE IS RECEIVING ENSURE 1 CAN TID AND 200ML FREE WATER QID THROUGH THE OG TUBE. WE WILL CONTINUE TO WEAN OXYGEN DOWN TODAY PATIENT TOLERATES. OTHERWISE, WE PLAN TO FOLLOW UP WITH AM LABS AND CHEST XRAY AND CONTINUE TO MONITOR. TIME SPENT ON CLINICAL ASSESSMENT, REVIEWING LABS AND IMAGING, DECISION MAKING, AND DOCUMENTATION GREATER THAN 75 MINUTES. - Past Medical Family Social History Past Med/Fam/Surg Hx: No changes since H&P Allergies: Allergies nalbuphine [From Nubain] Allergy (Verified 05/15/18 14:34) Penicillins Allergy (Verified 05/15/18 14:34) - Review of Systems ROS: No change since H&P - Vital Signs and I&O's Vital Signs: Temperature 98.8 F Pulse Rate [Apical] 80 Pulse Rate 123 Respiratory Rate 27 Blood Pressure [Left Arm] 158/90 Blood Pressure [Right Arm] 176/96 Blood Pressure 182/85 O2 Sat by Pulse Oximetry 90 Intake and Output: Intake & Output 06/29/21 06/30/21 07/01/21 07/02/21 11:59 11:59 11:59 11:59 Intake Total 3514 / 3514 2706 / 2706 3220 / 3220 1637 / 1637 Output Total 6575 / 6575 3900 / 3900 4225 / 4225 1820 / 1820 Balance -3061 / -3061 -1194 / -1194 -1005 / -1005 -183 / -183 - Physical Exam Oriented: Unable to test Eyes: Normal Ear: Normal Nose: Normal Throat: Normal Respiratory: Generalized, Diminished Cardiovascular: Normal, Irregular : Normal Auscultation: Bowel Sounds: Normal Palpation: Normal Tenderness: Normal Skin: Normal Musculoskeletal: Normal Psychiatric: Other (SEDATED ) Mood Description: Calm Affect: Normal (SEDATED) Speech Pattern: Artificially Ventilated - Laboratory and Diagnostics Result Diagrams: 07/01/21 04:55 07/01/21 04:55 Labs: 06/28/21 11:20 Blood Blood Culture - Preliminary 06/28/21 11:30 Blood Blood Culture - Preliminary 06/28/21 11:30 Sputum - Endotracheal Wash Sputum Culture - Final 06/28/21 11:30 Sputum - Endotracheal Wash - Final 06/28/21 11:20 Urine,Clean Catch Urine Culture - Final 06/08/21 20:42 Blood Blood Culture - Final 06/08/21 20:50 Blood Blood Culture - Final Laboratory WBC 25.2 X10^3/uL (3.6-10.0) H 07/01/21 04:55 RBC 3.36 X10^6/uL (3.5-5.4) L 07/01/21 04:55 Hgb 9.4 g/dL (12.0-16.0) L 07/01/21 04:55 Hct 28.6 % (36.0-47.0) L 07/01/21 04:55 MCV 85.2 fL (80.0-100.0) 07/01/21 04:55 MCH 28.1 pg (27.0-34.0) 07/01/21 04:55 MCHC 32.9 g/dL (33.0-35.0) L 07/01/21 04:55 RDW 18.3 % (11.6-16.5) H 07/01/21 04:55 Plt Count 53 X10^3/uL (150.0-450.0) L 07/01/21 04:55 Plt Count Comment Adequate (ADEQUATE) 07/01/21 04:55 MPV 10.4 fL (7.4-11.0) 07/01/21 04:55 Neut % (Auto) 96.7 % (42.0-75.0) H 07/01/21 04:55 Lymph % (Auto) 0.7 % (21.0-51.0) L 07/01/21 04:55 [place] % (Auto) 2.4 % (0.0-13.0) 07/01/21 04:55 Eos % (Auto) 0.0 % (0.9-2.9) L 07/01/21 04:55 Baso % (Auto) 0.2 % (0.2-1.0) 07/01/21 04:55 Neut # (Auto) 24.3 x10^3/uL (2.2-4.8) H 07/01/21 04:55 Lymph # (Auto) 0.2 X10^3/uL (1.3-2.9) L 07/01/21 04:55 [place] # (Auto) 0.6 x10^3/uL (0.3-0.8) 07/01/21 04:55 Eos # (Auto) 0.0 x10^3/uL (0.0-0.2) 07/01/21 04:55 Baso # (Auto) 0.1 X10^3/uL (0.0-0.1) 07/01/21 04:55 Absolute Nucleated RBC 0.1 /100WBC 07/01/21 04:55 Total Counted 100 07/01/21 04:55 Neutrophils % (Manual) 99 % (39-76) H 07/01/21 04:55 Band Neutrophils % 6 % (0-10) 06/30/21 05:22 Lymphocytes % (Manual) 1 % (13-43) L 07/01/21 04:55 Monocytes % (Manual) 1 % (4-9) L 06/30/21 05:22 Metamyelocytes % 9 06/22/21 04:50 Myelocytes % 2 06/30/21 05:22 Plt Morphology Comment Normal (NORMAL) 07/01/21 04:55 RBC Morphology Normal (NORMAL) 07/01/21 04:55 Hypochromasia Slight A 06/29/21 05:22 Anisocytosis Slight A 06/30/21 05:22 Microcytosis Slight A 06/19/21 04:46 Ovalocytes Slight A 06/13/21 06:15 [place] Cells Slight A 06/19/21 04:46 PT 15.4 SECONDS (11.8-14.3) 06/08/21 20:42 INR Target Range - 06/08/21 20:42 INR 1.28 (0.8-1.3) 06/08/21 20:42 D-Dimer 0.86 ug/ml (0.0-0.57) H* 07/01/21 04:55 Sample Site Rrad 07/01/21 05:27 ABG pH 7.550 (7.35-7.45) H 07/01/21 05:27 ABG pCO2 46.0 mmHg (35.0-45.0) H 07/01/21 05:27 ABG pO2 68.0 mmHg (80.0-100.0) L 07/01/21 05:27 ABG HCO3 40.2 mmol/L (22-26) H* 07/01/21 05:27 ABG O2 Saturation 96.0 % (90-100) 07/01/21 05:27 ABG Base Excess 15.9 mmol/L (-2.0-2.0) H 07/01/21 05:27 Herminio Test Pos 07/01/21 05:27 A-a Gradient 124.0 mmHg 07/01/21 05:27 FiO2 35.0 07/01/21 05:27 Blood Gas Comments Shyam well 07/01/21 05:27 Sodium 144 mmol/L (136-145) 07/01/21 04:55 Corrected Sodium 147 mmol/L (136-145) H 07/01/21 04:55 Potassium 3.7 mmol/L (3.5-5.1) 07/01/21 04:55 Chloride 103 mmol/L (98-107) 07/01/21 04:55 Carbon Dioxide 39.0 mmol/L (21-32) H 07/01/21 04:55 BUN 32 mg/dL (7-18) H 07/01/21 04:55 Creatinine 0.55 mg/dL (0.55-1.02) 07/01/21 04:55 Est GFR (MDRD) Af Amer > 60 (>60) 07/01/21 04:55 Est GFR (MDRD) Non-Af > 60 (>60) 07/01/21 04:55 Glucose 219 mg/dL (65-99) H 07/01/21 04:55 POC Glucose (mg/dL) 265 mg/dL (65-99) H 07/01/21 16:24 Calcium 9.0 mg/dL (8.5-10.1) 07/01/21 04:55 Corrected Calcium TNP 07/01/21 04:55 Phosphorus 3.2 mg/dL (2.6-4.7) 06/29/21 16:51 Magnesium 2.0 mg/dL (1.7-2.9) 06/29/21 16:51 Ferritin 163 ng/mL (8-252) 06/14/21 05:26 Total Bilirubin 1.10 mg/dL (0.2-1.0) H 07/01/21 04:55 AST 45 Units/L (15-37) H 07/01/21 04:55 ALT 143 Units/L (12-78) H 07/01/21 04:55 Alkaline Phosphatase 70 Units/L (46-116) 07/01/21 04:55 Troponin I < 0.02 ng/mL (0-1.5) 06/08/21 20:42 C-Reactive Protein < 0.50 mg/L (0-3.0) 06/27/21 05:15 B-Natriuretic Peptide 126 pg/mL (0-79) H 07/01/21 04:55 Total Protein 5.4 g/dL (6.4-8.2) L 07/01/21 04:55 Albumin 3.5 g/dL (3.4-5.0) 07/01/21 04:55 Globulin 1.9 g/dL (2.5-4.5) L 07/01/21 04:55 Albumin/Globulin Ratio 1.8 Ratio (1.1-2.1) 07/01/21 04:55 Prealbumin 49.8 mg/dL (18-35.7) H 06/30/21 05:22 Triglycerides 163 mg/dL (0-150) H 06/29/21 16:51 Specimen Type Catherized urine 06/09/21 03:30 Urine Color Yellow (YELLOW) 06/09/21 03:30 Urine Appearance Clear (CLEAR) 06/09/21 03:30 Urine pH 6.0 (5.0 - 8.0) 06/09/21 03:30 Ur Specific [place] 1.010 (1.000-1.030) 06/09/21 03:30 Urine Protein 2+ (NEGATIVE) 06/09/21 03:30 Urine Glucose (UA) Negative (NEGATIVE) 06/09/21 03:30 Urine Ketones Negative (NEGATIVE) 06/09/21 03:30 Urine Occult Blood 1+ (NEGATIVE) 06/09/21 03:30 Urine Nitrite Negative (NEGATIVE) 06/09/21 03:30 Urine Bilirubin Negative (NEGATIVE) 06/09/21 03:30 Urine Urobilinogen Normal (NORMAL) 06/09/21 03:30 Ur Leukocyte Esterase Negative (NEGATIVE) 06/09/21 03:30 Urine RBC 0-2 /HPF (0-3) 06/09/21 03:30 Urine WBC None seen /HPF (0-5) 06/09/21 03:30 Ur Squamous Epith Cells Negative /HPF (NEGATIVE) 06/09/21 03:30 Urine Bacteria Negative /HPF (NEGATIVE) 06/09/21 03:30 Ur Culture Indicated? No/not indicated 06/09/21 03:30 Resp Viral Panel (PCR) See scanned report 06/28/21 12:05 Blood Type O POSITIVE 06/25/21 10:11 Antibody Screen Negative 06/25/21 10:11 Crossmatch See Detail 06/25/21 10:11 - Plan (1) Pneumonia due to 2019-nCoV Status: Acute Plan: 1/2 NS AT 20 ML/HR, TPN AT 40 ML/HR, ALBUMIN 25% IV DAILY, FORTAZ 1G IV Q8H, VERSED FOR SEDATION, LEVAQUIN 500MG IV DAILY, MORPHINE SULFATE 2MG IV Q4H PRN, SOLU-MEDROL 125MG IV Q6H, A CATAPRES PATCH, VALIUM 5MG IV Q6H PRN, PROTONIX 40MG IV BID, THIAMINE 200MG IV BID, OTBS ACHS, HUMULIN R SLIDING SCALE, LOVENOX 80MG SC BID, DIFLUCAN 200MG IV DAILY, PULMICORT NEBS BID, ALBUTEROL NEBS QID, BROVANA INHALER BID, ASCORBIC ACID 1500MG IV Q6H, ZOFRAN 4MG IV Q4H PRN NAUSEA, AND THE POTASSIUM AND MAGNESIUM PROTOCOLS. (2) Acute respiratory insufficiency Status: Acute (3) Hypoxia Status: Acute (4) Anemia Status: Acute Qualifiers: Anemia type: iron deficiency Iron deficiency anemia type: unspecified iron deficiency Qualified Code(s): D50.9 - Iron deficiency anemia, unspecified (5) Acute dyspnea Status: Acute
[2021-07-01] MEDS ORDERED: MORPHINE SULFATE INJ 2 MG INJ ONE (22:58)
[2021-07-01] MEDS: MORPHINE SULFATE INJ 2 MG INJ IVP PRN (23:02)
[2021-07-01] MEDS: LEVAQUIN PREMIX IV 500 MG 500 MG/100 ML BAG IV SCH (23:10)
[2021-07-02] MEDS: HumuLIN R SUBCUT PRN ×3 (02:19→15:50)
[2021-07-02] MEDS: SOLU-Medrol 125 MG VIAL IVP SCH ×4 (02:20→20:37)
[2021-07-02] MEDS: XYLOCAINE OINT 5% 1 APPLIC, ZOVIRAX 1 APPLIC TOP SCH ×6 (05:00→20:28)
[2021-07-02] MEDS: FORTAZ or TAZICEF VIAL INJ 1 G in NS 50 ML IV + SPIKE MINIBAG* 50 ML IV SCH ×3 (05:00→20:30)
[2021-07-02 05:20] LABS: ABG BASE EXCESS 16.6 mmol/L (-2.0-2.0)
[2021-07-02 05:21] LABS: ABG ALLEN TEST POS; ABG HCO3 40.3 mmol/L (22-26)
[2021-07-02 05:30] LABS: BASOPHILS % (AUTO) 0.3 % (0.2-1.0); HEMATOCRIT 25.9 % (36.0-47.0); HEMOGLOBIN 8.5 g/dL (12.0-16.0); LYMPHOCYTES # (AUTO) 0.1 X10^3/uL (1.3-2.9); LYMPHOCYTES % (AUTO) 0.5 % (21.0-51.0); MEAN CORPUSCULAR HEMOGLOBIN 28.1 pg (27.0-34.0); MEAN CORPUSCULAR HGB CONC 32.9 g/dL (33.0-35.0); MEAN CORPUSCULAR VOLUME 85.3 fL (80.0-100.0); MONOCYTES # (AUTO) 0.3 x10^3/uL (0.3-0.8); MONOCYTES % (AUTO) 2.2 % (0.0-13.0); NEUTROPHILS # (AUTO) 14.9 x10^3/uL (2.2-4.8); PLATELET COUNT 36 X10^3/uL (150.0-450.0); RED BLOOD COUNT 3.03 X10^6/uL (3.5-5.4); RED CELL DISTRIBUTION WIDTH 18.4 % (11.6-16.5); WHITE BLOOD COUNT 15.4 X10^3/uL (3.6-10.0)
[2021-07-02 05:53] LABS: ALANINE AMINOTRANSFERASE 285 Units/L (12-78); ALBUMIN 3.4 g/dL (3.4-5.0); ALKALINE PHOSPHATASE 82 Units/L (46-116); ASPARTATE AMINO TRANSFERASE 73 Units/L (15-37); BLOOD UREA NITROGEN 34 mg/dL (7-18); CALCIUM 8.8 mg/dL (8.5-10.1); CARBON DIOXIDE 37.5 mmol/L (21-32); CHLORIDE 100 mmol/L (98-107); COR NA(FOR HYPERGLY) 146 mmol/L (136-145); CREATININE 0.52 mg/dL (0.55-1.02); SODIUM 143 mmol/L (136-145); TOTAL PROTEIN 5.3 g/dL (6.4-8.2); eGFR NON BLACK RACES > 60 (>60)
[2021-07-02] MEDS: ACCUNEB 1.25 MG NEBULE NEB SCH ×3 (06:30→20:47)
[2021-07-02 06:50] LABS: PLATELET MORPHOLOGY COMMENT NORMAL (NORMAL)
[2021-07-02] MEDS: NS 1/2 1000 ML IV 1,000 ML IV SCH ×2 (07:04→20:30)
[2021-07-02] MEDS ORDERED: DRUG FILTER EXTENSION SET ONE (07:31)
[2021-07-02] MEDS: [UNRECOGNIZED DRUG - OTHER] IV SCH ×10 (07:40→11:17)
[2021-07-02] MEDS: CLINIMIX IV SCH ×10 (07:40→11:17)
[2021-07-02] MEDS: MVI IV SCH ×10 (07:40→11:17)
--- NOTE | 2021-07-02 08:19 | RAD ---
HISTORYSOB, VENTILATOR DEPENDENCE HX: HTN PSH: TONSILS, GYNSTUDYCHEST, 1 [id number] tube at the level of the clavicles. There is a nasogastr ic tube below the diaphragm. Stable mild cardiomegaly. Since prior study, there is new pneumomediasti num with air along the superior mediastinum and the heart border. There is no evidence of pneumothora x, no subcutaneous emphysema. There are bilateral ground-glass radiopacities unchanged since priorIMP RESSIONNew pneumomediastinum. No pneumothorax. Persistent diffuse ground-glass radiopacities.Electron ically signed by: Hilaria Means (Jul 02, 2021 08:16:50)
[2021-07-02] MEDS: ALBUMIN HUMAN 25%- 100 ML 100 ML IV SCH (09:17)
[2021-07-02] MEDS: PROTONIX INJ 40 MG VIAL IVP SCH ×2 (09:19→20:38)
[2021-07-02] MEDS: LASIX IVP SCH ×2 (09:19→20:40)
[2021-07-02] MEDS: LACRI-LUBE S.O.P. AFFEYE SCH ×2 (09:19→20:30)
[2021-07-02] MEDS: POTASSIUM CHLORIDE LIQ 20 MEQ UDC PO PRN (09:20)
[2021-07-02] MEDS: COLACE SYRUP 100 MG UDC PO SCH ×2 (09:20→20:57)
[2021-07-02] MEDS: THIAMINE HCL INJ IVP SCH ×2 (09:20→20:45)
[2021-07-02] MEDS: NORVASC TAB 5 MG GT SCH (09:21)
[2021-07-02] MEDS: ELIQUIS NG SCH ×2 (09:21→20:57)
[2021-07-02] MEDS: PULMICORT NEB TX 0.5 MG NEB SCH ×2 (09:45→20:47)
[2021-07-02] MEDS: DIFLUCAN 200 MG IV PREMIX* 200 MG/100 ML BAG IV SCH (10:12)
[2021-07-02] MEDS: MORPHINE SULFATE INJ 2 MG INJ IVP PRN ×2 (10:43→20:57)
[2021-07-02] MEDS: CARDIZEM INJ 125 MG VIAL 125 MG in NS 100 ML IV 100 ML IV PRN ×2 (12:00→22:38)
[2021-07-02] MEDS: VERSED 100 MG in NS 100 ML IV 80 ML IV PRN ×2 (12:27→21:45)
--- NOTE | 2021-07-02 20:09 | PCM.PROG ---
Progress Note - Progress Note for Day of Date of Exam: 07/01/21 - Subjective Subjective: WAS ADMITTED ON 06/09 FOR TREATMENT OF PNEUMONIA DUE TO COVID-19, ACUTE RESPIRATORY FAILURE WITH HYPOXIA, AND A-FIB. SHE WAS PLACED ON THE MECHANICAL VENTILATOR ON 06/15/21 DUE TO INCREASED RESPIRATORY EFFORTS, DECREASED OXYGEN SATURATIONS, AND COMBATIVENESS. SHE HAS RECEIVED TWO UNITS OF PRBC SINCE ADMISSION. TODAY, HER VENT SETTINGS ARE: A/C, VENT RATE 25, TIDAL VOLUME SET 450, PEEP 6, FI02 35. SATURATIONS HAVE BEEN 91-95%. HEART RATE HAS BEEN 110-135 THIS MORNING. STAFF ALSO REPORTS THAT SHE HAS BEEN HYPERTENSIVE THROUGHOUT THE NIGHT AND THIS MORNING. ON EXAMINATION, OROGASTRIC TUBE NOTED FOR FEEDINGS/MEDS. HR IS 110-120 ON THE MONITOR. BILATERAL LUNGS NOTED WITH DIMINISHED LUNG SOUNDS THROUGHOUT. ABDOMEN IS ROUND, SOFT, AND NON-TENDER WITH NORMAL BOWEL SOUNDS NOTED IN ALL QUADRANTS. HER VITALS THIS MORNING ARE: 98.8-127-26-95%-186/86. LABS WERE OBTAINED. ABNORMAL LAB VALUES INCLUDE THE FOLLOWING: WBC 25.2, RBC 3.36, HGB 9.4, HCT 28.6, PLT COUNT 53, D-DIMER 0.86, CARBON DIOXIDE 39.0, BUN 32, GLUCOSE 219, TOTAL BILI 1.10, AST 45, ALT 143, ALBUMIN 1.9. BLOOD AND SPUTUM CULTURES ARE PENDING. ABG REVEALED: PH 7.550, PC02 46, P02 68, HC03 40.2, 02 SAT 96, BASE EXCESS 15.9, A-A GRADIENT 124, FI02 35. CHEST XRAY REVEALED: No change diffuse bilateral interstitial and ground-glass infiltrates when compared to the prior examination. SHE IS CURRENTLY RECEIVING TPN AT 40 ML/HR, 25% IV DAILY, 1/2 NS AT 20 ML/HR, VERSED FOR SEDATION, LEVAQUIN 500MG IV DAILY, FORTAZ 1G IV Q8H, MORPHINE SULFATE 2MG IV Q4H PRN, SOLU-MEDROL 125MG IV Q6H, VALIUM 5MG IV Q6H PRN, PROTONIX 40MG IV BID, THIAMINE 200MG IV BID, OTBS ACHS, HUMULIN R SLIDING SCALE, LOVENOX 40MG SC BID, LASIX 40MG IV Q12H, DIFLUCAN 200MG IV DAILY, CATAPRES 0.1MG TD PATCH, PULMICORT NEBS BID, ALBUTEROL NEBS QID, BROVANA INHALER BID, ASCORBIC ACID 1500MG IV Q6H, ZOFRAN 4MG IV Q4H PRN NAUSEA, AND THE POTASSIUM AND MAGNESIUM PROTOCOLS. SHE IS RECEIVING ENSURE 1 CAN TID AND 200ML FREE WATER QID THROUGH THE OG TUBE. TODAY, WE WILL INCREASE PATCH TO 0.2MG. WE WILL RESUME HER NORVASC VIA OROGASTRIC TUBE. WE WILL CONTINUE TO WEAN OXYGEN DOWN TODAY PATIENT TOLERATES. OTHERWISE, WE PLAN TO FOLLOW UP WITH AM LABS AND CHEST XRAY AND CONTINUE TO MONITOR. TIME SPENT ON CLINICAL ASSESSMENT, REVIEWING LABS AND IMAGING, DECISION MAKING, AND DOCUMENTATION GREATER THAN 75 MINUTES. - Past Medical Family Social History Past Med/Fam/Surg Hx: No changes since H&P Allergies: Allergies nalbuphine [From Nubain] Allergy (Verified 05/15/18 14:34) Penicillins Allergy (Verified 05/15/18 14:34) - Review of Systems ROS: No change since H&P - Vital Signs and I&O's Vital Signs: Temperature 98.0 F Pulse Rate [Apical] 80 Pulse Rate 92 Respiratory Rate 26 Blood Pressure [Left Arm] 158/90 Blood Pressure [Right Arm] 176/96 Blood Pressure 168/73 O2 Sat by Pulse Oximetry 91 Intake and Output: Intake & Output 06/30/21 07/01/21 07/02/21 07/03/21 11:59 11:59 11:59 11:59 Intake Total 2706 / 2706 3220 / 3220 3775 / 3775 1756 / 1756 Output Total 3900 / 3900 4225 / 4225 4082 / 4082 1575 / 1575 Balance -1194 / -1194 -1005 / -1005 -307 / -307 181 / 181 - Physical Exam Oriented: Unable to test Eyes: Normal Ear: Normal Nose: Normal Throat: Normal Respiratory: Generalized, Diminished Cardiovascular: Normal, Irregular : Normal Auscultation: Bowel Sounds: Normal Tenderness: Normal Skin: Normal Musculoskeletal: Normal Psychiatric: Other (SEDATED ) Mood Description: Calm Affect: Normal (SEDATED) Speech Pattern: Artificially Ventilated - Laboratory and Diagnostics Result Diagrams: 07/02/21 04:41 07/02/21 04:41 Labs: 06/28/21 11:20 Blood Blood Culture - Preliminary 06/28/21 11:30 Blood Blood Culture - Preliminary 06/28/21 11:30 Sputum - Endotracheal Wash Sputum Culture - Final 06/28/21 11:30 Sputum - Endotracheal Wash - Final 06/28/21 11:20 Urine,Clean Catch Urine Culture - Final 06/08/21 20:42 Blood Blood Culture - Final 06/08/21 20:50 Blood Blood Culture - Final Laboratory WBC 15.4 X10^3/uL (3.6-10.0) H D 07/02/21 04:41 RBC 3.03 X10^6/uL (3.5-5.4) L 07/02/21 04:41 Hgb 8.5 g/dL (12.0-16.0) L 07/02/21 04:41 Hct 25.9 % (36.0-47.0) L 07/02/21 04:41 MCV 85.3 fL (80.0-100.0) 07/02/21 04:41 MCH 28.1 pg (27.0-34.0) 07/02/21 04:41 MCHC 32.9 g/dL (33.0-35.0) L 07/02/21 04:41 RDW 18.4 % (11.6-16.5) H 07/02/21 04:41 Plt Count 36 X10^3/uL (150.0-450.0) L 07/02/21 04:41 Plt Count Comment Decreased (ADEQUATE) A 07/02/21 04:41 MPV 10.0 fL (7.4-11.0) 07/02/21 04:41 Neut % (Auto) 97.0 % (42.0-75.0) H 07/02/21 04:41 Lymph % (Auto) 0.5 % (21.0-51.0) L 07/02/21 04:41 [place] % (Auto) 2.2 % (0.0-13.0) 07/02/21 04:41 Eos % (Auto) 0.0 % (0.9-2.9) L 07/02/21 04:41 Baso % (Auto) 0.3 % (0.2-1.0) 07/02/21 04:41 Neut # (Auto) 14.9 x10^3/uL (2.2-4.8) H 07/02/21 04:41 Lymph # (Auto) 0.1 X10^3/uL (1.3-2.9) L 07/02/21 04:41 [place] # (Auto) 0.3 x10^3/uL (0.3-0.8) 07/02/21 04:41 Eos # (Auto) 0.0 x10^3/uL (0.0-0.2) 07/02/21 04:41 Baso # (Auto) 0.0 X10^3/uL (0.0-0.1) 07/02/21 04:41 Absolute Nucleated RBC 0.0 /100WBC 07/02/21 04:41 Total Counted 100 07/02/21 04:41 Neutrophils % (Manual) 98 % (39-76) H 07/02/21 04:41 Band Neutrophils % 6 % (0-10) 06/30/21 05:22 Lymphocytes % (Manual) 2 % (13-43) L 07/02/21 04:41 Monocytes % (Manual) 1 % (4-9) L 06/30/21 05:22 Metamyelocytes % 9 06/22/21 04:50 Myelocytes % 2 06/30/21 05:22 Plt Morphology Comment Normal (NORMAL) 07/02/21 04:41 RBC Morphology Normal (NORMAL) 07/02/21 04:41 Hypochromasia Slight A 06/29/21 05:22 Anisocytosis Slight A 06/30/21 05:22 Microcytosis Slight A 06/19/21 04:46 Ovalocytes Slight A 06/13/21 06:15 [place] Cells Slight A 06/19/21 04:46 PT 15.4 SECONDS (11.8-14.3) 06/08/21 20:42 INR Target Range - 06/08/21 20:42 INR 1.28 (0.8-1.3) 06/08/21 20:42 D-Dimer 0.72 ug/ml (0.0-0.57) H* 07/02/21 04:41 Sample Site Rr 07/02/21 05:15 ABG pH 7.580 (7.35-7.45) H* 07/02/21 05:15 ABG pCO2 43.0 mmHg (35.0-45.0) 07/02/21 05:15 ABG pO2 51.0 mmHg (80.0-100.0) L 07/02/21 05:15 ABG HCO3 40.3 mmol/L (22-26) H* 07/02/21 05:15 ABG O2 Saturation 91.0 % (90-100) 07/02/21 05:15 ABG Base Excess 16.6 mmol/L (-2.0-2.0) H 07/02/21 05:15 Herminio Test Pos 07/02/21 05:15 A-a Gradient 123.0 mmHg 07/02/21 05:15 FiO2 32.0 07/02/21 05:15 Blood Gas Comments Shyam well ae 07/02/21 05:15 Sodium 143 mmol/L (136-145) 07/02/21 04:41 Corrected Sodium 146 mmol/L (136-145) H 07/02/21 04:41 Potassium 3.4 mmol/L (3.5-5.1) L 07/02/21 04:41 Chloride 100 mmol/L (98-107) 07/02/21 04:41 Carbon Dioxide 37.5 mmol/L (21-32) H 07/02/21 04:41 BUN 34 mg/dL (7-18) H 07/02/21 04:41 Creatinine 0.52 mg/dL (0.55-1.02) L 07/02/21 04:41 Est GFR (MDRD) Af Amer > 60 (>60) 07/02/21 04:41 Est GFR (MDRD) Non-Af > 60 (>60) 07/02/21 04:41 Glucose 216 mg/dL (65-99) H 07/02/21 04:41 POC Glucose (mg/dL) 243 mg/dL (65-99) H 07/02/21 15:46 Calcium 8.8 mg/dL (8.5-10.1) 07/02/21 04:41 Corrected Calcium TNP 07/02/21 04:41 Phosphorus 3.2 mg/dL (2.6-4.7) 06/29/21 16:51 Magnesium 2.0 mg/dL (1.7-2.9) 06/29/21 16:51 Ferritin 163 ng/mL (8-252) 06/14/21 05:26 Total Bilirubin 1.20 mg/dL (0.2-1.0) H 07/02/21 04:41 AST 73 Units/L (15-37) H 07/02/21 04:41 ALT 285 Units/L (12-78) H 07/02/21 04:41 Alkaline Phosphatase 82 Units/L (46-116) 07/02/21 04:41 Troponin I < 0.02 ng/mL (0-1.5) 06/08/21 20:42 C-Reactive Protein < 0.50 mg/L (0-3.0) 06/27/21 05:15 B-Natriuretic Peptide 112 pg/mL (0-79) H 07/02/21 04:41 Total Protein 5.3 g/dL (6.4-8.2) L 07/02/21 04:41 Albumin 3.4 g/dL (3.4-5.0) 07/02/21 04:41 Globulin 1.9 g/dL (2.5-4.5) L 07/02/21 04:41 Albumin/Globulin Ratio 1.8 Ratio (1.1-2.1) 07/02/21 04:41 Prealbumin 49.8 mg/dL (18-35.7) H 06/30/21 05:22 Triglycerides 163 mg/dL (0-150) H 06/29/21 16:51 Specimen Type Catherized urine 06/09/21 03:30 Urine Color Yellow (YELLOW) 06/09/21 03:30 Urine Appearance Clear (CLEAR) 06/09/21 03:30 Urine pH 6.0 (5.0 - 8.0) 06/09/21 03:30 Ur Specific [place] 1.010 (1.000-1.030) 06/09/21 03:30 Urine Protein 2+ (NEGATIVE) 06/09/21 03:30 Urine Glucose (UA) Negative (NEGATIVE) 06/09/21 03:30 Urine Ketones Negative (NEGATIVE) 06/09/21 03:30 Urine Occult Blood 1+ (NEGATIVE) 06/09/21 03:30 Urine Nitrite Negative (NEGATIVE) 06/09/21 03:30 Urine Bilirubin Negative (NEGATIVE) 06/09/21 03:30 Urine Urobilinogen Normal (NORMAL) 06/09/21 03:30 Ur Leukocyte Esterase Negative (NEGATIVE) 06/09/21 03:30 Urine RBC 0-2 /HPF (0-3) 06/09/21 03:30 Urine WBC None seen /HPF (0-5) 06/09/21 03:30 Ur Squamous Epith Cells Negative /HPF (NEGATIVE) 06/09/21 03:30 Urine Bacteria Negative /HPF (NEGATIVE) 06/09/21 03:30 Ur Culture Indicated? No/not indicated 06/09/21 03:30 Resp Viral Panel (PCR) See scanned report 06/28/21 12:05 Blood Type O POSITIVE 06/25/21 10:11 Antibody Screen Negative 06/25/21 10:11 Crossmatch See Detail 06/25/21 10:11 - Plan (1) Pneumonia due to 2019-nCoV Status: Acute Plan: 1/2 NS AT 20 ML/HR, TPN AT 40 ML/HR, ALBUMIN 25% IV DAILY, FORTAZ 1G IV Q8H, VERSED FOR SEDATION, LEVAQUIN 500MG IV DAILY, MORPHINE SULFATE 2MG IV Q4H PRN, SOLU-MEDROL 125MG IV Q6H, A CATAPRES PATCH, NORVASC VIA OROGASTRIC TUBE, VALIUM 5MG IV Q6H PRN, PROTONIX 40MG IV BID, THIAMINE 200MG IV BID, OTBS ACHS, HUMULIN R SLIDING SCALE, LOVENOX 80MG SC BID, DIFLUCAN 200MG IV DAILY, PULMICORT NEBS BID, ALBUTEROL NEBS QID, BROVANA INHALER BID, ASCORBIC ACID 1500MG IV Q6H, ZOFRAN 4MG IV Q4H PRN NAUSEA, AND THE POTASSIUM AND MAGNESIUM PROTOCOLS. (2) Acute respiratory insufficiency Status: Acute (3) Hypoxia Status: Acute (4) Anemia Status: Acute Qualifiers: Anemia type: iron deficiency Iron deficiency anemia type: unspecified iron deficiency Qualified Code(s): D50.9 - Iron deficiency anemia, unspecified (5) Acute dyspnea Status: Acute
[2021-07-02] MEDS ORDERED: NS 1/2 1000 ML IV 1,000 ML IV ONE (20:10)
--- NOTE | 2021-07-02 20:32 | PCM.PROG ---
Progress Note - Progress Note for Day of Date of Exam: 07/02/21 - Subjective Subjective: WAS ADMITTED ON 06/09 FOR TREATMENT OF PNEUMONIA DUE TO COVID-19, ACUTE RESPIRATORY FAILURE WITH HYPOXIA, AND A-FIB. SHE WAS PLACED ON THE MECHANICAL VENTILATOR ON 06/15/21 DUE TO INCREASED RESPIRATORY EFFORTS, DECREASED OXYGEN SATURATIONS, AND COMBATIVENESS. SHE HAS RECEIVED TWO UNITS OF PRBC SINCE ADMISSION. TODAY, HER VENT SETTINGS ARE: A/C, VENT RATE 25, TIDAL VOLUME SET 450, PEEP 6, FI02 32. SATURATIONS HAVE BEEN 89-92%. DURING THE NIGHT, PATIENT HAD ELEVATED HEART RATE. HR REACHED 200. HER VERSED HAD BEEN DECREASED. WE GAVE ORDERS TO INCREASE VERSED AND TO GIVE MORPHINE 2MG IV Q2H PRN. ON EXAMINATION TODAY, OROGASTRIC TUBE NOTED FOR FEEDINGS/MEDS. HR IS 80s ON THE MONITOR. BILATERAL LUNGS NOTED WITH DIMINISHED LUNG SOUNDS THROUGHOUT. ABDOMEN IS ROUND, SOFT, AND NON-TENDER WITH NORMAL BOWEL SOUNDS NOTED IN ALL QUADRANTS. HER VITALS THIS MORNING ARE: 97.9-83-25-91%-158/75. LABS WERE OBTAINED. ABNORMAL LAB VALUES INCLUDE THE FOLLOWING: WBC 15.4, RBC 3.03, HGB 8.5, HCT 25.9, PLT COUNT 36, D-DIMER 0.72, CARBON DIOXIDE 39.0, BUN 32, GLUCOSE 219, TOTAL BILI 1.10, ALT 143, BNP 126, TOTAL PROTEIN 5.4, GLOBULIN 1.9. BLOOD AND SPUTUM CULTURES ARE PENDING. ABG REVEALED: PH 7.580, PC02 43, P02 51, HC03 40.3, 02 SAT 91, BASE EXCESS 16.6, A-A GRADIENT 123, FI02 32. SHE IS CURRENTLY RECEIVING TPN AT 40 ML/HR, 25% IV DAILY, 1/2 NS AT 20 ML/HR, VERSED FOR SEDATION, LEVAQUIN 5 00MG IV DAILY, FORTAZ 1G IV Q8H, MORPHINE SULFATE 2MG IV Q4H PRN, SOLU-MEDROL 125MG IV Q6H, VALIUM 5MG IV Q6H PRN, PROTONIX 40MG IV BID, THIAMINE 200MG IV BID, OTBS ACHS, HUMULIN R SLIDING SCALE, ELIQUID 5MG PO BID, LASIX 40MG IV Q12H, DIFLUCAN 200MG IV DAILY, CATAPRES 0.2MG TD PATCH, NORVASC 5MG GT DAILY, PULMICORT NEBS BID, ALBUTEROL NEBS QID, ASCORBIC ACID 1500MG IV Q6H, ZOFRAN 4MG IV Q4H PRN NAUSEA, AND THE POTASSIUM AND MAGNESIUM PROTOCOLS. SHE IS RECEIVING ENSURE 1 CAN TID AND 200ML FREE WATER QID THROUGH THE OG TUBE. WE WILL CONTINUE TO WEAN OXYGEN DOWN TODAY PATIENT TOLERATES. OTHERWISE, WE PLAN TO FOLLOW UP WITH AM LABS AND CHEST XRAY AND CONTINUE TO MONITOR. TIME SPENT ON CLINICAL ASSESSMENT, REVIEWING LABS AND IMAGING, DECISION MAKING, AND DOCUMENTATION GREATER THAN 75 MINUTES. - Past Medical Family Social History Past Med/Fam/Surg Hx: No changes since H&P Allergies: Allergies nalbuphine [From Nubain] Allergy (Verified 05/15/18 14:34) Penicillins Allergy (Verified 05/15/18 14:34) - Review of Systems ROS: No change since H&P - Vital Signs and I&O's Vital Signs: Temperature 98.0 F Pulse Rate [Apical] 80 Pulse Rate 92 Respiratory Rate 26 Blood Pressure [Left Arm] 158/90 Blood Pressure [Right Arm] 176/96 Blood Pressure 168/73 O2 Sat by Pulse Oximetry 91 Intake and Output: Intake & Output 06/30/21 07/01/21 07/02/21 07/03/21 11:59 11:59 11:59 11:59 Intake Total 2706 / 2706 3220 / 3220 3775 / 3775 1756 / 1756 Output Total 3900 / 3900 4225 / 4225 4082 / 4082 1575 / 1575 Balance -1194 / -1194 -1005 / -1005 -307 / -307 181 / 181 - Physical Exam Oriented: Unable to test Eyes: Normal Ear: Normal Nose: Normal Throat: Normal Respiratory: Generalized, Diminished Cardiovascular: Normal, Irregular : Normal Auscultation: Bowel Sounds: Normal Tenderness: Normal Skin: Normal Musculoskeletal: Normal Psychiatric: Other (SEDATED ) Mood Description: Calm Affect: Normal (SEDATED) Speech Pattern: Artificially Ventilated - Laboratory and Diagnostics Result Diagrams: 07/02/21 04:41 07/02/21 04:41 Labs: 06/28/21 11:20 Blood Blood Culture - Preliminary 06/28/21 11:30 Blood Blood Culture - Preliminary 06/28/21 11:30 Sputum - Endotracheal Wash Sputum Culture - Final 06/28/21 11:30 Sputum - Endotracheal Wash - Final 06/28/21 11:20 Urine,Clean Catch Urine Culture - Final 06/08/21 20:42 Blood Blood Culture - Final 06/08/21 20:50 Blood Blood Culture - Final Laboratory WBC 15.4 X10^3/uL (3.6-10.0) H D 07/02/21 04:41 RBC 3.03 X10^6/uL (3.5-5.4) L 07/02/21 04:41 Hgb 8.5 g/dL (12.0-16.0) L 07/02/21 04:41 Hct 25.9 % (36.0-47.0) L 07/02/21 04:41 MCV 85.3 fL (80.0-100.0) 07/02/21 04:41 MCH 28.1 pg (27.0-34.0) 07/02/21 04:41 MCHC 32.9 g/dL (33.0-35.0) L 07/02/21 04:41 RDW 18.4 % (11.6-16.5) H 07/02/21 04:41 Plt Count 36 X10^3/uL (150.0-450.0) L 07/02/21 04:41 Plt Count Comment Decreased (ADEQUATE) A 07/02/21 04:41 MPV 10.0 fL (7.4-11.0) 07/02/21 04:41 Neut % (Auto) 97.0 % (42.0-75.0) H 07/02/21 04:41 Lymph % (Auto) 0.5 % (21.0-51.0) L 07/02/21 04:41 [place] % (Auto) 2.2 % (0.0-13.0) 07/02/21 04:41 Eos % (Auto) 0.0 % (0.9-2.9) L 07/02/21 04:41 Baso % (Auto) 0.3 % (0.2-1.0) 07/02/21 04:41 Neut # (Auto) 14.9 x10^3/uL (2.2-4.8) H 07/02/21 04:41 Lymph # (Auto) 0.1 X10^3/uL (1.3-2.9) L 07/02/21 04:41 [place] # (Auto) 0.3 x10^3/uL (0.3-0.8) 07/02/21 04:41 Eos # (Auto) 0.0 x10^3/uL (0.0-0.2) 07/02/21 04:41 Baso # (Auto) 0.0 X10^3/uL (0.0-0.1) 07/02/21 04:41 Absolute Nucleated RBC 0.0 /100WBC 07/02/21 04:41 Total Counted 100 07/02/21 04:41 Neutrophils % (Manual) 98 % (39-76) H 07/02/21 04:41 Band Neutrophils % 6 % (0-10) 06/30/21 05:22 Lymphocytes % (Manual) 2 % (13-43) L 07/02/21 04:41 Monocytes % (Manual) 1 % (4-9) L 06/30/21 05:22 Metamyelocytes % 9 06/22/21 04:50 Myelocytes % 2 06/30/21 05:22 Plt Morphology Comment Normal (NORMAL) 07/02/21 04:41 RBC Morphology Normal (NORMAL) 07/02/21 04:41 Hypochromasia Slight A 06/29/21 05:22 Anisocytosis Slight A 06/30/21 05:22 Microcytosis Slight A 06/19/21 04:46 Ovalocytes Slight A 06/13/21 06:15 [place] Cells Slight A 06/19/21 04:46 PT 15.4 SECONDS (11.8-14.3) 06/08/21 20:42 INR Target Range - 06/08/21 20:42 INR 1.28 (0.8-1.3) 06/08/21 20:42 D-Dimer 0.72 ug/ml (0.0-0.57) H* 07/02/21 04:41 Sample Site Rr 07/02/21 05:15 ABG pH 7.580 (7.35-7.45) H* 07/02/21 05:15 ABG pCO2 43.0 mmHg (35.0-45.0) 07/02/21 05:15 ABG pO2 51.0 mmHg (80.0-100.0) L 07/02/21 05:15 ABG HCO3 40.3 mmol/L (22-26) H* 07/02/21 05:15 ABG O2 Saturation 91.0 % (90-100) 07/02/21 05:15 ABG Base Excess 16.6 mmol/L (-2.0-2.0) H 07/02/21 05:15 Herminio Test Pos 07/02/21 05:15 A-a Gradient 123.0 mmHg 07/02/21 05:15 FiO2 32.0 07/02/21 05:15 Blood Gas Comments Shyam well ae 07/02/21 05:15 Sodium 143 mmol/L (136-145) 07/02/21 04:41 Corrected Sodium 146 mmol/L (136-145) H 07/02/21 04:41 Potassium 3.4 mmol/L (3.5-5.1) L 07/02/21 04:41 Chloride 100 mmol/L (98-107) 07/02/21 04:41 Carbon Dioxide 37.5 mmol/L (21-32) H 07/02/21 04:41 BUN 34 mg/dL (7-18) H 07/02/21 04:41 Creatinine 0.52 mg/dL (0.55-1.02) L 07/02/21 04:41 Est GFR (MDRD) Af Amer > 60 (>60) 07/02/21 04:41 Est GFR (MDRD) Non-Af > 60 (>60) 07/02/21 04:41 Glucose 216 mg/dL (65-99) H 07/02/21 04:41 POC Glucose (mg/dL) 243 mg/dL (65-99) H 07/02/21 15:46 Calcium 8.8 mg/dL (8.5-10.1) 07/02/21 04:41 Corrected Calcium TNP 07/02/21 04:41 Phosphorus 3.2 mg/dL (2.6-4.7) 06/29/21 16:51 Magnesium 2.0 mg/dL (1.7-2.9) 06/29/21 16:51 Ferritin 163 ng/mL (8-252) 06/14/21 05:26 Total Bilirubin 1.20 mg/dL (0.2-1.0) H 07/02/21 04:41 AST 73 Units/L (15-37) H 07/02/21 04:41 ALT 285 Units/L (12-78) H 07/02/21 04:41 Alkaline Phosphatase 82 Units/L (46-116) 07/02/21 04:41 Troponin I < 0.02 ng/mL (0-1.5) 06/08/21 20:42 C-Reactive Protein < 0.50 mg/L (0-3.0) 06/27/21 05:15 B-Natriuretic Peptide 112 pg/mL (0-79) H 07/02/21 04:41 Total Protein 5.3 g/dL (6.4-8.2) L 07/02/21 04:41 Albumin 3.4 g/dL (3.4-5.0) 07/02/21 04:41 Globulin 1.9 g/dL (2.5-4.5) L 07/02/21 04:41 Albumin/Globulin Ratio 1.8 Ratio (1.1-2.1) 07/02/21 04:41 Prealbumin 49.8 mg/dL (18-35.7) H 06/30/21 05:22 Triglycerides 163 mg/dL (0-150) H 06/29/21 16:51 Specimen Type Catherized urine 06/09/21 03:30 Urine Color Yellow (YELLOW) 06/09/21 03:30 Urine Appearance Clear (CLEAR) 06/09/21 03:30 Urine pH 6.0 (5.0 - 8.0) 06/09/21 03:30 Ur Specific [place] 1.010 (1.000-1.030) 06/09/21 03:30 Urine Protein 2+ (NEGATIVE) 06/09/21 03:30 Urine Glucose (UA) Negative (NEGATIVE) 06/09/21 03:30 Urine Ketones Negative (NEGATIVE) 06/09/21 03:30 Urine Occult Blood 1+ (NEGATIVE) 06/09/21 03:30 Urine Nitrite Negative (NEGATIVE) 06/09/21 03:30 Urine Bilirubin Negative (NEGATIVE) 06/09/21 03:30 Urine Urobilinogen Normal (NORMAL) 06/09/21 03:30 Ur Leukocyte Esterase Negative (NEGATIVE) 06/09/21 03:30 Urine RBC 0-2 /HPF (0-3) 06/09/21 03:30 Urine WBC None seen /HPF (0-5) 06/09/21 03:30 Ur Squamous Epith Cells Negative /HPF (NEGATIVE) 06/09/21 03:30 Urine Bacteria Negative /HPF (NEGATIVE) 06/09/21 03:30 Ur Culture Indicated? No/not indicated 06/09/21 03:30 Resp Viral Panel (PCR) See scanned report 06/28/21 12:05 Blood Type O POSITIVE 06/25/21 10:11 Antibody Screen Negative 06/25/21 10:11 Crossmatch See Detail 06/25/21 10:11 - Plan (1) Pneumonia due to 2019-nCoV Status: Acute Plan: 1/2 NS AT 20 ML/HR, TPN AT 40 ML/HR, ALBUMIN 25% IV DAILY, FORTAZ 1G IV Q8H, VERSED FOR SEDATION, LEVAQUIN 500MG IV DAILY, MORPHINE SULFATE 2MG IV Q4H PRN, SOLU-MEDROL 125MG IV Q6H, A CATAPRES PATCH, NORVASC VIA OROGASTRIC TUBE, VALIUM 5MG IV Q6H PRN, PROTONIX 40MG IV BID, THIAMINE 200MG IV BID, OTBS ACHS, HUMULIN R SLIDING SCALE, ELIQUIS 5MG PO BID, DIFLUCAN 200MG IV DAILY, PULMICORT NEBS BID, ALBUTEROL NEBS QID, , ASCORBIC ACID 1500MG IV Q6H, ZOFRAN 4MG IV Q4H PRN NAUSEA, AND THE POTASSIUM AND MAGNESIUM PROTOCOLS. (2) Acute respiratory insufficiency Status: Acute (3) Hypoxia Status: Acute (4) Anemia Status: Acute Qualifiers: Anemia type: iron deficiency Iron deficiency anemia type: unspecified iron deficiency Qualified Code(s): D50.9 - Iron deficiency anemia, unspecified (5) Acute dyspnea Status: Acute
[2021-07-02] MEDS: LEVAQUIN PREMIX IV 500 MG 500 MG/100 ML BAG IV SCH (22:05)
[2021-07-03] MEDS: MORPHINE SULFATE INJ 2 MG INJ IVP PRN ×2 (01:45→21:45)
[2021-07-03] MEDS: HumuLIN R SUBCUT PRN ×2 (01:45→17:31)
[2021-07-03] MEDS: SOLU-Medrol 125 MG VIAL IVP SCH ×4 (02:00→21:50)
[2021-07-03 04:20] LABS: ABG BASE EXCESS 13.8 mmol/L (-2.0-2.0)
[2021-07-03 04:21] LABS: ABG ALLEN TEST POS; ABG HCO3 39.5 mmol/L (22-26)
[2021-07-03] MEDS: XYLOCAINE OINT 5% 1 APPLIC, ZOVIRAX 1 APPLIC TOP SCH ×6 (05:30→21:37)
[2021-07-03] MEDS: FORTAZ or TAZICEF VIAL INJ 1 G in NS 50 ML IV + SPIKE MINIBAG* 50 ML IV SCH ×3 (05:30→21:37)
[2021-07-03] MEDS: ACCUNEB 1.25 MG NEBULE NEB SCH ×2 (05:49→20:10)
[2021-07-03 06:26] LABS: BASOPHILS # (AUTO) 0.1 X10^3/uL (0.0-0.1); BASOPHILS % (AUTO) 0.4 % (0.2-1.0); HEMATOCRIT 25.2 % (36.0-47.0); HEMOGLOBIN 8.4 g/dL (12.0-16.0); LYMPHOCYTES # (AUTO) 0.1 X10^3/uL (1.3-2.9); LYMPHOCYTES % (AUTO) 0.5 % (21.0-51.0); MEAN CORPUSCULAR HEMOGLOBIN 28.3 pg (27.0-34.0); MEAN CORPUSCULAR HGB CONC 33.4 g/dL (33.0-35.0); MEAN CORPUSCULAR VOLUME 84.7 fL (80.0-100.0); MEAN PLATELET VOLUME 10.9 fL (7.4-11.0); MONOCYTES # (AUTO) 0.3 x10^3/uL (0.3-0.8); MONOCYTES % (AUTO) 2.2 % (0.0-13.0); NEUTROPHILS # (AUTO) 14.4 x10^3/uL (2.2-4.8); NEUTROPHILS % (AUTO) 96.9 % (42.0-75.0); PLATELET COUNT 40 X10^3/uL (150.0-450.0); RED BLOOD COUNT 2.98 X10^6/uL (3.5-5.4); RED CELL DISTRIBUTION WIDTH 18.5 % (11.6-16.5); WHITE BLOOD COUNT 14.8 X10^3/uL (3.6-10.0)
[2021-07-03 07:22] LABS: ALANINE AMINOTRANSFERASE 274 Units/L (12-78); ALBUMIN 3.5 g/dL (3.4-5.0); ALKALINE PHOSPHATASE 87 Units/L (46-116); ASPARTATE AMINO TRANSFERASE 55 Units/L (15-37); BLOOD UREA NITROGEN 34 mg/dL (7-18); CALCIUM 9.1 mg/dL (8.5-10.1); CARBON DIOXIDE 38.5 mmol/L (21-32); CHLORIDE 102 mmol/L (98-107); COR NA(FOR HYPERGLY) 149 mmol/L (136-145); CREATININE 0.57 mg/dL (0.55-1.02); SODIUM 145 mmol/L (136-145); TOTAL PROTEIN 5.4 g/dL (6.4-8.2); eGFR NON BLACK RACES > 60 (>60)
--- NOTE | 2021-07-03 08:20 | RAD ---
HISTORYSOB, VENTILATOR DEPENDENCE HX: HTN PSH: TONSILS, GYNSTUDYCHEST, 1 [id number] tube at the level of the clavicles, there is a nasogastr ic tube below the diaphragm. Stable heart size. There is again seen pneumomediastinum in the superior mediastinum. There has been some improvement of pneumomediastinum along the left heart border. There is no evidence of pneumothorax or subcutaneous emphysema. There are again seen patchy alveolar and g round-glass radiopacities more confluences in the left apex since prior and mild improvement in the right base and unchanged in the left lower lobe.IMPRESSIONPersistent pneumomediastinum. No evidence o f a pneumothorax. Mild improvement right lung with worsening left upper lobe.Electronically signed by : Hilaria Means (Jul 03, 2021 08:17:58)
[2021-07-03 08:37] LABS: BAND NEUTROPHILS % 2 % (0-10); PLATELET MORPHOLOGY COMMENT NORMAL (NORMAL)
[2021-07-03] MEDS: PULMICORT NEB TX 0.5 MG NEB SCH ×2 (08:46→20:10)
[2021-07-03] MEDS: DIFLUCAN 200 MG IV PREMIX* 200 MG/100 ML BAG IV SCH (09:09)
[2021-07-03] MEDS: PROTONIX INJ 40 MG VIAL IVP SCH ×2 (09:09→21:46)
[2021-07-03] MEDS: LASIX IVP SCH ×2 (09:10→21:48)
[2021-07-03] MEDS: ALBUMIN HUMAN 25%- 100 ML 100 ML IV SCH (09:49)
[2021-07-03] MEDS: COLACE SYRUP 100 MG UDC PO SCH ×2 (09:49→22:25)
[2021-07-03] MEDS: ELIQUIS NG SCH ×2 (09:49→22:25)
[2021-07-03] MEDS: LACRI-LUBE S.O.P. AFFEYE SCH ×2 (09:50→22:27)
[2021-07-03] MEDS: NORVASC TAB 5 MG GT SCH (09:50)
[2021-07-03] MEDS: THIAMINE HCL INJ IVP SCH ×2 (09:53→21:58)
[2021-07-03] MEDS: [UNRECOGNIZED DRUG - OTHER] IV SCH ×5 (09:54)
[2021-07-03] MEDS: MVI IV SCH ×5 (09:54)
[2021-07-03] MEDS: CLINIMIX IV SCH ×5 (09:54)
[2021-07-03] MEDS: CARDIZEM INJ 125 MG VIAL 125 MG in NS 100 ML IV 100 ML IV PRN (11:15)
[2021-07-03] MEDS: NS 1/2 1000 ML IV 1,000 ML IV SCH ×2 (13:33→21:45)
[2021-07-03] MEDS: VERSED 100 MG in NS 100 ML IV 80 ML IV PRN (16:52)
--- NOTE | 2021-07-03 19:00 | PCM.PROG ---
Progress Note Progress Note for Day of Date of Exam: 07/03/21 Subjective Subjective: PT IS A 70 YEAR OLD FEMALE ADMITTED ON 06/09 FOR TREATMENT OF PNEUMONIA DUE TO COVID-19, ACUTE RESPIRATORY FAILURE WITH HYPOXIA, AND A-FIB. SHE WAS PLACED ON THE MECHANICAL VENTILATOR ON 06/15/21 DUE TO INCREASED RESPIRATORY EFFORTS, DECREASED OXYGEN SATURATIONS, AND COMBATIVENESS. SHE HAS RECEIVED TWO UNITS OF PRBC SINCE ADMISSION. TODAY, HER VENT SETTINGS ARE: A/C, VENT RATE 20, TIDAL VOLUME SET 450, PEEP 6, FI02 40%. SATURATIONS HAVE BEEN 88- 92%. PT IS ON VERSED AND HAS MORPHINE 2MG IV Q2H PRN ORDERED. ON EXAMINATION TODAY, OROGASTRIC TUBE NOTED FOR FEEDINGS/MEDS. BILATERAL LUNGS NOTED WITH DIMINISHED LUNG SOUNDS THROUGHOUT. ABDOMEN IS ROUND, SOFT, AND NON-TENDER WITH NORMAL BOWEL SOUNDS NOTED IN ALL QUADRANTS. LABS/IMAGING: WBC 14.8, HGB 8.4, PLT 40, NA 145, K 3.1, CREATININE 0.57, GLUCOSE 260. BLOOD AND SPUTUM CULTURES ARE POSITIVE FOR YEAST. ABG WAS OBTAINED THIS MORNING AND REVEALED: PH 7.48, PC02 53, P02 54, HC03 39, 02 SAT 90% ON FI02 32%. SHE IS CURRENTLY RECEIVING TPN AT 40 ML/HR, 25% IV DAILY, 1/2 NS AT 20 ML/HR, VERSED FOR SEDATION, LEVAQUIN 500MG IV DAILY, FORTAZ 1G IV Q8H, MORPHINE SULFATE 2MG IV Q4H PRN, SOLU-MEDROL 125MG IV Q6H, VALIUM 5MG IV Q6H PRN, PROTONIX 40MG IV BID, THIAMINE 200MG IV BID, OTBS ACHS, HUMULIN R SLIDING SCALE, ELIQUIS 5MG PO BID, LASIX 40MG IV Q12H, DIFLUCAN 200MG IV DAILY, CATAPRES 0.2MG TD PATCH, NORVASC 5MG GT DAILY, PULMICORT NEBS BID, ALBUTEROL NEBS QID, ASCORBIC ACID 1500MG IV Q6H, ZOFRAN 4MG IV Q4H PRN NAUSEA, AND THE POTASSIUM AND MAGNESIUM PROTOCOLS. SHE IS RECEIVING ENSURE 1 CAN TID AND 200ML FREE WATER QID THROUGH THE OG TUBE. DUE TO FUNGEMIA ON SPUTUM AND BLOOD CULTURES WILL REPEAT CULTURES AND START ON AMPHOTERICIN B, WHILE DISCONTINUING DIFLUCAN. PATIENT ALSO HAS ATRIAL FIBRILLATION WITH RVR AND HAS BEEN STARTED ON A CARDIZEM GTT FOR RATE CONTROL. CONTINUE TO WEAN OXYGEN DOWN TODAY PATIENT TOLERATES. ATTEMPT TO EXTUBATE IF POSSIBLE. OTHERWISE, WE PLAN TO FOLLOW UP WITH AM LABS AND CHEST XRAY AND CONTINUE TO MONITOR. CRITICAL CARE TIME SPENT ON CLINICAL ASSESSMENT, REVIEWING LABS AND IMAGING, DECISION MAKING, AND DOCUMENTATION GREATER THAN 75 MINUTES. Past Medical Family Social History Past Med/Fam/Surg Hx: No changes since H&P Allergies: Allergies nalbuphine [From Nubain] Allergy (Verified 05/15/18 14:34) Penicillins Allergy (Verified 05/15/18 14:34) Review of Systems ROS: No change since H&P Vital Signs and I&O's Vital Signs: Temperature 98.7 F Pulse Rate [Apical] 81 Pulse Rate 108 Respiratory Rate 35 Blood Pressure [Left Arm] 129/61 Blood Pressure [Right Arm] 176/96 Blood Pressure 155/73 O2 Sat by Pulse Oximetry 88 Intake and Output: Intake & Output 06/30/21 07/01/21 07/02/21 07/03/21 23:59 23:59 23:59 23:59 Intake Total 3121 / 3121 4027 / 4027 3518 / 3518 2612 / 2612 Output Total 4425 / 4425 4207 / 4207 3325 / 3325 2700 / 2700 Balance -1304 / -1304 -180 / -180 193 / 193 -88 / -88 Physical Exam Oriented: Unable to test Eyes: Normal Ear: Normal Nose: Normal Throat: Normal Respiratory: Generalized and Diminished Cardiovascular: Normal and Irregular : Normal Auscultation: Bowel Sounds: Normal Tenderness: Normal Skin: Normal Musculoskeletal: Normal Psychiatric: Other (SEDATED ) Mood Description: Calm Affect: Normal (SEDATED) Speech Pattern: Artificially Ventilated Laboratory and Diagnostics Result Diagrams: 07/03/21 05:33 07/03/21 05:33 Labs: 06/28/21 11:20 Blood Blood Culture - Preliminary 06/28/21 11:30 Blood Blood Culture - Preliminary 06/28/21 11:30 Sputum - Endotracheal Wash Sputum Culture - Final 06/28/21 11:30 Sputum - Endotracheal Wash - Final 06/28/21 11:20 Urine,Clean Catch Urine Culture - Final 06/08/21 20:42 Blood Blood Culture - Final 06/08/21 20:50 Blood Blood Culture - Final Laboratory WBC 14.8 X10^3/uL (3.6-10.0) H 07/03/21 05:33 RBC 2.98 X10^6/uL (3.5-5.4) L 07/03/21 05:33 Hgb 8.4 g/dL (12.0-16.0) L 07/03/21 05:33 Hct 25.2 % (36.0-47.0) L 07/03/21 05:33 MCV 84.7 fL (80.0-100.0) 07/03/21 05:33 MCH 28.3 pg (27.0-34.0) 07/03/21 05:33 MCHC 33.4 g/dL (33.0-35.0) 07/03/21 05:33 RDW 18.5 % (11.6-16.5) H 07/03/21 05:33 Plt Count 40 X10^3/uL (150.0-450.0) L 07/03/21 05:33 Plt Count Comment Decreased (ADEQUATE) A 07/03/21 05:33 MPV 10.9 fL (7.4-11.0) 07/03/21 05:33 Neut % (Auto) 96.9 % (42.0-75.0) H 07/03/21 05:33 Lymph % (Auto) 0.5 % (21.0-51.0) L 07/03/21 05:33 [place] % (Auto) 2.2 % (0.0-13.0) 07/03/21 05:33 Eos % (Auto) 0.0 % (0.9-2.9) L 07/03/21 05:33 Baso % (Auto) 0.4 % (0.2-1.0) 07/03/21 05:33 Neut # (Auto) 14.4 x10^3/uL (2.2-4.8) H 07/03/21 05:33 Lymph # (Auto) 0.1 X10^3/uL (1.3-2.9) L 07/03/21 05:33 [place] # (Auto) 0.3 x10^3/uL (0.3-0.8) 07/03/21 05:33 Eos # (Auto) 0.0 x10^3/uL (0.0-0.2) 07/03/21 05:33 Baso # (Auto) 0.1 X10^3/uL (0.0-0.1) 07/03/21 05:33 Absolute Nucleated RBC 0.0 /100WBC 07/03/21 05:33 Total Counted 100 07/03/21 05:33 Neutrophils % (Manual) 96 % (39-76) H 07/03/21 05:33 Band Neutrophils % 2 % (0-10) 07/03/21 05:33 Lymphocytes % (Manual) 1 % (13-43) L 07/03/21 05:33 Monocytes % (Manual) 1 % (4-9) L 07/03/21 05:33 Metamyelocytes % 9 06/22/21 04:50 Myelocytes % 2 06/30/21 05:22 Plt Morphology Comment Normal (NORMAL) 07/03/21 05:33 RBC Morphology Normal (NORMAL) 07/03/21 05:33 Hypochromasia Slight A 06/29/21 05:22 Anisocytosis Slight A 06/30/21 05:22 Microcytosis Slight A 06/19/21 04:46 Ovalocytes Slight A 06/13/21 06:15 Phyllis Cells Slight A 06/19/21 04:46 PT 15.4 SECONDS (11.8-14.3) 06/08/21 20:42 INR Target Range - 06/08/21 20:42 INR 1.28 (0.8-1.3) 06/08/21 20:42 D-Dimer 0.90 ug/ml (0.0-0.57) H* 07/03/21 05:33 Sample Site Rrad 07/03/21 04:12 ABG pH 7.480 (7.35-7.45) H 07/03/21 04:12 ABG pCO2 53.0 mmHg (35.0-45.0) H* 07/03/21 04:12 ABG pO2 54.0 mmHg (80.0-100.0) L 07/03/21 04:12 ABG HCO3 39.5 mmol/L (22-26) H* 07/03/21 04:12 ABG O2 Saturation 90.0 % (90-100) 07/03/21 04:12 ABG Base Excess 13.8 mmol/L (-2.0-2.0) H 07/03/21 04:12 Herminio Test Pos 07/03/21 04:12 A-a Gradient 108.0 mmHg 07/03/21 04:12 FiO2 32.0 07/03/21 04:12 Blood Gas Comments Shyam well sa 07/03/21 04:12 Sodium 145 mmol/L (136-145) 07/03/21 05:33 Corrected Sodium 149 mmol/L (136-145) H 07/03/21 05:33 Potassium 3.1 mmol/L (3.5-5.1) L 07/03/21 05:33 Chloride 102 mmol/L (98-107) 07/03/21 05:33 Carbon Dioxide 38.5 mmol/L (21-32) H 07/03/21 05:33 BUN 34 mg/dL (7-18) H 07/03/21 05:33 Creatinine 0.57 mg/dL (0.55-1.02) 07/03/21 05:33 Est GFR (MDRD) Af Amer > 60 (>60) 07/03/21 05:33 Est GFR (MDRD) Non-Af > 60 (>60) 07/03/21 05:33 Glucose 260 mg/dL (65-99) H 07/03/21 05:33 POC Glucose (mg/dL) 272 mg/dL (65-99) H 07/03/21 17:10 Calcium 9.1 mg/dL (8.5-10.1) 07/03/21 05:33 Corrected Calcium TNP 07/03/21 05:33 Phosphorus 3.2 mg/dL (2.6-4.7) 06/29/21 16:51 Magnesium 2.0 mg/dL (1.7-2.9) 06/29/21 16:51 Ferritin 163 ng/mL (8-252) 06/14/21 05:26 Total Bilirubin 0.90 mg/dL (0.2-1.0) 07/03/21 05:33 AST 55 Units/L (15-37) H 07/03/21 05:33 ALT 274 Units/L (12-78) H 07/03/21 05:33 Alkaline Phosphatase 87 Units/L (46-116) 07/03/21 05:33 Troponin I < 0.02 ng/mL (0-1.5) 06/08/21 20:42 C-Reactive Protein < 0.50 mg/L (0-3.0) 06/27/21 05:15 B-Natriuretic Peptide 50.6 pg/mL (0-79) 07/03/21 05:33 Total Protein 5.4 g/dL (6.4-8.2) L 07/03/21 05:33 Albumin 3.5 g/dL (3.4-5.0) 07/03/21 05:33 Globulin 1.9 g/dL (2.5-4.5) L 07/03/21 05:33 Albumin/Globulin Ratio 1.8 Ratio (1.1-2.1) 07/03/21 05:33 Prealbumin 49.8 mg/dL (18-35.7) H 06/30/21 05:22 Triglycerides 163 mg/dL (0-150) H 06/29/21 16:51 Specimen Type Catherized urine 06/09/21 03:30 Urine Color Yellow (YELLOW) 06/09/21 03:30 Urine Appearance Clear (CLEAR) 06/09/21 03:30 Urine pH 6.0 (5.0 - 8.0) 06/09/21 03:30 Ur Specific [place] 1.010 (1.000-1.030) 06/09/21 03:30 Urine Protein 2+ (NEGATIVE) 06/09/21 03:30 Urine Glucose (UA) Negative (NEGATIVE) 06/09/21 03:30 Urine Ketones Negative (NEGATIVE) 06/09/21 03:30 Urine Occult Blood 1+ (NEGATIVE) 06/09/21 03:30 Urine Nitrite Negative (NEGATIVE) 06/09/21 03:30 Urine Bilirubin Negative (NEGATIVE) 06/09/21 03:30 Urine Urobilinogen Normal (NORMAL) 06/09/21 03:30 Ur Leukocyte Esterase Negative (NEGATIVE) 06/09/21 03:30 Urine RBC 0-2 /HPF (0-3) 06/09/21 03:30 Urine WBC None seen /HPF (0-5) 06/09/21 03:30 Ur Squamous Epith Cells Negative /HPF (NEGATIVE) 06/09/21 03:30 Urine Bacteria Negative /HPF (NEGATIVE) 06/09/21 03:30 Ur Culture Indicated? No/not indicated 06/09/21 03:30 Resp Viral Panel (PCR) See scanned report 06/28/21 12:05 Blood Type O POSITIVE 06/25/21 10:11 Antibody Screen Negative 06/25/21 10:11 Crossmatch See Detail 06/25/21 10:11 Plan (1) Pneumonia due to 2019-nCoV: Status: Acute Plan: 1/2 NS AT 20 ML/HR, TPN AT 40 ML/HR, ALBUMIN 25% IV DAILY, FORTAZ 1G IV Q8H, VERSED FOR SEDATION, LEVAQUIN 500MG IV DAILY, MORPHINE SULFATE 2MG IV Q4H PRN, SOLU-MEDROL 125MG IV Q6H, A CATAPRES PATCH, NORVASC VIA OROGASTRIC TUBE, VALIUM 5MG IV Q6H PRN, PROTONIX 40MG IV BID, THIAMINE 200MG IV BID, OTBS ACHS, HUMULIN R SLIDING SCALE, ELIQUIS 5MG PO BID, DIFLUCAN 200MG IV DAILY, PULMICORT NEBS BID, ALBUTEROL NEBS QID, , ASCORBIC ACID 1500MG IV Q6H, ZOFRAN 4MG IV Q4H PRN NAUSEA, AND THE POTASSIUM AND MAGNESIUM PROTOCOLS. (2) Acute respiratory insufficiency: Status: Acute (3) Hypoxia: Status: Acute (4) Anemia: Status: Acute Qualifiers: Anemia type: iron deficiency Iron deficiency anemia type: unspecified iron deficiency Qualified Code(s): D50.9 - Iron deficiency anemia, unspecified (5) Acute dyspnea: Status: Acute
[2021-07-03] MEDS ORDERED: NS 1/2 1000 ML IV 1,000 ML IV ONE (20:21)
[2021-07-04] MEDS: VERSED 100 MG in NS 100 ML IV 80 ML IV PRN ×2 (00:45→15:30)
[2021-07-04] MEDS: CARDIZEM INJ 125 MG VIAL 125 MG in NS 100 ML IV 100 ML IV PRN ×2 (00:45→14:20)
[2021-07-04] MEDS: HumuLIN R SUBCUT PRN ×3 (02:05→17:05)
[2021-07-04] MEDS: SOLU-Medrol 125 MG VIAL IVP SCH ×4 (02:18→21:40)
[2021-07-04] MEDS: POTASSIUM CHLORIDE LIQ 20 MEQ UDC PO PRN (02:20)
[2021-07-04] MEDS: VALIUM INJ IVP PRN (04:14)
[2021-07-04 05:01] LABS: BASOPHILS # (AUTO) 0.1 X10^3/uL (0.0-0.1); BASOPHILS % (AUTO) 0.5 % (0.2-1.0); HEMATOCRIT 24.8 % (36.0-47.0); HEMOGLOBIN 8.2 g/dL (12.0-16.0); LYMPHOCYTES # (AUTO) 0.1 X10^3/uL (1.3-2.9); LYMPHOCYTES % (AUTO) 0.5 % (21.0-51.0); MEAN CORPUSCULAR HEMOGLOBIN 28.4 pg (27.0-34.0); MEAN CORPUSCULAR HGB CONC 33.3 g/dL (33.0-35.0); MEAN CORPUSCULAR VOLUME 85.4 fL (80.0-100.0); MEAN PLATELET VOLUME 10.5 fL (7.4-11.0); MONOCYTES # (AUTO) 0.5 x10^3/uL (0.3-0.8); MONOCYTES % (AUTO) 2.9 % (0.0-13.0); NEUTROPHILS # (AUTO) 15.5 x10^3/uL (2.2-4.8); NEUTROPHILS % (AUTO) 96.1 % (42.0-75.0); PLATELET COUNT 40 X10^3/uL (150.0-450.0); RED CELL DISTRIBUTION WIDTH 19.2 % (11.6-16.5); WHITE BLOOD COUNT 16.1 X10^3/uL (3.6-10.0)
[2021-07-04 05:13] LABS: ALANINE AMINOTRANSFERASE 359 Units/L (12-78); ALBUMIN 3.8 g/dL (3.4-5.0); ALKALINE PHOSPHATASE 111 Units/L (46-116); ASPARTATE AMINO TRANSFERASE 100 Units/L (15-37); BLOOD UREA NITROGEN 34 mg/dL (7-18); CALCIUM 9.2 mg/dL (8.5-10.1); CARBON DIOXIDE 36.9 mmol/L (21-32); CHLORIDE 102 mmol/L (98-107); COR NA(FOR HYPERGLY) 150 mmol/L (136-145); CREATININE 0.52 mg/dL (0.55-1.02); SODIUM 145 mmol/L (136-145); TOTAL PROTEIN 5.9 g/dL (6.4-8.2); eGFR NON BLACK RACES > 60 (>60)
[2021-07-04 05:36] LABS: PLATELET MORPHOLOGY COMMENT NORMAL (NORMAL)
[2021-07-04 05:37] LABS: ABG BASE EXCESS 15.6 mmol/L (-2.0-2.0)
[2021-07-04 05:38] LABS: ABG ALLEN TEST POS; ABG HCO3 41.7 mmol/L (22-26)
[2021-07-04] MEDS: FORTAZ or TAZICEF VIAL INJ 1 G in NS 50 ML IV + SPIKE MINIBAG* 50 ML IV SCH (06:37)
[2021-07-04] MEDS: XYLOCAINE OINT 5% 1 APPLIC, ZOVIRAX 1 APPLIC TOP SCH ×6 (06:37→20:30)
--- NOTE | 2021-07-04 07:10 | RAD ---
HISTORYCOVID-19 pneumoniaSTUDYPortable AP [id number] is no significant change. Normal heart size, stable appearance of bilateral pulmonary infiltrates and pneumomediastinum. No change in position of support lines. There is no definite pneumothorax.IMPRESSIONNo change. Stable appearance of bilateral pneumonia and pneumomediastinum.Electronically signed by: DELMIS MCCLENDON (Jul 04, 2021 07:08:39)
[2021-07-04] MEDS ORDERED: D5W 100 ML IV 100 ML IV PRN (08:22)
[2021-07-04] MEDS: ALBUMIN HUMAN 25%- 100 ML 100 ML IV SCH (08:44)
[2021-07-04] MEDS: PROTONIX INJ 40 MG VIAL IVP SCH ×2 (08:45→21:16)
[2021-07-04] MEDS: THIAMINE HCL INJ IVP SCH ×2 (08:45→21:35)
[2021-07-04] MEDS: NORVASC TAB 5 MG GT SCH (08:45)
[2021-07-04] MEDS: ELIQUIS NG SCH ×2 (08:46→21:30)
[2021-07-04] MEDS: LACRI-LUBE S.O.P. AFFEYE SCH ×2 (08:46→21:30)
[2021-07-04] MEDS: COLACE SYRUP 100 MG UDC PO SCH ×2 (08:46→21:30)
[2021-07-04] MEDS: LASIX IVP SCH ×2 (08:47→21:15)
[2021-07-04] MEDS ORDERED: BENADRYL INJ 50 MG VIAL IVP ONE (09:00)
[2021-07-04] MEDS ORDERED: TYLENOL 325 MG TAB PO ONE (09:30)
[2021-07-04] MEDS ORDERED: D5W IV SCH (10:00)
[2021-07-04] MEDS ORDERED: AMBISOME IV SCH (10:00)
[2021-07-04] MEDS: PULMICORT NEB TX 0.5 MG NEB SCH ×2 (10:20→20:25)
[2021-07-04] MEDS: ACCUNEB 1.25 MG NEBULE NEB SCH ×4 (10:20→20:25)
[2021-07-04] MEDS: VORICONAZOLE 400 MG in NS 100 ML IV 100 ML IV SCH ×2 (10:55→21:30)
[2021-07-04] MEDS: MVI IV SCH ×5 (11:22)
[2021-07-04] MEDS: CLINIMIX IV SCH ×5 (11:22)
[2021-07-04] MEDS: [UNRECOGNIZED DRUG - OTHER] IV SCH ×5 (11:22)
--- NOTE | 2021-07-04 16:57 | PCM.PROG ---
Progress Note Progress Note for Day of Date of Exam: 07/04/21 Subjective Subjective: PT IS A 70 YEAR OLD FEMALE ADMITTED ON 06/09 FOR TREATMENT OF PNEUMONIA DUE TO COVID-19, ACUTE RESPIRATORY FAILURE WITH HYPOXIA, AND A-FIB. SHE WAS PLACED ON THE MECHANICAL VENTILATOR ON 06/15/21 DUE TO INCREASED RESPIRATORY EFFORTS, DECREASED OXYGEN SATURATIONS, AND COMBATIVENESS. SHE HAS RECEIVED TWO UNITS OF PRBC SINCE ADMISSION. TODAY, HER VENT SETTINGS ARE: A/C, VENT RATE 20, TIDAL VOLUME SET 450, PEEP 6, FI02 35%. PT IS ON VERSED FOR SEDATION AND A CARDIZEM GTT FOR AFIB. YESTERDAY, ATTEMPT TO EXTUBATE HOWEVER, PATIENT FAILED BREATHING TRIALS AND HAD DROP OF OXGEN SATURATIONS WHEN V ENTILATOR SWITCHED TO SIMV MODE. THEN HAD TO BE SWITCHED BACK TO AC MODE. ON EXAMINATION TODAY, OROGASTRIC TUBE NOTED FOR FEEDINGS/MEDS. BILATERAL LUNGS NOTED WITH DIMINISHED LUNG SOUNDS THROUGHOUT. ABDOMEN IS ROUND, SOFT, AND NON- TENDER WITH NORMAL BOWEL SOUNDS NOTED IN ALL QUADRANTS. LABS/IMAGING: WBC 16.1, HGB 8.2, PLT 40, NA 145, K 4.2, CREATININE 0.52, GLUCOSE 295. BLOOD AND SPUTUM CULTURES ARE POSITIVE FOR YEAST, SEND OUT CULTURE TO LABS PENDING. REPEAT CULTURE PENDING. CXR: No change. Stable appearance of bilateral pneumonia and pneumomediastinum. ABG WAS OBTAINED THIS MORNING AND REVEALED: PH 7.48, PC02 56, P02 51, HC03 41, 02 SAT 88% ON FI02 35%. SHE IS CURRENTLY RECEIVING TPN AT 40 ML/HR, 25% IV DAILY, 1/2 NS AT 20 ML/HR, VERSED FOR SEDATION, LEVAQUIN 500MG IV DAILY, FORTAZ 1G IV Q8H, MORPHINE SULFATE 2MG IV Q4H PRN, SOLU-MEDROL 125MG IV Q6H, VALIUM 5MG IV Q6H PRN, PROTONIX 40MG IV BID, THIAMINE 200MG IV BID, OTBS ACHS, HUMULIN R SLIDING SCALE, ELIQUIS 5MG PO BID, LASIX 40MG IV Q12H, DIFLUCAN 200MG IV DAILY, CATAPRES 0.2MG TD PATCH, NORVASC 5MG GT DAILY, PULMICORT NEBS BID, ALBUTEROL NEBS QID, ASCORBIC ACID 1500MG IV Q6H, ZOFRAN 4MG IV Q4H PRN NAUSEA, AND THE POTASSIUM AND MAGNESIUM PROTOCOLS. SHE IS RECEIVING ENSURE 1 CAN TID AND 200ML FREE WATER QID THROUGH THE OG TUBE. DUE TO FUNGEMIA PATIENT WAS ORDERED AMPHOTERICIN B, HOWEVER NO SUPPLY PER PHARMACY. WILL START ON VORICONAZOLE. PT DOES HAVE CENTRAL LINE BUT WILL BE UNABLE TO REMOVE AT THIS TIME THIS IS THE ONLY AVAILABLE IV ACCESS WHILE PATIENT IS ALSO ON A MECHANICAL VENTILATOR. CONTINUE TO WEAN OXYGEN DOWN TODAY PATIENT TOLERATES. ATTEMPT TO EXTUBATE IF POSSIBLE. OTHERWISE, WE PLAN TO FOLLOW UP WITH AM LABS AND CHEST XRAY AND CONTINUE TO MONITOR. CRITICAL CARE TIME SPENT ON CLINICAL ASSESSMENT, REVIEWING LABS AND IMAGING, DECISION MAKING, AND DOCUMENTATION GREATER THAN 75 MINUTES. Past Medical Family Social History Past Med/Fam/Surg Hx: No changes since H&P Allergies: Allergies nalbuphine [From Nubain] Allergy (Verified 05/15/18 14:34) Penicillins Allergy (Verified 05/15/18 14:34) Review of Systems ROS: No change since H&P Vital Signs and I&O's Vital Signs: Temperature 98.8 F Pulse Rate [Apical] 81 Pulse Rate 90 Respiratory Rate 32 Blood Pressure [Left Arm] 129/61 Blood Pressure [Right Arm] 176/96 Blood Pressure 110/53 O2 Sat by Pulse Oximetry 92 Intake and Output: Intake & Output 07/01/21 07/02/21 07/03/21 07/04/21 23:59 23:59 23:59 23:59 Intake Total 4027 / 4027 3518 / 3518 3897 / 3897 1741 / 1741 Output Total 4207 / 4207 3325 / 3325 4000 / 4000 1000 / 1000 Balance -180 / -180 193 / 193 -103 / -103 741 / 741 Physical Exam Oriented: Unable to test Eyes: Normal Ear: Normal Nose: Normal Throat: Normal Respiratory: Generalized and Diminished Cardiovascular: Normal and Irregular : Normal Auscultation: Bowel Sounds: Normal Tenderness: Normal Skin: Normal Musculoskeletal: Normal Psychiatric: Other (SEDATED ) Mood Description: Calm Affect: Normal (SEDATED) Speech Pattern: Artificially Ventilated Laboratory and Diagnostics Result Diagrams: 07/04/21 04:35 07/04/21 04:35 Labs: 06/28/21 11:20 Blood Blood Culture - Preliminary 06/28/21 11:30 Blood Blood Culture - Preliminary 06/28/21 11:30 Sputum - Endotracheal Wash Sputum Culture - Final 06/28/21 11:30 Sputum - Endotracheal Wash - Final 06/28/21 11:20 Urine,Clean Catch Urine Culture - Final 06/08/21 20:42 Blood Blood Culture - Final 06/08/21 20:50 Blood Blood Culture - Final Laboratory WBC 16.1 X10^3/uL (3.6-10.0) H 07/04/21 04:35 RBC 2.90 X10^6/uL (3.5-5.4) L 07/04/21 04:35 Hgb 8.2 g/dL (12.0-16.0) L 07/04/21 04:35 Hct 24.8 % (36.0-47.0) L 07/04/21 04:35 MCV 85.4 fL (80.0-100.0) 07/04/21 04:35 MCH 28.4 pg (27.0-34.0) 07/04/21 04:35 MCHC 33.3 g/dL (33.0-35.0) 07/04/21 04:35 RDW 19.2 % (11.6-16.5) H 07/04/21 04:35 Plt Count 40 X10^3/uL (150.0-450.0) L 07/04/21 04:35 Plt Count Comment Decreased (ADEQUATE) A 07/04/21 04:35 MPV 10.5 fL (7.4-11.0) 07/04/21 04:35 Neut % (Auto) 96.1 % (42.0-75.0) H 07/04/21 04:35 Lymph % (Auto) 0.5 % (21.0-51.0) L 07/04/21 04:35 [place] % (Auto) 2.9 % (0.0-13.0) 07/04/21 04:35 Eos % (Auto) 0.0 % (0.9-2.9) L 07/04/21 04:35 Baso % (Auto) 0.5 % (0.2-1.0) 07/04/21 04:35 Neut # (Auto) 15.5 x10^3/uL (2.2-4.8) H 07/04/21 04:35 Lymph # (Auto) 0.1 X10^3/uL (1.3-2.9) L 07/04/21 04:35 [place] # (Auto) 0.5 x10^3/uL (0.3-0.8) 07/04/21 04:35 Eos # (Auto) 0.0 x10^3/uL (0.0-0.2) 07/04/21 04:35 Baso # (Auto) 0.1 X10^3/uL (0.0-0.1) 07/04/21 04:35 Absolute Nucleated RBC 0.1 /100WBC 07/04/21 04:35 Total Counted 100 07/04/21 04:35 Neutrophils % (Manual) 97 % (39-76) H 07/04/21 04:35 Band Neutrophils % 2 % (0-10) 07/03/21 05:33 Lymphocytes % (Manual) 21 % (13-43) 07/04/21 04:35 Monocytes % (Manual) 1 % (4-9) L 07/04/21 04:35 Metamyelocytes % 9 06/22/21 04:50 Myelocytes % 2 06/30/21 05:22 Plt Morphology Comment Normal (NORMAL) 07/04/21 04:35 RBC Morphology Normal (NORMAL) 07/04/21 04:35 Hypochromasia Slight A 06/29/21 05:22 Anisocytosis Slight A 06/30/21 05:22 Microcytosis Slight A 06/19/21 04:46 Ovalocytes Slight A 06/13/21 06:15 Phyllis Cells Slight A 06/19/21 04:46 PT 15.4 SECONDS (11.8-14.3) 06/08/21 20:42 INR Target Range - 06/08/21 20:42 INR 1.28 (0.8-1.3) 06/08/21 20:42 D-Dimer 0.90 ug/ml (0.0-0.57) H* 07/03/21 05:33 Sample Site Rrad 07/04/21 05:35 ABG pH 7.480 (7.35-7.45) H 07/04/21 05:35 ABG pCO2 56.0 mmHg (35.0-45.0) H* 07/04/21 05:35 ABG pO2 51.0 mmHg (80.0-100.0) L 07/04/21 05:35 ABG HCO3 41.7 mmol/L (22-26) H* 07/04/21 05:35 ABG O2 Saturation 88.0 % (90-100) L 07/04/21 05:35 ABG Base Excess 15.6 mmol/L (-2.0-2.0) H 07/04/21 05:35 Herminio Test Pos 07/04/21 05:35 A-a Gradient 129.0 mmHg 07/04/21 05:35 FiO2 35.0 07/04/21 05:35 Blood Gas Comments Shyam well-mtf 07/04/21 05:35 Sodium 145 mmol/L (136-145) 07/04/21 04:35 Corrected Sodium 150 mmol/L (136-145) H 07/04/21 04:35 Potassium 4.2 mmol/L (3.5-5.1) 07/04/21 04:35 Chloride 102 mmol/L (98-107) 07/04/21 04:35 Carbon Dioxide 36.9 mmol/L (21-32) H 07/04/21 04:35 BUN 34 mg/dL (7-18) H 07/04/21 04:35 Creatinine 0.52 mg/dL (0.55-1.02) L 07/04/21 04:35 Est GFR (MDRD) Af Amer > 60 (>60) 07/04/21 04:35 Est GFR (MDRD) Non-Af > 60 (>60) 07/04/21 04:35 Glucose 295 mg/dL (65-99) H 07/04/21 04:35 POC Glucose (mg/dL) 240 mg/dL (65-99) H 07/04/21 08:51 Calcium 9.2 mg/dL (8.5-10.1) 07/04/21 04:35 Corrected Calcium TNP 07/04/21 04:35 Phosphorus 3.2 mg/dL (2.6-4.7) 06/29/21 16:51 Magnesium 2.0 mg/dL (1.7-2.9) 06/29/21 16:51 Ferritin 163 ng/mL (8-252) 06/14/21 05:26 Total Bilirubin 1.30 mg/dL (0.2-1.0) H 07/04/21 04:35 AST 100 Units/L (15-37) H 07/04/21 04:35 ALT 359 Units/L (12-78) H 07/04/21 04:35 Alkaline Phosphatase 111 Units/L (46-116) 07/04/21 04:35 Troponin I < 0.02 ng/mL (0-1.5) 06/08/21 20:42 C-Reactive Protein < 0.50 mg/L (0-3.0) 06/27/21 05:15 B-Natriuretic Peptide 50.6 pg/mL (0-79) 07/03/21 05:33 Total Protein 5.9 g/dL (6.4-8.2) L 07/04/21 04:35 Albumin 3.8 g/dL (3.4-5.0) 07/04/21 04:35 Globulin 2.1 g/dL (2.5-4.5) L 07/04/21 04:35 Albumin/Globulin Ratio 1.8 Ratio (1.1-2.1) 07/04/21 04:35 Prealbumin 49.8 mg/dL (18-35.7) H 06/30/21 05:22 Triglycerides 163 mg/dL (0-150) H 06/29/21 16:51 Specimen Type Catherized urine 06/09/21 03:30 Urine Color Yellow (YELLOW) 06/09/21 03:30 Urine Appearance Clear (CLEAR) 06/09/21 03:30 Urine pH 6.0 (5.0 - 8.0) 06/09/21 03:30 Ur Specific [place] 1.010 (1.000-1.030) 06/09/21 03:30 Urine Protein 2+ (NEGATIVE) 06/09/21 03:30 Urine Glucose (UA) Negative (NEGATIVE) 06/09/21 03:30 Urine Ketones Negative (NEGATIVE) 06/09/21 03:30 Urine Occult Blood 1+ (NEGATIVE) 06/09/21 03:30 Urine Nitrite Negative (NEGATIVE) 06/09/21 03:30 Urine Bilirubin Negative (NEGATIVE) 06/09/21 03:30 Urine Urobilinogen Normal (NORMAL) 06/09/21 03:30 Ur Leukocyte Esterase Negative (NEGATIVE) 06/09/21 03:30 Urine RBC 0-2 /HPF (0-3) 06/09/21 03:30 Urine WBC None seen /HPF (0-5) 06/09/21 03:30 Ur Squamous Epith Cells Negative /HPF (NEGATIVE) 06/09/21 03:30 Urine Bacteria Negative /HPF (NEGATIVE) 06/09/21 03:30 Ur Culture Indicated? No/not indicated 06/09/21 03:30 Resp Viral Panel (PCR) See scanned report 06/28/21 12:05 Blood Type O POSITIVE 06/25/21 10:11 Antibody Screen Negative 06/25/21 10:11 Crossmatch See Detail 06/25/21 10:11 Plan (1) Pneumonia due to 2019-nCoV: Status: Acute Plan: 1/2 NS AT 20 ML/HR, TPN AT 40 ML/HR, ALBUMIN 25% IV DAILY, FORTAZ 1G IV Q8H, VERSED FOR SEDATION, LEVAQUIN 500MG IV DAILY, MORPHINE SULFATE 2MG IV Q4H PRN, SOLU-MEDROL 125MG IV Q6H, A CATAPRES PATCH, NORVASC VIA OROGASTRIC TUBE, VALIUM 5MG IV Q6H PRN, PROTONIX 40MG IV BID, THIAMINE 200MG IV BID, OTBS ACHS, HUMULIN R SLIDING SCALE, ELIQUIS 5MG PO BID, DIFLUCAN 200MG IV DAILY, PULMICORT NEBS BID, ALBUTEROL NEBS QID, , ASCORBIC ACID 1500MG IV Q6H, ZOFRAN 4MG IV Q4H PRN NAUSEA, AND THE POTASSIUM AND MAGNESIUM PROTOCOLS. (2) Acute respiratory insufficiency: Status: Acute (3) Hypoxia: Status: Acute (4) Anemia: Status: Acute Qualifiers: Anemia type: iron deficiency Iron deficiency anemia type: unspecified iron deficiency Qualified Code(s): D50.9 - Iron deficiency anemia, unspecified (5) Acute dyspnea: Status: Acute
[2021-07-04] MEDS: NS 1/2 1000 ML IV 1,000 ML IV SCH (22:38)
[2021-07-05] MEDS: HumuLIN R SUBCUT PRN (00:41)
[2021-07-05] MEDS: NS 1/2 1000 ML IV 1,000 ML IV SCH ×2 (02:26→13:09)
[2021-07-05] MEDS: SOLU-Medrol 125 MG VIAL IVP SCH ×4 (02:45→16:41)
[2021-07-05 04:57] LABS: ABG BASE EXCESS 18.1 mmol/L (-2.0-2.0)
[2021-07-05 05:00] LABS: ABG HCO3 42.9 mmol/L (22-26)
[2021-07-05 05:19] LABS: BASOPHILS % (AUTO) 0.5 % (0.2-1.0); EOSINOPHILS # (AUTO) 0.3 x10^3/uL (0.0-0.2); EOSINOPHILS % (AUTO) 4.1 % (0.9-2.9); HEMATOCRIT 20.5 % (36.0-47.0); LYMPHOCYTES # (AUTO) 0.2 X10^3/uL (1.3-2.9); LYMPHOCYTES % (AUTO) 2.6 % (21.0-51.0); MEAN CORPUSCULAR HEMOGLOBIN 29.1 pg (27.0-34.0); MEAN CORPUSCULAR HGB CONC 34.1 g/dL (33.0-35.0); MEAN CORPUSCULAR VOLUME 85.4 fL (80.0-100.0); MEAN PLATELET VOLUME 10.8 fL (7.4-11.0); MONOCYTES # (AUTO) 0.1 x10^3/uL (0.3-0.8); MONOCYTES % (AUTO) 1.5 % (0.0-13.0); NEUTROPHILS # (AUTO) 6.5 x10^3/uL (2.2-4.8); NEUTROPHILS % (AUTO) 91.3 % (42.0-75.0); PLATELET COUNT 28 X10^3/uL (150.0-450.0); RED CELL DISTRIBUTION WIDTH 19.4 % (11.6-16.5); WHITE BLOOD COUNT 7.1 X10^3/uL (3.6-10.0)
[2021-07-05 05:25] LABS: ALANINE AMINOTRANSFERASE 319 Units/L (12-78); ALBUMIN 3.2 g/dL (3.4-5.0); ALKALINE PHOSPHATASE 95 Units/L (46-116); ASPARTATE AMINO TRANSFERASE 72 Units/L (15-37); BLOOD UREA NITROGEN 31 mg/dL (7-18); CARBON DIOXIDE 37.6 mmol/L (21-32); CHLORIDE 104 mmol/L (98-107); COR CA(FOR HYPOALB) 9.6 mg/dL (8.5-10.1); COR NA(FOR HYPERGLY) 147 mmol/L (136-145); CREATININE 0.38 mg/dL (0.55-1.02); SODIUM 144 mmol/L (136-145); TOTAL PROTEIN 5.1 g/dL (6.4-8.2); eGFR NON BLACK RACES > 60 (>60)
[2021-07-05 06:13] LABS: PLATELET MORPHOLOGY COMMENT NORMAL (NORMAL)
[2021-07-05] MEDS: ACCUNEB 1.25 MG NEBULE NEB SCH ×3 (06:17→21:10)
--- NOTE | 2021-07-05 07:38 | RAD ---
HISTORYSOBSTUDYPortable AP [id number] is no change in appearance of heart or lungs. Similar appearance of diffuse pulmonary infiltrates. Pneumomediastinum again noted without evidence for pneumothorax. ET tube remains in mid to lower trachea.IMPRESSIONNo significant change in appearance of the chest.Electronically signed by: DELMIS MCCLENDON (Jul 05, 2021 07:36:55)
[2021-07-05] MEDS: PULMICORT NEB TX 0.5 MG NEB SCH ×2 (09:27→21:10)
[2021-07-05] MEDS: ALBUMIN HUMAN 25%- 100 ML 100 ML IV SCH (09:57)
[2021-07-05] MEDS: COLACE SYRUP 100 MG UDC PO SCH ×2 (09:58→21:30)
[2021-07-05] MEDS: ELIQUIS NG SCH ×2 (09:58→21:30)
[2021-07-05] MEDS: LACRI-LUBE S.O.P. AFFEYE SCH ×2 (09:58→21:30)
[2021-07-05] MEDS: LASIX IVP SCH ×2 (09:59→21:30)
[2021-07-05] MEDS: PROTONIX INJ 40 MG VIAL IVP SCH ×2 (09:59→21:30)
[2021-07-05] MEDS: NORVASC TAB 5 MG GT SCH (09:59)
[2021-07-05] MEDS: THIAMINE HCL INJ IVP SCH ×2 (09:59→21:30)
[2021-07-05] MEDS: VORICONAZOLE 200 MG in NS 50 ML IV + SPIKE MINIBAG* 50 ML IV SCH ×2 (10:00→21:30)
[2021-07-05] MEDS: VERSED 100 MG in NS 100 ML IV 80 ML IV PRN ×2 (10:15→19:30)
[2021-07-05] MEDS: CLINIMIX IV SCH ×5 (13:10)
[2021-07-05] MEDS: MVI IV SCH ×5 (13:10)
[2021-07-05] MEDS: XYLOCAINE OINT 5% 1 APPLIC, ZOVIRAX 1 APPLIC TOP SCH ×6 (13:10→22:04)
[2021-07-05] MEDS: [UNRECOGNIZED DRUG - OTHER] IV SCH ×5 (13:10)
[2021-07-05] MEDS ORDERED: NS 250 ML IV 500 ML IV ONE (15:38)
--- NOTE | 2021-07-05 16:09 | PCM.PROG ---
Progress Note Progress Note for Day of Date of Exam: 07/05/21 Subjective Subjective: PT IS A 70 YEAR OLD FEMALE ADMITTED ON 06/09 FOR TREATMENT OF PNEUMONIA DUE TO COVID-19, ACUTE RESPIRATORY FAILURE WITH HYPOXIA, AND A-FIB. SHE WAS PLACED ON THE MECHANICAL VENTILATOR ON 06/15/21 DUE TO INCREASED RESPIRATORY EFFORTS, DECREASED OXYGEN SATURATIONS, AND COMBATIVENESS. SHE HAS RECEIVED TWO UNITS OF PRBC SINCE ADMISSION. TODAY, HER VENT SETTINGS ARE: A/C, VENT RATE 20, TIDAL VOLUME SET 450, PEEP 6, FI02 45%. PT IS ON VERSED FOR SEDATION AND A CARDIZEM GTT FOR AFIB. WILL ATTEMPT TO SWITCH TO SIMV MODE, RR 15, AND FIO2 45%. ON EXAMINATION TODAY, OROGASTRIC TUBE NOTED FOR FEEDINGS/MEDS. BILATERAL LUNGS NOTED WITH DIMINISHED LUNG SOUNDS THROUGHOUT. ABDOMEN IS ROUND, SOFT, AND NON-TENDER WITH NORMAL BOWEL SOUNDS NOTED IN ALL QUADRANTS. LABS/IMAGING: WBC 7.1, HGB 7.0, PLT 28, NA 144, K 3.6, CREATININE 0.38, GLUCOSE 216. BLOOD AND SPUTUM CULTURES ARE POSITIVE FOR YEAST, SEND OUT CULTURE TO LABS PENDING. REPEAT CULTURE PENDING. CXR: No change. Stable appearance of bilateral pneumonia and pneumomediastinum. ABG WAS OBTAINED THIS MORNING AND REVEALED: PH 7.55, PC02 49, P02 73, HC03 42, 02 SAT 96% ON FI02 45%. SHE IS CURRENTLY RECEIVING TPN AT 40 ML/HR, 25% IV DAILY, 1/2 NS AT 20 ML/HR, LEVAQUIN 500MG IV DAILY, FORTAZ 1G IV Q8H, MORPHINE SULFATE 2MG IV Q4H PRN, SOLU-MEDROL 125MG IV Q6H, VALIUM 5MG IV Q6H PRN, PROTONIX 40MG IV BID, THIAMINE 200MG IV BID, OTBS ACHS, HUMULIN R SLIDING SCALE, ELIQUIS 5MG PO BID, LASIX 40MG IV Q12H, VORICONAZOLE DAILY, CATAPRES 0.2MG TD PATCH, NORVASC 5MG GT DAILY, PULMICORT NEBS BID, ALBUTEROL NEBS QID, ASCORBIC ACID 1500MG IV Q6H, ZOFRAN 4MG IV Q4H PRN NAUSEA, AND THE POTASSIUM AND MAGNESIUM PROTOCOLS. SHE IS RECEIVING ENSURE 1 CAN TID AND 200ML FREE WATER QID THROUGH THE OG TUBE. DECREASE SOLUMEDROL TO 80MG Q8H. TREATING PT FOR FUNGEMIA, DOES HAVE CENTRAL LINE BUT WILL BE UNABLE TO REMOVE AT THIS TIME THIS IS THE ONLY AVAILABLE IV ACCESS WHILE PATIENT IS ALSO ON A MECHANICAL VENTILATOR. CONTINUE TO WEAN OXYGEN DOWN TODAY PATIENT TOLERATES. ATTEMPT TO EXTUBATE IF POSSIBLE. ANEMIA ON LABS WILL GIVE 1 UNITS OF PACKED RED BLOOD CELLS AND 1 UNIT PLATELETS. OTHERWISE, WE PLAN TO FOLLOW UP WITH AM LABS AND CHEST XRAY AND CONTINUE TO MONITOR. CRITICAL CARE TIME SPENT ON CLINICAL ASSESSMENT, REVIEWING LABS AND IMAGING, DEC ISION MAKING, AND DOCUMENTATION GREATER THAN 75 MINUTES. Past Medical Family Social History Past Med/Fam/Surg Hx: No changes since H&P Allergies: Allergies nalbuphine [From Nubain] Allergy (Verified 05/15/18 14:34) Penicillins Allergy (Verified 05/15/18 14:34) Review of Systems ROS: No change since H&P Vital Signs and I&O's Vital Signs: Temperature 98.6 F Pulse Rate [Apical] 81 Pulse Rate 84 Respiratory Rate 24 Blood Pressure [Left Arm] 129/61 Blood Pressure [Right Arm] 176/96 Blood Pressure 146/68 O2 Sat by Pulse Oximetry 90 Intake and Output: Intake & Output 07/02/21 07/03/21 07/04/21 07/05/21 23:59 23:59 23:59 23:59 Intake Total 3518 / 3518 3897 / 3897 4936.4 / 4936.4 942 / 942 Output Total 3325 / 3325 4000 / 4000 3700 / 3700 700 / 700 Balance 193 / 193 -103 / -103 1236.4 / 1236.4 242 / 242 Physical Exam Oriented: Unable to test Eyes: Normal Ear: Normal Nose: Normal Throat: Normal Respiratory: Generalized and Diminished Cardiovascular: Normal and Irregular : Normal Auscultation: Bowel Sounds: Normal Tenderness: Normal Skin: Normal Musculoskeletal: Normal Psychiatric: Other (SEDATED ) Mood Description: Calm Affect: Normal (SEDATED) Speech Pattern: Artificially Ventilated Laboratory and Diagnostics Result Diagrams: 07/05/21 04:25 07/05/21 04:25 Labs: 07/03/21 19:46 Blood Blood Culture - Preliminary 07/03/21 19:54 Blood Blood Culture - Preliminary 06/28/21 11:20 Blood Blood Culture - Preliminary 06/28/21 11:30 Blood Blood Culture - Preliminary 06/28/21 11:30 Sputum - Endotracheal Wash Sputum Culture - Final 06/28/21 11:30 Sputum - Endotracheal Wash - Final 06/28/21 11:20 Urine,Clean Catch Urine Culture - Final 06/08/21 20:42 Blood Blood Culture - Final 06/08/21 20:50 Blood Blood Culture - Final Laboratory WBC 7.1 X10^3/uL (3.6-10.0) D 07/05/21 04:25 RBC 2.40 X10^6/uL (3.5-5.4) L 07/05/21 04:25 Hgb 7.0 g/dL (12.0-16.0) L 07/05/21 04:25 Hct 20.5 % (36.0-47.0) L 07/05/21 04:25 MCV 85.4 fL (80.0-100.0) 07/05/21 04:25 MCH 29.1 pg (27.0-34.0) 07/05/21 04:25 MCHC 34.1 g/dL (33.0-35.0) 07/05/21 04:25 RDW 19.4 % (11.6-16.5) H 07/05/21 04:25 Plt Count 28 X10^3/uL (150.0-450.0) L 07/05/21 04:25 Plt Count Comment Decreased (ADEQUATE) A 07/05/21 04:25 MPV 10.8 fL (7.4-11.0) 07/05/21 04:25 Neut % (Auto) 91.3 % (42.0-75.0) H 07/05/21 04:25 Lymph % (Auto) 2.6 % (21.0-51.0) L 07/05/21 04:25 [place] % (Auto) 1.5 % (0.0-13.0) 07/05/21 04:25 Eos % (Auto) 4.1 % (0.9-2.9) H 07/05/21 04:25 Baso % (Auto) 0.5 % (0.2-1.0) 07/05/21 04:25 Neut # (Auto) 6.5 x10^3/uL (2.2-4.8) H 07/05/21 04:25 Lymph # (Auto) 0.2 X10^3/uL (1.3-2.9) L 07/05/21 04:25 [place] # (Auto) 0.1 x10^3/uL (0.3-0.8) L 07/05/21 04:25 Eos # (Auto) 0.3 x10^3/uL (0.0-0.2) H 07/05/21 04:25 Baso # (Auto) 0.0 X10^3/uL (0.0-0.1) 07/05/21 04:25 Absolute Nucleated RBC 0.3 /100WBC 07/05/21 04:25 Total Counted 100 07/05/21 04:25 Neutrophils % (Manual) 96 % (39-76) H 07/05/21 04:25 Band Neutrophils % 2 % (0-10) 07/03/21 05:33 Lymphocytes % (Manual) 4 % (13-43) L 07/05/21 04:25 Monocytes % (Manual) 1 % (4-9) L 07/04/21 04:35 Metamyelocytes % 9 06/22/21 04:50 Myelocytes % 2 06/30/21 05:22 Plt Morphology Comment Normal (NORMAL) 07/05/21 04:25 RBC Morphology Normal (NORMAL) 07/05/21 04:25 Hypochromasia Slight A 06/29/21 05:22 Anisocytosis Slight A 06/30/21 05:22 Microcytosis Slight A 06/19/21 04:46 Ovalocytes Slight A 06/13/21 06:15 [place] Cells Slight A 06/19/21 04:46 PT 15.4 SECONDS (11.8-14.3) 06/08/21 20:42 INR Target Range - 06/08/21 20:42 INR 1.28 (0.8-1.3) 06/08/21 20:42 D-Dimer 0.90 ug/ml (0.0-0.57) H* 07/03/21 05:33 Sample Site Rradpos 07/05/21 04:55 ABG pH 7.550 (7.35-7.45) H 07/05/21 04:55 ABG pCO2 49.0 mmHg (35.0-45.0) H 07/05/21 04:55 ABG pO2 73.0 mmHg (80.0-100.0) L 07/05/21 04:55 ABG HCO3 42.9 mmol/L (22-26) H* 07/05/21 04:55 ABG O2 Saturation 96.0 % (90-100) 07/05/21 04:55 ABG Base Excess 18.1 mmol/L (-2.0-2.0) H 07/05/21 04:55 Herminio Test Shyam abg [facility] 07/05/21 04:55 A-a Gradient 187.0 mmHg 07/05/21 04:55 FiO2 45.0 07/05/21 04:55 Blood Gas Comments [facility] 07/04/21 05:35 Sodium 144 mmol/L (136-145) 07/05/21 04:25 Corrected Sodium 147 mmol/L (136-145) H 07/05/21 04:25 Potassium 3.6 mmol/L (3.5-5.1) 07/05/21 04:25 Chloride 104 mmol/L (98-107) 07/05/21 04:25 Carbon Dioxide 37.6 mmol/L (21-32) H 07/05/21 04:25 BUN 31 mg/dL (7-18) H 07/05/21 04:25 Creatinine 0.38 mg/dL (0.55-1.02) L 07/05/21 04:25 Est GFR (MDRD) Af Amer > 60 (>60) 07/05/21 04:25 Est GFR (MDRD) Non-Af > 60 (>60) 07/05/21 04:25 Glucose 216 mg/dL (65-99) H 07/05/21 04:25 POC Glucose (mg/dL) 193 mg/dL (65-99) H 07/05/21 09:40 Calcium 9.0 mg/dL (8.5-10.1) 07/05/21 04:25 Corrected Calcium 9.6 mg/dL (8.5-10.1) 07/05/21 04:25 Phosphorus 3.2 mg/dL (2.6-4.7) 06/29/21 16:51 Magnesium 2.0 mg/dL (1.7-2.9) 06/29/21 16:51 Ferritin 163 ng/mL (8-252) 06/14/21 05:26 Total Bilirubin 0.80 mg/dL (0.2-1.0) 07/05/21 04:25 AST 72 Units/L (15-37) H 07/05/21 04:25 ALT 319 Units/L (12-78) H 07/05/21 04:25 Alkaline Phosphatase 95 Units/L (46-116) 07/05/21 04:25 Troponin I < 0.02 ng/mL (0-1.5) 06/08/21 20:42 C-Reactive Protein < 0.50 mg/L (0-3.0) 06/27/21 05:15 B-Natriuretic Peptide 50.6 pg/mL (0-79) 07/03/21 05:33 Total Protein 5.1 g/dL (6.4-8.2) L 07/05/21 04:25 Albumin 3.2 g/dL (3.4-5.0) L 07/05/21 04:25 Globulin 1.9 g/dL (2.5-4.5) L 07/05/21 04:25 Albumin/Globulin Ratio 1.7 Ratio (1.1-2.1) 07/05/21 04:25 Prealbumin 49.8 mg/dL (18-35.7) H 06/30/21 05:22 Triglycerides 163 mg/dL (0-150) H 06/29/21 16:51 Specimen Type Catherized urine 06/09/21 03:30 Urine Color Yellow (YELLOW) 06/09/21 03:30 Urine Appearance Clear (CLEAR) 06/09/21 03:30 Urine pH 6.0 (5.0 - 8.0) 06/09/21 03:30 Ur Specific [place] 1.010 (1.000-1.030) 06/09/21 03:30 Urine Protein 2+ (NEGATIVE) 06/09/21 03:30 Urine Glucose (UA) Negative (NEGATIVE) 06/09/21 03:30 Urine Ketones Negative (NEGATIVE) 06/09/21 03:30 Urine Occult Blood 1+ (NEGATIVE) 06/09/21 03:30 Urine Nitrite Negative (NEGATIVE) 06/09/21 03:30 Urine Bilirubin Negative (NEGATIVE) 06/09/21 03:30 Urine Urobilinogen Normal (NORMAL) 06/09/21 03:30 Ur Leukocyte Esterase Negative (NEGATIVE) 06/09/21 03:30 Urine RBC 0-2 /HPF (0-3) 06/09/21 03:30 Urine WBC None seen /HPF (0-5) 06/09/21 03:30 Ur Squamous Epith Cells Negative /HPF (NEGATIVE) 06/09/21 03:30 Urine Bacteria Negative /HPF (NEGATIVE) 06/09/21 03:30 Ur Culture Indicated? No/not indicated 06/09/21 03:30 Resp Viral Panel (PCR) See scanned report 06/28/21 12:05 Blood Type O POSITIVE 06/25/21 10:11 Antibody Screen Negative 06/25/21 10:11 Crossmatch See Detail 06/25/21 10:11 Plan (1) Pneumonia due to 2019-nCoV: Status: Acute Plan: 1/2 NS AT 20 ML/HR, TPN AT 40 ML/HR, ALBUMIN 25% IV DAILY, FORTAZ 1G IV Q8H, VERSED FOR SEDATION, LEVAQUIN 500MG IV DAILY, MORPHINE SULFATE 2MG IV Q4H PRN, SOLU-MEDROL 125MG IV Q6H, A CATAPRES PATCH, NORVASC VIA OROGASTRIC TU BE, VALIUM 5MG IV Q6H PRN, PROTONIX 40MG IV BID, THIAMINE 200MG IV BID, OTBS ACHS, HUMULIN R SLIDING SCALE, ELIQUIS 5MG PO BID, DIFLUCAN 200MG IV DAILY, PULMICORT NEBS BID, ALBUTEROL NEBS QID, , ASCORBIC ACID 1500MG IV Q6H, ZOFRAN 4MG IV Q4H PRN NAUSEA, AND THE POTASSIUM AND MAGNESIUM PROTOCOLS. (2) Acute respiratory insufficiency: Status: Acute (3) Hypoxia: Status: Acute (4) Anemia: Status: Acute Qualifiers: Anemia type: iron deficiency Iron deficiency anemia type: unspecified iron deficiency Qualified Code(s): D50.9 - Iron deficiency anemia, unspecified (5) Acute dyspnea: Status: Acute
[2021-07-05] MEDS: NS 250 ML IV 250 ML IV PRN (17:44)
[2021-07-05] MEDS: CARDIZEM INJ 125 MG VIAL 125 MG in NS 100 ML IV 100 ML IV PRN (17:46)
[2021-07-06 00:39] LABS: ABG ALLEN TEST POS
[2021-07-06] MEDS: SOLU-Medrol 125 MG VIAL IVP SCH ×3 (01:25→18:00)
[2021-07-06] MEDS: HumuLIN R SUBCUT PRN ×3 (01:25→18:10)
[2021-07-06 04:46] LABS: ABG BASE EXCESS 14.4 mmol/L (-2.0-2.0)
[2021-07-06 04:47] LABS: ABG ALLEN TEST POS; ABG HCO3 39.2 mmol/L (22-26)
[2021-07-06 05:00] LABS: BASOPHILS % (AUTO) 0.2 % (0.2-1.0); EOSINOPHILS % (AUTO) 0.2 % (0.9-2.9); HEMATOCRIT 31.4 % (36.0-47.0); HEMOGLOBIN 10.9 g/dL (12.0-16.0); LYMPHOCYTES # (AUTO) 0.1 X10^3/uL (1.3-2.9); LYMPHOCYTES % (AUTO) 0.9 % (21.0-51.0); MEAN CORPUSCULAR HEMOGLOBIN 29.8 pg (27.0-34.0); MEAN CORPUSCULAR HGB CONC 34.7 g/dL (33.0-35.0); MEAN CORPUSCULAR VOLUME 85.8 fL (80.0-100.0); MEAN PLATELET VOLUME 9.3 fL (7.4-11.0); MONOCYTES # (AUTO) 0.2 x10^3/uL (0.3-0.8); NEUTROPHILS # (AUTO) 8.4 x10^3/uL (2.2-4.8); NEUTROPHILS % (AUTO) 96.7 % (42.0-75.0); PLATELET COUNT 58 X10^3/uL (150.0-450.0); RED BLOOD COUNT 3.66 X10^6/uL (3.5-5.4); RED CELL DISTRIBUTION WIDTH 17.3 % (11.6-16.5); WHITE BLOOD COUNT 8.6 X10^3/uL (3.6-10.0)
[2021-07-06 05:14] LABS: PREALBUMIN 39.7 mg/dL (18-35.7)
[2021-07-06 05:18] LABS: ALANINE AMINOTRANSFERASE 355 Units/L (12-78); ALBUMIN 3.8 g/dL (3.4-5.0); ALKALINE PHOSPHATASE 135 Units/L (46-116); ASPARTATE AMINO TRANSFERASE 101 Units/L (15-37); BLOOD UREA NITROGEN 25 mg/dL (7-18); CALCIUM 8.8 mg/dL (8.5-10.1); CARBON DIOXIDE 38.1 mmol/L (21-32); CHLORIDE 103 mmol/L (98-107); COR NA(FOR HYPERGLY) 150 mmol/L (136-145); CREATININE 0.61 mg/dL (0.55-1.02); SODIUM 147 mmol/L (136-145); TOTAL PROTEIN 6.1 g/dL (6.4-8.2); eGFR NON BLACK RACES > 60 (>60)
[2021-07-06] MEDS: ACCUNEB 1.25 MG NEBULE NEB SCH ×3 (05:30→21:05)
[2021-07-06] MEDS: K-RIDER 10 MEQ/NS 100 ML 10 MEQ/100 ML BAG IV PRN ×2 (05:46→10:00)
[2021-07-06] MEDS: APRESOLINE INJ 20 MG VIAL IVP PRN (06:00)
[2021-07-06 06:24] LABS: PLATELET MORPHOLOGY COMMENT NORMAL (NORMAL)
[2021-07-06] MEDS: PROTONIX INJ 40 MG VIAL IVP SCH ×2 (08:48→20:30)
[2021-07-06] MEDS: THIAMINE HCL INJ IVP SCH ×2 (08:48→20:30)
[2021-07-06] MEDS: VORICONAZOLE 200 MG in NS 50 ML IV + SPIKE MINIBAG* 50 ML IV SCH ×2 (08:48→20:46)
[2021-07-06] MEDS: ELIQUIS NG SCH ×3 (08:49→20:08)
[2021-07-06] MEDS: LASIX IVP SCH ×2 (08:49→20:29)
[2021-07-06] MEDS: ALBUMIN HUMAN 25%- 100 ML 100 ML IV SCH (08:49)
[2021-07-06] MEDS: COLACE SYRUP 100 MG UDC PO SCH ×2 (08:49→20:29)
[2021-07-06] MEDS: NORVASC TAB 5 MG GT SCH (08:50)
[2021-07-06] MEDS: LACRI-LUBE S.O.P. AFFEYE SCH ×2 (08:50→20:29)
[2021-07-06] MEDS: POTASSIUM CHLORIDE LIQ 20 MEQ UDC PO PRN (09:08)
[2021-07-06] MEDS: PULMICORT NEB TX 0.5 MG NEB SCH ×2 (09:25→21:05)
--- NOTE | 2021-07-06 11:19 | RAD ---
HISTORYSOBSTUDYPortable AP [id number]/stable heart size with slight interval progression of diffus e bilateral airspace disease. Support lines are unchanged. There is persistent but improved air withi n the mediastinum. No pneumothorax is seen.IMPRESSIONSmall areas of persistent extrapulmonary air as noted with slight progression of bilateral pneumonic infiltrates.Electronically signed by: DELMIS BOOTH (Jul 06, 2021 11:16:35)
[2021-07-06] MEDS: VERSED 100 MG in NS 100 ML IV 80 ML IV PRN ×2 (11:51→19:47)
--- NOTE | 2021-07-06 12:36 | PCM.PROG ---
Progress Note Progress Note for Day of Date of Exam: 07/06/21 Subjective Subjective: PT IS A 70 YEAR OLD FEMALE ADMITTED ON 06/09 FOR TREATMENT OF PNEUMONIA DUE TO COVID-19, ACUTE RESPIRATORY FAILURE WITH HYPOXIA, AND A-FIB. SHE WAS PLACED ON THE MECHANICAL VENTILATOR ON 06/15/21 DUE TO INCREASED RESPIRATORY EFFORTS, DECREASED OXYGEN SATURATIONS, AND COMBATIVENESS. SHE HAS RECEIVED FOUR UNITS OF PRBC SINCE ADMISSION. PT HAS CONTINUED TO IMPROVE. TODAY, HER VENT SETTINGS ARE SET ON SIMV MODE, RR 15, AND FIO2 35%. ON EXAMINATION TODAY, OROGASTRIC TUBE NOTED FOR FEEDINGS/MEDS. BILATERAL LUNGS NOTED WITH DIMINISHED LUNG SOUNDS THROUGHOUT. ABDOMEN IS ROUND, SOFT, AND NON-TENDER WITH NORMAL BOWEL SOUNDS NOTED IN ALL QUADRANTS. LABS/IMAGING: WBC 8.6, HGB 10.9, PLT 58, NA 147, K 3.0, CREATININE 0.61, GLUCOSE 239. BLOOD AND SPUTUM CULTURES ARE POSITIVE FOR YEAST, SEND OUT CULTURE TO LABS PENDING. REPEAT CULTURE POSITIVE FOR GRAM POSITIVE COCCI AND YEAST. CXR: Small areas of persistent extrapulmonary air as noted with slight progression of bilateral pneumonic infiltrates. ABG WAS OBTAINED THIS MORNING AND REVEALED: PH 7.52, PC02 48, P02 56, HC03 39, 02 SAT 92% ON FI02 35%. SHE IS CURRENTLY RECEIVING TPN AT 40 ML/HR, 25% IV DAILY, 1/2 NS AT 20 ML/HR, VORICONAZOLE, DAILY, MORPHINE SULFATE 2MG IV Q4H PRN, SOLU- MEDROL 80MG IV Q8H, VALIUM 5MG IV Q6H PRN, PROTONIX 40MG IV BID, THIAMINE 200MG IV BID, OTBS ACHS, HUMULIN R SLIDING SCALE, ELIQUIS 5MG PO BID, LASIX 40MG IV Q1 2H, CATAPRES 0.2MG TD PATCH, NORVASC 5MG GT DAILY, PULMICORT NEBS BID, ALBUTEROL NEBS QID, ASCORBIC ACID 1500MG IV Q6H, ZOFRAN 4MG IV Q4H PRN NAUSEA, AND THE POTASSIUM AND MAGNESIUM PROTOCOLS. SHE IS RECEIVING ENSURE 1 CAN TID AND 200ML FREE WATER QID THROUGH THE OG TUBE. TREATING PT FOR FUNGEMIA AND NOW REPEAT BLOOD CULTURES POSITIVE FOR BOTH YEAST AND GRAM POSITIVE COCCI. WILL ADD VANCOMYCIN. DISCOVERED THAT CENTRAL LINE WAS PLACED IN GROIN THAT WILL NEED TO BE REMOVED, HOWEVER UNABLE TO REMOVE AT THIS TIME THIS IS THE ONLY AVAILABLE IV ACCESS WHILE PATIENT IS ALSO ON A MECHANICAL VENTILATOR. NEGATIVE BLOOD CULTURES WOULD ALSO BE NEEDED TO PLACE ANOTHER CENTRAL LINE PER GUIDELINES. REPE AT BLOOD CULTURES IN THE MORNING. CONTINUE TO WEAN OXYGEN DOWN TODAY PATIENT TOLERATES. ATTEMPT TO EXTUBATE IF POSSIBLE. OTHERWISE, WE PLAN TO FOLLOW UP WITH AM LABS AND CHEST XRAY AND CONTINUE TO MONITOR. CRITICAL CARE TIME SPENT ON CLINICAL ASSESSMENT, REVIEWING LABS AND IMAGING, DECISION MAKING, AND DOCUMENTATION GREATER THAN 75 MINUTES. Past Medical Family Social History Past Med/Fam/Surg Hx: No changes since H&P Allergies: Allergies nalbuphine [From Nubain] Allergy (Verified 05/15/18 14:34) Penicillins Allergy (Verified 05/15/18 14:34) Review of Systems ROS: No change since H&P Vital Signs and I&O's Vital Signs: Temperature 99.0 F Pulse Rate [Apical] 81 Pulse Rate 101 Respiratory Rate 29 Blood Pressure [Left Arm] 129/61 Blood Pressure [Right Arm] 176/96 Blood Pressure 175/84 O2 Sat by Pulse Oximetry 89 Intake and Output: Intake & Output 07/03/21 07/04/21 07/05/21 07/06/21 23:59 23:59 23:59 23:59 Intake Total 3897 / 3897 4936.4 / 4936.4 4297.6 / 4297.6 1497 / 1497 Output Total 4000 / 4000 3700 / 3700 2800 / 2800 1800 / 1800 Balance -103 / -103 1236.4 / 1236.4 1497.6 / 1497.6 -303 / -303 Physical Exam Oriented: Unable to test Eyes: Normal Ear: Normal Nose: Normal Throat: Normal Respiratory: Generalized and Diminished Cardiovascular: Normal and Irregular : Normal Auscultation: Bowel Sounds: Normal Tenderness: Normal Skin: Normal Musculoskeletal: Normal Psychiatric: Other (SEDATED ) Mood Description: Calm Affect: Normal (SEDATED) Speech Pattern: Artificially Ventilated Laboratory and Diagnostics Result Diagrams: 07/06/21 04:48 07/06/21 04:48 Labs: 07/03/21 19:46 Blood Blood Culture - Preliminary 07/03/21 19:54 Blood Blood Culture - Preliminary 06/28/21 11:20 Blood Blood Culture - Preliminary 06/28/21 11:30 Blood Blood Culture - Preliminary 06/28/21 11:30 Sputum - Endotracheal Wash Sputum Culture - Final 06/28/21 11:30 Sputum - Endotracheal Wash - Final 06/28/21 11:20 Urine,Clean Catch Urine Culture - Final 06/08/21 20:42 Blood Blood Culture - Final 06/08/21 20:50 Blood Blood Culture - Final Laboratory WBC 8.6 X10^3/uL (3.6-10.0) 07/06/21 04:48 RBC 3.66 X10^6/uL (3.5-5.4) 07/06/21 04:48 Hgb 10.9 g/dL (12.0-16.0) L D 07/06/21 04:48 Hct 31.4 % (36.0-47.0) L 07/06/21 04:48 MCV 85.8 fL (80.0-100.0) 07/06/21 04:48 MCH 29.8 pg (27.0-34.0) 07/06/21 04:48 MCHC 34.7 g/dL (33.0-35.0) 07/06/21 04:48 RDW 17.3 % (11.6-16.5) H 07/06/21 04:48 Plt Count 58 X10^3/uL (150.0-450.0) L 07/06/21 04:48 Plt Count Comment Decreased (ADEQUATE) A 07/06/21 04:48 MPV 9.3 fL (7.4-11.0) 07/06/21 04:48 Neut % (Auto) 96.7 % (42.0-75.0) H 07/06/21 04:48 Lymph % (Auto) 0.9 % (21.0-51.0) L 07/06/21 04:48 [place] % (Auto) 2.0 % (0.0-13.0) 07/06/21 04:48 Eos % (Auto) 0.2 % (0.9-2.9) L 07/06/21 04:48 Baso % (Auto) 0.2 % (0.2-1.0) 07/06/21 04:48 Neut # (Auto) 8.4 x10^3/uL (2.2-4.8) H 07/06/21 04:48 Lymph # (Auto) 0.1 X10^3/uL (1.3-2.9) L 07/06/21 04:48 [place] # (Auto) 0.2 x10^3/uL (0.3-0.8) L 07/06/21 04:48 Eos # (Auto) 0.0 x10^3/uL (0.0-0.2) 07/06/21 04:48 Baso # (Auto) 0.0 X10^3/uL (0.0-0.1) 07/06/21 04:48 Absolute Nucleated RBC 0.2 /100WBC 07/06/21 04:48 Total Counted 100 07/06/21 04:48 Neutrophils % (Manual) 99 % (39-76) H 07/06/21 04:48 Band Neutrophils % 2 % (0-10) 07/03/21 05:33 Lymphocytes % (Manual) 1 % (13-43) L 07/06/21 04:48 Monocytes % (Manual) 1 % (4-9) L 07/04/21 04:35 Metamyelocytes % 9 06/22/21 04:50 Myelocytes % 2 06/30/21 05:22 Plt Morphology Comment Normal (NORMAL) 07/06/21 04:48 RBC Morphology Normal (NORMAL) 07/06/21 04:48 Hypochromasia Slight A 06/29/21 05:22 Anisocytosis Slight A 06/30/21 05:22 Microcytosis Slight A 06/19/21 04:46 Ovalocytes Slight A 06/13/21 06:15 [place] Cells Slight A 06/19/21 04:46 PT 15.4 SECONDS (11.8-14.3) 06/08/21 20:42 INR Target Range - 06/08/21 20:42 INR 1.28 (0.8-1.3) 06/08/21 20:42 D-Dimer 0.90 ug/ml (0.0-0.57) H* 07/03/21 05:33 Sample Site Rrad 07/06/21 04:44 ABG pH 7.520 (7.35-7.45) H 07/06/21 04:44 ABG pCO2 48.0 mmHg (35.0-45.0) H 07/06/21 04:44 ABG pO2 56.0 mmHg (80.0-100.0) L 07/06/21 04:44 ABG HCO3 39.2 mmol/L (22-26) H* 07/06/21 04:44 ABG O2 Saturation 92.0 % (90-100) 07/06/21 04:44 ABG Base Excess 14.4 mmol/L (-2.0-2.0) H 07/06/21 04:44 Herminio Test Pos 07/06/21 04:44 A-a Gradient 134.0 mmHg 07/06/21 04:44 FiO2 35.0 07/06/21 04:44 Blood Gas Comments Shyam well mts 07/06/21 04:44 Sodium 147 mmol/L (136-145) H 07/06/21 04:48 Corrected Sodium 150 mmol/L (136-145) H 07/06/21 04:48 Potassium 3.0 mmol/L (3.5-5.1) L* 07/06/21 04:48 Chloride 103 mmol/L (98-107) 07/06/21 04:48 Carbon Dioxide 38.1 mmol/L (21-32) H 07/06/21 04:48 BUN 25 mg/dL (7-18) H 07/06/21 04:48 Creatinine 0.61 mg/dL (0.55-1.02) 07/06/21 04:48 Est GFR (MDRD) Af Amer > 60 (>60) 07/06/21 04:48 Est GFR (MDRD) Non-Af > 60 (>60) 07/06/21 04:48 Glucose 239 mg/dL (65-99) H 07/06/21 04:48 POC Glucose (mg/dL) 242 mg/dL (65-99) H 07/06/21 08:38 Calcium 8.8 mg/dL (8.5-10.1) 07/06/21 04:48 Corrected Calcium TNP 07/06/21 04:48 Phosphorus 3.2 mg/dL (2.6-4.7) 06/29/21 16:51 Magnesium 1.9 mg/dL (1.7-2.9) 07/06/21 04:48 Ferritin 163 ng/mL (8-252) 06/14/21 05:26 Total Bilirubin 1.60 mg/dL (0.2-1.0) H 07/06/21 04:48 AST 101 Units/L (15-37) H 07/06/21 04:48 ALT 355 Units/L (12-78) H 07/06/21 04:48 Alkaline Phosphatase 135 Units/L (46-116) H 07/06/21 04:48 Troponin I < 0.02 ng/mL (0-1.5) 06/08/21 20:42 C-Reactive Protein < 0.50 mg/L (0-3.0) 06/27/21 05:15 B-Natriuretic Peptide 50.6 pg/mL (0-79) 07/03/21 05:33 Total Protein 6.1 g/dL (6.4-8.2) L 07/06/21 04:48 Albumin 3.8 g/dL (3.4-5.0) 07/06/21 04:48 Globulin 2.3 g/dL (2.5-4.5) L 07/06/21 04:48 Albumin/Globulin Ratio 1.7 Ratio (1.1-2.1) 07/06/21 04:48 Prealbumin 39.7 mg/dL (18-35.7) H 07/06/21 04:48 Triglycerides 163 mg/dL (0-150) H 06/29/21 16:51 Specimen Type Catherized urine 06/09/21 03:30 Urine Color Yellow (YELLOW) 06/09/21 03:30 Urine Appearance Clear (CLEAR) 06/09/21 03:30 Urine pH 6.0 (5.0 - 8.0) 06/09/21 03:30 Ur Specific [place] 1.010 (1.000-1.030) 06/09/21 03:30 Urine Protein 2+ (NEGATIVE) 06/09/21 03:30 Urine Glucose (UA) Negative (NEGATIVE) 06/09/21 03:30 Urine Ketones Negative (NEGATIVE) 06/09/21 03:30 Urine Occult Blood 1+ (NEGATIVE) 06/09/21 03:30 Urine Nitrite Negative (NEGATIVE) 06/09/21 03:30 Urine Bilirubin Negative (NEGATIVE) 06/09/21 03:30 Urine Urobilinogen Normal (NORMAL) 06/09/21 03:30 Ur Leukocyte Esterase Negative (NEGATIVE) 06/09/21 03:30 Urine RBC 0-2 /HPF (0-3) 06/09/21 03:30 Urine WBC None seen /HPF (0-5) 06/09/21 03:30 Ur Squamous Epith Cells Negative /HPF (NEGATIVE) 06/09/21 03:30 Urine Bacteria Negative /HPF (NEGATIVE) 06/09/21 03:30 Ur Culture Indicated? No/not indicated 06/09/21 03:30 Resp Viral Panel (PCR) See scanned report 06/28/21 12:05 Blood Type O POSITIVE 07/05/21 15:02 Antibody Screen Negative 07/05/21 15:02 Crossmatch See Detail 07/05/21 15:02 Plan (1) Pneumonia due to 2019-nCoV: Status: Acute Plan: 1/2 NS AT 20 ML/HR, TPN AT 40 ML/HR, ALBUMIN 25% IV DAILY, FORTAZ 1G IV Q8H, VERSED FOR SEDATION, LEVAQUIN 500MG IV DAILY, MORPHINE SULFATE 2MG IV Q4H PRN, SOLU-MEDROL 125MG IV Q6H, A CATAPRES PATCH, NORVASC VIA OROGASTRIC TUBE, VALIUM 5MG IV Q6H PRN, PROTONIX 40MG IV BID, THIAMINE 200MG IV BID, OTBS ACHS, HUMULIN R SLIDING SCALE, ELIQUIS 5MG PO BID, DIFLUCAN 200MG IV DAILY, PULMICORT NEBS BID, ALBUTEROL NEBS QID, , ASCORBIC ACID 1500MG IV Q6H, ZOFRAN 4MG IV Q4H PRN NAUSEA, AND THE POTASSIUM AND MAGNESIUM PROTOCOLS. (2) Acute respiratory insufficiency: Status: Acute (3) Hypoxia: Status: Acute (4) Anemia: Status: Acute Qualifiers: Anemia type: iron deficiency Iron deficiency anemia type: unspecified iron deficiency Qualified Code(s): D50.9 - Iron deficiency anemia, unspecified (5) Acute dyspnea: Status: Acute
[2021-07-06] MEDS ORDERED: PHARMACY CONSULT - VANCOMYCIN XX SCH (13:00)
[2021-07-06] MEDS ORDERED: NS 250 ML IV 250 ML IV ONE (13:31)
[2021-07-06] MEDS: NS 250 ML IV 250 ML IV PRN (13:35)
[2021-07-06] MEDS ORDERED: VANCOMYCIN IV *PREMIX 1.25 G/250 ML BAG 1.25 G/250 ML PIGGYBACK IV SCH (14:00)
[2021-07-06] MEDS: XYLOCAINE OINT 5% 1 APPLIC, ZOVIRAX 1 APPLIC TOP SCH ×4 (14:51→22:00)
[2021-07-06] MEDS: CARDIZEM INJ 125 MG VIAL 125 MG in NS 100 ML IV 100 ML IV PRN (15:50)
[2021-07-06] MEDS: NS 1/2 1000 ML IV 1,000 ML IV SCH (21:54)
[2021-07-07] MEDS: HumuLIN R SUBCUT PRN ×3 (00:27→17:30)
[2021-07-07] MEDS: XYLOCAINE OINT 5% 1 APPLIC, ZOVIRAX 1 APPLIC TOP SCH ×8 (00:38→21:40)
[2021-07-07] MEDS: APRESOLINE INJ 20 MG VIAL IVP PRN (00:38)
[2021-07-07] MEDS: SOLU-Medrol 125 MG VIAL IVP SCH ×3 (01:21→17:30)
[2021-07-07] MEDS: MORPHINE SULFATE INJ 2 MG INJ IVP PRN (01:35)
[2021-07-07] MEDS: CLINIMIX IV SCH ×15 (02:56→15:22)
[2021-07-07] MEDS: [UNRECOGNIZED DRUG - OTHER] IV SCH ×15 (02:56→15:22)
[2021-07-07] MEDS: MVI IV SCH ×15 (02:56→15:22)
[2021-07-07 05:13] LABS: ABG BASE EXCESS 17.7 mmol/L (-2.0-2.0)
[2021-07-07 05:14] LABS: ABG ALLEN TEST POS; ABG HCO3 43.7 mmol/L (22-26)
[2021-07-07 05:16] LABS: BASOPHILS % (AUTO) 0.4 % (0.2-1.0); EOSINOPHILS % (AUTO) 0.1 % (0.9-2.9); HEMATOCRIT 27.7 % (36.0-47.0); HEMOGLOBIN 9.6 g/dL (12.0-16.0); LYMPHOCYTES # (AUTO) 0.1 X10^3/uL (1.3-2.9); LYMPHOCYTES % (AUTO) 1.2 % (21.0-51.0); MEAN CORPUSCULAR HEMOGLOBIN 29.7 pg (27.0-34.0); MEAN CORPUSCULAR HGB CONC 34.5 g/dL (33.0-35.0); MONOCYTES # (AUTO) 0.2 x10^3/uL (0.3-0.8); MONOCYTES % (AUTO) 3.2 % (0.0-13.0); NEUTROPHILS # (AUTO) 5.5 x10^3/uL (2.2-4.8); NEUTROPHILS % (AUTO) 95.1 % (42.0-75.0); PLATELET COUNT 47 X10^3/uL (150.0-450.0); RED BLOOD COUNT 3.22 X10^6/uL (3.5-5.4); RED CELL DISTRIBUTION WIDTH 17.9 % (11.6-16.5); WHITE BLOOD COUNT 5.8 X10^3/uL (3.6-10.0)
[2021-07-07 05:30] LABS: ALANINE AMINOTRANSFERASE 433 Units/L (12-78); ALBUMIN 3.3 g/dL (3.4-5.0); ALKALINE PHOSPHATASE 145 Units/L (46-116); ASPARTATE AMINO TRANSFERASE 117 Units/L (15-37); BLOOD UREA NITROGEN 28 mg/dL (7-18); CALCIUM 8.4 mg/dL (8.5-10.1); CARBON DIOXIDE 37.6 mmol/L (21-32); CHLORIDE 102 mmol/L (98-107); COR NA(FOR HYPERGLY) 145 mmol/L (136-145); CREATININE 0.29 mg/dL (0.55-1.02); SODIUM 143 mmol/L (136-145); TOTAL PROTEIN 5.5 g/dL (6.4-8.2); eGFR NON BLACK RACES > 60 (>60)
[2021-07-07] MEDS: NS 1/2 1000 ML IV 1,000 ML IV SCH ×3 (05:44→17:11)
[2021-07-07] MEDS: VERSED 100 MG in NS 100 ML IV 80 ML IV PRN (05:45)
[2021-07-07 05:55] LABS: PLATELET MORPHOLOGY COMMENT NORMAL (NORMAL)
[2021-07-07] MEDS: ACCUNEB 1.25 MG NEBULE NEB SCH ×2 (06:19→21:20)
--- NOTE | 2021-07-07 08:05 | RAD ---
HISTORYPNEUMONIA F/USTUDYCHEST, 1 [id number] bilateral opacity in the lungs have the typical appearance of pneumonia on the prior CT 06/11/2021. More recent studies show this to be diffuse and bilateral. Differential diagnosis includes pneumonia or pulmonary edema. Findings may have progressed slightly since yesterday. Some of this may be lesser technique.No pleural effusion or pneumothorax.The heart size is magnified.Old right clavicle fracture.The endotracheal tube is anatomic in position in the trachea. The enteric tube extends into the upper abdomen. EKG leads are noted.IMPRESSION1. Progressed pulmonary edema or pneumoniaElectronically signed by: Andrew Ferreira (Jul 07, 2021 08:03:47)
[2021-07-07] MEDS: VANCOMYCIN IV *PREMIX 1 G/200 ML BAG 1 G/200 ML PIGGYBACK IV SCH ×2 (09:33→21:00)
[2021-07-07] MEDS: COLACE SYRUP 100 MG UDC PO SCH ×2 (09:58→21:15)
[2021-07-07] MEDS: ALBUMIN HUMAN 25%- 100 ML 100 ML IV SCH (09:58)
[2021-07-07] MEDS: THIAMINE HCL INJ IVP SCH ×2 (10:01→21:25)
[2021-07-07] MEDS: PROTONIX INJ 40 MG VIAL IVP SCH ×2 (10:01→21:20)
[2021-07-07] MEDS: NORVASC TAB 5 MG GT SCH (10:02)
[2021-07-07] MEDS: LASIX IVP SCH ×2 (10:02→21:10)
[2021-07-07] MEDS: LACRI-LUBE S.O.P. AFFEYE SCH ×2 (10:02→20:55)
[2021-07-07] MEDS: ELIQUIS NG SCH ×2 (10:03→22:35)
[2021-07-07] MEDS ORDERED: NS 1/2 1000 ML IV 1,000 ML IV ONE (11:00)
[2021-07-07] MEDS: VORICONAZOLE 200 MG in NS 50 ML IV + SPIKE MINIBAG* 50 ML IV SCH ×2 (12:00→22:26)
[2021-07-07] MEDS: CARDIZEM INJ 125 MG VIAL 125 MG in NS 100 ML IV 100 ML IV PRN (15:00)
--- NOTE | 2021-07-07 15:52 | PCM.PROG ---
Progress Note - Progress Note for Day of Date of Exam: 07/07/21 - Subjective Subjective: WAS ADMITTED ON 06/09 FOR TREATMENT OF PNEUMONIA DUE TO COVID-19, ACUTE RESPIRATORY FAILURE WITH HYPOXIA, AND A-FIB. SHE WAS PLACED ON THE MECHANICAL VENTILATOR ON 06/15/21 DUE TO INCREASED RESPIRATORY EFFORTS, DECREASED OXYGEN SATURATIONS, AND COMBATIVENESS. SHE HAS RECEIVED FOUR UNITS OF PRBC AND TWO PACKS OF PLATELETS SINCE ADMISSION. TODAY, HER VENT SETTINGS ARE: A/C, VENT RATE 14, TIDAL VOLUME SET 450, PEEP 6, FI02 80. SATURATIONS HAVE BEEN 91-100%. ON EXAMINATION TODAY, OROGASTRIC TUBE NOTED FOR FEEDINGS/MEDS. HR IS 70s-80s ON THE MONITOR. BILATERAL LUNGS NOTED WITH DIMINISHED LUNG SOUNDS THROUGHOUT. ABDOMEN IS ROUND, SOFT, AND NON-TENDER WITH NORMAL BOWEL SOUNDS NOTED IN ALL QUADRANTS. HER VITALS THIS MORNING ARE: 98.8-78-33-92%-145/67. LABS WERE OBTAINED. ABNORMAL LAB VALUES INCLUDE THE FOLLOWING: RBC 3.22, HGB 9.6, HCT 27.7, PLT COUNT 47, D-DIMER 0.90, POTASSIUM 3.4, CARBON DIOXIDE 37.6, BUN 28, CREATININE 0.29, GLUCOSE 202, CALCIUM 8.4, AST 117, ALT 433, ALK PHOS 145, TOTAL PROTEIN 5.5, ALBUMIN 3.3, GLOBULIN 2.2. BLOOD CULTURES FROM 07/03 REPORTED GROWTH OF STAPHYLOCOCCUS EPIDERMIS AND YEAST. ABG REVEALED: PH 7.500, PC02 56, P02 63, HC03 43.7, 02 SAT 94, BASE EXCESS 17.7, A-A GRADIENT 188, FI02 45. SHE IS CURRENTLY RECEIVING TPN AT 40 ML/HR, ALBUMIN 25% IV DAILY, D5W AT 100 ML/HR, VORICONAZOLE, VERSED IV, DAILY, MORPHINE SULFATE 2MG IV Q4H PRN, SOLU-MEDROL 80MG IV Q8H, VALIUM 5MG IV Q6H PRN, PROTONIX 40MG IV BID, THIAMINE 200MG IV BID, OTBS ACHS, HUMULIN R SLIDING SCALE, ELIQUIS 5MG PO BID, LASIX 40MG IV Q12H, CATAPRES 0.2MG TD PATCH, NORVASC 5MG GT DAILY, PULMICORT NEBS BID, ALBUTEROL NEBS QID, ASCORBIC ACID 1500MG IV Q6H, ZOFRAN 4MG IV Q4H PRN NAUSEA, AND THE POTASSIUM AND MAGNESIUM PROTOCOLS. TODAY, WE WILL ADD VANCOMYCIN 1G IV Q12H. SHE IS RECEIVING ENSURE 1 CAN TID AND 200ML FREE WATER QID THROUGH THE OG TUBE. WE WILL CONTINUE TO WEAN OXYGEN DOWN TODAY PATIENT TOLERATES. OTHERWISE, WE PLAN TO FOLLOW UP WITH AM LABS AND CHEST XRAY AND CONTINUE TO MONITOR. WE WILL DISCUSS PLACEMENT OF TRACH WITH FAMILY. TIME SPENT ON CLINICAL ASSESSMENT, REVIEWING LABS AND IMAGING, DECISION MAKING, AND DOCUMENTATION GREATER THAN 75 MINUTES. - Past Medical Family Social History Past Med/Fam/Surg Hx: No changes since H&P Allergies: Allergies nalbuphine [From Nubain] Allergy (Verified 05/15/18 14:34) Penicillins Allergy (Verified 05/15/18 14:34) - Review of Systems ROS: No change since H&P - Vital Signs and I&O's Vital Signs: Temperature 98.8 F Pulse Rate [Apical] 81 Pulse Rate 88 Respiratory Rate 28 Blood Pressure [Left Arm] 129/61 Blood Pressure [Right Arm] 176/96 Blood Pressure 164/77 O2 Sat by Pulse Oximetry 91 Intake and Output: Intake & Output 07/05/21 07/06/21 07/07/21 07/08/21 11:59 11:59 11:59 11:59 Intake Total 4080.0 / 4080.0 4910 / 4910 4677 / 4677 1383 / 1383 Output Total 3400 / 3400 3900 / 3900 4400 / 6050 2550 / 2550 Balance 680.0 / 680.0 1010 / 1010 277 / -1373 -1167 / -1167 - Physical Exam Oriented: Unable to test Eyes: Normal Ear: Normal Nose: Normal Throat: Normal Respiratory: Generalized, Diminished Cardiovascular: Irregular, Normal : Normal Auscultation: Bowel Sounds: Normal Tenderness: Normal Skin: Normal Musculoskeletal: Normal Psychiatric: Other (SEDATED) Mood Description: Calm Affect: Normal (SEDATED) Speech Pattern: Artificially Ventilated - Laboratory and Diagnostics Result Diagrams: 07/07/21 04:40 07/07/21 04:40 Labs: 07/03/21 19:46 Blood Blood Culture - Final 07/03/21 19:54 Blood Blood Culture - Final Staphylococcus Epidermidis 06/28/21 11:20 Blood Blood Culture - Preliminary 06/28/21 11:30 Blood Blood Culture - Preliminary 06/28/21 11:30 Sputum - Endotracheal Wash Sputum Culture - Final 06/28/21 11:30 Sputum - Endotracheal Wash - Final 06/28/21 11:20 Urine,Clean Catch Urine Culture - Final 06/08/21 20:42 Blood Blood Culture - Final 06/08/21 20:50 Blood Blood Culture - Final Laboratory WBC 5.8 X10^3/uL (3.6-10.0) 07/07/21 04:40 RBC 3.22 X10^6/uL (3.5-5.4) L 07/07/21 04:40 Hgb 9.6 g/dL (12.0-16.0) L 07/07/21 04:40 Hct 27.7 % (36.0-47.0) L 07/07/21 04:40 MCV 86.0 fL (80.0-100.0) 07/07/21 04:40 MCH 29.7 pg (27.0-34.0) 07/07/21 04:40 MCHC 34.5 g/dL (33.0-35.0) 07/07/21 04:40 RDW 17.9 % (11.6-16.5) H 07/07/21 04:40 Plt Count 47 X10^3/uL (150.0-450.0) L 07/07/21 04:40 Plt Count Comment Decreased (ADEQUATE) A 07/07/21 04:40 MPV 10.0 fL (7.4-11.0) 07/07/21 04:40 Neut % (Auto) 95.1 % (42.0-75.0) H 07/07/21 04:40 Lymph % (Auto) 1.2 % (21.0-51.0) L 07/07/21 04:40 [place] % (Auto) 3.2 % (0.0-13.0) 07/07/21 04:40 Eos % (Auto) 0.1 % (0.9-2.9) L 07/07/21 04:40 Baso % (Auto) 0.4 % (0.2-1.0) 07/07/21 04:40 Neut # (Auto) 5.5 x10^3/uL (2.2-4.8) H 07/07/21 04:40 Lymph # (Auto) 0.1 X10^3/uL (1.3-2.9) L 07/07/21 04:40 [place] # (Auto) 0.2 x10^3/uL (0.3-0.8) L 07/07/21 04:40 Eos # (Auto) 0.0 x10^3/uL (0.0-0.2) 07/07/21 04:40 Baso # (Auto) 0.0 X10^3/uL (0.0-0.1) 07/07/21 04:40 Absolute Nucleated RBC 0.2 /100WBC 07/07/21 04:40 Total Counted 100 07/07/21 04:40 Neutrophils % (Manual) 98 % (39-76) H 07/07/21 04:40 Band Neutrophils % 2 % (0-10) 07/03/21 05:33 Lymphocytes % (Manual) 2 % (13-43) L 07/07/21 04:40 Monocytes % (Manual) 1 % (4-9) L 07/04/21 04:35 Metamyelocytes % 9 06/22/21 04:50 Myelocytes % 2 06/30/21 05:22 Plt Morphology Comment Normal (NORMAL) 07/07/21 04:40 RBC Morphology Abnormal (NORMAL) A 07/07/21 04:40 Dimorphic RBCs 2+ 07/07/21 04:40 Hypochromasia Slight A 06/29/21 05:22 Anisocytosis Slight A 06/30/21 05:22 Microcytosis Slight A 06/19/21 04:46 Ovalocytes Slight A 06/13/21 06:15 Phyllis Cells Slight A 06/19/21 04:46 PT 15.4 SECONDS (11.8-14.3) 06/08/21 20:42 INR Target Range - 06/08/21 20:42 INR 1.28 (0.8-1.3) 06/08/21 20:42 D-Dimer 0.90 ug/ml (0.0-0.57) H* 07/03/21 05:33 Sample Site Rrad 07/07/21 05:10 ABG pH 7.500 (7.35-7.45) H 07/07/21 05:10 ABG pCO2 56.0 mmHg (35.0-45.0) H* 07/07/21 05:10 ABG pO2 63.0 mmHg (80.0-100.0) L 07/07/21 05:10 ABG HCO3 43.7 mmol/L (22-26) H* 07/07/21 05:10 ABG O2 Saturation 94.0 % (90-100) 07/07/21 05:10 ABG Base Excess 17.7 mmol/L (-2.0-2.0) H 07/07/21 05:10 Herminio Test Pos 07/07/21 05:10 A-a Gradient 188.0 mmHg 07/07/21 05:10 FiO2 45.0 07/07/21 05:10 Blood Gas Comments Shyam well mts 07/07/21 05:10 Sodium 143 mmol/L (136-145) 07/07/21 04:40 Corrected Sodium 145 mmol/L (136-145) 07/07/21 04:40 Potassium 3.4 mmol/L (3.5-5.1) L 07/07/21 04:40 Chloride 102 mmol/L (98-107) 07/07/21 04:40 Carbon Dioxide 37.6 mmol/L (21-32) H 07/07/21 04:40 BUN 28 mg/dL (7-18) H 07/07/21 04:40 Creatinine 0.29 mg/dL (0.55-1.02) L 07/07/21 04:40 Est GFR (MDRD) Af Amer > 60 (>60) 07/07/21 04:40 Est GFR (MDRD) Non-Af > 60 (>60) 07/07/21 04:40 Glucose 202 mg/dL (65-99) H 07/07/21 04:40 POC Glucose (mg/dL) 264 mg/dL (65-99) H 07/07/21 09:27 Calcium 8.4 mg/dL (8.5-10.1) L 07/07/21 04:40 Corrected Calcium 9.0 mg/dL (8.5-10.1) 07/07/21 04:40 Phosphorus 3.2 mg/dL (2.6-4.7) 06/29/21 16:51 Magnesium 1.9 mg/dL (1.7-2.9) 07/06/21 04:48 Ferritin 163 ng/mL (8-252) 06/14/21 05:26 Total Bilirubin 0.90 mg/dL (0.2-1.0) 07/07/21 04:40 AST 117 Units/L (15-37) H 07/07/21 04:40 ALT 433 Units/L (12-78) H 07/07/21 04:40 Alkaline Phosphatase 145 Units/L (46-116) H 07/07/21 04:40 Troponin I < 0.02 ng/mL (0-1.5) 06/08/21 20:42 C-Reactive Protein < 0.50 mg/L (0-3.0) 06/27/21 05:15 B-Natriuretic Peptide 50.6 pg/mL (0-79) 07/03/21 05:33 Total Protein 5.5 g/dL (6.4-8.2) L 07/07/21 04:40 Albumin 3.3 g/dL (3.4-5.0) L 07/07/21 04:40 Globulin 2.2 g/dL (2.5-4.5) L 07/07/21 04:40 Albumin/Globulin Ratio 1.5 Ratio (1.1-2.1) 07/07/21 04:40 Prealbumin 39.7 mg/dL (18-35.7) H 07/06/21 04:48 Triglycerides 163 mg/dL (0-150) H 06/29/21 16:51 Specimen Type Catherized urine 06/09/21 03:30 Urine Color Yellow (YELLOW) 06/09/21 03:30 Urine Appearance Clear (CLEAR) 06/09/21 03:30 Urine pH 6.0 (5.0 - 8.0) 06/09/21 03:30 Ur Specific [place] 1.010 (1.000-1.030) 06/09/21 03:30 Urine Protein 2+ (NEGATIVE) 06/09/21 03:30 Urine Glucose (UA) Negative (NEGATIVE) 06/09/21 03:30 Urine Ketones Negative (NEGATIVE) 06/09/21 03:30 Urine Occult Blood 1+ (NEGATIVE) 06/09/21 03:30 Urine Nitrite Negative (NEGATIVE) 06/09/21 03:30 Urine Bilirubin Negative (NEGATIVE) 06/09/21 03:30 Urine Urobilinogen Normal (NORMAL) 06/09/21 03:30 Ur Leukocyte Esterase Negative (NEGATIVE) 06/09/21 03:30 Urine RBC 0-2 /HPF (0-3) 06/09/21 03:30 Urine WBC None seen /HPF (0-5) 06/09/21 03:30 Ur Squamous Epith Cells Negative /HPF (NEGATIVE) 06/09/21 03:30 Urine Bacteria Negative /HPF (NEGATIVE) 06/09/21 03:30 Ur Culture Indicated? No/not indicated 06/09/21 03:30 Resp Viral Panel (PCR) See scanned report 06/28/21 12:05 Blood Type O POSITIVE 07/05/21 15:02 Antibody Screen Negative 07/05/21 15:02 Crossmatch See Detail 07/05/21 15:02 - Plan (1) Pneumonia due to 2019-nCoV Status: Acute Plan: TPN AT 40 ML/HR, ALBUMIN 25% IV DAILY, D5W AT 100 ML/HR, VORICONAZOLE, VERSED IV, DAILY, MORPHINE SULFATE 2MG IV Q4H PRN, SOLU-MEDROL 80MG IV Q8H, VALIUM 5MG IV Q6H PRN, PROTONIX 40MG IV BID, THIAMINE 200MG IV BID, OTBS ACHS, HUMULIN R SLIDING SCALE, ELIQUIS 5MG PO BID, LASIX 40MG IV Q12H, CATAPRES 0.2MG TD PATCH, NORVASC 5MG GT DAILY, PULMICORT NEBS BID, ALBUTEROL NEBS QID, ASCORBIC ACID 1500MG IV Q6H, ZOFRAN 4MG IV Q4H PRN NAUSEA, AND THE POTASSIUM AND MAGNESIUM PROTOCOLS, VANCOMYCIN 1G IV Q12H (2) Acute respiratory insufficiency Status: Acute (3) Hypoxia Status: Acute (4) Anemia Status: Acute Qualifiers: Anemia type: iron deficiency Iron deficiency anemia type: unspecified iron deficiency Qualified Code(s): D50.9 - Iron deficiency anemia, unspecified (5) Acute dyspnea Status: Acute
[2021-07-07] MEDS: POTASSIUM CHLORIDE LIQ 20 MEQ UDC PO PRN (21:15)
[2021-07-07] MEDS: PULMICORT NEB TX 0.5 MG NEB SCH (21:20)
[2021-07-07] MEDS: VERSED IV PREMIX 100 MG/100 ML IV.SOLN IV PRN (21:39)
[2021-07-08] MEDS: HumuLIN R SUBCUT PRN ×4 (02:29→16:44)
[2021-07-08] MEDS: SOLU-Medrol 125 MG VIAL IVP SCH ×3 (02:30→16:43)
[2021-07-08] MEDS: VALIUM INJ IVP PRN (02:30)
[2021-07-08 05:04] LABS: ABG BASE EXCESS 16.4 mmol/L (-2.0-2.0)
[2021-07-08 05:05] LABS: ABG ALLEN TEST POS; ABG HCO3 42.9 mmol/L (22-26)
[2021-07-08 05:09] LABS: BASOPHILS % (AUTO) 0.4 % (0.2-1.0); EOSINOPHILS % (AUTO) 0.1 % (0.9-2.9); HEMATOCRIT 32.6 % (36.0-47.0); HEMOGLOBIN 11.4 g/dL (12.0-16.0); LYMPHOCYTES # (AUTO) 0.1 X10^3/uL (1.3-2.9); LYMPHOCYTES % (AUTO) 1.1 % (21.0-51.0); MEAN CORPUSCULAR HEMOGLOBIN 29.9 pg (27.0-34.0); MEAN CORPUSCULAR HGB CONC 34.9 g/dL (33.0-35.0); MEAN CORPUSCULAR VOLUME 85.7 fL (80.0-100.0); MEAN PLATELET VOLUME 10.6 fL (7.4-11.0); MONOCYTES # (AUTO) 0.1 x10^3/uL (0.3-0.8); MONOCYTES % (AUTO) 1.5 % (0.0-13.0); NEUTROPHILS # (AUTO) 5.8 x10^3/uL (2.2-4.8); NEUTROPHILS % (AUTO) 96.9 % (42.0-75.0); PLATELET COUNT 37 X10^3/uL (150.0-450.0); RED BLOOD COUNT 3.81 X10^6/uL (3.5-5.4); RED CELL DISTRIBUTION WIDTH 18.3 % (11.6-16.5)
[2021-07-08 05:39] LABS: ALANINE AMINOTRANSFERASE 574 Units/L (12-78); ALBUMIN 3.8 g/dL (3.4-5.0); ALKALINE PHOSPHATASE 178 Units/L (46-116); ASPARTATE AMINO TRANSFERASE 121 Units/L (15-37); BLOOD UREA NITROGEN 27 mg/dL (7-18); CALCIUM 9.2 mg/dL (8.5-10.1); CARBON DIOXIDE 37.3 mmol/L (21-32); CHLORIDE 100 mmol/L (98-107); COR NA(FOR HYPERGLY) 147 mmol/L (136-145); CREATININE 0.36 mg/dL (0.55-1.02); SODIUM 143 mmol/L (136-145); TOTAL PROTEIN 6.3 g/dL (6.4-8.2); eGFR NON BLACK RACES > 60 (>60)
[2021-07-08 05:58] LABS: PLATELET MORPHOLOGY COMMENT NORMAL (NORMAL)
[2021-07-08] MEDS: MORPHINE SULFATE INJ 2 MG INJ IVP PRN ×2 (06:04→09:36)
[2021-07-08] MEDS ORDERED: LANOXIN INJ IVP ONE (06:09)
[2021-07-08] MEDS ORDERED: LANOXIN INJ ONE (06:10)
[2021-07-08] MEDS ORDERED: LOPRESSOR INJ 5 MG AMP ONE (06:33)
[2021-07-08] MEDS: NS 1/2 1000 ML IV 1,000 ML IV SCH ×2 (06:34→21:30)
[2021-07-08] MEDS: ACCUNEB 1.25 MG NEBULE NEB SCH ×4 (06:38→20:45)
[2021-07-08] MEDS ORDERED: LOPRESSOR INJ 5 MG AMP IVP PRN (06:41)
[2021-07-08] MEDS ORDERED: LOPRESSOR INJ 5 MG AMP IVP SCH (07:00)
[2021-07-08] MEDS: XYLOCAINE OINT 5% 1 APPLIC, ZOVIRAX 1 APPLIC TOP SCH ×6 (07:30→21:38)
--- NOTE | 2021-07-08 08:03 | RAD ---
HISTORYSOBSTUDYCHEST, 1 [id number] opacity in the lungs has a diffuse appearance today but has a patchy distribution on the CT 06/11/2021. The findings are compatible with pneumonia. Probably not changed significantly from yesterday.The lungs are better inflated than on the prior study.No pleura l effusion or pneumothorax.Heart size is normal.Bones are unremarkable.The endotracheal tube is anato rayna in position in the trachea. The enteric tube extends into the upper abdomen. EKG leads are noted. IMPRESSION1. Improved aeration2. Unchanged pneumoniaElectronically signed by: Andrew Ferreira (Jul 08, 2021 08:01:20)
[2021-07-08] MEDS: CARDIZEM INJ 125 MG VIAL 125 MG in NS 100 ML IV 100 ML IV PRN ×2 (08:13→16:05)
[2021-07-08] MEDS: ALBUMIN HUMAN 25%- 100 ML 100 ML IV SCH (08:41)
[2021-07-08] MEDS: CLINIMIX IV SCH ×10 (08:42→15:19)
[2021-07-08] MEDS: NORVASC TAB 5 MG GT SCH (08:42)
[2021-07-08] MEDS: [UNRECOGNIZED DRUG - OTHER] IV SCH ×10 (08:42→15:19)
[2021-07-08] MEDS: MVI IV SCH ×10 (08:42→15:19)
[2021-07-08] MEDS: COLACE SYRUP 100 MG UDC PO SCH ×2 (08:42→21:36)
[2021-07-08] MEDS: VORICONAZOLE 200 MG in NS 50 ML IV + SPIKE MINIBAG* 50 ML IV SCH ×2 (08:43→21:38)
[2021-07-08] MEDS: VANCOMYCIN IV *PREMIX 1 G/200 ML BAG 1 G/200 ML PIGGYBACK IV SCH ×2 (08:45→23:42)
[2021-07-08] MEDS: THIAMINE HCL INJ IVP SCH ×2 (08:45→21:38)
[2021-07-08] MEDS: LACRI-LUBE S.O.P. AFFEYE SCH ×2 (08:45→21:37)
[2021-07-08] MEDS: LASIX IVP SCH ×2 (08:46→21:37)
[2021-07-08] MEDS: PROTONIX INJ 40 MG VIAL IVP SCH ×2 (08:46→21:37)
[2021-07-08] MEDS: POTASSIUM CHLORIDE LIQ 20 MEQ UDC PO PRN (08:54)
[2021-07-08] MEDS: ELIQUIS NG SCH ×2 (09:14→21:37)
[2021-07-08] MEDS: VERSED IV PREMIX 100 MG/100 ML IV.SOLN IV PRN ×3 (09:35→23:44)
[2021-07-08] MEDS: PULMICORT NEB TX 0.5 MG NEB SCH ×2 (10:19→20:45)
[2021-07-08] MEDS: CATAPRES-TTS-2 TD SCH (15:17)
[2021-07-08] MEDS ORDERED: PHARMACY COMMENT IV ONE (20:30)
[2021-07-09] MEDS: CARDIZEM INJ 125 MG VIAL 125 MG in NS 100 ML IV 100 ML IV PRN ×2 (00:30→12:14)
[2021-07-09] MEDS: HumuLIN R SUBCUT PRN (00:34)
[2021-07-09] MEDS: SOLU-Medrol 125 MG VIAL IVP SCH ×2 (02:00→08:26)
[2021-07-09] MEDS: VANCOMYCIN IV *PREMIX 1 G/200 ML BAG 1 G/200 ML PIGGYBACK IV SCH ×2 (03:57→07:32)
[2021-07-09 04:49] LABS: BASOPHILS % (AUTO) 0.3 % (0.2-1.0); EOSINOPHILS % (AUTO) 1.4 % (0.9-2.9); HEMATOCRIT 26.4 % (36.0-47.0); HEMOGLOBIN 9.1 g/dL (12.0-16.0); LYMPHOCYTES # (AUTO) 0 X10^3/uL (1.3-2.9); LYMPHOCYTES % (AUTO) 2.9 % (21.0-51.0); MEAN CORPUSCULAR HGB CONC 34.5 g/dL (33.0-35.0); MEAN CORPUSCULAR VOLUME 86.8 fL (80.0-100.0); MEAN PLATELET VOLUME 10.2 fL (7.4-11.0); MONOCYTES # (AUTO) 0 x10^3/uL (0.3-0.8); MONOCYTES % (AUTO) 1.5 % (0.0-13.0); NEUTROPHILS # (AUTO) 1.4 x10^3/uL (2.2-4.8); NEUTROPHILS % (AUTO) 93.9 % (42.0-75.0); PLATELET COUNT 24 X10^3/uL (150.0-450.0); RED BLOOD COUNT 3.04 X10^6/uL (3.5-5.4); RED CELL DISTRIBUTION WIDTH 18.4 % (11.6-16.5)
[2021-07-09 04:56] LABS: ABG BASE EXCESS 17.7 mmol/L (-2.0-2.0)
[2021-07-09 04:59] LABS: ABG ALLEN TEST POS; ABG HCO3 44.4 mmol/L (22-26)
[2021-07-09] MEDS: ACCUNEB 1.25 MG NEBULE NEB SCH ×2 (05:15→16:19)
[2021-07-09 05:16] LABS: ALANINE AMINOTRANSFERASE 341 Units/L (12-78); ALBUMIN 2.9 g/dL (3.4-5.0); ALKALINE PHOSPHATASE 111 Units/L (46-116); ASPARTATE AMINO TRANSFERASE 59 Units/L (15-37); BLOOD UREA NITROGEN 26 mg/dL (7-18); CALCIUM 8.5 mg/dL (8.5-10.1); CARBON DIOXIDE 39.1 mmol/L (21-32); CHLORIDE 102 mmol/L (98-107); COR CA(FOR HYPOALB) 9.4 mg/dL (8.5-10.1); COR NA(FOR HYPERGLY) 144 mmol/L (136-145); CREATININE 0.38 mg/dL (0.55-1.02); SODIUM 142 mmol/L (136-145); TOTAL PROTEIN 5.3 g/dL (6.4-8.2); eGFR NON BLACK RACES > 60 (>60)
[2021-07-09 05:21] LABS: WHITE BLOOD COUNT 1.5 X10^3/uL (3.6-10.0)
[2021-07-09] MEDS: XYLOCAINE OINT 5% 1 APPLIC, ZOVIRAX 1 APPLIC TOP SCH ×2 (05:46)
[2021-07-09 05:51] LABS: BAND NEUTROPHILS % 24 % (0-10); METAMYELOCYTES % 4
[2021-07-09 05:52] LABS: PLATELET MORPHOLOGY COMMENT NORMAL (NORMAL)
[2021-07-09] MEDS: VERSED IV PREMIX 100 MG/100 ML IV.SOLN IV PRN ×2 (07:30→13:14)
--- NOTE | 2021-07-09 08:22 | RAD ---
HISTORYSOBSTUDYCHEST, 1 [id number] areas of opacity are present in the right upper lung in the left lower lung suggesting pneumonia. The findings have progressed since yesterday.No pleural effusion or pneumothorax.The heart size is magnified.Right old clavicle fracture.The endotracheal tube is anatomic in position in the trachea. The enteric tube extends into the upper abdomen. EKG leads are noted.IMPRESSION1. Progressed pneumoniaElectronically signed by: Andrew Ferreira (Jul 09, 2021 08:19:48)
[2021-07-09] MEDS: VORICONAZOLE 200 MG in NS 50 ML IV + SPIKE MINIBAG* 50 ML IV SCH (08:23)
[2021-07-09] MEDS: THIAMINE HCL INJ IVP SCH (08:24)
[2021-07-09] MEDS: LACRI-LUBE S.O.P. AFFEYE SCH (08:26)
[2021-07-09] MEDS: COLACE SYRUP 100 MG UDC PO SCH (08:26)
[2021-07-09] MEDS: ALBUMIN HUMAN 25%- 100 ML 100 ML IV SCH (08:26)
[2021-07-09] MEDS: PROTONIX INJ 40 MG VIAL IVP SCH (08:27)
[2021-07-09] MEDS: LASIX IVP SCH (08:27)
[2021-07-09] MEDS: NORVASC TAB 5 MG GT SCH (09:10)
[2021-07-09] MEDS: POTASSIUM CHLORIDE LIQ 20 MEQ UDC PO PRN (10:01)
[2021-07-09] MEDS: PULMICORT NEB TX 0.5 MG NEB SCH (10:04)
[2021-07-09] MEDS: [UNRECOGNIZED DRUG - OTHER] IV SCH ×5 (12:15)
[2021-07-09] MEDS: MVI IV SCH ×5 (12:15)
[2021-07-09] MEDS: CLINIMIX IV SCH ×5 (12:15)
--- NOTE | 2021-07-09 16:52 | PCM.PROG ---
Progress Note - Progress Note for Day of Date of Exam: 07/08/21 - Subjective Subjective: WAS ADMITTED ON 06/09 FOR TREATMENT OF PNEUMONIA DUE TO COVID-19, ACUTE RESPIRATORY FAILURE WITH HYPOXIA, AND A-FIB. SHE WAS PLACED ON THE MECHANICAL VENTILATOR ON 06/15/21 DUE TO INCREASED RESPIRATORY EFFORTS, DECREASED OXYGEN SATURATIONS, AND COMBATIVENESS. SHE HAS RECEIVED FOUR UNITS OF PRBC AND TWO PACKS OF PLATELETS SINCE ADMISSION. TODAY, HER VENT SETTINGS ARE: SIMV, RATE 14, TIDAL VOLUME 450, PEAK FLOW 55, PEEP 6, PRESSURE 12, FI02 50. SATURATIONS HAVE BEEN 88-91%. ON EXAMINATION TODAY, OROGASTRIC TUBE NOTED FOR FEEDINGS/MEDS. HR IS 90s ON THE MONITOR. BILATERAL LUNGS NOTED WITH DIMINISHED LUNG SOUNDS THROUGHOUT. ABDOMEN IS ROUND, SOFT, AND NON-TENDER WITH NORMAL BOWEL SOUNDS NOTED IN ALL QUADRANTS. HER VITALS THIS MORNING ARE: 98.6-94-33-91%-170/77. LABS WERE OBTAINED. ABNORMAL LAB VALUES INCLUDE THE FOLLOWING: HGB 11.4, HCT 32.6, PLT COUNT 37, CARBON DIOXIE 37.3, BUN 27, CREATININE 0.36, GLUCOSE 255, TOTAL BILI 1.20, AST 121, ALT 574, ALK PHOS 178, TOTAL PROTEIN 6.3. BLOOD CULTURES FROM 07/03 REPORTED GROWTH OF STAPHYLOCOCCUS EPIDERMIS AND YEAST. ABG REVEALED: PH 7.470, PC02 59, P02 62, HC03 42.9, 02 SAT 93, A-A GRADIENT 185, FI02 45. A CHEST XRAY WAS OBTAINED AND REVEALED: 1. Improved aeration 2. Unchanged pneumonia. SHE IS CURRENTLY RECEIVING TPN AT 40 ML/HR, ALBUMIN 25% IV DAILY, D5W AT 100 ML/HR, VORICONAZOLE, VERSED IV, DAILY, MORPHINE SULFATE 2MG IV Q4H PRN, SOLU-MEDROL 80MG IV Q8H, VALIUM 5MG IV Q6H PRN, PROTONIX 40MG IV BID, THIAMINE 200MG IV BID, OTBS ACHS, HUMULIN R SLIDING SCALE, ELIQUIS 5MG PO BID, LASIX 40MG IV Q12H, CATAPRES 0.2MG TD PATCH, NORVASC 5MG GT DAILY, PULMICORT NEBS BID, ALBUTEROL NEBS QID, ASCORBIC ACID 1500MG IV Q6H, ZOFRAN 4MG IV Q4H PRN NAUSEA, AND THE POTASSIUM AND MAGNESIUM PROTOCOLS. TODAY, WE WILL ADD VANCOMYCIN 1G IV Q12H. SHE IS RECEIVING ENSURE 1 CAN TID AND 200ML FREE WATER QID THROUGH THE OG TUBE. WE WILL CONTINUE TO WEAN OXYGEN DOWN TODAY PATIENT TOLERATES. WE DISCUSSED THE POSSIBLITY OF A TRACHEOSTOMY, HOWEVER, PATIENTS FAMILY REFUSED AT THIS TIME. OTHERWISE, WE PLAN TO FOLLOW UP WITH AM LABS AND CHEST XRAY AND CONTINUE TO MONITOR. TIME SPENT ON CLINICAL ASSESSMENT, REVIEWING LABS AND IMAGING, DECISION MAKING, AND DOCUMENTATION GREATER THAN 75 MINUTES. - Past Medical Family Social History Past Med/Fam/Surg Hx: No changes since H&P Allergies: Allergies nalbuphine [From Nubain] Allergy (Verified 05/15/18 14:34) Penicillins Allergy (Verified 05/15/18 14:34) - Review of Systems ROS: No change since H&P - Vital Signs and I&O's Vital Signs: Temperature 99.4 F Pulse Rate [Apical] 81 Pulse Rate 79 Respiratory Rate 23 Blood Pressure [Left Arm] 129/61 Blood Pressure [Right Arm] 176/96 Blood Pressure 157/72 O2 Sat by Pulse Oximetry 93 Intake and Output: Intake & Output 07/07/21 07/08/21 07/09/21 07/10/21 11:59 11:59 11:59 11:59 Intake Total 4677 / 4677 3484 / 3484 3576 / 3576 110 / 110 Output Total 4400 / 6050 5325 / 5325 3800 / 3800 1700 / 1700 Balance 277 / -1373 -1841 / -1841 -224 / -224 -1590 / -1590 - Physical Exam Oriented: Unable to test Eyes: Normal Ear: Normal Nose: Normal Throat: Normal Respiratory: Generalized, Diminished Cardiovascular: Irregular, Normal : Normal Auscultation: Bowel Sounds: Normal Tenderness: Normal Skin: Normal Musculoskeletal: Normal Psychiatric: Other (SEDATED) Mood Description: Calm Affect: Normal (SEDATED) Speech Pattern: Artificially Ventilated - Laboratory and Diagnostics Result Diagrams: 07/09/21 04:05 07/09/21 04:05 Labs: 07/07/21 04:50 Blood Blood Culture - Preliminary 06/28/21 11:30 Blood Blood Culture - Final 06/28/21 11:20 Blood Blood Culture - Final 07/07/21 04:40 Blood Blood Culture - Preliminary 07/03/21 19:46 Blood Blood Culture - Final 07/03/21 19:54 Blood Blood Culture - Final Staphylococcus Epidermidis 06/28/21 11:30 Sputum - Endotracheal Wash Sputum Culture - Final 06/28/21 11:30 Sputum - Endotracheal Wash - Final 06/28/21 11:20 Urine,Clean Catch Urine Culture - Final 06/08/21 20:42 Blood Blood Culture - Final 06/08/21 20:50 Blood Blood Culture - Final Laboratory WBC 1.5 X10^3/uL (3.6-10.0) L* D 07/09/21 04:05 RBC 3.04 X10^6/uL (3.5-5.4) L 07/09/21 04:05 Hgb 9.1 g/dL (12.0-16.0) L D 07/09/21 04:05 Hct 26.4 % (36.0-47.0) L 07/09/21 04:05 MCV 86.8 fL (80.0-100.0) 07/09/21 04:05 MCH 30.0 pg (27.0-34.0) 07/09/21 04:05 MCHC 34.5 g/dL (33.0-35.0) 07/09/21 04:05 RDW 18.4 % (11.6-16.5) H 07/09/21 04:05 Plt Count 24 X10^3/uL (150.0-450.0) L 07/09/21 04:05 Plt Count Comment Decreased (ADEQUATE) A 07/09/21 04:05 MPV 10.2 fL (7.4-11.0) 07/09/21 04:05 Neut % (Auto) 93.9 % (42.0-75.0) H 07/09/21 04:05 Lymph % (Auto) 2.9 % (21.0-51.0) L 07/09/21 04:05 [place] % (Auto) 1.5 % (0.0-13.0) 07/09/21 04:05 Eos % (Auto) 1.4 % (0.9-2.9) 07/09/21 04:05 Baso % (Auto) 0.3 % (0.2-1.0) 07/09/21 04:05 Neut # (Auto) 1.4 x10^3/uL (2.2-4.8) L 07/09/21 04:05 Lymph # (Auto) 0 X10^3/uL (1.3-2.9) L 07/09/21 04:05 [place] # (Auto) 0 x10^3/uL (0.3-0.8) L 07/09/21 04:05 Eos # (Auto) 0.0 x10^3/uL (0.0-0.2) 07/09/21 04:05 Baso # (Auto) 0.0 X10^3/uL (0.0-0.1) 07/09/21 04:05 Absolute Nucleated RBC 0.5 /100WBC 07/09/21 04:05 Total Counted 100 07/09/21 04:05 Neutrophils % (Manual) 68 % (39-76) 07/09/21 04:05 Band Neutrophils % 24 % (0-10) H 07/09/21 04:05 Lymphocytes % (Manual) 0 % (13-43) L 07/09/21 04:05 Monocytes % (Manual) 4 % (4-9) 07/09/21 04:05 Metamyelocytes % 4 07/09/21 04:05 Myelocytes % 2 06/30/21 05:22 Plt Morphology Comment Normal (NORMAL) 07/09/21 04:05 RBC Morphology Normal (NORMAL) 07/09/21 04:05 Dimorphic RBCs 2+ 07/07/21 04:40 Hypochromasia Slight A 06/29/21 05:22 Anisocytosis Slight A 06/30/21 05:22 Microcytosis Slight A 06/19/21 04:46 Ovalocytes Slight A 06/13/21 06:15 Phyllis Cells Slight A 06/19/21 04:46 PT 15.4 SECONDS (11.8-14.3) 06/08/21 20:42 INR Target Range - 06/08/21 20:42 INR 1.28 (0.8-1.3) 06/08/21 20:42 D-Dimer 0.90 ug/ml (0.0-0.57) H* 07/03/21 05:33 Sample Site Rrad 07/09/21 04:51 ABG pH 7.470 (7.35-7.45) H 07/09/21 04:51 ABG pCO2 61.0 mmHg (35.0-45.0) H* 07/09/21 04:51 ABG pO2 76.0 mmHg (80.0-100.0) L 07/09/21 04:51 ABG HCO3 44.4 mmol/L (22-26) H* 07/09/21 04:51 ABG O2 Saturation 96.0 % (90-100) 07/09/21 04:51 ABG Base Excess 17.7 mmol/L (-2.0-2.0) H 07/09/21 04:51 Herminio Test Pos 07/09/21 04:51 A-a Gradient 347.0 mmHg 07/09/21 04:51 FiO2 70.0 07/09/21 04:51 Blood Gas Comments Shyam well-mtf 07/09/21 04:51 Sodium 142 mmol/L (136-145) 07/09/21 04:05 Corrected Sodium 144 mmol/L (136-145) 07/09/21 04:05 Potassium 3.3 mmol/L (3.5-5.1) L 07/09/21 04:05 Chloride 102 mmol/L (98-107) 07/09/21 04:05 Carbon Dioxide 39.1 mmol/L (21-32) H 07/09/21 04:05 BUN 26 mg/dL (7-18) H 07/09/21 04:05 Creatinine 0.38 mg/dL (0.55-1.02) L 07/09/21 04:05 Est GFR (MDRD) Af Amer > 60 (>60) 07/09/21 04:05 Est GFR (MDRD) Non-Af > 60 (>60) 07/09/21 04:05 Glucose 179 mg/dL (65-99) H 07/09/21 04:05 POC Glucose (mg/dL) 177 mg/dL (65-99) H 07/09/21 08:10 Calcium 8.5 mg/dL (8.5-10.1) 07/09/21 04:05 Corrected Calcium 9.4 mg/dL (8.5-10.1) 07/09/21 04:05 Phosphorus 3.2 mg/dL (2.6-4.7) 06/29/21 16:51 Magnesium 1.9 mg/dL (1.7-2.9) 07/06/21 04:48 Ferritin 163 ng/mL (8-252) 06/14/21 05:26 Total Bilirubin 1.30 mg/dL (0.2-1.0) H 07/09/21 04:05 AST 59 Units/L (15-37) H 07/09/21 04:05 ALT 341 Units/L (12-78) H 07/09/21 04:05 Alkaline Phosphatase 111 Units/L (46-116) 07/09/21 04:05 Troponin I < 0.02 ng/mL (0-1.5) 06/08/21 20:42 C-Reactive Protein 91.60 mg/L (0-3.0) H 07/09/21 04:05 B-Natriuretic Peptide 50.6 pg/mL (0-79) 07/03/21 05:33 Total Protein 5.3 g/dL (6.4-8.2) L 07/09/21 04:05 Albumin 2.9 g/dL (3.4-5.0) L 07/09/21 04:05 Globulin 2.4 g/dL (2.5-4.5) L 07/09/21 04:05 Albumin/Globulin Ratio 1.2 Ratio (1.1-2.1) 07/09/21 04:05 Prealbumin 39.7 mg/dL (18-35.7) H 07/06/21 04:48 Triglycerides 163 mg/dL (0-150) H 06/29/21 16:51 Specimen Type Catherized urine 06/09/21 03:30 Urine Color Yellow (YELLOW) 06/09/21 03:30 Urine Appearance Clear (CLEAR) 06/09/21 03:30 Urine pH 6.0 (5.0 - 8.0) 06/09/21 03:30 Ur Specific [place] 1.010 (1.000-1.030) 06/09/21 03:30 Urine Protein 2+ (NEGATIVE) 06/09/21 03:30 Urine Glucose (UA) Negative (NEGATIVE) 06/09/21 03:30 Urine Ketones Negative (NEGATIVE) 06/09/21 03:30 Urine Occult Blood 1+ (NEGATIVE) 06/09/21 03:30 Urine Nitrite Negative (NEGATIVE) 06/09/21 03:30 Urine Bilirubin Negative (NEGATIVE) 06/09/21 03:30 Urine Urobilinogen Normal (NORMAL) 06/09/21 03:30 Ur Leukocyte Esterase Negative (NEGATIVE) 06/09/21 03:30 Urine RBC 0-2 /HPF (0-3) 06/09/21 03:30 Urine WBC None seen /HPF (0-5) 06/09/21 03:30 Ur Squamous Epith Cells Negative /HPF (NEGATIVE) 06/09/21 03:30 Urine Bacteria Negative /HPF (NEGATIVE) 06/09/21 03:30 Ur Culture Indicated? No/not indicated 06/09/21 03:30 Vancomycin Trough Cancelled 07/08/21 21:45 Random Vancomycin 5.0 ug/mL 07/08/21 21:45 Resp Viral Panel (PCR) See scanned report 06/28/21 12:05 Blood Type O POSITIVE 07/05/21 15:02 Antibody Screen Negative 07/05/21 15:02 Crossmatch See Detail 07/05/21 15:02 - Plan (1) Pneumonia due to 2019-nCoV Status: Acute Plan: TPN AT 40 ML/HR, ALBUMIN 25% IV DAILY, D5W AT 100 ML/HR, VORICONAZOLE, VERSED IV, DAILY, MORPHINE SULFATE 2MG IV Q4H PRN, SOLU-MEDROL 80MG IV Q8H, VALIUM 5MG IV Q6H PRN, PROTONIX 40MG IV BID, THIAMINE 200MG IV BID, OTBS ACHS, HUMULIN R SLIDING SCALE, ELIQUIS 5MG PO BID, LASIX 40MG IV Q12H, CATAPRES 0.2MG TD PATCH, NORVASC 5MG GT DAILY, PULMICORT NEBS BID, ALBUTEROL NEBS QID, ASCORBIC ACID 1500MG IV Q6H, ZOFRAN 4MG IV Q4H PRN NAUSEA, AND THE POTASSIUM AND MAGNES IUM PROTOCOLS, VANCOMYCIN 1G IV Q12H (2) Acute respiratory insufficiency Status: Acute (3) Hypoxia Status: Acute (4) Anemia Status: Acute Qualifiers: Anemia type: iron deficiency Iron deficiency anemia type: unspecified iron deficiency Qualified Code(s): D50.9 - Iron deficiency anemia, unspecified (5) Acute dyspnea Status: Acute
[2021-07-09] MEDS ORDERED: MORPHINE SULFATE PCA 30 MG IV PRN (17:05)
--- NOTE | 2021-07-09 17:09 | PCM.PROG ---
Progress Note - Progress Note for Day of Date of Exam: 07/09/21 - Subjective Subjective: WAS ADMITTED ON 06/09 FOR TREATMENT OF PNEUMONIA DUE TO COVID-19, ACUTE RESPIRATORY FAILURE WITH HYPOXIA, AND A-FIB. SHE WAS PLACED ON THE MECHANICAL VENTILATOR ON 06/15/21 DUE TO INCREASED RESPIRATORY EFFORTS, DECREASED OXYGEN SATURATIONS, AND COMBATIVENESS. SHE HAS RECEIVED FOUR UNITS OF PRBC AND TWO PACKS OF PLATELETS SINCE ADMISSION. TODAY, HER VENT SETTINGS ARE: SIMV, RATE 14, TIDAL VOLUME 450, PEEP 7, PRESSURE 12, FI02 60. SATURATIONS HAVE BEEN 91-94%. ON EXAMINATION TODAY, OROGASTRIC TUBE NOTED FOR FEEDINGS/MEDS. HR IS 60s ON THE MONITOR. BILATERAL LUNGS NOTED WITH DIMINISHED LUNG SOUNDS THROUGHOUT. ABDOMEN IS ROUND, SOFT, AND NON-TENDER WITH NORMAL BOWEL SOUNDS NOTED IN ALL QUADRANTS. HER VITALS THIS MORNING ARE: 97.7-64-32-98%-129/67. LABS WERE OBTAINED. ABNORMAL LAB VALUES INCLUDE THE FOLLOWING: WBC 1.5, RBC 3.04, HGB 9.1, HCT 26.4, PLT COUNT 24, POTASSIUM 3.3, CARBON DIOXIDE 39.1, BUN 26, CREATININE 0.38, GLUCOSE 179, TOTAL BILI 1.30, AST 59, ALT 341, CRP 91.60, TOTAL PROTEIN 5.3, ALBUMIN 2.9, GLOBULIN 2.4. BLOOD CULTURES FROM 07/03 REPORTED GROWTH OF STAPHYLOCOCCUS EPIDERMIS AND YEAST. ABG REVEALED: PH 7.470, PC02 61, P02 76, HC03 44.4, 02 SAT 96, BASE EXCESS 17.7, A-A GRADIENT 347, FI02 70. A CHEST XRAY WAS OBTAINED AND REVEALED: 1. Progressed pneumonia. SHE IS CURRENTLY RECEIVING TPN AT 40 ML/HR, VANCOMYCIN, ALBUMIN 25% IV DAILY, D5W AT 100 ML/HR, VORI CONAZOLE, VERSED IV, DAILY, MORPHINE SULFATE 2MG IV Q4H PRN, SOLU-MEDROL 80MG IV Q8H, VALIUM 5MG IV Q6H PRN, PROTONIX 40MG IV BID, THIAMINE 200MG IV BID, OTBS ACHS, HUMULIN R SLIDING SCALE, ELIQUIS 5MG PO BID, LASIX 40MG IV Q12H, CATAPRES 0.2MG TD PATCH, NORVASC 5MG GT DAILY, PULMICORT NEBS BID, ALBUTEROL NEBS QID, ASCORBIC ACID 1500MG IV Q6H, ZOFRAN 4MG IV Q4H PRN NAUSEA, AND THE POTASSIUM AND MAGNESIUM PROTOCOLS. SHE IS RECEIVING ENSURE 1 CAN TID AND 200ML FREE WATER QID THROUGH THE OG TUBE. FAMILY REFUSED TRACHEOSTOMY YESTERDAY. WE DISCUSSED THE PATIENTS DECLINING CONDITION WITH HER CHILDREN. DECISION WAS MADE TO STOP ALL CURRENT TREATMENTS AND TO CHANGE PATIENT TO PALLIATIVE CARE STATUS. WE ARE IN AGREEMENT WITH PLANS. WE WILL START A MORPHINE DRIP IN ADDITION TO THE VERSED THAT SHE IS ALREADY RECEIVING. OTHERWISE, WE WILL CONTINUE TO MONITOR AND MAKE CHANGES APPROPRIATE. TIME SPENT ON CLINICAL ASSESSMENT, REVIEWING LABS AND IMAGING, DECISION MAKING, AND DOCUMENTATION GREATER THAN 75 MINUTES. - Past Medical Family Social History Past Med/Fam/Surg Hx: No changes since H&P Allergies: Allergies nalbuphine [From Nubain] Allergy (Verified 05/15/18 14:34) Penicillins Allergy (Verified 05/15/18 14:34) - Review of Systems ROS: No change since H&P - Vital Signs and I&O's Vital Signs: Temperature 99.4 F Pulse Rate [Apical] 81 Pulse Rate 79 Respiratory Rate 23 Blood Pressure [Left Arm] 129/61 Blood Pressure [Right Arm] 176/96 Blood Pressure 157/72 O2 Sat by Pulse Oximetry 93 Intake and Output: Intake & Output 07/07/21 07/08/21 07/09/21 07/10/21 11:59 11:59 11:59 11:59 Intake Total 4677 / 4677 3484 / 3484 3576 / 3576 110 / 110 Output Total 4400 / 6050 5325 / 5325 3800 / 3800 1700 / 1700 Balance 277 / -1373 -1841 / -1841 -224 / -224 -1590 / -1590 - Physical Exam Oriented: Unable to test Eyes: Normal Ear: Normal Nose: Normal Throat: Normal Respiratory: Generalized, Diminished Cardiovascular: Irregular, Normal : Normal Auscultation: Bowel Sounds: Normal Palpation: Normal Tenderness: Normal Skin: Normal Musculoskeletal: Normal Psychiatric: Other (SEDATED) Mood Description: Calm Affect: Normal (SEDATED) Speech Pattern: Artificially Ventilated - Laboratory and Diagnostics Result Diagrams: 07/09/21 04:05 07/09/21 04:05 Labs: 07/07/21 04:50 Blood Blood Culture - Preliminary 06/28/21 11:30 Blood Blood Culture - Final 06/28/21 11:20 Blood Blood Culture - Final 07/07/21 04:40 Blood Blood Culture - Preliminary 07/03/21 19:46 Blood Blood Culture - Final 07/03/21 19:54 Blood Blood Culture - Final Staphylococcus Epidermidis 06/28/21 11:30 Sputum - Endotracheal Wash Sputum Culture - Final 06/28/21 11:30 Sputum - Endotracheal Wash - Final 06/28/21 11:20 Urine,Clean Catch Urine Culture - Final 06/08/21 20:42 Blood Blood Culture - Final 06/08/21 20:50 Blood Blood Culture - Final Laboratory WBC 1.5 X10^3/uL (3.6-10.0) L* D 07/09/21 04:05 RBC 3.04 X10^6/uL (3.5-5.4) L 07/09/21 04:05 Hgb 9.1 g/dL (12.0-16.0) L D 07/09/21 04:05 Hct 26.4 % (36.0-47.0) L 07/09/21 04:05 MCV 86.8 fL (80.0-100.0) 07/09/21 04:05 MCH 30.0 pg (27.0-34.0) 07/09/21 04:05 MCHC 34.5 g/dL (33.0-35.0) 07/09/21 04:05 RDW 18.4 % (11.6-16.5) H 07/09/21 04:05 Plt Count 24 X10^3/uL (150.0-450.0) L 07/09/21 04:05 Plt Count Comment Decreased (ADEQUATE) A 07/09/21 04:05 MPV 10.2 fL (7.4-11.0) 07/09/21 04:05 Neut % (Auto) 93.9 % (42.0-75.0) H 07/09/21 04:05 Lymph % (Auto) 2.9 % (21.0-51.0) L 07/09/21 04:05 Elliott % (Auto) 1.5 % (0.0-13.0) 07/09/21 04:05 Eos % (Auto) 1.4 % (0.9-2.9) 07/09/21 04:05 Baso % (Auto) 0.3 % (0.2-1.0) 07/09/21 04:05 Neut # (Auto) 1.4 x10^3/uL (2.2-4.8) L 07/09/21 04:05 Lymph # (Auto) 0 X10^3/uL (1.3-2.9) L 07/09/21 04:05 Elliott # (Auto) 0 x10^3/uL (0.3-0.8) L 07/09/21 04:05 Eos # (Auto) 0.0 x10^3/uL (0.0-0.2) 07/09/21 04:05 Baso # (Auto) 0.0 X10^3/uL (0.0-0.1) 07/09/21 04:05 Absolute Nucleated RBC 0.5 /100WBC 07/09/21 04:05 Total Counted 100 07/09/21 04:05 Neutrophils % (Manual) 68 % (39-76) 07/09/21 04:05 Band Neutrophils % 24 % (0-10) H 07/09/21 04:05 Lymphocytes % (Manual) 0 % (13-43) L 07/09/21 04:05 Monocytes % (Manual) 4 % (4-9) 07/09/21 04:05 Metamyelocytes % 4 07/09/21 04:05 Myelocytes % 2 06/30/21 05:22 Plt Morphology Comment Normal (NORMAL) 07/09/21 04:05 RBC Morphology Normal (NORMAL) 07/09/21 04:05 Dimorphic RBCs 2+ 07/07/21 04:40 Hypochromasia Slight A 06/29/21 05:22 Anisocytosis Slight A 06/30/21 05:22 Microcytosis Slight A 06/19/21 04:46 Ovalocytes Slight A 06/13/21 06:15 Phyllis Cells Slight A 06/19/21 04:46 PT 15.4 SECONDS (11.8-14.3) 06/08/21 20:42 INR Target Range - 06/08/21 20:42 INR 1.28 (0.8-1.3) 06/08/21 20:42 D-Dimer 0.90 ug/ml (0.0-0.57) H* 07/03/21 05:33 Sample Site Rrad 07/09/21 04:51 ABG pH 7.470 (7.35-7.45) H 07/09/21 04:51 ABG pCO2 61.0 mmHg (35.0-45.0) H* 07/09/21 04:51 ABG pO2 76.0 mmHg (80.0-100.0) L 07/09/21 04:51 ABG HCO3 44.4 mmol/L (22-26) H* 07/09/21 04:51 ABG O2 Saturation 96.0 % (90-100) 07/09/21 04:51 ABG Base Excess 17.7 mmol/L (-2.0-2.0) H 07/09/21 04:51 Herminio Test Pos 07/09/21 04:51 A-a Gradient 347.0 mmHg 07/09/21 04:51 FiO2 70.0 07/09/21 04:51 Blood Gas Comments Shyam well-mtf 07/09/21 04:51 Sodium 142 mmol/L (136-145) 07/09/21 04:05 Corrected Sodium 144 mmol/L (136-145) 07/09/21 04:05 Potassium 3.3 mmol/L (3.5-5.1) L 07/09/21 04:05 Chloride 102 mmol/L (98-107) 07/09/21 04:05 Carbon Dioxide 39.1 mmol/L (21-32) H 07/09/21 04:05 BUN 26 mg/dL (7-18) H 07/09/21 04:05 Creatinine 0.38 mg/dL (0.55-1.02) L 07/09/21 04:05 Est GFR (MDRD) Af Amer > 60 (>60) 07/09/21 04:05 Est GFR (MDRD) Non-Af > 60 (>60) 07/09/21 04:05 Glucose 179 mg/dL (65-99) H 07/09/21 04:05 POC Glucose (mg/dL) 177 mg/dL (65-99) H 07/09/21 08:10 Calcium 8.5 mg/dL (8.5-10.1) 07/09/21 04:05 Corrected Calcium 9.4 mg/dL (8.5-10.1) 07/09/21 04:05 Phosphorus 3.2 mg/dL (2.6-4.7) 06/29/21 16:51 Magnesium 1.9 mg/dL (1.7-2.9) 07/06/21 04:48 Ferritin 163 ng/mL (8-252) 06/14/21 05:26 Total Bilirubin 1.30 mg/dL (0.2-1.0) H 07/09/21 04:05 AST 59 Units/L (15-37) H 07/09/21 04:05 ALT 341 Units/L (12-78) H 07/09/21 04:05 Alkaline Phosphatase 111 Units/L (46-116) 07/09/21 04:05 Troponin I < 0.02 ng/mL (0-1.5) 06/08/21 20:42 C-Reactive Protein 91.60 mg/L (0-3.0) H 07/09/21 04:05 B-Natriuretic Peptide 50.6 pg/mL (0-79) 07/03/21 05:33 Total Protein 5.3 g/dL (6.4-8.2) L 07/09/21 04:05 Albumin 2.9 g/dL (3.4-5.0) L 07/09/21 04:05 Globulin 2.4 g/dL (2.5-4.5) L 07/09/21 04:05 Albumin/Globulin Ratio 1.2 Ratio (1.1-2.1) 07/09/21 04:05 Prealbumin 39.7 mg/dL (18-35.7) H 07/06/21 04:48 Triglycerides 163 mg/dL (0-150) H 06/29/21 16:51 Specimen Type Catherized urine 06/09/21 03:30 Urine Color Yellow (YELLOW) 06/09/21 03:30 Urine Appearance Clear (CLEAR) 06/09/21 03:30 Urine pH 6.0 (5.0 - 8.0) 06/09/21 03:30 Ur Specific [place] 1.010 (1.000-1.030) 06/09/21 03:30 Urine Protein 2+ (NEGATIVE) 06/09/21 03:30 Urine Glucose (UA) Negative (NEGATIVE) 06/09/21 03:30 Urine Ketones Negative (NEGATIVE) 06/09/21 03:30 Urine Occult Blood 1+ (NEGATIVE) 06/09/21 03:30 Urine Nitrite Negative (NEGATIVE) 06/09/21 03:30 Urine Bilirubin Negative (NEGATIVE) 06/09/21 03:30 Urine Urobilinogen Normal (NORMAL) 06/09/21 03:30 Ur Leukocyte Esterase Negative (NEGATIVE) 06/09/21 03:30 Urine RBC 0-2 /HPF (0-3) 06/09/21 03:30 Urine WBC None seen /HPF (0-5) 06/09/21 03:30 Ur Squamous Epith Cells Negative /HPF (NEGATIVE) 06/09/21 03:30 Urine Bacteria Negative /HPF (NEGATIVE) 06/09/21 03:30 Ur Culture Indicated? No/not indicated 06/09/21 03:30 Vancomycin Trough Cancelled 07/08/21 21:45 Random Vancomycin 5.0 ug/mL 07/08/21 21:45 Resp Viral Panel (PCR) See scanned report 06/28/21 12:05 Blood Type O POSITIVE 07/05/21 15:02 Antibody Screen Negative 07/05/21 15:02 Crossmatch See Detail 07/05/21 15:02 - Plan (1) Palliative care status Status: Acute Plan: MORPHINE DRIP, VERSED DRIP (2) Pneumonia due to 2019-nCoV Status: Acute (3) Acute respiratory insufficiency Status: Acute (4) Hypoxia Status: Acute (5) Anemia Status: Acute Qualifiers: Anemia type: iron deficiency Iron deficiency anemia type: unspecified iron deficiency Qualified Code(s): D50.9 - Iron deficiency anemia, unspecified (6) Acute dyspnea Status: Acute
[2021-07-09] MEDS ORDERED: NS 1/2 1000 ML IV 1,000 ML IV ONE (18:08)
[2021-07-09] MEDS ORDERED: PHARMACY COMMENT IV ONE (20:30)
[2021-07-09 23:33] VITALS: BP 79/41
== END 2021-07-09 20:15 | disposition expired | DRG 207 ==
LOC: ER 19:16 → OBS 06-09 06:43 → ER 06-09 06:44 → MED/SURG 06-09 18:07 → ICU 06-10 11:30
PROVIDERS: ADMIT Internal Medicine; ATTEND Internal Medicine
DX: I10 Essential (primary) hypertension; I46.8 Cardiac arrest due to other underlying condition; R26.89 Other abnormalities of gait and mobility; B49 Unspecified mycosis; U07.1 COVID-19; R79.89 Other specified abnormal findings of blood chemistry; R94.31 Abnormal electrocardiogram [ECG] [EKG]; J12.82 Pneumonia due to coronavirus disease 2019; R06.02 Shortness of breath; K21.9 Gastro-esophageal reflux disease without esophagitis; R79.82 Elevated C-reactive protein (CRP); I48.91 Unspecified atrial fibrillation; Z51.5 Encounter for palliative care; E87.0 Hyperosmolality and hypernatremia; E87.6 Hypokalemia; Z66 Do not resuscitate; Z78.1 Physical restraint status; B37.89 Other sites of candidiasis; D50.8 Other iron deficiency anemias; B95.7 Other staphylococcus as the cause of diseases classified elsewhere; J96.01 Acute respiratory failure with hypoxia